=== PATIENT | female | born 1940 | race Caucasian/White ===

== ENCOUNTER → 2016-12-13 | Outpatient (CLI) | payer MEDICARE ==
[~2016-12-13] MED LIST: AC325T PO; ALB0.5V IH; ALEN70TA47 PO; ALN10T PO; ASPI-983 PO; ATEN25TA PO; BETA1TAB15 PO; CALC-694 PO; CALC1TAB38 PO; CALCIUM; CATHETER FLUSH 10 ML SYR IV PRN; CEFP500T4 PO; CHOL10003 PO; CLIN-62 PO; CPR500T PO; CYAN250010 PO; EZET1TAB21; FEXO180T PO; FISH1CAP15 PO; GLPZ10TCR; GLYB5TAB3 PO; HYDR-3456 PO; HYDR-3812 PO; HYDR1TAB PO; IOHEXOL 350 MG/ML 100 ML (OMNIPAQUE 350) VIAL IV ONE; IPRA3AMP INH; IRON150C3 PO; LINA5TAB PO; LOSA50TA36 PO; LOVA20TA2 PO; MAGN400T39 PO; METF-380 PO; MTF500T; MTF500T PO; MULT-608 PO; NS 100 ML (IVPB) BAG IV ONE; OMEG-9 PO; OXYC-272 PO; PANT40TA PO; PGLT30T; POLY17PO23 PO; ROSU10TA12 PO; SAXA2.5T PO; SNN187T PO; SUCR1TAB PO; TRAM50TA2 PO; TRIA16.5 NS; TRM50T PO; ULTRAM; WARF1TAB PO
--- OUTSIDE RECORDS SUMMARY | 2016-12-13 10:44 | XMS REPORT | Continuity of Care Document ---
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 [employer] CONSENSUS CONFERENCE ON [...] collected/obtained? YSpecimen Description CLEAN CATCH Urine Specific [place] April 07, 2014 9:24pm 1.020 - Has [...] Pathology Consult Specimen April 24, 2010 1:10pm [id number] - Glucometer January 18, 2012 11:21am 111 MG/DL H 70-110 Lab Scanned Report March 22, 2010 2:14pm Transfusion Reaction Form [id number] - Estimat Glomerular Filtration Rate January 25, [...] SEEN ON SCAN. CBC ALSO PERFORMED AT [facility]. THE PATHOLOGY REPORT INCLUDES THE CBC RESULT FROM [facility]. - Urine RBC (Auto) April [...] Encounters Encounter Location Date/Time Registered Clinic Via [facility] 06/09/14 7:34am Discharged Recurring Via [facility] 05/26/14 9:49am
--- NOTE | 2016-12-13 12:30 | Diagnostic Imaging Report ---
PROCEDURE: CT chest, abdomen, and pelvis with contrast. TECHNIQUE: Multiple contiguous axial images were obtained through the chest, abdomen, and pelvis after the administration of intravenous contrast. INDICATION: Colon cancer. TECHNIQUE: 15 ml of Omnipaque 350 is administered intravenously. Dose of contrast is reduced due to renal dysfunction. COMPARISON: 05/27/2016 exam is reviewed. FINDINGS: CT chest: There is prominent interstitial scarring seen in the lungs with no significant consolidation or mass. Calcified granuloma in the right lung base is seen. 1 cm lymph node in the aortopulmonary window is again seen minimally more prominent compared to the prior exam. No significant change. There is no significant lymphadenopathy in the mediastinum, mariah or axilla other than old calcified granulomas most prominent in the right hilum and infracarinal region. Heart size is at the upper limits of normal. There is no pericardial or pleural effusion. The osseous structures appear grossly unremarkable. CT abdomen and pelvis: There are scattered calcified granulomas in the liver and numerous calcified granulomas in the spleen. Nonspecific foci of hypervascularity in the liver near the gallbladder bed and right hepatic lobe are noted probably perfusional variation with no definite mass. Cholecystectomy clips are seen. Multiple cystic lesions in the pancreas are again noted up to 1.1 cm in size without significant change. The adrenal glands appear unremarkable. The kidneys have symmetric enhancement and contrast excretion. There is no hydronephrosis. Portions of the lower aspect of the pelvis are obscured by beam hardening artifacts from prosthesis of left hip replacement. The abdominal aorta is normal in caliber. No para-aortic significantly enlarged lymph nodes are seen. No pelvic lymphadenopathy is noted. There is no bowel obstruction. Surgical sutures are noted at the base of the cecum. Moderate amount of fecal material is seen in the colon and rectum. The osseous structures demonstrate degenerative changes of the lower lumbar spine. IMPRESSION: CT chest: Prominent interstitial scarring in the lungs. Borderline stable mediastinal lymph nodes are seen. No adverse development. CT abdomen and pelvis: Stable cystic lesions in the pancreas could relate to a pseudocyst or low-grade cystic neoplasm. No evidence of tumor recurrence or metastasis. Dictated by: Dictated on workstation # [id number]
== END ==
LOC: RAD 10:40
PROVIDERS: ATTEND Internal Medicine Hematology & Oncology
DX: C18.2 Malignant neoplasm of ascending colon (principal)
CPT/HCPCS: 71260; 74177

== ENCOUNTER → 2017-01-07 | Outpatient (CLI) | payer MEDICARE ==
[~2017-01-07] MED LIST changes: -CATHETER FLUSH 10 ML SYR IV PRN; -IOHEXOL 350 MG/ML 100 ML (OMNIPAQUE 350) VIAL IV ONE; -NS 100 ML (IVPB) BAG IV ONE
--- OUTSIDE RECORDS SUMMARY | 2017-01-07 09:57 | XMS REPORT | Continuity of Care Document ---
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 [employer] CONSENSUS CONFERENCE ON [...] collected/obtained? YSpecimen Description CLEAN CATCH Urine Specific [place] April 07, 2014 9:24pm 1.020 - Has [...] Pathology Consult Specimen April 24, 2010 1:10pm [id number] - Glucometer January 18, 2012 11:21am 111 MG/DL H 70-110 Lab Scanned Report March 22, 2010 2:14pm Transfusion Reaction Form [id number] - Estimat Glomerular Filtration Rate January 25, [...] SEEN ON SCAN. CBC ALSO PERFORMED AT [facility]. THE PATHOLOGY REPORT INCLUDES THE CBC RESULT FROM [facility]. - Urine RBC (Auto) April [...] Encounters Encounter Location Date/Time Registered Clinic Via [facility] 06/09/14 7:34am Discharged Recurring Via [facility] 05/26/14 9:49am
--- NOTE | 2017-01-08 15:31 | Diagnostic Imaging Report ---
INDICATION: Colon carcinoma. EXAMINATION: PET/CT colorectal subsequent. TECHNIQUE: PET/CT imaging was obtained from the base of the skull through the pelvis after the administration of 16.1 mCi of F-[address] imaging was utilized for localization and attenuation correction purposes. The low energy CT utilized for attenuation correction is not considered to be of high enough spatial resolution to allow in and of itself a separate anatomical analysis. FINDINGS: The previous PET/CT exam performed on 07/04/15 noted hypermetabolic activity within the colon. This was felt to be physiologic in nature. On this exam, there is still some hypermetabolic activity in both the large and small bowel. However, this hypermetabolic activity is less pronounced than noted on the prior study. Also, as noted on the prior exam, there is metabolic activity in the kidneys and bladder. This is felt to be physiologic in nature. There is still no hypermetabolic focus identified to suggest malignancy. The CT images through the thorax do show that there are are diffuse alveolar/interstitial, infiltrates, bilaterally, particularly on the right. These findings do seem somewhat more pronounced than on the prior exam. There could be an element of acute pneumonia/pulmonary edema present. Clinical followup is recommended. IMPRESSION: 1. When compared to the previous PET/CT exam, there has been no adverse change. There is no hypermetabolic activity to suggest the presence of malignancy. 2. The alveolar/interstitial infiltrates involving the lungs may well be chronic in nature. Even so, there could be an element of acute pneumonia/pulmonary edema present. Clinical followup is recommended. Dictated by: Dictated on workstation # [id number]
== END ==
LOC: RAD 09:53
PROVIDERS: ATTEND Internal Medicine Hematology & Oncology
DX: C18.2 Malignant neoplasm of ascending colon (principal)

== ENCOUNTER 2017-01-08 05:53 | Outpatient (CLI) | payer MEDICARE ==
[~2017-01-08] VITALS: Ht 167.6 cm; Wt 61.7 kg
[~2017-01-08 05:53] MED LIST changes: -BETA1TAB15 PO
--- OUTSIDE RECORDS SUMMARY | 2017-01-08 05:58 | XMS REPORT | Continuity of Care Document ---
Author Author [facility] Organization [facility] Address Unknown Phone Unavailable Care Team Providers Care Accounting/Finance Tutor Name Role Phone PAULO CARDOZA MD PCP Insurance Providers Payer Name Policy Number Subscriber Name Relationship Wps Medicare [id number] Bee Guevara I 18 Self / Same As Patient Blue Cross [facility] Supp [id number] Bee Guevara I 18 Self / Same As Patient Advance Directives Directive Response Recorded Date/Time Advance Directives Yes 04/07/14 8:56pm Health Care Power of Stem Frazer No 04/07/14 8:56pm Organ Donor Y ON [employer] LICENSE 04/07/14 8:56pm Problems No known problems [...] Type Severity Reaction Status Last Updated Penicillins ([id number]) Allergy N/V, RASH Active 10/25/11 Codeine Allergy [...] SELECTED GROUPS OF HIGH RISK PATIENTS. [employer] [place] CONSENSUS CONFERENCE ON [...] collected/obtained? YSpecimen Description CLEAN CATCH Urine Specific [place] April 07, 2014 9:24pm 1.020 - Has [...] Pathology Consult Specimen April 24, 2010 1:10pm [id number] - Glucometer January 18, 2012 11:21am 111 MG/DL H 70-110 Lab Scanned Report March 22, 2010 2:14pm Transfusion Reaction Form [id number] - Estimat Glomerular Filtration Rate January 25, [...] SEEN ON SCAN. CBC ALSO PERFORMED AT [facility]. THE PATHOLOGY REPORT INCLUDES THE CBC RESULT FROM [facility]. - Urine RBC (Auto) April 07, 2014 [...] Encounters Encounter Location Date/Time Registered Clinic Via [facility] 06/09/14 7:34am Discharged Recurring Via [facility] 05/26/14 9:49am
--- NOTE | 2017-01-08 09:07 | Conscious Sedation/ASA ---
Conscious Sedation Pre-Proced Time Reviewed: 09:00 ASA Class: 2 Airway Mallampati Classification: (holy cross appropriate class) I. II. III, IV Lungs Heart ASA score ASA 1: a normal healthy patient ASA 2: a patient with a mild systemic disease (mid diabetes, controlled hypertension, obesity ASA 3: a patient with a severe systemic disease that limits activity (angina , COPD, prior Myocardial infarction) ASA 4: a patient with an incapacitating disease that is a constant threat to life (CHF, renal failure) ASA 5: a moribund patient not expected to survive 24 hrs. (ruptured aneurysm) ASA 6: a declared brain patient whose organs are being harvested. For emergent operations, add the letter E after the classification Grade 2 Sedation Plan: Analgesia, Amnesia, Plan communicated to team members, Discussed options with patient/fam, Discussed risks with patient/fam Note The patient is an appropriate candidate to undergo the planned procedure, sedation, and anesthesia. The patient immediately re-assessed prior to indication. ANGE NUÑEZ MD Jan 08, 2017 9:07 am
--- NOTE | 2017-01-08 09:09 | Progress Note-Pre Operative ---
Pre-Operative Progress Note H&P Reviewed The H&P was reviewed, patient examined and no changes noted. Date H&P Reviewed: Jan 08, 2017 Time H&P Reviewed: 09:00 Pre-Operative Diagnosis: GERD, hx polyp ANGE NUÑEZ MD Jan 08, 2017 9:09 am
[2017-01-08] MEDS ORDERED: ONDANSETRON 4 MG/2 ML (SDV) Z0FRAN IV PRN (09:15)
[2017-01-08] MEDS ORDERED: ACETAMINOPHEN 325 MG TABLET/CAPLET (TYLENOL) PO PRN (09:15)
[2017-01-08] MEDS ORDERED: morphine INJ 10 MG/ML 1ML (SYR OR VIAL) IV PRN (09:15)
[2017-01-08] MEDS ORDERED: HYDROcodone/APAP 5 MG/325 MG (LORTAB) TAB PO PRN (09:15)
[2017-01-08] MEDS ORDERED: CHOL10003 PO (10:29)
[2017-01-08] MEDS ORDERED: BETA1TAB15 PO (10:29)
== END 2017-01-08 10:28 ==
LOC: PREOP 05:53
PROVIDERS: ATTEND Surgery Pediatric Surgery
DX: Z01.818 Encounter for other preprocedural examination (principal); Z12.11 Encounter for screening for malignant neoplasm of colon; Z85.038 Personal history of other malignant neoplasm of large intestine

== ENCOUNTER 2017-01-10 09:36 | Day surgery (SDC) | payer MEDICARE ==
[~2017-01-10] VITALS: Ht 167.6 cm; Wt 61.7 kg
[~2017-01-10 09:36] MED LIST changes: +BETA1TAB15 PO
--- OUTSIDE RECORDS SUMMARY | 2017-01-10 09:39 | XMS REPORT | Continuity of Care Document ---
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 [employer] CONSENSUS CONFERENCE ON [...] collected/obtained? YSpecimen Description CLEAN CATCH Urine Specific [place] April 07, 2014 9:24pm 1.020 - Has [...] Pathology Consult Specimen April 24, 2010 1:10pm [id number] - Glucometer January 18, 2012 11:21am 111 MG/DL H 70-110 Lab Scanned Report March 22, 2010 2:14pm Transfusion Reaction Form [id number] - Estimat Glomerular Filtration Rate January 25, [...] SEEN ON SCAN. CBC ALSO PERFORMED AT [facility]. THE PATHOLOGY REPORT INCLUDES THE CBC RESULT FROM [facility]. - Urine RBC (Auto) April 07, 2014 [...] Encounters Encounter Location Date/Time Registered Clinic Via [facility] 06/09/14 7:34am Discharged Recurring Via [facility] 05/26/14 9:49am
--- OUTSIDE RECORDS SUMMARY | 2017-01-10 09:41 | XMS REPORT | Continuity of Care Document ---
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 [employer] CONSENSUS CONFERENCE ON [...] collected/obtained? YSpecimen Description CLEAN CATCH Urine Specific [place] April 07, 2014 9:24pm 1.020 - Has [...] Pathology Consult Specimen April 24, 2010 1:10pm [id number] - Glucometer January 18, 2012 11:21am 111 MG/DL H 70-110 Lab Scanned Report March 22, 2010 2:14pm Transfusion Reaction Form [id number] - Estimat Glomerular Filtration Rate January 25, [...] SEEN ON SCAN. CBC ALSO PERFORMED AT [facility]. THE PATHOLOGY REPORT INCLUDES THE CBC RESULT FROM [facility]. - Urine RBC (Auto) April [...] Encounters Encounter Location Date/Time Registered Clinic [facility] 06/09/14 7:34am Discharged Recurring [facility] 05/26/14 9:49am
[2017-01-10 10:00] VITALS: BP 135/77
[2017-01-10] MEDS ORDERED: 1/2 NS IV SOLUTION 1,000 ML IV PRN (10:00)
[2017-01-10] MEDS ORDERED: LIDOCAINE JELLY 2% (XYLOCAINE) 5 ML TUBE MM PRN (10:00)
[2017-01-10] MEDS ORDERED: FLUMAZENIL (ROMAZICON) 0.1 MG/ML 5 ML VIAL INJ PRN (10:00)
[2017-01-10] MEDS ORDERED: NALOXONE 0.4 MG/ML 1 ML (NARCAN) VIAL IVP PRN (10:00)
[2017-01-10] MEDS ORDERED: NS IV 500 ML 500 ML ONE (10:08)
[2017-01-10] MEDS ORDERED: fentaNYL INJECTION 100 MCG/2 ML AMP ONE (10:29)
[2017-01-10] MEDS ORDERED: LIDOCAINE JELLY 2% (XYLOCAINE) 5 ML TUBE ONE (10:29)
[2017-01-10] MEDS ORDERED: NS IV 500 ML 500 ML IV PRN (10:30)
[2017-01-10] MEDS: fentaNYL INJECTION 100 MCG/2 ML AMP IVP PRN ×4 (10:57→11:25)
[2017-01-10] MEDS: MIDAZOLAM 2 MG/2 ML (VERSED) VIAL IVP PRN ×3 (11:00→11:20)
--- NOTE | 2017-01-10 11:01 | Progress Note-Pre Operative ---
Pre-Operative Progress Note H&P Reviewed The H&P was reviewed, patient examined and no changes noted. Date H&P Reviewed: Jan 10, 2017 Time H&P Reviewed: 10:30 Pre-Operative Diagnosis: hx colon cancer ANGE NUÑEZ MD Jan 10, 2017 11:01 am
--- NOTE | 2017-01-10 11:01 | Conscious Sedation/ASA ---
Conscious Sedation Pre-Proced Time Reviewed: 10:30 ASA Class: 2 Airway Mallampati Classification: ([place] appropriate class) I. II. III, IV Lungs Heart ASA score ASA 1: a normal healthy patient ASA 2: a patient with a mild systemic disease (mid diabetes, controlled hypertension, obesity ASA 3: a patient with a severe systemic disease that limits activity (angina , COPD, prior Myocardial infarction) ASA 4: a patient with an incapacitating disease that is a constant threat to life (CHF, renal failure) ASA 5: a moribund patient not expected to survive 24 hrs. (ruptured aneurysm) ASA 6: a declared brain patient whose organs are being harvested. For emergent operations, add the letter E after the classification Grade 2 Sedation Plan: Analgesia, Amnesia, Plan communicated to team members, Discussed options with patient/fam, Discussed risks with patient/fam Note The patient is an appropriate candidate to undergo the planned procedure, sedation, and anesthesia. The patient immediately re-assessed prior to indication. ANGE NUÑEZ MD Jan 10, 2017 11:01 am
[2017-01-10] MEDS ORDERED: ACETAMINOPHEN 325 MG TABLET/CAPLET (TYLENOL) PO PRN (11:15)
[2017-01-10] MEDS ORDERED: morphine INJ 10 MG/ML 1ML (SYR OR VIAL) IV PRN (11:15)
[2017-01-10] MEDS ORDERED: HYDROcodone/APAP 5 MG/325 MG (LORTAB) TAB PO PRN (11:15)
[2017-01-10] MEDS ORDERED: ONDANSETRON 4 MG/2 ML (SDV) Z0FRAN IV PRN (11:15)
--- NOTE | 2017-01-10 11:37 | Progress Note-Post Operative ---
Post-Operative Progess Note Pre-Operative Diagnosis hx colon cancer Post-Operative Diagnosis chronic stage 2 ext and int hemorrhoid, mild sigmoid diverticulosis. Post-Op Procedure Note Date of Procedure: Jan 10, 2017 Name of Procedure: Colonoscopy Anesthesia Type CS Estimated blood loss (mL): ANGE Marlow MD Jan 10, 2017 11:37 am
--- NOTE | 2017-01-10 11:38 | Discharge Inst-Surgical ---
D/C Lap Instructions-JOAQUIN Follow Up 5 years Activity as tolerated High Fiber Diet 25g or more per day Avoid Alcohol, Caffeine, Spicy [place] and Acid foods. Drink 64 fluid oz or more of fluids per day. Symptoms to Report: Fever over 101 degree F, Nausea/Vomiting If any problems/questions: Contact your physician or go to Emergency Room ANGE NUÑEZ MD Jan 10, 2017 11:38 am
[2017-01-10 11:45] VITALS: BP 103/55
[2017-01-10 12:15] VITALS: BP 133/79
[2017-01-10 12:25] VITALS: BP 133/79
[2017-01-10 13:00] VITALS: BP 112/58
--- NOTE | 2017-01-10 19:41 | PROCEDURE REPORT ---
PROCEDURE PHYSICIAN: ANGE HARTMANN DATE OF PROCEDURE: 01/10/2017 ATTENDING PRIMARY CARE PHYSICIAN: Dr. Cruz PREOPERATIVE DIAGNOSIS: History of colon cancer. POSTOPERATIVE DIAGNOSES: 1. Chronic, stage II external and internal hemorrhoids. 2. Mild sigmoid diverticulosis. PROCEDURE: Colonoscopy. SURGEON: Dr. Hartmann. ANESTHESIA: Conscious sedation. ESTIMATED BLOOD LOSS: Minimal. FINDINGS: Chronic, stage II external and internal hemorrhoids, not actively edematous nor inflamed and no bleeding. There was a very mild sigmoid diverticulosis. The colorectal anastomosis was normal with no recurrent tumors. DISPOSITION: The patient tolerated procedure well. Ms. Bee Barrios is a 76-year-old female in need of a follow-up colonoscopy. She has a history of colon cancer and underwent a right hemicolectomy in 2009. At this time, she reports that for the most part, she is doing well. She did report iron deficiency anemia and has been treated for that. She does not report any red blood per rectum nor any dark tarry stools. She does have family history of cancers including sisters with breast as well as colon cancer. PROCEDURE: The patient was brought to the endoscopy suite, laid in the left lateral decubitus position. After adequate IV pain and sedative medications and conscious sedation anesthesia, a digital rectal examination was performed. Mild chronic, stage II external and internal hemorrhoids were identified which were not actively edematous nor inflamed and no bleeding. Normal sphincter tone was felt and there were no palpable masses. The endoscope was then intubated into the anus and the rectum gently insufflated. The endoscope was then advanced through the valves of Reyes the rectum with no polyps or any neoplasms identified. Through the sigmoid colon, a mild sigmoid diverticulosis was identified. The endoscope was then advanced through the remainder of the descending and transverse colon to the ileocolonic anastomosis which appeared normal. There were no recurrent tumors. The endoscope was intubated into the small bowel, which appeared normal as well. The endoscope was then slowly withdrawn while taking a second look and suctioning of residual air with no additional findings. The patient tolerated the procedure well. We will recommend continued medical management with high fiber diet with at least 25 to 30 grams of fiber per day, as well as at least 64 fluid ounces of water daily to promote soft stools on a daily basis. We will recommend follow-up colonoscopy in 5 years. Job ID: [id number] Dictated Date: 01/10/2017 11:42:49 [employer] R12 Developer Date: 01/10/2017 19:35:40 / frandy
== END 2017-01-10 12:30 | disposition home or self-care (01) ==
LOC: ENDO 09:36
PROVIDERS: ATTEND Surgery Pediatric Surgery
DX: Z12.11 Encounter for screening for malignant neoplasm of colon (principal); Z85.038 Personal history of other malignant neoplasm of large intestine; K57.30 Diverticulosis of large intestine without perforation or abscess without bleeding; K64.1 Second degree hemorrhoids
CPT/HCPCS: 82962

== ENCOUNTER 2017-03-04 08:23 | Outpatient (RCR) | payer MEDICARE ==
--- OUTSIDE RECORDS SUMMARY | 2016-12-10 09:46 | XMS REPORT | Continuity of Care Document ---
Author Author [facility] Organization [facility] Address Unknown Phone Unavailable Care Team Providers Care Second Language Tutor Name Role Phone PAULO CARDOZA MD PCP Insurance Providers Payer Name Policy Number Subscriber Name Relationship Wps Medicare [id number] Bee Guevara I 18 Self / Same As Patient Blue Cross [facility] Supp [id number] Bee Guevara I 18 Self / Same As Patient Advance Directives Directive Response Recorded Date/Time Advance Directives Yes 04/07/14 8:56pm Health Care Power of Retail Team Leader No 04/07/14 8:56pm Organ Donor Y ON [employer]'S LICENSE 04/07/14 8:56pm Problems No known problems or medical conditions. Medications Medication Dose Route Sig Days/Qty Instructions Order Date Discontinued Date Status Metformin HCl 2 Tab PO TWICE A DAY 08/21/08 01/17/12 Discontinued Pioglitazone HCl 08/21/08 06/05/10 Discontinued [Ultram] 08/21/08 01/08/11 Discontinued [Calcium] DAILY 08/21/08 10/25/11 Discontinued Glyburide 10 Mg PO TWICE A DAY 05/07/09 Active Alendronate Sodium 1 PO ONCE WEEKLY ON Friday05/07/09 10/25/11 Discontinued Multivitamins 1 PO DAILY 05/07/09 Active Fexofenadine HCl 1 Tab PO DAILY 06/05/10 10/25/11 Discontinued Rosuvastatin Calcium 1 Each PO BEDTIME 06/05/10 10/25/11 Discontinued Fish Oil/Dha/Epa 2 Each PO TWICE A DAY 10/25/11 Active Calcium Citrate/Vitamin D3 1 Each PO DAILY 10/25/11 01/17/12 Discontinued Lovastatin (Mevacor) 1 Each PO DAILY 10/25/11 Active Alendronate Sodium 70 Mg PO WEEKLY 10/25/11 12/12/11 Discontinued Tramadol HCl 50 - 100 Mg PO EVERY 6 HOURS PRN 11/01/11 01/17/12 Discontinued Cefprozil 1 Each PO TWICE A DAY 20 Qty FOR INFECTION 12/12/11 01/18/12 Discontinued Triamcinolone Acetonide 16.5 Gm NS TWICE A DAY 1 Qty 12/12/11 Discontinued Ciprofloxacin 1 Tab PO TWICE A DAY 14 Qty 12/16/11 01/18/12 Discontinued Metformin HCl (Glucophage) 1 Each PO TWICE A DAY WITH MEALS 01/17/12 Active Calcium Carbonate/Vitamin D3 1 Each PO TWICE A DAY 01/17/12 Active Alendronate Sodium 70 Mg PO WEEKLY 01/17/12 04/07/14 Discontinued Acetaminophen 650 Mg PO EVERY 6 HOURS PRN for pain or fever 01/18/12 04/07/14 Discontinued Polyethylene Glycol 17 Gm PO THREE TIMES A DAY PRN water or juice 19/1004/07/14 Discontinued Senna 8.6 Mg PO DAILY 01/18/12 04/07/14 Discontinued Sucralfate 1 G PO BEFORE MEALS at bedtime 01/18/12 04/07/14 Discontinued Pantoprazole Sodium 40 Mg PO DAILY 01/18/12 Active Saxagliptin Hydrochloride 2.5 Mg PO DAILY 04/07/14 Active Hydrocodone Bit/Acetaminophen 1 Tab PO Q4-6HR PRN PAIN 14 Qty FOR PAIN Active Social History Social History Problem Response Recorded Date/Time Alcohol Use Denies Use 04/07/2014 8:56pm Recreational Drug Use No 04/07/2014 8:56pm Sexually Transmitted Disease No 04/07/2014 8:56pm Hospital Discharge Instructions No hospital discharge instructions. Plan of Care No plan of care. Functional Status No functional status results. Allergies, Adverse Reactions, Alerts Allergen Type Severity Reaction Status Last Updated Penicillins ([id number]) Allergy N/V, RASH Active 10/25/11 Codeine Allergy Unknown Active 08/22/08 Aspirin Allergy N/V Active 10/25/11 SILK TAPE Allergy Mild Active 05/07/09 Immunizations Name Given Type Date of Influenza Vaccine 07/17/11 Historical Vital Signs No known vital signs results. Results Test Source Date Result Interp. Ref. Range Comments Absolute Reticulocyte Count April 24, 2010 1:10pm 39 10^3/uL N 22-82 Activated Partial Thromboplast Time August 22, 2008 5:20am 27 SEC N 24- 35 Alanine Aminotransferase (ALT/SGPT) January 25, 2014 10:05am 35 U/L N 30- 65 Albumin January 25, 2014 10:05am 3.9 G/DL N 3.4-5.0 Alkaline Phosphatase January 25, 2014 10:05am 90 U/L N 50-136 Amylase Level January 15, 2012 8:00pm 23 U/L L 25-115 Anisocytosis May 15, 2010 7:55am SLIGHT - Aspartate Amino Transf (AST/SGOT) January 25, 2014 10:05am 15 U/L N 15-37 BUN/Creatinine Ratio January 25, 2014 10:05am 13 - Band Neutrophils May 15, 2010 7:55am 0 % - Basophils # (Auto) January 25, 2014 10:05am 0.1 10^3/uL N 0.0-0.1 Basophils % (Manual) May 15, 2010 7:55am 0 % - Basophils (%) (Auto) January 25, 2014 10:05am 1 % N 0-10 Blood Urea Nitrogen January 25, 2014 10:05am 16 MG/DL N 7-18 Calcium Level January 25, 2014 10:05am 9.7 MG/DL N 8.5-10.1 Carbon Dioxide Level January 25, 2014 10:05am 30 MMOL/L N 21-32 Carcinoembryonic Antigen January 25, 2014 10:05am 4.1 NG/ML - INTERPRETIVE DATACEA IS A USEFUL TUMOR MARKER IN THE MONITORING AND STAGING OF PATIENTS WITH KNOWN CARCINOMA OF THE GASTROINTESTINAL TRACT. BREAST, PANCREAS AND LUNG. ELEVATIONS ALSO OCCUR IN SMOKERS AND BENIGN INFLAMMATORY CONDITIONS OF THE G.I. TRACT, LIVER, LUNG AND KIDNEY. CEA SHOULD,THEREFORE, NOT BE USED A SCREEN FOR MALIGNANT DISEASE. NON-SMOKERS <2.5 SMOKERS <5.0 PATIENTS WHO HAVE RECEIVED ONCOSCINT CR/OV TRACER MAY DEVELOP HUMAN ANTI MOUSE ANTIBODIES THAT CAUSE INTERFERENCE IN THIS TEST AND CAUSE FALSELY ELEVATED RESULTS. PLEASE ADVISE THE LABORATORY IF THIS IS A POSSIBILITY SO THAT ALTERNATE TESTING PROCEDURES MAY BE USED. Chloride Level January 25, 2014 10:05am 100 MMOL/L L 101-110 Cholesterol Level July 27, 2013 9:40am 155 MG/DL N -200 Creatinine January 25, 2014 10:05am 1.2 MG/DL N 0.6-1.3 Direct Bilirubin July 27, 2013 9:40am 0.2 MG/DL N 0.0-0.30 Eosinophils # (Auto) January 25, 2014 10:05am 0.2 10^3/uL N 0.0-0.3 Eosinophils % (Manual) May 15, 2010 7:55am 3 % - Eosinophils (%) (Auto) January 25, 2014 10:05am 4 % N 0-10 Ferritin May 31, 2010 11:23am 201 H NG/ML - Glucose Level January 25, 2014 10:05am 236 MG/DL H 74-106 Group A Streptococcus Screen December 12, 2011 12:28pm NEGATIVE - HDL Cholesterol July 27, 2013 9:40am 53 MG/DL N 35-60 Hematocrit January 25, 2014 10:05am 38 % N 35-52 Hemoglobin January 25, 2014 10:05am 12.7 G/DL N 11.5-16.0 Hemoglobin A1c July 27, 2013 9:40am 7.4 % H 4.5-6.2 Iron Level April 24, 2010 1:10pm 17 L UG/DL - LDL Cholesterol July 27, 2013 9:40am 74 MG/DL N 0-129 Lactate Dehydrogenase January 16, 2012 5:30am 122 U/L N 115-218 Lactic Acid Level May 09, 2010 5:34am 1.6 MMOL/L N 0.4-2.0 Lipase January 15, 2012 8:00pm 73 U/L N 73-393 Lymphocytes # (Auto) January 25, 2014 10:05am 2.1 X 10^3 N 1.0-4.0 Lymphocytes % (Manual) May 15, 2010 7:55am 13 % - Lymphocytes (%) (Auto) January 25, 2014 10:05am 32 % N 12-44 Magnesium Level January 18, 2012 6:55am 1.8 MG/DL N 1.8-2.4 Mean Corpuscular Hemoglobin January 25, 2014 10:05am 31 PG N 25-34 Mean Corpuscular Hemoglobin Concent January 25, 2014 10:05am 33 G/DL N 32- 36 Mean Corpuscular Volume January 25, 2014 10:05am 94 FL N 80-99 Mean Platelet Volume January 25, 2014 10:05am 9.6 FL N 7.4-10.4 Microcytosis May 08, 2010 9:15pm SLIGHT - Monocytes # (Auto) January 25, 2014 10:05am 0.6 X 10^3 N 0.0-1.0 Monocytes % (Manual) May 15, 2010 7:55am 13 % - Monocytes (%) (Auto) January 25, 2014 10:05am 8 % N 0-12 Neutrophils # (Auto) January 25, 2014 10:05am 3.7 X 10^3 N 1.8-7.8 Neutrophils % (Manual) May 15, 2010 7:55am 71 % - Neutrophils (%) (Auto) January 25, 2014 10:05am 55 % N 42-75 Percent Reticulocyte Count April 24, 2010 1:10pm 0.93 % N 0.50-2.40 Platelet Count January 25, 2014 10:05am 327 10^3/uL N 130-400 Potassium Level January 25, 2014 10:05am 4.6 MMOL/L N 3.6-5.0 Prothromb Time International Ratio August 22, 2008 5:20am 1.0 N 0.8- 1.4 INTERPRETIVE DATASUGGESTED THERAPEUTIC RANGE FOR INR'S : VENOUS THROMBOSIS, PULMONARY EMBOLISM, OR PREVENTION OF SYSTEMIC EMBOLISM (EG. IN ATRIAL FIBRILLATION): 2.0 - 3.0 MECHANICAL PROSTHETIC HEART VALVES: 2.5 - 3.5* *NOTE: INR'S UP TO 4.5 MAY BE NECESSARY IN SELECTED GROUPS OF HIGH RISK PATIENTS. [employer] [place] [employer] CONSENSUS CONFERENCE ON ANTITHROMBOTIC THERAPY (2000). Prothrombin Time August 22, 2008 5:20am 13.8 SEC N 12.2-14.7 Red Blood Count January 25, 2014 10:05am 4.07 10^6/uL L 4.35-5.85 Red Cell Distribution Width January 25, 2014 10:05am 12.3 % N 10.0-14.5 Sodium Level January 25, 2014 10:05am 135 MMOL/L N 135-145 Thyroid Stimulating Hormone (TSH) August 10, 2012 8:20am 1.17 UIU/ML N 0.34-5.60 Total Bilirubin January 25, 2014 10:05am 0.4 MG/DL N 0.0-1.0 Total Iron Binding Capacity April 24, 2010 1:10pm 299 UG/DL - Total Protein January 25, 2014 10:05am 7.8 G/DL N 6.4-8.2 Transferrin % Saturation April 24, 2010 1:10pm 6 L % - Triglycerides Level July 27, 2013 9:40am 141 MG/DL N 30.0-150.0 Urine Amorphous Sediment May 08, 2010 11:59pm FEW ARELI PHOSPHATE H - Has specimen been collected/obtained? YSpecimen Description CLEAN CATCH Urine Bacteria April 07, 2014 9:24pm TRACE /HPF - Has specimen been collected/obtained? YSpecimen Description CLEAN CATCH Urine Bilirubin April 07, 2014 9:24pm NEGATIVE - Has specimen been collected/obtained? YSpecimen Description CLEAN CATCH Urine Calcium Oxalate Crystals April 07, 2014 9:24pm FEW /LPF H - Has specimen been collected/obtained? YSpecimen Description CLEAN CATCH Urine Casts April 07, 2014 9:24pm NONE /LPF - Has specimen been collected/obtained? YSpecimen Description CLEAN CATCH Urine Clarity April 07, 2014 9:24pm CLEAR - Has specimen been collected/obtained? YSpecimen Description CLEAN CATCH Urine Color April 07, 2014 9:24pm YELLOW - Has specimen been collected /obtained? YSpecimen Description CLEAN CATCH Urine Crystals April 07, 2014 9:24pm PRESENT /LPF H - Has specimen been collected/obtained? YSpecimen Description CLEAN CATCH Urine Culture Indicated April 07, 2014 9:24pm NO - Has specimen been collected/obtained? YSpecimen Description CLEAN CATCH Urine Glucose (UA) April 07, 2014 9:24pm NEGATIVE - Has specimen been collected/obtained? YSpecimen Description CLEAN CATCH Urine Hyaline Casts December 16, 2011 7:52pm 10-25 H - Has specimen been collected/obtained? YSpecimen Description CLEAN CATCH Urine Ketones April 07, 2014 9:24pm NEGATIVE - Has specimen been collected/obtained? YSpecimen Description CLEAN CATCH Urine Leukocyte Esterase April 07, 2014 9:24pm 2+ H - Has specimen been collected/obtained? YSpecimen Description CLEAN CATCH Urine Mucus April 07, 2014 9:24pm SMALL /LPF H - Has specimen been collected/obtained? YSpecimen Description CLEAN CATCH Urine Nitrite April 07, 2014 9:24pm NEGATIVE - Has specimen been collected/obtained? YSpecimen Description CLEAN CATCH Urine Protein April 07, 2014 9:24pm 1+ H - Has specimen been collected/ obtained? YSpecimen Description CLEAN CATCH Urine RBC April 07, 2014 9:24pm NONE /HPF - Has specimen been collected/obtained? YSpecimen Description CLEAN CATCH Urine Specific [place] April 07, 2014 9:24pm 1.020 - Has specimen been collected/obtained? YSpecimen Description CLEAN CATCH Urine Squamous Epithelial Cells April 07, 2014 9:24pm 0-2 /HPF - Has specimen been collected/obtained? YSpecimen Description CLEAN CATCH Urine Urobilinogen April 07, 2014 9:24pm NORMAL MG/DL - Has specimen been collected/obtained? YSpecimen Description CLEAN CATCH Urine WBC April 07, 2014 9:24pm 0-2 /HPF - Has specimen been collected /obtained? YSpecimen Description CLEAN CATCH Urine pH April 07, 2014 9:24pm 6.5 - Has specimen been collected/ obtained? YSpecimen Description CLEAN CATCH VLDL Cholesterol July 27, 2013 9:40am 28 MG/DL N 5-40 White Blood Count January 25, 2014 10:05am 6.7 10^3/uL N 4.3-11.0 Pathology Consult Specimen April 24, 2010 1:10pm [id number] - Glucometer January 18, 2012 11:21am 111 MG/DL H 70-110 Lab Scanned Report March 22, 2010 2:14pm Transfusion Reaction Form [id number] - Estimat Glomerular Filtration Rate January 25, 2014 10:05am 44 - GFR INTERPRETIVE DATA UNITS FOR ESTIMATED GFR (eGFR): mL/min/1.73 M2 REFERENCE RANGE FOR ESTIMATED GFR (eGFR) eGFR NORMAL eGFR >60 MODERATELY DECREASED eGFR 30-59 SEVERLY DECREASED eGFR 15-29 KIDNEY FAILURE <15 (OR DIALYSIS) Immature Platelet Fraction April 24, 2010 1:10pm Test not performedPLATELET MICROCLUMPS PRESENT ON SMEAR REVIEW. IPF VALUE MAY NOT BE ACCURATE. SLIDE SCANNED FOR ANEMIA. LARGE PLATELETS SEEN ON SCAN. CBC ALSO PERFORMED AT [facility]. THE PATHOLOGY REPORT INCLUDES THE CBC RESULT FROM [facility]. - Urine RBC (Auto) April 07, 2014 9:24pm NEGATIVE - Has specimen been collected/obtained? YSpecimen Description CLEAN CATCH Blood Culture Peripheral-Lt Ac December 15, 2008 6:22pm No growth Throat Culture Throat December 12, 2011 12:28pm Strep, Beta Hemolytic Group C Urine Culture Urine-Clean Catch December 16, 2011 7:52pm Pseudomonas Aeruginosa Gram Stain Abscess-Abdomen May 09, 2010 2:40pm Procedures No known history of procedures. Encounters Encounter Location Date/Time Registered Clinic Via [facility] 06/09/14 7:34am Discharged Recurring Via [facility] 05/26/14 9:49am
[2016-12-10 09:52] LABS: BASOPHILS # (AUTO) 0.1 10^3/uL (0.0-0.1); BASOPHILS % (AUTO) 1 % (0-10); EOSINOPHILS # (AUTO) 0.4 10^3/uL (0.0-0.3); EOSINOPHILS % (AUTO) 6 % (0-10); LYMPHOCYTES # (AUTO) 1.5 X 10^3 (1.0-4.0); LYMPHOCYTES % (AUTO) 22 % (12-44); MEAN CORPUSCULAR HEMOGLOBIN 29 PG (25-34); MEAN CORPUSCULAR HGB CONC 32 G/DL (32-36); MEAN CORPUSCULAR VOLUME 91 FL (80-99); MEAN PLATELET VOLUME 9.7 FL (7.4-10.4); MONOCYTES # (AUTO) 0.7 X 10^3 (0.0-1.0); MONOCYTES % (AUTO) 10 % (0-12); NEUTROPHILS # (AUTO) 4.2 X 10^3 (1.8-7.8); NEUTROPHILS % (AUTO) 61 % (42-75); PLATELET COUNT 279 10^3/uL (130-400); RED BLOOD COUNT 3.92 10^6/uL (4.35-5.85); RED CELL DISTRIBUTION WIDTH 14.9 % (10.0-14.5); WHITE BLOOD COUNT 6.9 10^3/uL (4.3-11.0)
[2016-12-10 10:29] LABS: ALBUMIN 4.2 G/DL (3.2-4.5); BILIRUBIN,TOTAL 0.4 MG/DL (0.1-1.0); CALCIUM 9.7 MG/DL (8.5-10.1); CREATININE SERUM 1.23 MG/DL (0.60-1.30); TOTAL PROTEIN 6.9 G/DL (6.4-8.2)
[2017-03-04 08:55] LABS: BASOPHILS # (AUTO) 0.1 10^3/uL (0.0-0.1); BASOPHILS % (AUTO) 2 % (0-10); EOSINOPHILS # (AUTO) 0.3 10^3/uL (0.0-0.3); EOSINOPHILS % (AUTO) 4 % (0-10); LYMPHOCYTES # (AUTO) 2.1 X 10^3 (1.0-4.0); LYMPHOCYTES % (AUTO) 34 % (12-44); MEAN CORPUSCULAR HEMOGLOBIN 30 PG (25-34); MEAN CORPUSCULAR HGB CONC 33 G/DL (32-36); MEAN CORPUSCULAR VOLUME 91 FL (80-99); MEAN PLATELET VOLUME 9.5 FL (7.4-10.4); MONOCYTES # (AUTO) 0.6 X 10^3 (0.0-1.0); MONOCYTES % (AUTO) 9 % (0-12); NEUTROPHILS # (AUTO) 3.2 X 10^3 (1.8-7.8); NEUTROPHILS % (AUTO) 51 % (42-75); PLATELET COUNT 292 10^3/uL (130-400); RED BLOOD COUNT 4.09 10^6/uL (4.35-5.85); WHITE BLOOD COUNT 6.3 10^3/uL (4.3-11.0)
[2017-03-04 09:28] LABS: ALBUMIN 4.2 G/DL (3.2-4.5); BILIRUBIN,TOTAL 0.4 MG/DL (0.1-1.0); CALCIUM 10.3 MG/DL (8.5-10.1); CREATININE SERUM 1.14 MG/DL (0.60-1.30); POTASSIUM 4.5 MMOL/L (3.6-5.0); TOTAL PROTEIN 7.2 G/DL (6.4-8.2)
== END 2017-03-10 | disposition home or self-care (01) ==
LOC: ONC 08:23
PROVIDERS: ATTEND Internal Medicine Hematology & Oncology
DX: Z08 Encounter for follow-up examination after completed treatment for malignant neoplasm (principal); Z85.038 Personal history of other malignant neoplasm of large intestine; D50.9 Iron deficiency anemia, unspecified; E11.9 Type 2 diabetes mellitus without complications; I10 Essential (primary) hypertension; E78.5 Hyperlipidemia, unspecified; Z79.899 Other long term (current) drug therapy; Z92.21 Personal history of antineoplastic chemotherapy
CPT/HCPCS: 36415; 80053; 82378; 82728; 83540; 85025; 99213

== ENCOUNTER → 2017-03-04 | Outpatient (CLI) | payer MEDICARE ==
[2017-03-04 09:49] LABS: THYROID STIMULATING HORMONE 1.2 UIU/ML (0.35-4.94)
== END ==
LOC: LAB 08:27
PROVIDERS: ATTEND Internal Medicine
DX: I10 Essential (primary) hypertension (principal); E11.9 Type 2 diabetes mellitus without complications; E78.5 Hyperlipidemia, unspecified; Z79.899 Other long term (current) drug therapy
CPT/HCPCS: 36415; 80061; 83036; 84443

== ENCOUNTER 2017-11-19 12:25 | Outpatient (RCR) | payer MEDICARE ==
[~2017-11-19 12:25] MED LIST changes: +ACHD5005 PO; -HYDR-3812 PO; -IPRA3AMP INH; +IPRA3AMP31 INH
[2017-11-19 13:25] LABS: BASOPHILS # (AUTO) 0.1 10^3/uL (0.0-0.1); BASOPHILS % (AUTO) 1 % (0-10); EOSINOPHILS # (AUTO) 0.5 10^3/uL (0.0-0.3); EOSINOPHILS % (AUTO) 5 % (0-10); HEMATOCRIT 34 % (35-52); HEMOGLOBIN 11.5 G/DL (11.5-16.0); LYMPHOCYTES # (AUTO) 2.6 X 10^3 (1.0-4.0); LYMPHOCYTES % (AUTO) 27 % (12-44); MEAN CORPUSCULAR HEMOGLOBIN 31 PG (25-34); MEAN CORPUSCULAR HGB CONC 34 G/DL (32-36); MEAN CORPUSCULAR VOLUME 91 FL (80-99); MEAN PLATELET VOLUME 9.8 FL (7.4-10.4); MONOCYTES # (AUTO) 1.1 X 10^3 (0.0-1.0); MONOCYTES % (AUTO) 11 % (0-12); NEUTROPHILS # (AUTO) 5.7 X 10^3 (1.8-7.8); NEUTROPHILS % (AUTO) 57 % (42-75); PLATELET COUNT 294 10^3/uL (130-400); RED BLOOD COUNT 3.73 10^6/uL (4.35-5.85); RED CELL DISTRIBUTION WIDTH 12.6 % (10.0-14.5); WHITE BLOOD COUNT 9.9 10^3/uL (4.3-11.0)
[2017-11-19 13:45] LABS: ALBUMIN 4.1 GM/DL (3.2-4.5); BILIRUBIN,TOTAL 0.2 MG/DL (0.1-1.0); CALCIUM 9.6 MG/DL (8.5-10.1); CREATININE SERUM 1.16 MG/DL (0.60-1.30); POTASSIUM 4.6 MMOL/L (3.6-5.0); TOTAL PROTEIN 7.1 GM/DL (6.4-8.2)
== END 2018-02-17 | disposition home or self-care (01) ==
LOC: ONC 12:25
PROVIDERS: ATTEND Internal Medicine Hematology & Oncology
DX: C18.2 Malignant neoplasm of ascending colon (principal); D50.9 Iron deficiency anemia, unspecified; E11.9 Type 2 diabetes mellitus without complications; K26.9 Duodenal ulcer, unspecified as acute or chronic, without hemorrhage or perforation; I47.1 Supraventricular tachycardia; M15.8 Other polyosteoarthritis; E78.5 Hyperlipidemia, unspecified; I10 Essential (primary) hypertension
CPT/HCPCS: 36415; 80053; 82378; 85025; 99213

== ENCOUNTER 2018-07-23 12:45 | Outpatient (RCR) | payer MEDICARE ==
[~2018-07-23 12:45] MED LIST changes: -LOSA50TA36 PO; +LOSA50TA7 PO
[2018-07-23 13:26] LABS: BASOPHILS # (AUTO) 0.1 10^3/uL (0.0-0.1); BASOPHILS % (AUTO) 1 % (0-10); EOSINOPHILS # (AUTO) 0.3 10^3/uL (0.0-0.3); EOSINOPHILS % (AUTO) 4 % (0-10); HEMATOCRIT 31 % (35-52); HEMOGLOBIN 10.9 G/DL (11.5-16.0); LYMPHOCYTES # (AUTO) 2.5 X 10^3 (1.0-4.0); LYMPHOCYTES % (AUTO) 31 % (12-44); MEAN CORPUSCULAR HEMOGLOBIN 31 PG (25-34); MEAN CORPUSCULAR HGB CONC 35 G/DL (32-36); MEAN CORPUSCULAR VOLUME 89 FL (80-99); MEAN PLATELET VOLUME 9.4 FL (7.4-10.4); MONOCYTES # (AUTO) 0.8 X 10^3 (0.0-1.0); MONOCYTES % (AUTO) 10 % (0-12); NEUTROPHILS # (AUTO) 4.4 X 10^3 (1.8-7.8); NEUTROPHILS % (AUTO) 54 % (42-75); PLATELET COUNT 299 10^3/uL (130-400); RED BLOOD COUNT 3.52 10^6/uL (4.35-5.85); RED CELL DISTRIBUTION WIDTH 12.6 % (10.0-14.5)
[2018-07-23 14:21] LABS: ALANINE AMINOTRANSFERASE 17 U/L (0-55); ALKALINE PHOSPHATASE 103 U/L (40-136); BILIRUBIN,TOTAL 0.3 MG/DL (0.1-1.0); BUN/CREATININE RATIO 29; CALCIUM 8.8 MG/DL (8.5-10.1); CARBON DIOXIDE 22 MMOL/L (21-32); CHLORIDE 111 MMOL/L (98-107); CREATININE SERUM 0.65 MG/DL (0.60-1.30); GFR ESTIMATED > 60; GLUCOSE 84 MG/DL (70-105); POTASSIUM 4.6 MMOL/L (3.6-5.0); SODIUM 141 MMOL/L (135-145); TOTAL PROTEIN 6.7 GM/DL (6.4-8.2)
== END 2018-08-02 | disposition home or self-care (01) ==
LOC: ONC 12:45
PROVIDERS: ATTEND Internal Medicine Hematology & Oncology
DX: C18.2 Malignant neoplasm of ascending colon (principal); D50.9 Iron deficiency anemia, unspecified; E11.9 Type 2 diabetes mellitus without complications; K26.9 Duodenal ulcer, unspecified as acute or chronic, without hemorrhage or perforation; I47.1 Supraventricular tachycardia; M15.8 Other polyosteoarthritis; E78.5 Hyperlipidemia, unspecified; I10 Essential (primary) hypertension
CPT/HCPCS: 36415; 80053; 82378; 82728; 85025; 99213

== ENCOUNTER 2018-08-18 19:49 | Inpatient (IN) | payer MEDICARE ==
[~2018-08-18] VITALS: Ht 167.6 cm; Wt 65.7 kg
--- OUTSIDE RECORDS SUMMARY | 2018-08-18 20:00 | XMS REPORT | Continuity of Care Document ---
Author Author [facility] Organization [facility] Address Unknown Phone Unavailable Allergies Active Description Code Type Severity Reaction Onset Reported/Identified Relationship to Patient Clinical Status Yes codeine [id number] Drug Allergy Unknown N/A 08/22/2008 Yes SILK TAPE SILK TAPE Mild N/A 05/07/2009 Yes aspirin [id number] Drug Allergy Unknown N/V 06/17/2014 Yes Penicillins [id number] Drug Allergy Unknown N/V, RASH 06/17/2014 Medications There is no data. Problems Date Dx Coded Attending Type Code Diagnosis Diagnosed By 03/20/2010 Ot 285.9 05/17/2010 Ot 041.4 05/17/2010 Ot 153.4 05/17/2010 Ot 244.9 05/17/2010 Ot 250.00 05/17/2010 Ot 272.4 05/17/2010 Ot 280.9 05/17/2010 Ot 458.9 05/17/2010 Ot 560.1 05/17/2010 Ot 574.00 05/17/2010 Ot 577.2 05/17/2010 Ot 599.0 06/05/2010 Ot 153.4 06/05/2010 Ot 250.00 06/05/2010 Ot V58.69 09/10/2010 Ot 153.9 09/10/2010 Ot 250.00 09/10/2010 Ot 272.4 09/10/2010 Ot 280.9 09/10/2010 Ot V58.11 09/10/2010 Ot V58.69 01/08/2011 Ot 813.44 01/08/2011 Ot 922.1 01/08/2011 Ot 959.3 01/08/2011 Ot E000.8 01/08/2011 Ot E849.0 01/08/2011 Ot E885.9 01/15/2011 Ot 153.9 01/15/2011 Ot 250.00 01/15/2011 Ot 272.4 01/15/2011 Ot 280.9 01/15/2011 Ot V58.69 01/15/2011 Ot V58.81 04/19/2011 Ot 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 04/19/2011 Ot 250.00 DIAB ANTHONY WO COMPL, TYPE II OR UNSPEC TY 04/19/2011 Ot 272.4 HYPERLIPIDEMIA NEC/NOS 04/19/2011 Ot 280.9 IRON DEFIC ANEMIA NOS 04/19/2011 Ot 401.9 HYPERTENSION NOS 04/19/2011 Ot V45.72 ACQRD ABSENCE INTESTINE - LARGE/SMALL 04/19/2011 Ot V58.69 OTH MED,LT, CURRENT USE 04/19/2011 Ot V87.41 PERSONAL HISTORY OF ANTINEOPLASTIC CHEMO 05/27/2011 Ot 250.00 DIAB ANTHONY WO COMPL, TYPE II OR UNSPEC TY 05/27/2011 Ot 272.0 PURE HYPERCHOLESTEROLEM 05/27/2011 Ot V10.05 HX OF COLONIC MALIGNANCY 05/27/2011 Ot V58.69 OTH MED,LT, CURRENT USE 07/23/2011 Ot 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 07/23/2011 Ot 250.00 DIAB ANTHONY WO COMPL, TYPE II OR UNSPEC TY 07/23/2011 Ot 280.9 IRON DEFIC ANEMIA NOS 07/23/2011 Ot 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,NEC 07/23/2011 Ot V58.69 OTH MED,LT, CURRENT USE 10/22/2011 Ot 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 10/22/2011 Ot 285.9 ANEMIA NOS 11/02/2011 Ot 715.97 OSTEOARTHROS NOS-ANKLE 11/02/2011 Ot 733.99 BONE CARTILAGE DIS NEC 11/02/2011 Ot 735.0 HALLUX VALGUS 11/02/2011 Ot 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 11/02/2011 Ot V58.69 OTH MED,LT, CURRENT USE 12/12/2011 Ot 461.9 ACUTE SINUSITIS NOS 12/12/2011 Ot 780.60 FEVER, UNSPECIFIED 12/16/2011 Ot 276.51 DEHYDRATION 12/16/2011 Ot 599.0 URIN TRACT INFECTION NOS 12/16/2011 Ot 780.60 FEVER, UNSPECIFIED 12/16/2011 Ot 787.03 VOMITING ALONE 12/16/2011 Ot 787.91 DIARRHEA 01/18/2012 Ot 250.00 DIAB ANTHONY WO COMPL, TYPE II OR UNSPEC TY 01/18/2012 Ot 272.4 HYPERLIPIDEMIA NEC/NOS 01/18/2012 Ot 276.51 DEHYDRATION 01/18/2012 Ot 285.9 ANEMIA NOS 01/18/2012 Ot 532.30 ACUTE DUODENAL ULCER NOS 01/18/2012 Ot 535.60 DUODENITIS, WITHOUT MENTION OF HEMORRHAG 01/18/2012 Ot V10.05 HX OF COLONIC MALIGNANCY 04/14/2012 Ot 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 04/14/2012 Ot 285.9 ANEMIA NOS 08/31/2012 Ot 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 08/31/2012 Ot 285.9 ANEMIA NOS 08/31/2012 Ot V58.81 FIT/ADJ VASCULAR CATHETER 01/07/2013 Ot 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 01/07/2013 Ot V58.81 FIT/ADJ VASCULAR CATHETER 04/12/2013 GUANAKITO CALDERA, MONALISA Mati Ot 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 04/12/2013 GUANAKITO CALDERA, MONALISA Mati Ot 285.9 ANEMIA NOS 04/12/2013 GUANAKITO CALDERA, MONALISA Mati Ot V58.81 FIT/ADJ VASCULAR CATHETER 08/15/2013 GUANAKITO CALDERA, MONALISA Mati Ot 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 08/15/2013 GUANAKITO CALDERA, MONALISA Mati Ot 285.9 ANEMIA NOS 08/15/2013 GUANAKITO CALDERA, MONALISA Mati Ot V58.81 FIT/ADJ VASCULAR CATHETER 04/07/2014 ROSANA CARDOZA MD Ot 847.1 SPRAIN THORACIC REGION 04/07/2014 ROSANA CARDOZA MD Ot 959.19 OTH INJURY OF OTHER SITES OF TRUNK 04/07/2014 ROSANA CARDOZA MD Ot E000.8 OTHER EXTERNAL CAUSE STATUS 04/07/2014 ROSANA CARDOZA MD Ot E013.4 ACTIVITIES INVOLVING FLOOR MOPPING AND C 04/07/2014 ROSANA CARDOZA MD Ot E849.0 ACCIDENT IN HOME 04/07/2014 ROSANA CARDOZA MD Ot E928.9 ACCIDENT NOS 06/06/2014 DELFINA ZAMARRIPA APRN Ot 724.2 LUMBAGO 06/06/2014 DELFINA ZAMARRIPA APRN Ot V57.1 PHYSICAL THERAPY NEC 06/17/2014 ANGE NUÑEZ MD Ot 455.0 INT HEMORRHOID W/O COMPL 06/17/2014 ANGE NUÑEZ MD Ot 455.3 EXT HEMORRHOID W/O COMPL 06/17/2014 ANGE NUÑEZ MD Ot 562.10 DIVERTICULOSIS COLON (W/O MENT OF HEMORR 06/17/2014 ANGE NUÑEZ MD Ot 569.0 ANAL RECTAL POLYP 06/17/2014 ANGE NUÑEZ MD Ot V10.05 HX OF COLONIC MALIGNANCY 06/17/2014 ANGE NUÑEZ MD, Ot V45.3 INTESTINAL BYPASS STATUS 06/17/2014 ANGE NUÑEZ MD, Ot V76.51 SCREEN MAL NEOP-COLON 09/15/2014 MONALISA CALABRESE MD, Ot V76.12 10/24/2014 GUANAKITO CALDERA, MONALISA Thorne Ot 250.00 DIAB ANTHNOY WO COMPL, TYPE II OR UNSPEC TY 10/24/2014 MONALISA CALABRESE MD Ot 272.4 HYPERLIPIDEMIA NEC/NOS 10/24/2014 MONALISA CALABRESE MD Ot 275.42 HYPERCALCEMIA 10/24/2014 MONALISA CALABRESE MD Ot 280.9 IRON DEFIC ANEMIA NOS 10/24/2014 MONALISA CALABRESE MD Ot 401.9 HYPERTENSION NOS 10/24/2014 MONALISA CALABRESE MD Ot 716.90 ARTHROPATHY NOS-UNSPEC 10/24/2014 MONALISA CALABRESE MD Ot V10.05 HX OF COLONIC MALIGNANCY 10/24/2014 MONALISA CALABRESE MD Ot V12.71 PERSONAL HISTORY OF PEPTIC ULCER DISEASE 10/24/2014 MONALISA CALABRESE MD Ot V12.72 PERSONAL HISTORY OF COLONIC POLYPS 10/24/2014 GUANAKITO CALDERA, MONALISA Thorne Ot V58.69 OTH MED,LT,CURRENT USE 10/24/2014 GUANAKITO CALDERA, MONALISA Thorne Ot V67.2 CHEMOTHERAPY FOLLOW-UP 01/24/2015 GUANAKITO CALDERA, MONALISA Thorne Ot 250.00 01/24/2015 MONALISA CALABRESE MD Ot 272.4 01/24/2015 MONALISA CALABRESE MD Ot 275.42 01/24/2015 MONALISA CALABRESE MD Ot 280.9 01/24/2015 MONALISA CALABRESE MD Ot 401.9 01/24/2015 MONALISA CALABRESE MD Ot 716.90 01/24/2015 MONALISA CALABRESE MD Ot V10.05 01/24/2015 MONALISA CALABRESE MD Ot V12.71 01/24/2015 GUANAKITO CALDERA, MONALISA Thorne Ot V12.72 01/24/2015 MONALISA CALABRESE MD Ot V58.69 01/24/2015 MONALISA CALABRESE MD Ot V67.2 01/26/2015 GUANAKITO CALDERA, MONALISA Thorne Ot 250.00 01/26/2015 MONALISA CALABRESE MD Ot 272.4 01/26/2015 GUANAKITO CALDERA, MONALISA Mati Ot 275.42 01/26/2015 GUANAKITO CALDERA, MONALISA K Ot 280.9 01/26/2015 GUANAKITO CALDERA, MONALISA Mati Ot 401.9 01/26/2015 GUANAKITO CALDERA, MONALISA Mati Ot 716.90 01/26/2015 GUANAKITO CALDERA, MONALISA Thorne Ot V10.05 01/26/2015 GUANAKITO CALDERA, MONALISA Mati Ot V12.71 01/26/2015 GUANAKITO CALDERA, MONALISA Mati Ot V12.72 01/26/2015 GUANAKITO CALDERA, MONALISA Mati Ot V58.69 01/26/2015 GUANAKITO CALDERA, MONALISA Mati Ot V67.2 02/02/2015 Ot 272.4 02/02/2015 Ot 401.9 02/02/2015 Ot 416.8 02/02/2015 Ot 427.0 02/10/2015 Ot 272.4 02/10/2015 Ot 401.9 02/10/2015 Ot 416.8 02/10/2015 Ot 427.0 03/01/2015 GUANAKITO CALDERA, MONALISA Thorne Ot 250.00 03/01/2015 GUANAKITO CALDERA, MONALISA Mati Ot 272.4 03/01/2015 GUANAKITO CALDERA, MONALISA Mati Ot 275.42 03/01/2015 GUANAKITO CALDERA, MONALISA Mati Ot 280.9 03/01/2015 GUANAKITO CALDERA, MONALISA Mati Ot 401.9 03/01/2015 GUANAKITO CALDERA, MONALISA Mati Ot 716.90 03/01/2015 GUANAKITO CALDERA, MONALISA Mati Ot V10.05 03/01/2015 GUANAKITO CALDERA, MONALISA Mati Ot V12.71 03/01/2015 GUANAKITO CALDERA, MONALISA Mati Ot V12.72 03/01/2015 GUANAKITO CALDERA, MONALISA Mati Ot V58.69 03/01/2015 GUANAKITO CALDERA, MONALISA Mati Ot V67.2 03/24/2015 GUANAKITO CALDERA, MONALISA Mati Ot 250.00 03/24/2015 GUANAKITO CALDERA, MONALISA Mati Ot 272.4 03/24/2015 GUANAKITO CALDERA, MONALISA Mati Ot 275.42 03/24/2015 GUANAKITO CALDERA, MONALISA Thorne Ot 280.9 03/24/2015 GUANAKITO CALDERA, MONALISA Thorne Ot 401.9 03/24/2015 GUANAKITO CALDERA, MONALISA Thorne Ot 716.90 03/24/2015 GUANAKITO CALDERA, MONALISA Thorne Ot V10.05 03/24/2015 GUANAKITO CALDERA, MONALISA Thorne Ot V12.71 03/24/2015 GUANAKITO CALDERA, MONALISA Thorne Ot V12.72 03/24/2015 MONALISA CALABRESE MD Ot V58.69 03/24/2015 MONALISA CALABRESE MD Ot V67.2 03/24/2015 NANI CALDERA, PAULO Gomez Ot 250.00 03/24/2015 NANI CALDERA, PAULO Gomez Ot 401.9 04/24/2015 GUANAKITO CALDERA, MONALISA Thorne Ot 250.00 DIAB ANTHONY WO COMPL, TYPE II OR UNSPEC TY 04/24/2015 MONALISA CALABRESE MD Ot 272.4 HYPERLIPIDEMIA NEC/NOS 04/24/2015 MONALISA CALABRESE MD Ot 275.42 HYPERCALCEMIA 04/24/2015 MONALISA CALABRESE MD Ot 280.9 IRON DEFIC ANEMIA NOS 04/24/2015 MONALISA CALABRESE MD Ot 401.9 HYPERTENSION NOS 04/24/2015 MONALISA CALABRESE MD Ot 716.90 ARTHROPATHY NOS-UNSPEC 04/24/2015 MONALISA CALABRESE MD Ot V10.05 HX OF COLONIC MALIGNANCY 04/24/2015 MONALISA CALABRESE MD Ot V12.71 PERSONAL HISTORY OF PEPTIC ULCER DISEASE 04/24/2015 MONALISA CALABRESE MD Ot V12.72 PERSONAL HISTORY OF COLONIC POLYPS 04/24/2015 MONALISA CALABRESE MD, Ot V58.69 OTH MED,LT,CURRENT USE 04/24/2015 MONALISA CALABRESE MD Ot V67.2 CHEMOTHERAPY FOLLOW-UP 05/31/2015 GUANAKITO CALDERA, MONALISA Thorne Ot 153.9 05/31/2015 DELFINA ZAMARRIPA MARKETING TRAINEE Ot 786.05 05/31/2015 DELFINA ZAMARRIPA MARKETING TRAINEE Ot 786.2 06/07/2015 GUANAKITO CALDERA, MONALISA Thorne Ot 153.9 06/07/2015 DELFINA ZAMARRIPA MARKETING TRAINEE Ot 786.05 06/07/2015 DELFINA ZAMARRIPA MARKETING TRAINEE Ot 786.2 07/03/2015 GUANAKITO CALDERA, MONALISA Thorne Ot 250.00 07/03/2015 MONALISA CALABRESE MD Ot 272.4 07/03/2015 GUANAKITO CALDERA, MONALISA Thorne Ot 275.42 07/03/2015 MONALISA CALABRESE MD Ot 280.9 07/03/2015 GUANAKITO CALDERA, MONALISA Thorne Ot 401.9 07/03/2015 GUANAKITO CALDERA, MONALISA Thorne Ot 716.90 07/03/2015 MONALISA CALABRESE MD Ot V10.05 07/03/2015 MONALISA CALABRESE MD Ot V12.71 07/03/2015 MONALISA CALABRESE MD Ot V12.72 07/03/2015 MONALISA CALABRESE MD Ot V58.69 07/03/2015 GUANAKITO CALDERA, MONALISA Thorne Ot V67.2 07/12/2015 GUANAKITO CALDERA, MONALISA Thorne Ot 250.00 07/12/2015 GUANAKITO CALDERA, MONALISA Thorne Ot 272.4 07/12/2015 GUANAKITO CALDERA, MONALISA Thorne Ot 275.42 07/12/2015 GUANAKITO CALDERA, MONALISA Thorne Ot 280.9 07/12/2015 GUANAKITO CALDERA, MONALISA Thorne Ot 401.9 07/12/2015 GUANAKITO CALDERA, MONALISA Thorne Ot 716.90 07/12/2015 MONALISA CALABRESE MD Ot V10.05 07/12/2015 MONALISA CALABRESE MD Ot V12.71 07/12/2015 GUANAKITO CALDERA, MONALISA Thorne Ot V12.72 07/12/2015 GUANAKITO CALDERA, MONALISA Thorne Ot V58.69 07/12/2015 MONALISA CALABRESE MD Ot V67.2 07/25/2015 GUANAKITO CALDERA, MONALISA Thorne Ot 153.9 08/02/2015 GUANAKITO CALDERA, MONALISA Thorne Ot 250.00 DIAB ANTHONY WO COMPL, TYPE II OR UNSPEC TY 08/02/2015 MONALISA CALABRESE MD Ot 272.4 HYPERLIPIDEMIA NEC/NOS 08/02/2015 GUANAKITO CALDERA, MONALISA Thorne Ot 275.42 HYPERCALCEMIA 08/02/2015 GUANAKITO CALDERA, MONALISA Thorne Ot 280.9 IRON DEFIC ANEMIA NOS 08/02/2015 MONALISA CALABRESE MD Ot 401.9 HYPERTENSION NOS 08/02/2015 MONALISA CALABRESE MD Ot 716.90 ARTHROPATHY NOS-UNSPEC 08/02/2015 MONALISA CALABRESE MD Ot V10.05 HX OF COLONIC MALIGNANCY 08/02/2015 MONALISA CALABRESE MD Ot V12.71 PERSONAL HISTORY OF PEPTIC ULCER DISEASE 08/02/2015 MONALISA CALABRESE MD Ot V12.72 PERSONAL HISTORY OF COLONIC POLYPS 08/02/2015 MONALISA CALABRESE MD Ot V58.69 OTH MED,LT,CURRENT USE 08/02/2015 MONALISA CALABRESE MD Ot V67.2 CHEMOTHERAPY FOLLOW-UP 08/02/2015 MONALISA CALABRESE MD Ot 153.9 08/23/2015 Ot 285.9 08/23/2015 Ot 153.2 08/23/2015 Ot 250.00 08/23/2015 Ot 280.9 08/23/2015 Ot V58.69 08/23/2015 Ot 285.9 08/23/2015 Ot 786.7 08/23/2015 Ot 793.1 08/23/2015 Ot 153.9 08/23/2015 Ot 153.9 08/23/2015 Ot V72.83 08/23/2015 Ot V74.8 08/23/2015 Ot 368.8 08/23/2015 Ot V76.12 08/23/2015 Ot 473.9 08/23/2015 Ot 780.4 08/23/2015 Ot V81.5 08/23/2015 Ot 789.01 08/23/2015 Ot V81.5 08/23/2015 Ot 153.9 08/23/2015 Ot 250.00 08/23/2015 Ot 813.42 08/23/2015 Ot E000.8 08/23/2015 Ot E849.0 08/23/2015 Ot E885.9 08/23/2015 Ot V58.69 08/23/2015 Ot 250.00 08/23/2015 Ot 272.4 08/23/2015 Ot 280.9 08/23/2015 Ot 401.9 08/23/2015 Ot V58.69 08/23/2015 Ot 250.00 08/23/2015 Ot V58.69 08/23/2015 Ot V16.3 08/23/2015 Ot V76.11 08/23/2015 Ot 727.1 08/23/2015 Ot 735.1 08/23/2015 Ot V72.83 08/23/2015 Ot V74.8 08/23/2015 Ot 272.4 08/23/2015 Ot 153.9 08/23/2015 Ot 787.01 08/23/2015 Ot 789.00 08/23/2015 Ot 416.9 08/23/2015 Ot 250.00 08/23/2015 Ot 272.4 08/23/2015 Ot 401.9 08/23/2015 Ot V58.69 08/23/2015 Ot 272.4 08/23/2015 Ot 401.9 08/23/2015 Ot V76.12 08/23/2015 NANI CALDERA, PAULO Gomez Ot 250.00 08/23/2015 KOTA CALDERA, NEY Gomez Ot 272.4 08/23/2015 NEY ESCUDERO MD Ot 401.9 08/23/2015 KOTA CALDERA, NEY Gomez Ot 433.10 08/23/2015 PAULO CARDOZA MD Ot V76.12 08/23/2015 MONALISA CALABRESE MD Ot 153.9 08/23/2015 MONALISA CALABRESE MD Ot 285.9 08/23/2015 GUANAKITO CALDERA, MONALISA Mati Ot V58.81 08/23/2015 JOAQUIN CALDERA, ANGE Ot V72.84 08/23/2015 NANI CALDERA, PAULO Gomez Ot 250.00 08/23/2015 NANI CALDERA, PAULO Gomez Ot 272.4 08/23/2015 NANI CALDERA, PAULO Gomez Ot 285.9 08/23/2015 NANI CALDERA, PAULO Gomez Ot 401.9 08/23/2015 NANI CALDERA, PAULO Gomez Ot V58.69 08/23/2015 GUANAKITO CALDERA, MONALISA Mait Ot V76.12 08/23/2015 Ot 272.4 08/23/2015 Ot 401.9 08/23/2015 Ot 416.8 08/23/2015 Ot 427.0 08/23/2015 NANI CALDERA, PAULO Gomez Ot 250.00 08/23/2015 NANI CALDERA, PAULO Gomez Ot 401.9 08/23/2015 GUANAKITO CALDERA, MONALISA Thorne Ot 153.9 08/23/2015 GUANAKITO CALDERA, MONALISA Thorne Ot 153.9 08/23/2015 DELFINA ZAMARRIPA MARKETING TRAINEE Ot 786.05 08/23/2015 DELFINA ZAMARRIPA MARKETING TRAINEE Ot 786.2 08/23/2015 GUANAKITO CALDERA, MONALISA Thorne Ot 250.00 08/23/2015 GUANAKITO CALDERA, MONALISA Thorne Ot 272.4 08/23/2015 GUANAKITO CALDERA, MONALISA Thorne Ot 275.42 08/23/2015 GUANAKITO CALDERA, MONALISA Thorne Ot 280.9 08/23/2015 GUANAKITO CALDERA, MONALISA Thorne Ot 401.9 08/23/2015 GUANAKITO CALDERA, MONALISA Thorne Ot 716.90 08/23/2015 GUANAKITO CALDERA, MONALISA Thorne Ot V10.05 08/23/2015 GUANAKITO CALDERA, MONALISA Thorne Ot V12.71 08/23/2015 GUANAKITO CALDERA, MONALISA Thorne Ot V12.72 08/23/2015 GUANAKITO CALDERA, MONALISA Thorne Ot V58.69 08/23/2015 GUANAKITO CALDERA, MONALISA Thorne Ot V67.2 08/25/2015 GUANAKITO CALDERA, MONALISA Thorne Ot C18.9 08/25/2015 GUANAKITO CALDERA, MONALISA Thorne Ot Z12.31 09/15/2015 GUANAKITO CALDERA, MONALISA Thorne Ot C18.9 09/15/2015 GUANAKITO CALDERA, MONALISA Thorne Ot Z12.31 12/05/2015 GUANAKITO CALDERA, MONALISA Thorne Ot 250.00 12/05/2015 GUANAKITO CALDERA, MONALISA Thorne Ot 272.4 12/05/2015 GUANAKITO CALDERA, MONALISA K Ot 275.42 12/05/2015 GUANAKITO CALDERA, MONALISA K Ot 280.9 12/05/2015 GUANAKITO CALDERA, MONALISA K Ot 401.9 12/05/2015 GUANAKITO CALDERA, MONALISA K Ot 716.90 12/05/2015 GUANAKITO CALDERA, MONALISA K Ot V10.05 12/05/2015 GUANAKITO CALDERA, MONALISA K Ot V12.71 12/05/2015 GUANAKITO CALDERA, MONALISA K Ot V12.72 12/05/2015 GUANAKITO CALDERA, MONALISA K Ot V58.69 12/05/2015 GUANAKITO CALDERA, MONALISA K Ot V67.2 12/13/2015 GUANAKITO CALDERA, MONALISA K Ot 250.00 12/13/2015 GUANAKITO CALDERA, MONALISA K Ot 272.4 12/13/2015 GUANAKITO CALDERA, MONALISA K Ot 275.42 12/13/2015 GUANAKITO CALDERA, MONALISA K Ot 280.9 12/13/2015 GUANAKITO CALDERA, MONALISA K Ot 401.9 12/13/2015 GUANAKITO CALDERA, MONALISA K Ot 716.90 12/13/2015 GUANAKITO CALDERA, MONALISA K Ot V10.05 12/13/2015 GUANAKITO CALDERA, MONALISA K Ot V12.71 12/13/2015 GUANAKITO CALDERA, MONALISA K Ot V12.72 12/13/2015 GUANAKITO CALDERA, MONALISA K Ot V58.69 12/13/2015 GUANAKITO CALDERA, MONALISA K Ot V67.2 01/23/2016 GUANAKITO CALDERA, MONALISA K Ot D50.9 01/23/2016 GUANAKITO CALDERA, MONALISA K Ot E11.9 01/23/2016 GUANAKITO CALDERA, MONALISA K Ot E78.5 01/23/2016 GUANAKITO CALDERA, MONALISA K Ot I10 01/23/2016 GUANAKITO CALDERA, MONALISA K Ot Z08 01/23/2016 GUANAKITO CALDERA, MONALISA K Ot Z79.899 01/23/2016 GUANAKITO CALDERA, MONALISA K Ot Z85.038 01/23/2016 GUANAKITO CALDERA, MONALISA K Ot Z92.21 01/31/2016 GUANAKITO CALDERA, MONALISA K Ot D50.9 01/31/2016 GUANAKITO CALDERA, MONALISA K Ot E11.9 01/31/2016 GUANAKITO CALDERA, MONALISA K Ot E78.5 01/31/2016 GUANAKITO CALDERA, MONALISA K Ot I10 01/31/2016 GUANAKITO CALDERA, MONALISA K Ot Z08 01/31/2016 GUANAKITO CALDERA, MONALISA K Ot Z79.899 01/31/2016 MONALISA CALABRESE MD Ot Z85.038 01/31/2016 MONALISA CALABRESE MD Ot Z92.21 03/11/2016 MONALISA CALABRESE MD, Ot D50.9 IRON DEFICIENCY ANEMIA, UNSPECIFIED 03/11/2016 MONALISA CALABRESE MD Ot E11.9 TYPE 2 DIABETES MELLITUS WITHOUT COMPLIC 03/11/2016 MONALISA CALABRESE MD Ot E78.5 HYPERLIPIDEMIA, UNSPECIFIED 03/11/2016 MONALISA CALABRESE MD Ot I10 ESSENTIAL (PRIMARY) HYPERTENSION 03/11/2016 MONALISA CALABRESE MD Ot Z08 ENCNTR FOR FOLLOW-UP EXAM AFTER TRTMT FO 03/11/2016 MONALISA CALABRESE MD Ot Z79.899 OTHER ORGAN INSTALLER (CURRENT) DRUG THERAPY 03/11/2016 MONALISA CALABRESE MD Ot Z85.038 PERSONAL HISTORY OF MALIGNANT NEOPLASM O 03/11/2016 MONALISA CALABRESE MD Ot Z92.21 PERSONAL HISTORY OF ANTINEOPLASTIC CHEMO 03/12/2016 MONALISA CALABRESE MD, Ot D50.9 IRON DEFICIENCY ANEMIA, UNSPECIFIED 03/12/2016 MONALISA CALABRESE MD Ot E11.9 TYPE 2 DIABETES MELLITUS WITHOUT COMPLIC 03/12/2016 MONALISA CALABRESE MD Ot E78.5 HYPERLIPIDEMIA, UNSPECIFIED 03/12/2016 MONALISA CALABRESE MD Ot I10 ESSENTIAL (PRIMARY) HYPERTENSION 03/12/2016 MONALISA CALABRESE MD Ot Z08 ENCNTR FOR FOLLOW-UP EXAM AFTER TRTMT FO 03/12/2016 MONALISA CALABRESE MD Ot Z79.899 OTHER ORGAN INSTALLER (CURRENT) DRUG THERAPY 03/12/2016 MONALISA CALABRESE MD Ot Z85.038 PERSONAL HISTORY OF MALIGNANT NEOPLASM O 03/12/2016 MONALISA CALABRESE MD Ot Z92.21 PERSONAL HISTORY OF ANTINEOPLASTIC CHEMO 05/28/2016 MONALISA CALABRESE MD Ot C18.9 MALIGNANT NEOPLASM OF COLON, UNSPECIFIED 05/28/2016 MONALISA CALABRESE MD Ot J84.9 INTERSTITIAL PULMONARY DISEASE, UNSPECIF 06/14/2016 MONALISA CALABRESE MD, Ot D50.9 IRON DEFICIENCY ANEMIA, UNSPECIFIED 06/14/2016 MONALISA CALABRESE MD Ot E11.9 TYPE 2 DIABETES MELLITUS WITHOUT COMPLIC 06/14/2016 MONALISA CALABRESE MD Ot E78.5 HYPERLIPIDEMIA, UNSPECIFIED 06/14/2016 MONALISA CALABRESE MD Ot I10 ESSENTIAL (PRIMARY) HYPERTENSION 06/14/2016 MONALISA CALABRESE MD Ot Z08 ENCNTR FOR FOLLOW-UP EXAM AFTER TRTMT FO 06/14/2016 MONALISA CALABRESE MD Ot Z79.899 OTHER ORGAN INSTALLER (CURRENT) DRUG THERAPY 06/14/2016 MONALISA CALABRESE MD Ot Z85.038 PERSONAL HISTORY OF MALIGNANT NEOPLASM O 06/14/2016 MONALISA CALABRESE MD Ot Z92.21 PERSONAL HISTORY OF ANTINEOPLASTIC CHEMO 06/18/2016 MONALISA CALABRESE MD Ot C18.9 MALIGNANT NEOPLASM OF COLON, UNSPECIFIED 06/18/2016 MONALISA CALABRESE MD Ot J84.9 INTERSTITIAL PULMONARY DISEASE, UNSPECIF 06/27/2016 MONALISA CALABRESE MD Ot C18.9 MALIGNANT NEOPLASM OF COLON, UNSPECIFIED 06/27/2016 MONALISA CALABRESE MD Ot J84.9 INTERSTITIAL PULMONARY DISEASE, UNSPECIF 07/04/2016 MONALISA CALABRESE MD Ot D50.9 IRON DEFICIENCY ANEMIA, UNSPECIFIED 07/04/2016 MONALISA CALABRESE MD Ot E11.9 TYPE 2 DIABETES MELLITUS WITHOUT COMPLIC 07/04/2016 MONALISA CALABRESE MD Ot E78.5 HYPERLIPIDEMIA, UNSPECIFIED 07/04/2016 MONALISA CALABRESE MD Ot I10 ESSENTIAL (PRIMARY) HYPERTENSION 07/04/2016 MONALISA CALABRESE MD Ot Z08 ENCNTR FOR FOLLOW-UP EXAM AFTER TRTMT FO 07/04/2016 MONALISA CALABRESE MD Ot Z79.899 OTHER PENITENTIARY (CURRENT) DRUG THERAPY 07/04/2016 MONALISA CALABRESE MD Ot Z85.038 PERSONAL HISTORY OF MALIGNANT NEOPLASM O 07/04/2016 MONALISA CALABRESE MD Ot Z92.21 PERSONAL HISTORY OF ANTINEOPLASTIC CHEMO 07/15/2016 ANGE NUÑEZ MD Ot D64.9 ANEMIA, UNSPECIFIED 07/15/2016 ANGE NUÑEZ MD Ot Z01.818 ENCOUNTER FOR OTHER PREPROCEDURAL EXAMIN 07/15/2016 ANGE NUÑEZ MD, Ot Z87.11 PERSONAL HISTORY OF PEPTIC ULCER DISEASE 07/16/2016 ANGE NUÑEZ MD, Ot D64.9 ANEMIA, UNSPECIFIED 07/16/2016 ANGE NUÑEZ MD, Ot Z01.818 ENCOUNTER FOR OTHER PREPROCEDURAL EXAMIN 07/16/2016 ANGE NUÑEZ MD, Ot Z87.11 PERSONAL HISTORY OF PEPTIC ULCER DISEASE 07/17/2016 Ot 250.00 DIAB ANTHONY WO COMPL, TYPE II OR UNSPEC TY 07/17/2016 Ot V58.69 OTH MED,LT, CURRENT USE 07/17/2016 Ot V16.3 FAMILY HX- BREAST MALIG 07/17/2016 Ot V76.11 SCRN MAMMO- HIGH RISK PT, MALIGNANT NEOPL 07/17/2016 Ot 727.1 BUNION 07/17/2016 Ot 735.1 HALLUX VARUS 07/17/2016 Ot V72.83 EXAM PRE- OPERATIVE NEC 07/17/2016 Ot V74.8 SCREEN- BACTERIAL DIS NEC 07/17/2016 Ot 272.4 HYPERLIPIDEMIA NEC/NOS 07/17/2016 Ot 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 07/17/2016 Ot 787.01 NAUSEA WITH VOMITING 07/17/2016 Ot 789.00 ABDOMINAL PAIN, UNSPECIFIED SITE 07/17/2016 Ot 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 07/17/2016 Ot 250.00 DIAB ANTHONY WO COMPL, TYPE II OR UNSPEC TY 07/17/2016 Ot 272.4 HYPERLIPIDEMIA NEC/NOS 07/17/2016 Ot 401.9 HYPERTENSION NOS 07/17/2016 Ot V58.69 OTH MED,LT, CURRENT USE 07/17/2016 Ot 272.4 HYPERLIPIDEMIA NEC/NOS 07/17/2016 Ot 401.9 HYPERTENSION NOS 07/17/2016 Ot V76.12 OTH SCREEN MAMMO-MALIGN NEOPLASM OF MILES 07/17/2016 NANI CALDERA, PAULO Gomez Ot 250.00 DIAB ANTHONY WO COMPL, TYPE II OR UNSPEC TY 07/17/2016 KOTA CALDERA, NEY Gomez Ot 272.4 HYPERLIPIDEMIA NEC/NOS 07/17/2016 KOTA CALDERA, NEY Gomez Ot 401.9 HYPERTENSION NOS 07/17/2016 KOTA CALDERA, NEY Gomez Ot 433.10 CAROTID ARTERY OCCLUSION W O CEREBRAL IN 07/17/2016 NANI CALDERA, PAULO Gomez Ot V76.12 OTH SCREEN MAMMO-MALIGN NEOPLASM OF MILES 07/17/2016 GUANAKITO CALDERA, MONALISA Thorne Ot 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 07/17/2016 MONALISA CALABRESE MD Ot 285.9 ANEMIA NOS 07/17/2016 GUANAKITO CALDERA, MONALISA Thorne Ot V58.81 FIT/ADJ VASCULAR CATHETER 07/17/2016 JOAQUIN CALDERA, ANGE Ot V72.84 EXAM PRE-OPERATIVE NOS 07/17/2016 PAULO CARDOZA MD Ot 250.00 DIAB ANTHONY WO COMPL, TYPE II OR UNSPEC TY 07/17/2016 PAULO CARDOZA MD Ot 272.4 HYPERLIPIDEMIA NEC/NOS 07/17/2016 PAULO CARDOZA MD Ot 285.9 ANEMIA NOS 07/17/2016 PAULO CARDOZA MD Ot 401.9 HYPERTENSION NOS 07/17/2016 PAULO CARDOZA MD Ot V58.69 OTH MED,LT,CURRENT USE 07/17/2016 MONALISA CALABRESE MD, Ot V76.12 OTH SCREEN MAMMO-MALIGN NEOPLASM OF MILES 07/17/2016 Ot 272.4 HYPERLIPIDEMIA NEC/NOS 07/17/2016 Ot 401.9 HYPERTENSION NOS 07/17/2016 Ot 416.8 CHR PULMON HEART DIS NEC 07/17/2016 Ot 427.0 PAROX ATRIAL TACHYCARDIA 07/17/2016 PAULO CARDOZA MD Ot 250.00 DIAB ANTHONY WO COMPL, TYPE II OR UNSPEC TY 07/17/2016 PAULO CARDOZA MD Ot 401.9 HYPERTENSION NOS 07/17/2016 MONALISA CALABRESE MD Ot 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 07/17/2016 MONALISA CALABRESE MD Ot 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 07/17/2016 DELFINA ZAMARRIPA MARKETING TRAINEE Ot 786.05 SHORTNESS OF BREATH 07/17/2016 DELFINA ZAMARRIPA MARKETING TRAINEE Ot 786.2 COUGH 07/17/2016 MONALISA CALABRESE MD Ot C18.9 MALIGNANT NEOPLASM OF COLON, UNSPECIFIED 07/17/2016 MONALISA CALABRESE MD Ot Z12.31 ENCNTR SCREEN MAMMOGRAM FOR MALIGNANT NE 07/17/2016 MONALISA CALABRESE MD Ot C18.9 MALIGNANT NEOPLASM OF COLON, UNSPECIFIED 07/17/2016 MONALISA CALABRESE MD Ot J84.9 INTERSTITIAL PULMONARY DISEASE, UNSPECIF 07/17/2016 MONALISA CALABRESE MD Ot D50.9 IRON DEFICIENCY ANEMIA, UNSPECIFIED 07/17/2016 MONALISA CALABRESE MD Ot E11.9 TYPE 2 DIABETES MELLITUS WITHOUT COMPLIC 07/17/2016 MONALISA CALABRESE MD Ot E78.5 HYPERLIPIDEMIA, UNSPECIFIED 07/17/2016 MONALISA CALABRESE MD Ot I10 ESSENTIAL (PRIMARY) HYPERTENSION 07/17/2016 MONALISA CALABRESE MD Ot Z08 ENCNTR FOR FOLLOW-UP EXAM AFTER TRTMT FO 07/17/2016 MONALISA CALABRESE MD Ot Z79.899 OTHER PENITENTIARY (CURRENT) DRUG THERAPY 07/17/2016 MONALISA CALABRESE MD Ot Z85.038 PERSONAL HISTORY OF MALIGNANT NEOPLASM O 07/17/2016 MONALISA CALABRESE MD, Ot Z92.21 PERSONAL HISTORY OF ANTINEOPLASTIC CHEMO 07/17/2016 ANGE NUÑEZ MD Ot D64.9 ANEMIA, UNSPECIFIED 07/17/2016 ANGE NUÑEZ MD Ot K21.0 GASTRO-ESOPHAGEAL REFLUX DISEASE WITH ES 07/17/2016 ANGE NUÑEZ MD Ot K29.70 GASTRITIS, UNSPECIFIED, WITHOUT BLEEDING 07/17/2016 ANGE NUÑEZ MD, Ot K44.9 DIAPHRAGMATIC HERNIA WITHOUT OBSTRUCTION 07/17/2016 ANGE NUÑEZ MD, Ot Z85.038 PERSONAL HISTORY OF MALIGNANT NEOPLASM O 07/18/2016 ANGE NUÑEZ MD, Ot D64.9 ANEMIA, UNSPECIFIED 07/18/2016 ANGE NUÑEZ MD Ot K21.0 GASTRO-ESOPHAGEAL REFLUX DISEASE WITH ES 07/18/2016 ANGE NUÑEZ MD, Ot K29.70 GASTRITIS, UNSPECIFIED, WITHOUT BLEEDING 07/18/2016 ANGE NUÑEZ MD, Ot K44.9 DIAPHRAGMATIC HERNIA WITHOUT OBSTRUCTION 07/18/2016 ANGE NUÑEZ MD, Ot Z85.038 PERSONAL HISTORY OF MALIGNANT NEOPLASM O 07/24/2016 ANGE NUÑEZ MD, Ot D64.9 ANEMIA, UNSPECIFIED 07/24/2016 ANGE NUÑEZ MD Ot K21.0 GASTRO-ESOPHAGEAL REFLUX DISEASE WITH ES 07/24/2016 ANGE NUÑEZ MD, Ot K29.70 GASTRITIS, UNSPECIFIED, WITHOUT BLEEDING 07/24/2016 ANGE NUÑEZ MD, Ot K44.9 DIAPHRAGMATIC HERNIA WITHOUT OBSTRUCTION 07/24/2016 ANGE NUÑEZ MD, Ot Z85.038 PERSONAL HISTORY OF MALIGNANT NEOPLASM O 07/31/2016 MONALISA CALABRESE MD Ot D50.9 IRON DEFICIENCY ANEMIA, UNSPECIFIED 07/31/2016 MONALISA CALABRESE MD Ot E11.9 TYPE 2 DIABETES MELLITUS WITHOUT COMPLIC 07/31/2016 MONALISA CALABRESE MD, Ot E78.5 HYPERLIPIDEMIA, UNSPECIFIED 07/31/2016 MONALISA CALABRESE MD Ot I10 ESSENTIAL (PRIMARY) HYPERTENSION 07/31/2016 MONALISA CALABRESE MD Ot Z08 ENCNTR FOR FOLLOW-UP EXAM AFTER TRTMT FO 07/31/2016 MONALISA CALABRESE MD, Ot Z79.899 OTHER PENITENTIARY (CURRENT) DRUG THERAPY 07/31/2016 MONALISA CALABRESE MD, Ot Z85.038 PERSONAL HISTORY OF MALIGNANT NEOPLASM O 07/31/2016 GUANAKITO CALDERA, MONALISA Thorne Ot Z92.21 PERSONAL HISTORY OF ANTINEOPLASTIC CHEMO 08/21/2016 Ot 250.00 DIAB ANTHONY WO COMPL, TYPE II OR UNSPEC TY 08/21/2016 Ot V58.69 OTH MED,LT, CURRENT USE 08/21/2016 Ot V16.3 FAMILY HX- BREAST MALIG 08/21/2016 Ot V76.11 SCRN MAMMO- HIGH RISK PT, MALIGNANT NEOPL 08/21/2016 Ot 727.1 BUNION 08/21/2016 Ot 735.1 HALLUX VARUS 08/21/2016 Ot V72.83 EXAM PRE- OPERATIVE NEC 08/21/2016 Ot V74.8 SCREEN- BACTERIAL DIS NEC 08/21/2016 Ot 272.4 HYPERLIPIDEMIA NEC/NOS 08/21/2016 Ot 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4 HYPERLIPIDEMIA NEC/NOS 08/21/2016 NEY ESCUDERO MD Ot 401.9 HYPERTENSION NOS 08/21/2016 NEY ESCUDERO MD Ot 433.10 CAROTID ARTERY OCCLUSION W O CEREBRAL IN 08/21/2016 PAULO CARDOZA MD Ot V76.12 OTH SCREEN MAMMO-MALIGN NEOPLASM OF MILES 08/21/2016 MONALISA CALABRESE MD Ot 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 08/21/2016 MONALISA CALABRESE MD Ot 285.9 ANEMIA NOS 08/21/2016 GUANAKITO CALDERA, MONALISA Thorne Ot V58.81 FIT/ADJ VASCULAR CATHETER 08/21/2016 ANGE NUÑEZ MD Ot V72.84 EXAM PRE-OPERATIVE NOS 08/21/2016 PAULO CARDOZA MD Ot 250.00 DIAB ANTHONY WO COMPL, TYPE II OR UNSPEC TY 08/21/2016 PAULO CARDOZA MD Ot 272.4 HYPERLIPIDEMIA NEC/NOS 08/21/2016 PAULO CARDOZA MD Ot 285.9 ANEMIA NOS 08/21/2016 PAULO CARDOZA MD Ot 401.9 HYPERTENSION NOS 08/21/2016 PAULO CARDOZA MD Ot V58.69 OTH MED,LT,CURRENT USE 08/21/2016 MONALISA CALABRESE MD Ot V76.12 OTH SCREEN MAMMO-MALIGN NEOPLASM OF MILES 08/21/2016 Ot 272.4 HYPERLIPIDEMIA NEC/NOS 08/21/2016 Ot 401.9 HYPERTENSION NOS 08/21/2016 Ot 416.8 CHR PULMON HEART DIS NEC 08/21/2016 Ot 427.0 PAROX ATRIAL TACHYCARDIA 08/21/2016 PAULO CARDOZA MD Ot 250.00 DIAB ANTHONY WO COMPL, TYPE II OR UNSPEC TY 08/21/2016 PAULO CARDOZA MD Ot 401.9 HYPERTENSION NOS 08/21/2016 MONALISA CALABRESE MD Ot 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 08/21/2016 MONALISA CALABRESE MD Ot 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 08/21/2016 DELFINA ZAMARRIPA MARKETING TRAINEE Ot 786.05 SHORTNESS OF BREATH 08/21/2016 DELFINA ZAMARRIPA MARKETING TRAINEE Ot 786.2 COUGH 08/21/2016 MONALISA CALABRESE MD Ot C18.9 MALIGNANT NEOPLASM OF COLON, UNSPECIFIED 08/21/2016 MONALISA CALABRESE MD Ot Z12.31 ENCNTR SCREEN MAMMOGRAM FOR MALIGNANT NE 08/21/2016 MONALISA CALABRESE MD Ot C18.9 MALIGNANT NEOPLASM OF COLON, UNSPECIFIED 08/21/2016 MONALISA CALABRESE MD Ot J84.9 INTERSTITIAL PULMONARY DISEASE, UNSPECIF 08/21/2016 MONALISA CALABRESE MD Ot D50.9 IRON DEFICIENCY ANEMIA, UNSPECIFIED 08/21/2016 MONALISA CALABRESE MD Ot E11.9 TYPE 2 DIABETES MELLITUS WITHOUT COMPLIC 08/21/2016 MONALISA CALABRESE MD Ot E78.5 HYPERLIPIDEMIA, UNSPECIFIED 08/21/2016 MONALISA CALABRESE MD Ot I10 ESSENTIAL (PRIMARY) HYPERTENSION 08/21/2016 MONALISA CALABRESE MD Ot Z08 ENCNTR FOR FOLLOW-UP EXAM AFTER TRTMT FO 08/21/2016 MONALISA CALABRESE MD Ot Z79.899 OTHER PENITENTIARY (CURRENT) DRUG THERAPY 08/21/2016 MONALISA CALABRESE MD Ot Z85.038 PERSONAL HISTORY OF MALIGNANT NEOPLASM O 08/21/2016 MONALISA CALABRESE MD Ot Z92.21 PERSONAL HISTORY OF ANTINEOPLASTIC CHEMO 08/21/2016 MONALISA CALABRESE MD, Ot Z12.31 ENCNTR SCREEN MAMMOGRAM FOR MALIGNANT NE 08/21/2016 MONALISA CALABRESE MD, Ot Z12.31 ENCNTR SCREEN MAMMOGRAM FOR MALIGNANT NE 08/22/2016 MONALISA CALABRESE MD Ot D50.9 IRON DEFICIENCY ANEMIA, UNSPECIFIED 08/22/2016 MONALISA CALABRESE MD Ot E11.9 TYPE 2 DIABETES MELLITUS WITHOUT COMPLIC 08/22/2016 MONALISA CALABRESE MD, Ot E78.5 HYPERLIPIDEMIA, UNSPECIFIED 08/22/2016 MONALISA CALABRESE MD Ot I10 ESSENTIAL (PRIMARY) HYPERTENSION 08/22/2016 MONALISA CALABRESE MD Ot Z08 ENCNTR FOR FOLLOW-UP EXAM AFTER TRTMT FO 08/22/2016 MONALISA CALABRESE MD Ot Z79.899 OTHER PENITENTIARY (CURRENT) DRUG THERAPY 08/22/2016 MONALISA CALABRESE MD Ot Z85.038 PERSONAL HISTORY OF MALIGNANT NEOPLASM O 08/22/2016 MONALISA CALABRESE MD Ot Z92.21 PERSONAL HISTORY OF ANTINEOPLASTIC CHEMO 08/22/2016 MONALISA CALABRESE MD Ot Z12.31 ENCNTR SCREEN MAMMOGRAM FOR MALIGNANT NE 08/22/2016 MONALISA CALABRESE MD, Ot Z12.31 ENCNTR SCREEN MAMMOGRAM FOR MALIGNANT NE 08/27/2016 MONALISA CALABRESE MD Ot Z12.31 ENCNTR SCREEN MAMMOGRAM FOR MALIGNANT NE 08/30/2016 MONALISA CALABRESE MD Ot Z12.31 ENCNTR SCREEN MAMMOGRAM FOR MALIGNANT NE 10/06/2016 ARELY LOOMIS MD Ot E11.9 TYPE 2 DIABETES MELLITUS WITHOUT COMPLIC 10/06/2016 ARELY LOOMIS MD Ot I10 ESSENTIAL (PRIMARY) HYPERTENSION 10/06/2016 AERLY LOOMIS MD Ot S09.90XA UNSPECIFIED INJURY OF HEAD, INITIAL ENCO 10/06/2016 ARELY LOOMIS MD Ot S72.012A UNSP INTRACAPSULAR FRACTURE OF LEFT FEMU 10/06/2016 ARELY LOOMIS MD Ot S79.912A UNSPECIFIED INJURY OF LEFT HIP, INITIAL 10/06/2016 ARELY LOOMIS MD Ot W06.XXXA FALL FROM BED, INITIAL ENCOUNTER 10/06/2016 ARELY LOOMIS MD Ot Y92.013 BEDROOM OF SINGLE-FAMILY (PRIVATE) HOUSE 10/06/2016 ARELY LOOMIS MD Ot Y93.9 ACTIVITY, UNSPECIFIED 10/06/2016 ARELY LOOMIS MD Ot Y99.8 OTHER EXTERNAL CAUSE STATUS 10/06/2016 ARELY LOOMIS MD Ot Z79.84 PENITENTIARY (CURRENT) USE OF ORAL HYPOGLYC 10/06/2016 ARELY LOOMIS MD Ot Z79.899 OTHER ORGAN INSTALLER (CURRENT) DRUG THERAPY 10/08/2016 ARELY LOOMIS MD Ot E11.9 TYPE 2 DIABETES MELLITUS WITHOUT COMPLIC 10/08/2016 ARELY LOOMIS MD Ot I10 ESSENTIAL (PRIMARY) HYPERTENSION 10/08/2016 ARELY LOOMIS MD Ot S09.90XA UNSPECIFIED INJURY OF HEAD, INITIAL ENCO 10/08/2016 ARELY LOOMIS MD Ot S72.012A UNSP INTRACAPSULAR FRACTURE OF LEFT FEMU 10/08/2016 ARELY LOOMIS MD Ot S79.912A UNSPECIFIED INJURY OF LEFT HIP, INITIAL 10/08/2016 ARELY LOOMIS MD Ot W06.XXXA FALL FROM BED, INITIAL ENCOUNTER 10/08/2016 ARELY LOOMIS MD Ot Y92.013 BEDROOM OF SINGLE-FAMILY (PRIVATE) HOUSE 10/08/2016 ARELY LOOMIS MD Ot Y93.9 ACTIVITY, UNSPECIFIED 10/08/2016 ARELY LOOMIS MD Ot Y99.8 OTHER EXTERNAL CAUSE STATUS 10/08/2016 ARELY LOOMIS MD Ot Z79.84 ORGAN INSTALLER (CURRENT) USE OF ORAL HYPOGLYC 10/08/2016 ARELY LOOMIS MD Ot Z79.899 OTHER PENITENTIARY (CURRENT) DRUG THERAPY 10/10/2016 ARELY LOOMIS MD Ot E11.9 TYPE 2 DIABETES MELLITUS WITHOUT COMPLIC 10/10/2016 ARELY LOOMIS MD Ot I10 ESSENTIAL (PRIMARY) HYPERTENSION 10/10/2016 ARELY LOOMIS MD Ot S09.90XA UNSPECIFIED INJURY OF HEAD, INITIAL ENCO 10/10/2016 ARELY LOOMIS MD Ot S72.012A UNSP INTRACAPSULAR FRACTURE OF LEFT FEMU 10/10/2016 EBONIE CALDERA, ARELY Cunningham Ot S79.912A UNSPECIFIED INJURY OF LEFT HIP, INITIAL 10/10/2016 EBONIE CALDERA, ARELY Cunningham Ot W06.XXXA FALL FROM BED, INITIAL ENCOUNTER 10/10/2016 EBONIE CALDERA, ARELY Cunningham Ot Y92.013 BEDROOM OF SINGLE-FAMILY (PRIVATE) HOUSE 10/10/2016 ARELY LOOMIS MD Ot Y93.9 ACTIVITY, UNSPECIFIED 10/10/2016 ARELY LOOMIS MD Ot Y99.8 OTHER EXTERNAL CAUSE STATUS 10/10/2016 ARELY LOOMIS MD Ot Z79.84 PENITENTIARY (CURRENT) USE OF ORAL HYPOGLYC 10/10/2016 ARELY LOOMIS MD Ot Z79.899 OTHER ORGAN INSTALLER (CURRENT) DRUG THERAPY 10/11/2016 GUANAKITO CALDERA, MONALISA Thorne Ot D50.9 IRON DEFICIENCY ANEMIA, UNSPECIFIED 10/11/2016 MONALISA CALABRESE MD Ot E11.9 TYPE 2 DIABETES MELLITUS WITHOUT COMPLIC 10/11/2016 MONALISA CALABRESE MD Ot E78.5 HYPERLIPIDEMIA, UNSPECIFIED 10/11/2016 MONALISA CALABRESE MD Ot I10 ESSENTIAL (PRIMARY) HYPERTENSION 10/11/2016 GUANAKITO CALDERA, MONALISA Thorne Ot Z08 ENCNTR FOR FOLLOW-UP EXAM AFTER TRTMT FO 10/11/2016 MONALISA CALABRESE MD Ot Z79.899 OTHER ORGAN INSTALLER (CURRENT) DRUG THERAPY 10/11/2016 MONALISA CALABRESE MD Ot Z85.038 PERSONAL HISTORY OF MALIGNANT NEOPLASM O 10/11/2016 MONALISA CALABRESE MD Ot Z92.21 PERSONAL HISTORY OF ANTINEOPLASTIC CHEMO 10/22/2016 PHANI KING MD Ot D62 ACUTE POSTHEMORRHAGIC ANEMIA 10/22/2016 PHANI KING MD, Ot E11.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 2 DIABETES MELLITUS WITH DIABETIC N 10/22/2016 PHANI KING MD Ot 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/ 10/22/2016 PHANI KING MD, Ot E78.5 HYPERLIPIDEMIA, UNSPECIFIED 10/22/2016 PHANI KING MD Ot E83.42 HYPOMAGNESEMIA 10/22/2016 PHANI KING MD Ot I10 ESSENTIAL (PRIMARY) HYPERTENSION 10/22/2016 PHANI KING MD Ot I27.2 OTHER SECONDARY PULMONARY HYPERTENSION 10/22/2016 PHANI KING MD Ot I47.2 VENTRICULAR TACHYCARDIA 10/22/2016 PHANI KING MD, Ot 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 10/22/2016 PHANI KING MD, Ot J44.9 CHRONIC OBSTRUCTIVE PULMONARY DISEASE, U 10/22/2016 PHANI KING MD, Ot J84.10 PULMONARY FIBROSIS, UNSPECIFIED 10/22/2016 PHANI KING MD, Ot S72.002D FX UNSP PART OF NK OF L FEMR, SUBS FOR C 10/22/2016 PHANI KING MD, Ot S72.012D UNSP INTRACAP FX LEFT FEMUR, SUBS FOR CL 10/22/2016 PHANI KING MD, Ot W19.XXXD UNSPECIFIED FALL, SUBSEQUENT ENCOUNTER 10/22/2016 PHANI KING MD, Ot Y92.[address] IN UNSP NON-INSTITUT (PRIVATE 10/22/2016 PHANI KING MD, Ot Z79.01 PENITENTIARY (CURRENT) USE OF ANTICOAGULANT 10/22/2016 PHANI KING MD, Ot Z79.84 ORGAN INSTALLER (CURRENT) USE OF ORAL HYPOGLYC 10/22/2016 PHANI KING MD, Ot Z85.038 PERSONAL HISTORY OF MALIGNANT NEOPLASM O 10/22/2016 PHANI KING MD, Ot Z87.891 PERSONAL HISTORY OF NICOTINE DEPENDENCE 12/04/2016 MONALISA CALABRESE MD Ot D50.9 IRON DEFICIENCY ANEMIA, UNSPECIFIED 12/04/2016 MONALISA CALABRESE MD Ot E11.9 TYPE 2 DIABETES MELLITUS WITHOUT COMPLIC 12/04/2016 MONALISA CALABRESE MD Ot E78.5 HYPERLIPIDEMIA, UNSPECIFIED 12/04/2016 MONALISA CALABRESE MD Ot I10 ESSENTIAL (PRIMARY) HYPERTENSION 12/04/2016 MONALISA CALABRESE MD Ot Z08 ENCNTR FOR FOLLOW-UP EXAM AFTER TRTMT FO 12/04/2016 MONALISA CALABRESE MD, Ot Z79.899 OTHER PENITENTIARY (CURRENT) DRUG THERAPY 12/04/2016 MONALISA CALABRESE MD Ot Z85.038 PERSONAL HISTORY OF MALIGNANT NEOPLASM O 12/04/2016 MONALISA CALABRESE MD Ot Z92.21 PERSONAL HISTORY OF ANTINEOPLASTIC CHEMO 12/13/2016 Ot V16.3 FAMILY HX- BREAST MALIG 12/13/2016 Ot V76.11 SCRN MAMMO- HIGH RISK PT, MALIGNANT NEOPL 12/13/2016 Ot 727.1 BUNION 12/13/2016 Ot 735.1 HALLUX VARUS 12/13/2016 Ot V72.83 EXAM PRE- OPERATIVE NEC 12/13/2016 Ot V74.8 SCREEN- BACTERIAL DIS NEC 12/13/2016 Ot 272.4 HYPERLIPIDEMIA NEC/NOS 12/13/2016 Ot 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 12/13/2016 Ot 787.01 NAUSEA WITH VOMITING 12/13/2016 Ot 789.00 ABDOMINAL PAIN, UNSPECIFIED SITE 12/13/2016 Ot 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 12/13/2016 Ot 250.00 DIAB ANTHONY WO COMPL, TYPE II OR UNSPEC TY 12/13/2016 Ot 272.4 HYPERLIPIDEMIA NEC/NOS 12/13/2016 Ot 401.9 HYPERTENSION NOS 12/13/2016 Ot V58.69 OTH MED,LT, CURRENT USE 12/13/2016 Ot 272.4 HYPERLIPIDEMIA NEC/NOS 12/13/2016 Ot 401.9 HYPERTENSION NOS 12/13/2016 Ot V76.12 OTH SCREEN MAMMO-MALIGN NEOPLASM OF MILES 12/13/2016 NANI CALDERA, PAULO Gomez Ot 250.00 DIAB ANTHONY WO COMPL, TYPE II OR UNSPEC TY 12/13/2016 KOTA CALDERA, NEY Gomez Ot 272.4 HYPERLIPIDEMIA NEC/NOS 12/13/2016 NEY ESCUDERO MD Ot 401.9 HYPERTENSION NOS 12/13/2016 NEY ESCUDERO MD Ot 433.10 CAROTID ARTERY OCCLUSION W O CEREBRAL IN 12/13/2016 NANI CALDERA, PAULO Gomez Ot V76.12 OTH SCREEN MAMMO-MALIGN NEOPLASM OF MILES 12/13/2016 GUANAKITO CALDERA, MONALISA Thorne Ot 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 12/13/2016 MONALISA CALABRESE MD Ot 285.9 ANEMIA NOS 12/13/2016 GUANAKITO CALDERA, MONALISA Thorne Ot V58.81 FIT/ADJ VASCULAR CATHETER 12/13/2016 JOAQUIN CALDERA, ANGE Ot V72.84 EXAM PRE-OPERATIVE NOS 12/13/2016 PAULO CARDOZA MD Ot 250.00 DIAB ANTHONY WO COMPL, TYPE II OR UNSPEC TY 12/13/2016 PAULO CARDOZA MD Ot 272.4 HYPERLIPIDEMIA NEC/NOS 12/13/2016 PAULO CARDOZA MD Ot 285.9 ANEMIA NOS 12/13/2016 PAULO CARDOZA MD Ot 401.9 HYPERTENSION NOS 12/13/2016 PAULO CARDOZA MD Ot V58.69 OTH MED,LT,CURRENT USE 12/13/2016 MONALISA CALABRESE MD, Ot V76.12 OTH SCREEN MAMMO-MALIGN NEOPLASM OF MILES 12/13/2016 Ot 272.4 HYPERLIPIDEMIA NEC/NOS 12/13/2016 Ot 401.9 HYPERTENSION NOS 12/13/2016 Ot 416.8 CHR PULMON HEART DIS NEC 12/13/2016 Ot 427.0 PAROX ATRIAL TACHYCARDIA 12/13/2016 PAULO CARDOZA MD Ot 250.00 DIAB ANTHONY WO COMPL, TYPE II OR UNSPEC TY 12/13/2016 PAULO CARDOZA MD Ot 401.9 HYPERTENSION NOS 12/13/2016 MONALISA CALABRESE MD Ot 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 12/13/2016 MONALISA CALABRESE MD, Ot 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 12/13/2016 DELFINA ZAMARRIPA MARKETING TRAINEE Ot 786.05 SHORTNESS OF BREATH 12/13/2016 DELFINA ZAMARRIPA MARKETING TRAINEE Ot 786.2 COUGH 12/13/2016 MONALISA CALABRESE MD Ot C18.9 MALIGNANT NEOPLASM OF COLON, UNSPECIFIED 12/13/2016 MONALISA CALABRESE MD, Ot Z12.31 ENCNTR SCREEN MAMMOGRAM FOR MALIGNANT NE 12/13/2016 MONALISA CALABRESE MD, Ot C18.9 MALIGNANT NEOPLASM OF COLON, UNSPECIFIED 12/13/2016 MONALISA CALABRESE MD, Ot J84.9 INTERSTITIAL PULMONARY DISEASE, UNSPECIF 12/13/2016 MONALISA CALABRESE MD, Ot Z12.31 ENCNTR SCREEN MAMMOGRAM FOR MALIGNANT NE 12/13/2016 MONALISA CALABRESE MD Ot D50.9 IRON DEFICIENCY ANEMIA, UNSPECIFIED 12/13/2016 MONALISA CALABRESE MD Ot E11.9 TYPE 2 DIABETES MELLITUS WITHOUT COMPLIC 12/13/2016 MONALISA CALABRESE MD Ot E78.5 HYPERLIPIDEMIA, UNSPECIFIED 12/13/2016 MONALISA CALABRESE MD Ot I10 ESSENTIAL (PRIMARY) HYPERTENSION 12/13/2016 MONALISA CALABRESE MD, Ot Z08 ENCNTR FOR FOLLOW-UP EXAM AFTER TRTMT FO 12/13/2016 MONALISA CALABRESE MD, Ot Z79.899 OTHER PENITENTIARY (CURRENT) DRUG THERAPY 12/13/2016 MONALISA CALABRESE MD Ot Z85.038 PERSONAL HISTORY OF MALIGNANT NEOPLASM O 12/13/2016 MONALISA CALABRESE MD Ot Z92.21 PERSONAL HISTORY OF ANTINEOPLASTIC CHEMO 12/16/2016 MONALISA CALABRESE MD Ot C18.2 MALIGNANT NEOPLASM OF ASCENDING COLON 12/16/2016 MONALISA CALABRESE MD, Ot C18.2 MALIGNANT NEOPLASM OF ASCENDING COLON 01/06/2017 MONALISA CALABRESE MD, Ot C18.2 MALIGNANT NEOPLASM OF ASCENDING COLON 01/06/2017 MONALISA CALABRESE MD, Ot D50.9 IRON DEFICIENCY ANEMIA, UNSPECIFIED 01/06/2017 MONALISA CALABRESE MD Ot E11.9 TYPE 2 DIABETES MELLITUS WITHOUT COMPLIC 01/06/2017 MONALISA CALABRESE MD, Ot E78.5 HYPERLIPIDEMIA, UNSPECIFIED 01/06/2017 MONALISA CALABRESE MD, Ot I10 ESSENTIAL (PRIMARY) HYPERTENSION 01/06/2017 MONALISA CALABRESE MD, Ot Z08 ENCNTR FOR FOLLOW-UP EXAM AFTER TRTMT FO 01/06/2017 MONALISA CALABRESE MD, Ot Z79.899 OTHER ORGAN INSTALLER (CURRENT) DRUG THERAPY 01/06/2017 MONALISA CALABRESE MD, Ot Z85.038 PERSONAL HISTORY OF MALIGNANT NEOPLASM O 01/06/2017 MONALISA CALABRESE MD, Ot Z92.21 PERSONAL HISTORY OF ANTINEOPLASTIC CHEMO 01/07/2017 MONALISA CALABRESE MD, Ot C18.2 MALIGNANT NEOPLASM OF ASCENDING COLON 01/08/2017 ANGE NUÑEZ MD, Ot Z01.818 ENCOUNTER FOR OTHER PREPROCEDURAL EXAMIN 01/08/2017 ANGE NUÑEZ MD, Ot Z12.11 ENCOUNTER FOR SCREENING FOR MALIGNANT NE 01/08/2017 ANGE NUÑEZ MD, Ot Z85.038 PERSONAL HISTORY OF MALIGNANT NEOPLASM O 01/08/2017 MONALISA CALABRESE MD, Ot C18.2 MALIGNANT NEOPLASM OF ASCENDING COLON 01/08/2017 MONALISA CALABRESE MD, Ot C18.2 MALIGNANT NEOPLASM OF ASCENDING COLON 01/10/2017 ANGE NUÑEZ MD, Ot K57.30 DVRTCLOS OF LG INT W/O PERFORATION OR AB 01/10/2017 ANGE NUÑEZ MD, Ot K64.1 SECOND DEGREE HEMORRHOIDS 01/10/2017 ANGE NUÑEZ MD, Ot Z12.11 ENCOUNTER FOR SCREENING FOR MALIGNANT NE 01/10/2017 ANGE NUÑEZ MD, Ot Z85.038 PERSONAL HISTORY OF MALIGNANT NEOPLASM O 01/13/2017 MONALISA CALABRESE MD, Ot C18.2 MALIGNANT NEOPLASM OF ASCENDING COLON 01/30/2017 MONALISA CALABRESE MD, Ot D50.9 IRON DEFICIENCY ANEMIA, UNSPECIFIED 01/30/2017 MONALISA CALABRESE MD, Ot E11.9 TYPE 2 DIABETES MELLITUS WITHOUT COMPLIC 01/30/2017 MONALISA CALABRESE MD Ot E78.5 HYPERLIPIDEMIA, UNSPECIFIED 01/30/2017 MONALISA CALABRESE MD Ot I10 ESSENTIAL (PRIMARY) HYPERTENSION 01/30/2017 MONALISA CALABRESE MD Ot Z08 ENCNTR FOR FOLLOW-UP EXAM AFTER TRTMT FO 01/30/2017 MONALISA CALABRESE MD Ot Z79.899 OTHER ORGAN INSTALLER (CURRENT) DRUG THERAPY 01/30/2017 MONALISA CALABRESE MD Ot Z85.038 PERSONAL HISTORY OF MALIGNANT NEOPLASM O 01/30/2017 MONALISA CALABRESE MD Ot Z92.21 PERSONAL HISTORY OF ANTINEOPLASTIC CHEMO 02/04/2017 MONALISA CALABRESE MD Ot D50.9 IRON DEFICIENCY ANEMIA, UNSPECIFIED 02/04/2017 MONALISA CALABRESE MD Ot E11.9 TYPE 2 DIABETES MELLITUS WITHOUT COMPLIC 02/04/2017 MONALISA CALABRESE MD Ot E78.5 HYPERLIPIDEMIA, UNSPECIFIED 02/04/2017 MONALISA CALABRESE MD Ot I10 ESSENTIAL (PRIMARY) HYPERTENSION 02/04/2017 MONALISA CALABRESE MD Ot Z08 ENCNTR FOR FOLLOW-UP EXAM AFTER TRTMT FO 02/04/2017 MONALISA CALABRESE MD Ot Z79.899 OTHER ORGAN INSTALLER (CURRENT) DRUG THERAPY 02/04/2017 MONALISA CALABRESE MD Ot Z85.038 PERSONAL HISTORY OF MALIGNANT NEOPLASM O 02/04/2017 MONALISA CALABRESE MD Ot Z92.21 PERSONAL HISTORY OF ANTINEOPLASTIC CHEMO 02/18/2017 MONALISA CALABRESE MD Ot C18.2 MALIGNANT NEOPLASM OF ASCENDING COLON 02/21/2017 MONALISA CALABRESE MD Ot C18.2 MALIGNANT NEOPLASM OF ASCENDING COLON 03/04/2017 PAULO CARDOZA MD Ot E11.9 TYPE 2 DIABETES MELLITUS WITHOUT COMPLIC 03/04/2017 PAULO CARDOZA MD Ot I10 ESSENTIAL (PRIMARY) HYPERTENSION 03/04/2017 PAULO CARDOZA MD Ot E11.9 TYPE 2 DIABETES MELLITUS WITHOUT COMPLIC 03/04/2017 PAULO CARDOZA MD, Ot I10 ESSENTIAL (PRIMARY) HYPERTENSION 03/04/2017 PAULO CARDOZA MD, Ot E11.9 TYPE 2 DIABETES MELLITUS WITHOUT COMPLIC 03/04/2017 PAULO CARDOZA MD Ot I10 ESSENTIAL (PRIMARY) HYPERTENSION 03/10/2017 MONALISA CALABRESE MD Ot D50.9 IRON DEFICIENCY ANEMIA, UNSPECIFIED 03/10/2017 MONALISA CALABRESE MD Ot E11.9 TYPE 2 DIABETES MELLITUS WITHOUT COMPLIC 03/10/2017 MONALISA CALABRESE MD Ot E78.5 HYPERLIPIDEMIA, UNSPECIFIED 03/10/2017 MONALISA CALABRESE MD Ot I10 ESSENTIAL (PRIMARY) HYPERTENSION 03/10/2017 MONALISA CALABRESE MD Ot Z08 ENCNTR FOR FOLLOW-UP EXAM AFTER TRTMT FO 03/10/2017 MONALISA CALABRESE MD Ot Z79.899 OTHER PENITENTIARY (CURRENT) DRUG THERAPY 03/10/2017 MONALISA CALABRESE MD Ot Z85.038 PERSONAL HISTORY OF MALIGNANT NEOPLASM O 03/10/2017 MONALISA CALABRESE MD Ot Z92.21 PERSONAL HISTORY OF ANTINEOPLASTIC CHEMO 03/11/2017 MONALISA CALABRESE MD Ot D50.9 IRON DEFICIENCY ANEMIA, UNSPECIFIED 03/11/2017 MONALISA CALABRESE MD Ot E11.9 TYPE 2 DIABETES MELLITUS WITHOUT COMPLIC 03/11/2017 MONALISA CALABRESE MD Ot E78.5 HYPERLIPIDEMIA, UNSPECIFIED 03/11/2017 MONALISA CALABRESE MD Ot I10 ESSENTIAL (PRIMARY) HYPERTENSION 03/11/2017 MONALISA CALABRESE MD Ot Z08 ENCNTR FOR FOLLOW-UP EXAM AFTER TRTMT FO 03/11/2017 MONALISA CALABRESE MD Ot Z79.899 OTHER ORGAN INSTALLER (CURRENT) DRUG THERAPY 03/11/2017 MONALISA CALABRESE MD Ot Z85.038 PERSONAL HISTORY OF MALIGNANT NEOPLASM O 03/11/2017 MONALISA CALABRESE MD Ot Z92.21 PERSONAL HISTORY OF ANTINEOPLASTIC CHEMO 03/26/2017 PAULO CARDOZA MD Ot E11.9 TYPE 2 DIABETES MELLITUS WITHOUT COMPLIC 03/26/2017 PAULO CARDOZA MD Ot E78.5 HYPERLIPIDEMIA, UNSPECIFIED 03/26/2017 PAULO CARDOZA MD Ot I10 ESSENTIAL (PRIMARY) HYPERTENSION 03/26/2017 PAULO CARDOZA MD Ot Z79.899 OTHER PENITENTIARY (CURRENT) DRUG THERAPY 09/03/2017 DELFINA ZAMARRIPA MARKETING TRAINEE Ot Z12.31 ENCNTR SCREEN MAMMOGRAM FOR MALIGNANT NE 09/26/2017 DELFINA ZAMARRIPA APRN Ot Z12.31 ENCNTR SCREEN MAMMOGRAM FOR MALIGNANT NE 11/18/2017 POLA GREEN MD Ot Z92.21 PERSONAL HISTORY OF ANTINEOPLASTIC CHEMO 12/09/2017 POLA GREEN MD Ot C18.2 MALIGNANT NEOPLASM OF ASCENDING COLON 12/09/2017 POLA GREEN MD Ot D50.9 IRON DEFICIENCY ANEMIA, UNSPECIFIED 12/09/2017 NORMA CALDERA, POLA Ot E11.9 TYPE 2 DIABETES MELLITUS WITHOUT COMPLIC 12/09/2017 POLA GREEN MD Ot E78.5 HYPERLIPIDEMIA, UNSPECIFIED 12/09/2017 POLA GREEN MD Ot I10 ESSENTIAL (PRIMARY) HYPERTENSION 12/09/2017 POLA GREEN MD Ot I47.1 SUPRAVENTRICULAR TACHYCARDIA 12/09/2017 POLA GREEN MD Ot K26.9 DUODENAL ULCER, UNSP ACUTE OR CHRONIC 12/09/2017 POLA GREEN MD Ot M15.8 OTHER POLYOSTEOARTHRITIS 12/25/2017 POLA GREEN MD Ot C18.2 MALIGNANT NEOPLASM OF ASCENDING COLON 12/25/2017 POLA GREEN MD Ot D50.9 IRON DEFICIENCY ANEMIA, UNSPECIFIED 12/25/2017 POLA GREEN MD Ot E11.9 TYPE 2 DIABETES MELLITUS WITHOUT COMPLIC 12/25/2017 POLA GREEN MD Ot E78.5 HYPERLIPIDEMIA, UNSPECIFIED 12/25/2017 POLA GREEN MD Ot I10 ESSENTIAL (PRIMARY) HYPERTENSION 12/25/2017 POLA GREEN MD Ot I47.1 SUPRAVENTRICULAR TACHYCARDIA 12/25/2017 POLA GREEN MD Ot K26.9 DUODENAL ULCER, UNSP ACUTE OR CHRONIC 12/25/2017 POLA GREEN MD Ot M15.8 OTHER POLYOSTEOARTHRITIS 02/17/2018 POLA GREEN MD Ot C18.2 MALIGNANT NEOPLASM OF ASCENDING COLON 02/17/2018 POLA GREEN MD Ot D50.9 IRON DEFICIENCY ANEMIA, UNSPECIFIED 02/17/2018 POLA GREEN MD Ot E11.9 TYPE 2 DIABETES MELLITUS WITHOUT COMPLIC 02/17/2018 POLA GREEN MD Ot E78.5 HYPERLIPIDEMIA, UNSPECIFIED 02/17/2018 POLA GREEN MD Ot I10 ESSENTIAL (PRIMARY) HYPERTENSION 02/17/2018 POLA GREEN MD Ot I47.1 SUPRAVENTRICULAR TACHYCARDIA 02/17/2018 POLA GREEN MD Ot K26.9 DUODENAL ULCER, UNSP ACUTE OR CHRONIC 02/17/2018 POLA GREEN MD Ot M15.8 OTHER POLYOSTEOARTHRITIS 02/23/2018 POLA GREEN MD Ot C18.2 MALIGNANT NEOPLASM OF ASCENDING COLON 02/23/2018 NORMA CALDERA, POLA Ot D50.9 IRON DEFICIENCY ANEMIA, UNSPECIFIED 02/23/2018 POLA GREEN MD Ot E11.9 TYPE 2 DIABETES MELLITUS WITHOUT COMPLIC 02/23/2018 POLA GREEN MD Ot E78.5 HYPERLIPIDEMIA, UNSPECIFIED 02/23/2018 POLA GREEN MD Ot I10 ESSENTIAL (PRIMARY) HYPERTENSION 02/23/2018 NORMA CALDERA, POLA Ot I47.1 SUPRAVENTRICULAR TACHYCARDIA 02/23/2018 NORMA CALDERA, POLA Ot K26.9 DUODENAL ULCER, UNSP ACUTE OR CHRONIC 02/23/2018 POLA GREEN MD Ot M15.8 OTHER POLYOSTEOARTHRITIS 07/23/2018 NANI CALDERA, PAULO Gomez Ot 250.00 DIAB ANTHONY WO COMPL, TYPE II OR UNSPEC TY 07/23/2018 KOTA CALDERA, NEY Gomez Ot 272.4 HYPERLIPIDEMIA NEC/NOS 07/23/2018 KOTA CALDERA, NEY Gomez Ot 401.9 HYPERTENSION NOS 07/23/2018 KOTA CALDERA, NEY Gomez Ot 433.10 CAROTID ARTERY OCCLUSION W O CEREBRAL IN 07/23/2018 NANI CALDERA, PAULO Gomez Ot V76.12 OTH SCREEN MAMMO-MALIGN NEOPLASM OF MILES 07/23/2018 GUANAKITO CALDERA, MONALISA Thorne Ot 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 07/23/2018 GUANAKITO CALDERA, MONALISA Thorne Ot 285.9 ANEMIA NOS 07/23/2018 GUANAKITO CALDERA, MONALISA Thorne Ot V58.81 FIT/ADJ VASCULAR CATHETER 07/23/2018 JOAQUIN CALDERA, ANGE Ot V72.84 EXAM PRE-OPERATIVE NOS 07/23/2018 NANI CALDERA, PAULO Gomez Ot 250.00 DIAB ANTHONY WO COMPL, TYPE II OR UNSPEC TY 07/23/2018 PAULO CARDOZA MD Ot 272.4 HYPERLIPIDEMIA NEC/NOS 07/23/2018 PAULO CARDOZA MD Ot 285.9 ANEMIA NOS 07/23/2018 PAULO CARDOZA MD Ot 401.9 HYPERTENSION NOS 07/23/2018 PAULO CARDOZA MD Ot V58.69 OTH MED,LT,CURRENT USE 07/23/2018 GUANAKITO CALDERA, MONALISA Thorne Ot V76.12 OTH SCREEN MAMMO-MALIGN NEOPLASM OF MILES 07/23/2018 Ot 272.4 HYPERLIPIDEMIA NEC/NOS 07/23/2018 Ot 401.9 HYPERTENSION NOS 07/23/2018 Ot 416.8 CHR PULMON HEART DIS NEC 07/23/2018 Ot 427.0 PAROX ATRIAL TACHYCARDIA 07/23/2018 PAULO CARDOZA MD Ot 250.00 DIAB ANTHONY WO COMPL, TYPE II OR UNSPEC TY 07/23/2018 PAULO CARDOZA MD Ot 401.9 HYPERTENSION NOS 07/23/2018 MONALISA CALABRESE MD Ot 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 07/23/2018 MONALISA CALABRESE MD Ot 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 07/23/2018 DELFINA ZAMARRIPA MARKETING TRAINEE Ot 786.05 SHORTNESS OF BREATH 07/23/2018 DELFINA ZAMARRIPA MARKETING TRAINEE Ot 786.2 COUGH 07/23/2018 MONALISA CALABRESE MD Ot C18.9 MALIGNANT NEOPLASM OF COLON, UNSPECIFIED 07/23/2018 MONALISA CALABRESE MD Ot Z12.31 ENCNTR SCREEN MAMMOGRAM FOR MALIGNANT NE 07/23/2018 MONALISA CALABRESE MD Ot C18.9 MALIGNANT NEOPLASM OF COLON, UNSPECIFIED 07/23/2018 MONALISA CALABRESE MD Ot J84.9 INTERSTITIAL PULMONARY DISEASE, UNSPECIF 07/23/2018 MONALISA CALABRESE MD Ot Z12.31 ENCNTR SCREEN MAMMOGRAM FOR MALIGNANT NE 07/23/2018 MONALISA CALABRESE MD Ot C18.2 MALIGNANT NEOPLASM OF ASCENDING COLON 07/23/2018 MONALISA CALABRESE MD Ot C18.2 MALIGNANT NEOPLASM OF ASCENDING COLON 07/23/2018 PAULO CARDOZA MD Ot E11.9 TYPE 2 DIABETES MELLITUS WITHOUT COMPLIC 07/23/2018 PAULO CARDOZA MD Ot E78.5 HYPERLIPIDEMIA, UNSPECIFIED 07/23/2018 PAULO CARDOZA MD Ot I10 ESSENTIAL (PRIMARY) HYPERTENSION 07/23/2018 PAULO CARDOZA MD Ot Z79.899 OTHER PENITENTIARY (CURRENT) DRUG THERAPY 07/23/2018 DELFINA ZAMARRIPA MARKETING TRAINEE Ot Z12.31 ENCNTR SCREEN MAMMOGRAM FOR MALIGNANT NE 07/23/2018 POLA GREEN MD Ot C18.2 MALIGNANT NEOPLASM OF ASCENDING COLON 07/23/2018 POLA GREEN MD Ot D50.9 IRON DEFICIENCY ANEMIA, UNSPECIFIED 07/23/2018 POLA GREEN MD Ot E11.9 TYPE 2 DIABETES MELLITUS WITHOUT COMPLIC 07/23/2018 POLA GREEN MD Ot E78.5 HYPERLIPIDEMIA, UNSPECIFIED 07/23/2018 POLA GREEN MD Ot I10 ESSENTIAL (PRIMARY) HYPERTENSION 07/23/2018 POLA GREEN MD Ot I47.1 SUPRAVENTRICULAR TACHYCARDIA 07/23/2018 POLA GREEN MD Ot K26.9 DUODENAL ULCER, UNSP ACUTE OR CHRONIC 07/23/2018 POLA GREEN MD Ot M15.8 OTHER POLYOSTEOARTHRITIS 08/02/2018 POLA GREEN MD Ot C18.2 MALIGNANT NEOPLASM OF ASCENDING COLON 08/02/2018 POLA GREEN MD Ot D50.9 IRON DEFICIENCY ANEMIA, UNSPECIFIED 08/02/2018 NORMA CALDERA, POLA Ot E11.9 TYPE 2 DIABETES MELLITUS WITHOUT COMPLIC 08/02/2018 POLA GREEN MD Ot E78.5 HYPERLIPIDEMIA, UNSPECIFIED 08/02/2018 POLA GREEN MD Ot I10 ESSENTIAL (PRIMARY) HYPERTENSION 08/02/2018 POLA GREEN MD Ot I47.1 SUPRAVENTRICULAR TACHYCARDIA 08/02/2018 POLA GREEN MD Ot K26.9 DUODENAL ULCER, UNSP ACUTE OR CHRONIC 08/02/2018 POLA GREEN MD, Ot M15.8 OTHER POLYOSTEOARTHRITIS 08/04/2018 POLA GREEN MD Ot C18.2 MALIGNANT NEOPLASM OF ASCENDING COLON 08/04/2018 POLA GREEN MD Ot D50.9 IRON DEFICIENCY ANEMIA, UNSPECIFIED 08/04/2018 POLA GREEN MD Ot E11.9 TYPE 2 DIABETES MELLITUS WITHOUT COMPLIC 08/04/2018 POLA GREEN MD Ot E78.5 HYPERLIPIDEMIA, UNSPECIFIED 08/04/2018 POLA GREEN MD Ot I10 ESSENTIAL (PRIMARY) HYPERTENSION 08/04/2018 POLA GREEN MD Ot I47.1 SUPRAVENTRICULAR TACHYCARDIA 08/04/2018 POLA GREEN MD Ot K26.9 DUODENAL ULCER, UNSP ACUTE OR CHRONIC 08/04/2018 POLA GREEN MD Ot M15.8 OTHER POLYOSTEOARTHRITIS Procedures Code Description Performed By Performed On 45.16 ESOPHAGOGASTRODUODENOSCOPY [ EGD] W/CLOSE 01/15/2012 Results Test Result Range Complete blood count (CBC) with automated white blood cell (WBC) differential - 10/06/16 14:46 Blood leukocytes automated count (number/volume) 13.2 10*3/uL 4.3-11.0 Blood erythrocytes automated count (number/volume) 3.58 10*6/uL 4.35-5.85 Venous blood hemoglobin measurement (mass/volume) 11.1 g/dL 11.5-16.0 Blood hematocrit (volume fraction) 32 % 35-52 Automated erythrocyte mean corpuscular volume 91 [foz_us] 80-99 Automated erythrocyte mean corpuscular hemoglobin (mass per erythrocyte) 31 pg 25-34 Automated erythrocyte mean corpuscular hemoglobin concentration measurement ( mass/volume) 34 g/dL 32-36 Automated erythrocyte distribution width ratio 12.7 % 10.0-14.5 Automated blood platelet count (count/volume) 291 10*3/uL 130-400 Automated blood platelet mean volume measurement 10.5 [foz_us] 7.4-10.4 Automated blood neutrophils/100 leukocytes 69 % 42-75 Automated blood lymphocytes/100 leukocytes 20 % 12-44 Blood monocytes/100 leukocytes 8 % 0-12 Automated blood eosinophils/100 leukocytes 2 % 0-10 Automated blood basophils/100 leukocytes 0 % 0-10 Blood neutrophils automated count (number/volume) 9.1 10*3 1.8-7.8 Blood lymphocytes automated count (number/volume) 2.7 10*3 1.0-4.0 Blood monocytes automated count (number/volume) 1.1 10*3 0.0-1.0 Automated eosinophil count 0.3 10*3/uL 0.0-0.3 Automated blood basophil count (count/volume) 0.1 10*3/uL 0.0-0.1 PT panel in platelet poor plasma by coagulation assay - 10/06/16 14:46 Prothrombin time (PT) in platelet poor plasma by coagulation assay 12.1 s 12.2-14.7 INR in platelet poor plasma or blood by coagulation assay 0.9 0.8-1.4 Comprehensive metabolic panel - 10/06/16 14:46 Serum or plasma sodium measurement (moles/volume) 136 mmol/L 135-145 Serum or plasma potassium measurement (moles/volume) 4.4 mmol/L 3.6-5.0 Serum or plasma chloride measurement (moles/volume) 103 mmol/L 98-107 Carbon dioxide 22 mmol/L 21-32 Serum or plasma anion gap determination (moles/volume) 11 mmol/L 5-14 Serum or plasma urea nitrogen measurement (mass/volume) 12 mg/dL 7-18 Serum or plasma creatinine measurement (mass/volume) 1.22 mg/dL 0.60-1.30 Serum or plasma urea nitrogen/creatinine mass ratio 10 NRG Serum or plasma creatinine measurement with calculation of estimated glomerular filtration rate 43 NRG Serum or plasma glucose measurement (mass/volume) 262 mg/dL 70-105 Serum or plasma calcium measurement (mass/volume) 9.5 mg/dL 8.5-10.1 Serum or plasma total bilirubin measurement (mass/volume) 0.3 mg/dL 0.1-1.0 Serum or plasma alkaline phosphatase measurement (enzymatic activity/volume) 49 U/L 40-136 Serum or plasma aspartate aminotransferase measurement (enzymatic activity/ volume) 22 U/L 5-34 Serum or plasma alanine aminotransferase measurement (enzymatic activity/volume ) 26 U/L 0-55 Serum or plasma protein measurement (mass/volume) 6.6 g/dL 6.4-8.2 Serum or plasma albumin measurement (mass/volume) 4.2 g/dL 3.2-4.5 Complete urinalysis with reflex to culture - 10/06/16 16:14 Urine color determination YELLOW NRG Urine clarity determination SLIGHTLY CLOUDY NRG Urine pH measurement by test strip 8 5-9 Specific gravity of urine by test strip 1.020 1.016- 1.022 Urine protein assay by test strip, semi-quantitative 1+ NEGATIVE Urine glucose detection by automated test strip 1+ NEGATIVE Erythrocytes detection in urine sediment by light microscopy NEGATIVE NEGATIVE Urine ketones detection by automated test strip NEGATIVE NEGATIVE Urine nitrite detection by test strip NEGATIVE NEGATIVE Urine total bilirubin detection by test strip NEGATIVE NEGATIVE Urine urobilinogen measurement by automated test strip (mass/volume) NORMAL NORMAL Urine leukocyte esterase detection by dipstick NEGATIVE NEGATIVE Automated urine sediment erythrocyte count by microscopy (number/high power field) NONE NRG Automated urine sediment leukocyte count by microscopy (number/high power field ) NONE NRG Bacteria detection in urine sediment by light microscopy NONE NRG Crystals detection in urine sediment by light microscopy PRESENT NRG Casts detection in urine sediment by light microscopy NONE NRG Mucus detection in urine sediment by light microscopy NEGATIVE NRG Complete urinalysis with reflex to culture NO NRG Amorphous sediment detection in urine sediment by light microscopy MOD ARELI PHOSPHATE NRG Capillary blood glucose measurement by glucometer (mass/volume) - 10/11/16 21: 36 Capillary blood glucose measurement by glucometer (mass/volume) 215 mg/dL 70-110 Capillary blood glucose measurement by glucometer (mass/volume) - 10/12/16 02: 03 Capillary blood glucose measurement by glucometer (mass/volume) 136 mg/dL 70-110 PT panel in platelet poor plasma by coagulation assay - 10/12/16 05:10 Prothrombin time (PT) in platelet poor plasma by coagulation assay 17.5 s 12.2-14.7 INR in platelet poor plasma or blood by coagulation assay 1.5 0.8-1.4 Complete blood count (CBC) with automated white blood cell (WBC) differential - 10/12/16 05:35 Blood leukocytes automated count (number/volume) 9.0 10*3/uL 4.3-11.0 Blood erythrocytes automated count (number/volume) 3.69 10*6/uL 4.35-5.85 Venous blood hemoglobin measurement (mass/volume) 10.8 g/dL 11.5-16.0 Blood hematocrit (volume fraction) 32 % 35-52 Automated erythrocyte mean corpuscular volume 86 [foz_us] 80-99 Automated erythrocyte mean corpuscular hemoglobin (mass per erythrocyte) 29 pg 25-34 Automated erythrocyte mean corpuscular hemoglobin concentration measurement ( mass/volume) 34 g/dL 32-36 Automated erythrocyte distribution width ratio 14.8 % 10.0-14.5 Automated blood platelet count (count/volume) 207 10*3/uL 130-400 Automated blood platelet mean volume measurement 10.3 [foz_us] 7.4-10.4 Automated blood neutrophils/100 leukocytes 68 % 42-75 Automated blood lymphocytes/100 leukocytes 15 % 12-44 Blood monocytes/100 leukocytes 15 % 0-12 Automated blood eosinophils/100 leukocytes 2 % 0-10 Automated blood basophils/100 leukocytes 0 % 0-10 Blood neutrophils automated count (number/volume) 6.1 10*3 1.8-7.8 Blood lymphocytes automated count (number/volume) 1.4 10*3 1.0-4.0 Blood monocytes automated count (number/volume) 1.3 10*3 0.0-1.0 Automated eosinophil count 0.2 10*3/uL 0.0-0.3 Automated blood basophil count (count/volume) 0.0 10*3/uL 0.0-0.1 Comprehensive metabolic panel - 10/12/16 05:35 Serum or plasma sodium measurement (moles/volume) 136 mmol/L 135-145 Serum or plasma potassium measurement (moles/volume) 4.0 mmol/L 3.6-5.0 Serum or plasma chloride measurement (moles/volume) 102 mmol/L 98-107 Carbon dioxide 23 mmol/L 21-32 Serum or plasma anion gap determination (moles/volume) 11 mmol/L 5-14 Serum or plasma urea nitrogen measurement (mass/volume) 15 mg/dL 7-18 Serum or plasma creatinine measurement (mass/volume) 0.80 mg/dL 0.60-1.30 Serum or plasma urea nitrogen/creatinine mass ratio 19 NRG Serum or plasma creatinine measurement with calculation of estimated glomerular filtration rate > NRG Serum or plasma glucose measurement (mass/volume) 158 mg/dL 70-105 Serum or plasma calcium measurement (mass/volume) 9.1 mg/dL 8.5-10.1 Serum or plasma total bilirubin measurement (mass/volume) 0.7 mg/dL 0.1-1.0 Serum or plasma alkaline phosphatase measurement (enzymatic activity/volume) 85 U/L 40-136 Serum or plasma aspartate aminotransferase measurement (enzymatic activity/ volume) 19 U/L 5-34 Serum or plasma alanine aminotransferase measurement (enzymatic activity/volume ) 12 U/L 0-55 Serum or plasma protein measurement (mass/volume) 5.9 g/dL 6.4-8.2 Serum or plasma albumin measurement (mass/volume) 3.0 g/dL 3.2-4.5 Capillary blood glucose measurement by glucometer (mass/volume) - 10/12/16 10: 01 Capillary blood glucose measurement by glucometer (mass/volume) 156 mg/dL 70-110 Capillary blood glucose measurement by glucometer (mass/volume) - 10/12/16 15: 11 Capillary blood glucose measurement by glucometer (mass/volume) 128 mg/dL 70-110 Capillary blood glucose measurement by glucometer (mass/volume) - 10/12/16 21: 24 Capillary blood glucose measurement by glucometer (mass/volume) 157 mg/dL 70-110 Capillary blood glucose measurement by glucometer (mass/volume) - 10/13/16 06: 17 Capillary blood glucose measurement by glucometer (mass/volume) 111 mg/dL 70-110 Capillary blood glucose measurement by glucometer (mass/volume) - 10/13/16 09: 18 Capillary blood glucose measurement by glucometer (mass/volume) 213 mg/dL 70-110 Capillary blood glucose measurement by glucometer (mass/volume) - 10/13/16 15: 53 Capillary blood glucose measurement by glucometer (mass/volume) 124 mg/dL 70-110 Capillary blood glucose measurement by glucometer (mass/volume) - 10/13/16 20: 28 Capillary blood glucose measurement by glucometer (mass/volume) 206 mg/dL 70-110 Capillary blood glucose measurement by glucometer (mass/volume) - 10/14/16 05: 19 Capillary blood glucose measurement by glucometer (mass/volume) 107 mg/dL 70-110 Capillary blood glucose measurement by glucometer (mass/volume) - 10/14/16 11: 07 Capillary blood glucose measurement by glucometer (mass/volume) 143 mg/dL 70-110 Capillary blood glucose measurement by glucometer (mass/volume) - 10/14/16 16: 04 Capillary blood glucose measurement by glucometer (mass/volume) 148 mg/dL 70-110 PT panel in platelet poor plasma by coagulation assay - 10/14/16 18:51 Prothrombin time (PT) in platelet poor plasma by coagulation assay 16.6 s 12.2-14.7 INR in platelet poor plasma or blood by coagulation assay 1.4 0.8-1.4 Capillary blood glucose measurement by glucometer (mass/volume) - 10/14/16 20: 11 Capillary blood glucose measurement by glucometer (mass/volume) 219 mg/dL 70-110 Capillary blood glucose measurement by glucometer (mass/volume) - 10/15/16 03: 39 Capillary blood glucose measurement by glucometer (mass/volume) 83 mg/dL 70-110 PT panel in platelet poor plasma by coagulation assay - 10/15/16 05:30 Prothrombin time (PT) in platelet poor plasma by coagulation assay 18.4 s 12.2-14.7 INR in platelet poor plasma or blood by coagulation assay 1.6 0.8-1.4 Capillary blood glucose measurement by glucometer (mass/volume) - 10/15/16 06: 31 Capillary blood glucose measurement by glucometer (mass/volume) 149 mg/dL 70-110 Capillary blood glucose measurement by glucometer (mass/volume) - 10/15/16 09: 34 Capillary blood glucose measurement by glucometer (mass/volume) 218 mg/dL 70-110 Capillary blood glucose measurement by glucometer (mass/volume) - 10/15/16 13: 08 Capillary blood glucose measurement by glucometer (mass/volume) 55 mg/dL 70-110 Capillary blood glucose measurement by glucometer (mass/volume) - 10/15/16 13: 28 Capillary blood glucose measurement by glucometer (mass/volume) 97 mg/dL 70-110 Capillary blood glucose measurement by glucometer (mass/volume) - 10/15/16 16: 13 Capillary blood glucose measurement by glucometer (mass/volume) 250 mg/dL 70-110 Capillary blood glucose measurement by glucometer (mass/volume) - 10/15/16 19: 40 Capillary blood glucose measurement by glucometer (mass/volume) 101 mg/dL 70-110 Capillary blood glucose measurement by glucometer (mass/volume) - 10/16/16 05: 33 Capillary blood glucose measurement by glucometer (mass/volume) 136 mg/dL 70-110 Capillary blood glucose measurement by glucometer (mass/volume) - 10/16/16 09: 25 Capillary blood glucose measurement by glucometer (mass/volume) 170 mg/dL 70-110 Capillary blood glucose measurement by glucometer (mass/volume) - 10/16/16 15: 20 Capillary blood glucose measurement by glucometer (mass/volume) 195 mg/dL 70-110 Capillary blood glucose measurement by glucometer (mass/volume) - 10/16/16 20: 54 Capillary blood glucose measurement by glucometer (mass/volume) 172 mg/dL 70-110 Capillary blood glucose measurement by glucometer (mass/volume) - 10/17/16 04: 59 Capillary blood glucose measurement by glucometer (mass/volume) 152 mg/dL 70-110 PT panel in platelet poor plasma by coagulation assay - 10/17/16 05:00 Prothrombin time (PT) in platelet poor plasma by coagulation assay 19.4 s 12.2-14.7 INR in platelet poor plasma or blood by coagulation assay 1.7 0.8-1.4 Lipid 1996 panel - 10/17/16 05:06 Serum or plasma triglyceride measurement (mass/volume) 115 mg/dL <150 Serum or plasma cholesterol measurement (mass/volume) 93 mg/dL < 200 Serum or plasma cholesterol in HDL measurement (mass/volume) 28 mg/ dL 40-60 Cholesterol in LDL [mass/volume] in serum or plasma by direct assay 45 mg/dL 1-129 Serum or plasma cholesterol in VLDL measurement (mass/volume) 23 mg/ dL 5-40 Capillary blood glucose measurement by glucometer (mass/volume) - 10/17/16 10: 33 Capillary blood glucose measurement by glucometer (mass/volume) 181 mg/dL 70-110 Capillary blood glucose measurement by glucometer (mass/volume) - 10/17/16 14: 28 Capillary blood glucose measurement by glucometer (mass/volume) 215 mg/dL 70-110 Capillary blood glucose measurement by glucometer (mass/volume) - 10/17/16 21: 20 Capillary blood glucose measurement by glucometer (mass/volume) 182 mg/dL 70-110 Complete blood count (CBC) with automated white blood cell (WBC) differential - 10/18/16 05:14 Blood leukocytes automated count (number/volume) 9.0 10*3/uL 4.3-11.0 Blood erythrocytes automated count (number/volume) 3.73 10*6/uL 4.35-5.85 Venous blood hemoglobin measurement (mass/volume) 10.8 g/dL 11.5-16.0 Blood hematocrit (volume fraction) 34 % 35-52 Automated erythrocyte mean corpuscular volume 91 [foz_us] 80-99 Automated erythrocyte mean corpuscular hemoglobin (mass per erythrocyte) 29 pg 25-34 Automated erythrocyte mean corpuscular hemoglobin concentration measurement ( mass/volume) 32 g/dL 32-36 Automated erythrocyte distribution width ratio 14.8 % 10.0-14.5 Automated blood platelet count (count/volume) 463 10*3/uL 130-400 Automated blood platelet mean volume measurement 10.0 [foz_us] 7.4-10.4 Automated blood neutrophils/100 leukocytes 65 % 42-75 Automated blood lymphocytes/100 leukocytes 19 % 12-44 Blood monocytes/100 leukocytes 10 % 0-12 Automated blood eosinophils/100 leukocytes 5 % 0-10 Automated blood basophils/100 leukocytes 1 % 0-10 Blood neutrophils automated count (number/volume) 5.9 10*3 1.8-7.8 Blood lymphocytes automated count (number/volume) 1.7 10*3 1.0-4.0 Blood monocytes automated count (number/volume) 0.9 10*3 0.0-1.0 Automated eosinophil count 0.5 10*3/uL 0.0-0.3 Automated blood basophil count (count/volume) 0.1 10*3/uL 0.0-0.1 PT panel in platelet poor plasma by coagulation assay - 10/18/16 05:14 Prothrombin time (PT) in platelet poor plasma by coagulation assay 20.0 s 12.2-14.7 INR in platelet poor plasma or blood by coagulation assay 1.7 0.8-1.4 Comprehensive metabolic panel - 10/18/16 05:14 Serum or plasma sodium measurement (moles/volume) 138 mmol/L 135-145 Serum or plasma potassium measurement (moles/volume) 4.7 mmol/L 3.6-5.0 Serum or plasma chloride measurement (moles/volume) 103 mmol/L 98-107 Carbon dioxide 28 mmol/L 21-32 Serum or plasma anion gap determination (moles/volume) 7 mmol/L 5-14 Serum or plasma urea nitrogen measurement (mass/volume) 10 mg/dL 7-18 Serum or plasma creatinine measurement (mass/volume) 0.83 mg/dL 0.60-1.30 Serum or plasma urea nitrogen/creatinine mass ratio 12 NRG Serum or plasma creatinine measurement with calculation of estimated glomerular filtration rate > NRG Serum or plasma glucose measurement (mass/volume) 139 mg/dL 70-105 Serum or plasma calcium measurement (mass/volume) 9.5 mg/dL 8.5-10.1 Serum or plasma total bilirubin measurement (mass/volume) 0.4 mg/dL 0.1-1.0 Serum or plasma alkaline phosphatase measurement (enzymatic activity/volume) 67 U/L 40-136 Serum or plasma aspartate aminotransferase measurement (enzymatic activity/ volume) 17 U/L 5-34 Serum or plasma alanine aminotransferase measurement (enzymatic activity/volume ) 12 U/L 0-55 Serum or plasma protein measurement (mass/volume) 6.3 g/dL 6.4-8.2 Serum or plasma albumin measurement (mass/volume) 3.4 g/dL 3.2-4.5 Capillary blood glucose measurement by glucometer (mass/volume) - 10/18/16 09: 59 Capillary blood glucose measurement by glucometer (mass/volume) 165 mg/dL 70-110 Capillary blood glucose measurement by glucometer (mass/volume) - 10/18/16 14: 37 Capillary blood glucose measurement by glucometer (mass/volume) 175 mg/dL 70-110 Capillary blood glucose measurement by glucometer (mass/volume) - 10/18/16 20: 31 Capillary blood glucose measurement by glucometer (mass/volume) 183 mg/dL 70-110 Capillary blood glucose measurement by glucometer (mass/volume) - 10/19/16 05: 59 Capillary blood glucose measurement by glucometer (mass/volume) 159 mg/dL 70-110 PT panel in platelet poor plasma by coagulation assay - 10/19/16 05:59 Prothrombin time (PT) in platelet poor plasma by coagulation assay 20.7 s 12.2-14.7 INR in platelet poor plasma or blood by coagulation assay 1.8 0.8-1.4 Capillary blood glucose measurement by glucometer (mass/volume) - 10/19/16 09: 50 Capillary blood glucose measurement by glucometer (mass/volume) 216 mg/dL 70-110 Capillary blood glucose measurement by glucometer (mass/volume) - 10/19/16 12: 51 Capillary blood glucose measurement by glucometer (mass/volume) 47 mg/dL 70-110 Capillary blood glucose measurement by glucometer (mass/volume) - 10/19/16 15: 14 Capillary blood glucose measurement by glucometer (mass/volume) 138 mg/dL 70-110 Capillary blood glucose measurement by glucometer (mass/volume) - 10/19/16 21: 33 Capillary blood glucose measurement by glucometer (mass/volume) 126 mg/dL 70-110 PT panel in platelet poor plasma by coagulation assay - 10/20/16 05:36 Prothrombin time (PT) in platelet poor plasma by coagulation assay 19.0 s 12.2-14.7 INR in platelet poor plasma or blood by coagulation assay 1.6 0.8-1.4 Capillary blood glucose measurement by glucometer (mass/volume) - 10/20/16 06: 16 Capillary blood glucose measurement by glucometer (mass/volume) 142 mg/dL 70-110 Capillary blood glucose measurement by glucometer (mass/volume) - 10/20/16 09: 55 Capillary blood glucose measurement by glucometer (mass/volume) 216 mg/dL 70-110 Capillary blood glucose measurement by glucometer (mass/volume) - 10/20/16 15: 02 Capillary blood glucose measurement by glucometer (mass/volume) 121 mg/dL 70-110 Capillary blood glucose measurement by glucometer (mass/volume) - 10/20/16 21: 32 Capillary blood glucose measurement by glucometer (mass/volume) 166 mg/dL 70-110 Capillary blood glucose measurement by glucometer (mass/volume) - 10/21/16 05: 23 Capillary blood glucose measurement by glucometer (mass/volume) 151 mg/dL 70-110 PT panel in platelet poor plasma by coagulation assay - 10/21/16 05:50 Prothrombin time (PT) in platelet poor plasma by coagulation assay 22.5 s 12.2-14.7 INR in platelet poor plasma or blood by coagulation assay 2.0 0.8-1.4 Capillary blood glucose measurement by glucometer (mass/volume) - 10/21/16 09: 30 Capillary blood glucose measurement by glucometer (mass/volume) 194 mg/dL 70-110 Capillary blood glucose measurement by glucometer (mass/volume) - 10/21/16 14: 35 Capillary blood glucose measurement by glucometer (mass/volume) 185 mg/dL 70-110 Capillary blood glucose measurement by glucometer (mass/volume) - 10/21/16 20: 35 Capillary blood glucose measurement by glucometer (mass/volume) 176 mg/dL 70-110 Capillary blood glucose measurement by glucometer (mass/volume) - 10/22/16 04: 43 Capillary blood glucose measurement by glucometer (mass/volume) 129 mg/dL 70-110 PT panel in platelet poor plasma by coagulation assay - 10/22/16 06:11 Prothrombin time (PT) in platelet poor plasma by coagulation assay 23.3 s 12.2-14.7 INR in platelet poor plasma or blood by coagulation assay 2.1 0.8-1.4 Capillary blood glucose measurement by glucometer (mass/volume) - 10/22/16 09: 35 Capillary blood glucose measurement by glucometer (mass/volume) 215 mg/dL 70-110 Capillary blood glucose measurement by glucometer (mass/volume) - 01/10/17 10: 17 Capillary blood glucose measurement by glucometer (mass/volume) 178 mg/dL 70-110 Lipid 1996 panel - 03/04/17 08:51 Serum or plasma triglyceride measurement (mass/volume) 131 mg/dL <150 Serum or plasma cholesterol measurement (mass/volume) 169 mg/dL < 200 Serum or plasma cholesterol in HDL measurement (mass/volume) 61 mg/ dL 40-60 Cholesterol in LDL [mass/volume] in serum or plasma by direct assay 72 mg/dL 1-129 Serum or plasma cholesterol in VLDL measurement (mass/volume) 26 mg/ dL 5-40 Hemoglobin A1c - 03/04/17 08:51 Hemoglobin A1c 6.9 % 4.5-6.2 THYROID STIMULATING HORMONE - 03/04/17 08:51 THYROID STIMULATING HORMONE 1.20 u[iU]/mL 0.35-4.94 Encounters ACCT No. Visit Date/Time Discharge Status Pt. Type Provider Facility Loc./Unit Complaint [id number] 08/03/2018 01:36:00 08/03/2018 23:59:59 CLS Preadmit POLA GREEN MD [facility] ONC [id number] 07/23/2018 12:45:00 08/02/2018 00:01:00 DIS Outpatient POLA GREEN MD [facility] ONC [id number] 11/19/2017 12:25:00 02/17/2018 00:01:00 DIS Outpatient POLA GREEN MD [facility] ONC [id number] 09/03/2017 10:13:00 09/03/2017 23:59:59 CLS Outpatient DELFINA ZAMARRIPA APRN [facility] RAD SCREENING Z12.31 [id number] 03/04/2017 08:23:00 03/10/2017 00:01:00 DIS Outpatient MONALISA CALABRESE MD [facility] ONC [id number] 03/04/2017 08:27:00 03/04/2017 23:59:59 CLS Outpatient PAULO CARDOZA MD [facility] LAB [id number] 01/10/2017 09:36:00 01/10/2017 12:30:00 DIS Outpatient ANGE NUÑEZ MD [facility] ENDO HISTORY COLON CANCER [id number] 01/08/2017 05:53:00 01/08/2017 10:28:00 DIS Outpatient ANGE NUÑEZ MD [facility] PREOP HISTORY COLON CANCER [id number] 01/07/2017 09:53:00 01/07/2017 23:59:59 CLS Outpatient MONALISA CALABRESE MD [facility] RAD COLON CANCER [id number] 12/13/2016 10:40:00 12/13/2016 23:59:59 CLS Outpatient MONAL[facility]E [facility] [facility] COLON CANCER [id number] 10/11/2016 17:35:00 10/22/2016 14:15:00 DIS Inpatient FRENANDO CALDERA, PHANI Vasquez [facility] IRF HIP FRACTURE [id number] 10/06/2016 14:40:00 10/06/2016 17:18:00 DIS Emergency EBONIE CALDERA, ARELY S [facility] ER FALL [id number] 06/11/2016 08:47:00 08/22/2016 00:01:00 DIS Outpatient MONALISA CALABRESE MD [facility] ONC [id number] 08/21/2016 10:26:00 08/21/2016 23:59:59 CLS Outpatient MONALISA CALABRESE MD [facility] RAD SCREENING [id number] 07/17/2016 08:25:00 07/17/2016 11:25:00 DIS Outpatient ANGE NUÑEZ MD [facility] SDC ANEMIA; HISTORY OF ULCERS [id number] 07/15/2016 05:55:00 07/15/2016 11:57:00 DIS Outpatient ANGE NUÑEZ MD [facility] PREOP ANEMIA; HISTORY ULCERS [id number] 05/27/2016 08:57:00 05/27/2016 23:59:59 CLS Outpatient MONALISA CALABRESE MD [facility] RAD INTERSTITAL LUNG DISEASE , COLON CANCER [id number] 12/12/2015 08:57:00 03/11/2016 00:01:00 DIS Outpatient MONALISA CALABRESE MD [facility] ONC [id number] 08/23/2015 08:57:00 08/23/2015 23:59:59 CLS Outpatient MONALISA CALABRESE MD [facility] RAD SCREENING [id number] 07/11/2015 09:46:00 08/02/2015 00:01:00 DIS Outpatient MONALISA CALABRESE MD [facility] ONC [id number] 07/04/2015 09:25:00 07/04/2015 23:59:59 CLS Outpatient MONALISA CALABRESE MD [facility] RAD COLON CA [id number] 05/08/2015 13:32:00 05/08/2015 23:59:59 CLS Outpatient DELFINA ZAMARRIPA APRN [facility] RAD COUGH, SOB [id number] 04/24/2015 10:32:00 04/24/2015 23:59:59 CLS Outpatient MONALISA CALABRESE MD [facility] RAD COLON CA [id number] 04/18/2015 12:37:00 04/24/2015 00:01:00 DIS Outpatient MONALISA CALABRESE MD [facility] ONC [id number] 01/24/2015 08:53:00 01/24/2015 23:59:59 CLS Outpatient PAULO CARDOZA MD [facility] LAB [id number] 07/26/2014 09:30:00 10/24/2014 00:01:00 DIS Outpatient MONALISA CALABRESE MD [facility] ONC [id number] 08/22/2014 09:33:00 08/22/2014 23:59:59 CLS Outpatient MONALISA CALABRESE MD [facility] RAD ROUTINE [id number] 07/26/2014 09:33:00 07/26/2014 23:59:59 CLS Outpatient PAULO CARDOZA MD [facility] LAB [id number] 06/17/2014 09:47:00 06/17/2014 14:05:00 DIS Outpatient ANGE NUÑEZ MD [facility] SDC HISTORY COLON CANCER [id number] 06/09/2014 07:34:00 06/09/2014 23:59:59 CLS Outpatient ANGE NUÑEZ MD [facility] PREOP HISTORY OF COLON CANCER [id number] 05/26/2014 09:49:00 06/06/2014 17:00:00 DIS Outpatient DELFINA ZAMARRIPA APRN [facility] REHAB LOW BACK PAIN [id number] 04/07/2014 20:50:00 04/07/2014 22:59:00 DIS Emergency ROSANA CARDOZA MD [facility] ER BACK PAIN [id number] 01/25/2014 09:55:00 01/25/2014 23:59:59 CLS Outpatient MONALISA CALABRESE MD [facility] ONC OV [id number] 08/20/2013 09:30:00 08/20/2013 23:59:59 CLS Outpatient PAULO CARDOZA MD [facility] RAD SCREENING [id number] 07/27/2013 09:30:00 08/15/2013 00:01:00 DIS Outpatient MONALISA CALABRESE MD [facility] ONC OV [id number] 07/27/2013 10:19:00 07/27/2013 23:59:59 CLS Outpatient NEY ESCUDERO MD [facility] LAB [id number] 07/27/2013 09:39:00 07/27/2013 23:59:59 CLS Outpatient PAULO CARDOZA MD [facility] LAB [id number] 04/05/2013 12:48:00 04/12/2013 00:01:00 DIS Outpatient MONALISA CALABRESE MD [facility] ONC OV [id number] 01/09/2015 07:36:00 Document Registration [id number] 11/30/2012 12:27:00 Document Registration [id number] 08/19/2012 09:57:00 Document Registration [id number] 08/10/2012 08:28:00 Document Registration [id number] 08/10/2012 08:23:00 Document Registration [id number] 08/10/2012 08:19:00 Document Registration [id number] 06/23/2012 12:23:00 Document Registration [id number] 04/13/2012 12:01:00 Document Registration [id number] 01/16/2012 18:30:00 Document Registration [id number] 01/15/2012 11:23:00 Document Registration [id number] 01/15/2012 10:22:00 Document Registration [id number] 12/16/2011 18:05:00 Document Registration [id number] 12/12/2011 11:51:00 Document Registration [id number] 11/01/2011 05:42:00 Document Registration [id number] 10/25/2011 13:58:00 Document Registration [id number] 10/16/2011 08:52:00 Document Registration [id number] 08/23/2011 12:53:00 Document Registration [id number] 05/27/2011 06:17:00 Document Registration [id number] 04/24/2011 08:57:00 Document Registration [id number] 04/24/2011 08:54:00 Document Registration [id number] 03/06/2011 09:56:00 Document Registration [id number] 01/23/2011 14:09:00 Document Registration [id number] 01/16/2011 05:50:00 Document Registration [id number] 01/08/2011 10:25:00 Document Registration [id number] 11/28/2010 10:14:00 Document Registration [id number] 10/25/2010 08:16:00 Document Registration [id number] 09/20/2010 07:42:00 Document Registration [id number] 09/07/2010 08:41:00 Document Registration [id number] 07/24/2010 12:49:00 Document Registration [id number] 07/05/2010 09:37:00 Document Registration [id number] 06/20/2010 08:42:00 Document Registration [id number] 06/07/2010 08:40:00 Document Registration [id number] 06/05/2010 06:02:00 Document Registration [id number] 06/04/2010 09:09:00 Document Registration [id number] 05/31/2010 09:14:00 Document Registration [id number] 05/23/2010 10:07:00 Document Registration [id number] 05/08/2010 23:40:00 Document Registration [id number] 04/24/2010 13:05:00 Document Registration [id number] 03/19/2010 14:17:00 Document Registration [id number] 07/11/2015 09:46:50 ACT Document Registration
[2018-08-18] MEDS ORDERED: NS IV 1000 ML 1,000 ML IV ONE ×2 (20:20→21:11)
[2018-08-18 20:30] LABS: BASOPHILS # (AUTO) 0.1 10^3/uL (0.0-0.1); BASOPHILS % (AUTO) 1 % (0-10); EOSINOPHILS # (AUTO) 0.4 10^3/uL (0.0-0.3); EOSINOPHILS % (AUTO) 5 % (0-10); HEMATOCRIT 32 % (35-52); HEMOGLOBIN 10.8 G/DL (11.5-16.0); LYMPHOCYTES # (AUTO) 2.4 X 10^3 (1.0-4.0); LYMPHOCYTES % (AUTO) 29 % (12-44); MEAN CORPUSCULAR HEMOGLOBIN 30 PG (25-34); MEAN CORPUSCULAR HGB CONC 34 G/DL (32-36); MEAN CORPUSCULAR VOLUME 90 FL (80-99); MEAN PLATELET VOLUME 9.6 FL (7.4-10.4); MONOCYTES % (AUTO) 13 % (0-12); NEUTROPHILS # (AUTO) 4.2 X 10^3 (1.8-7.8); NEUTROPHILS % (AUTO) 52 % (42-75); PLATELET COUNT 340 10^3/uL (130-400); RED BLOOD COUNT 3.56 10^6/uL (4.35-5.85)
[2018-08-18 20:33] LABS: BILIRUBIN,URINE NEGATIVE (NEGATIVE); CLARITY,URINE CLEAR; COLOR,URINE YELLOW; GLUCOSE, URINE (UA) 4+ (NEGATIVE); KETONES,URINE NEGATIVE (NEGATIVE); LEUKOCYTE ESTERASE ,URINE 2+ (NEGATIVE); NITRITE,URINE NEGATIVE (NEGATIVE); PH,URINE 7 (5-9); PROTEIN,URINE 1+ (NEGATIVE); UROBILINOGEN,URINE NORMAL (NORMAL)
--- NOTE | 2018-08-18 20:34 | ED General ---
General Chief Complaint: Cardiac/General Problems Stated Complaint: SHAKY, HEART RACING Source of Information: Patient Exam Limitations: No Limitations History of Present Illness Date Seen by Provider: Aug 18, 2018 Time Seen by Provider: 20:03 Initial Comments Here with report of feeling shaky and actually shaking as well as feeling her heart racing. Has had some recent cough but denies other recent illness. Denies nausea, vomiting or diarrhea. Timing/Duration: 12 Hours, Getting Worse Severity: Moderate Associated Systoms: Cough; No Headaches; Malaise; No Nausea/Vomiting, No Shortness of Air; Weakness Allergies and Home Medications Allergies Coded Allergies: Penicillins (Unverified Allergy, Unknown, N/V, RASH, 06/17/14) codeine (Verified Allergy, Unknown, 08/22/08) Uncoded Allergies: SILK TAPE (Allergy, Mild, 05/07/09) Home Medications Aspirin 81 Mg Tablet.dr, 81 MG PO DAILY Prescribed by: CAROLIN GÓMEZ on 10/21/16 0848 Glyburide 5 Mg Tablet, 10 MG PO BID, (Reported) TAKES 2 (5MG) TABLETS TWICE DAILY Iron Polysaccharide Complex 150 Mg Capsule, 150 MG PO BID WITH MEALS Prescribed by: CAROLIN GÓMEZ on 10/21/16 0848 Linagliptin 5 Mg Tablet, 5 MG PO DAILY, (Reported) Losartan Potassium 50 Mg Tablet, 50 MG PO DAILY, (Reported) Lovastatin 20 Mg Tablet, 20 MG PO HS, (Reported) Metformin Hcl 500 Mg Tablet, 500 MG PO BID, (Reported) Pantoprazole Sodium 40 Mg Tablet.dr, 40 MG PO BID, (Reported) Patient Home Medication List Home Medication List Reviewed: Yes Review of Systems Review of Systems Constitutional: see HPI, chills; No fever; weakness EENTM: no symptoms reported Respiratory: cough, short of breath; No wheezing Cardiovascular: No chest pain; palpitations Gastrointestinal: No abdominal pain, No nausea, No vomiting Genitourinary: no symptoms reported Musculoskeletal: No muscle pain; muscle weakness Skin: no symptoms reported Psychiatric/Neurological: See HPI All Other Systems Reviewed Negative Unless Noted: Yes Past Krcxspb-Foizsi-Hlekgr Hx Past Med/Social Hx: Reviewed Nursing Past Med/Soc Hx Patient Social History Alcohol Use: Denies Use Recreational Drug Use: No Smoking Status: Never a Smoker Former Smoker, Quit: Aug 12, 1986 Recent Foreign Travel: No Contact w/Someone Who Travel: No Recent Hopitalizations: No Immunizations Up To Date Date of Pneumonia Vaccine: Jun 17, 2012 Date of Influenza Vaccine: Aug 22, 2016 Seasonal Allergies Seasonal Allergies: Yes Past Medical History Surgeries: Yes Orthopedic Respiratory: No Cardiac: Yes Atrial Fibrillation, Hypertension Neurological: No Reproductive Disorders: No Sexually Transmitted Disease: No Gastrointestinal: No Musculoskeletal: Yes Arthritis, Chronic Back Pain, Fractures Diabetes, Non-Insulin dep HEENT: Yes Cataract Cancer: Yes Colon Psychosocial: No Family Medical History Reviewed Nursing Family Hx No Pertinent Family Hx Physical Exam Vital Signs Vital Signs - First Documented 08/18/18 20:00 Temp 97.5 Pulse 115 Resp 24 B/P (MAP) 175/89 (117) Pulse Ox 99 O2 Delivery Room Air Capillary Refill : Height, Weight, BMI Height: 5'6.00" Weight: 136lbs. 0.0oz. 61.088593fu; 22.0 BMI Method:Stated General Appearance: WD/WN, Mild Distress, Other (ill appearing) HEENT: PERRL/EOMI, Pharynx Normal Neck: Non Tender, Supple Respiratory: No Respiratory Distress, Crackles (right base), Expiration, Inspiration; No Wheezing Cardiovascular: No Murmur, Tachycardia Gastrointestinal: Non Tender, Soft Back: Normal Inspection, No CVA Tenderness, No Vertebral Tenderness Extremity: Normal Range of Motion, Non Tender Neurologic/Psychiatric: Alert, Oriented x3 Skin: Normal Color, Warm/Dry Focused Exam Lactate Level 08/18/18 20:20: Lactic Acid Level 3.46*H Lactic Acid Level Laboratory Tests Test 08/18/18 20:20 Lactic Acid Level 3.46 MMOL/L (0.50-2.00) *H Progress/Results/Core Measures Suspected Sepsis SIRS Temperature: Pulse: Respiratory Rate: Laboratory Tests 08/18/18 20:20: White Blood Count 8.0 Blood Pressure / Mean: 08/18/18 20:20: Lactic Acid Level 3.46*H Laboratory Tests 08/18/18 20:20: Creatinine 1.31H, INR Comment 0.9, Platelet Count 340, Total Bilirubin 0.2 Results/Orders Lab Results Laboratory Tests Test 08/18/18 20:06 08/18/18 20:20 08/18/18 20:25 Range/Units Glucometer 296 H 70-110 MG/DL White Blood Count 8.0 4.3-11.0 10^3/uL Red Blood Count 3.56 L 4.35-5.85 10^6/uL Hemoglobin 10.8 L 11.5-16.0 G/DL Hematocrit 32 L 35-52 % Mean Corpuscular Volume 90 80-99 FL Mean Corpuscular Hemoglobin 30 25-34 PG Mean Corpuscular Hemoglobin Concent 34 32-36 G/DL Red Cell Distribution Width 13.0 10.0-14.5 % Platelet Count 340 130-400 10^3/uL Mean Platelet Volume 9.6 7.4-10.4 FL Neutrophils (%) (Auto) 52 42-75 % Lymphocytes (%) (Auto) 29 12-44 % Monocytes (%) (Auto) 13 H 0-12 % Eosinophils (%) (Auto) 5 0-10 % Basophils (%) (Auto) 1 0-10 % Neutrophils # (Auto) 4.2 1.8-7.8 X 10^3 Lymphocytes # (Auto) 2.4 1.0-4.0 X 10^3 Monocytes # (Auto) 1.0 0.0-1.0 X 10^3 Eosinophils # (Auto) 0.4 H 0.0-0.3 10^3/uL Basophils # (Auto) 0.1 0.0-0.1 10^3/uL Prothrombin Time 12.4 12.2-14.7 SEC INR Comment 0.9 0.8-1.4 Activated Partial Thromboplast Time 30 24-35 SEC Sodium Level 134 L 135-145 MMOL/L Potassium Level 3.9 3.6-5.0 MMOL/L Chloride Level 97 L 98-107 MMOL/L Carbon Dioxide Level 21 21-32 MMOL/L Anion Gap 16 H 5-14 MMOL/L Blood Urea Nitrogen 11 7-18 MG/DL Creatinine 1.31 H 0.60-1.30 MG/DL Estimat Glomerular Filtration Rate 39 BUN/Creatinine Ratio 8 Glucose Level 290 H 70-105 MG/DL Lactic Acid Level 3.46 *H 0.50-2.00 MMOL/L Calcium Level 10.1 8.5-10.1 MG/DL Corrected Calcium 9.9 8.5-10.1 MG/DL Total Bilirubin 0.2 0.1-1.0 MG/DL Aspartate Amino Transf (AST/SGOT) 19 5-34 U/L Alanine Aminotransferase (ALT/SGPT) 33 0-55 U/L Alkaline Phosphatase 45 40-136 U/L Total Protein 7.2 6.4-8.2 GM/DL Albumin 4.3 3.2-4.5 GM/DL Thyroid Stimulating Hormone (TSH) 2.37 0.35-4.94 UIU/ML Urine Color YELLOW Urine Clarity CLEAR Urine pH 7 5-9 Urine Specific [place] 1.020 1.016-1.022 Urine Protein 1+ H NEGATIVE Urine Glucose (UA) 4+ H NEGATIVE Urine Ketones NEGATIVE NEGATIVE Urine Nitrite NEGATIVE NEGATIVE Urine Bilirubin NEGATIVE NEGATIVE Urine Urobilinogen NORMAL NORMAL MG/DL Urine Leukocyte Esterase 2+ H NEGATIVE Urine RBC (Auto) 1+ H NEGATIVE Urine RBC 0-2 /HPF Urine WBC 5-10 H /HPF Urine Squamous Epithelial Cells 2-5 /HPF Urine Crystals PRESENT H /LPF Urine Amorphous Sediment FEW ARELI URATES H /LPF Urine Bacteria TRACE /HPF Urine Casts NONE /LPF Urine Mucus NEGATIVE /LPF Urine Culture Indicated NO My Orders Orders - MARTY SHEA MD Cbc With Automated Diff (08/18/18 20:18) Comprehensive Metabolic Panel (08/18/18 20:18) Blood Culture (08/18/18 20:18) Sputum Culture (08/18/18 20:18) Urinalysis (08/18/18 20:18) Urine Culture (08/18/18 20:18) Protime With Inr (08/18/18 20:18) Partial Thromboplastin Time (08/18/18 20:18) Chest 1 View, Ap/Pa Only (08/18/18 20:18) Saline Lock/Iv-Start (08/18/18 20:18) Ekg Tracing (08/18/18 20:18) Vital Signs Adult Sepsis Patie Q15M (08/18/18 20:18) O2 (08/18/18 20:18) Remove Rings In Anticipation O (08/18/18 20:18) Lactic Acid Analyzer (08/18/18 20:18) Thyroid Stimulating Hormone (08/18/18 20:18) Influenza A And B Antigens (08/18/18 20:18) Ns Iv 1000 Ml (Sodium Chloride 0.9%) (08/18/18 20:20) Ceftriaxone For Iv Use (Rocephin For I (08/18/18 21:15) Ns Iv 1000 Ml (Sodium Chloride 0.9%) (08/18/18 21:11) Medications Given in ED Current Medications Medications Dose Ordered Sig/Chante Route Start Time Stop Time Status Last Admin Dose Admin Sodium Chloride 1,000 ml @ 0 mls/hr Q0M ONCE IV 08/18/18 20:20 08/18/18 20:22 DC 08/18/18 20:41 0 MLS/HR Vital Signs/I&O 08/18/18 20:00 Temp 97.5 Pulse 115 Resp 24 B/P (MAP) 175/89 (117) Pulse Ox 99 O2 Delivery Room Air Capillary Refill : Progress Note : Progress Note Seen and evaluated. Due to rigorous shaking/chills and right basilar findings on evaluation, concerns for pneumonia. Sepsis workup initiated. Labs, EKG, chest x-ray, UA, normal saline 1 L bolus ordered. Monitor patient. 2114: Chest x-ray indicates pneumonia in the left perihilar region. I'm also concerned about right basilar pneumonia given physical exam findings and the shotty appearance of the right hemidiaphragm. Patient's lactic acid is elevated at greater than 3. Patient does not require high-volume fluid resuscitation but we will go ahead and give a second liter of normal saline at this time as I do believe there is a component of dehydration and her blood glucose levels are not well controlled currently. This will help both. I did discuss the findings with Dr. GLOVER and he accepts patient for admission, inpatient status. Rocephin 1 g IV ordered. We will continue community- acquired pneumonia protocol. Findings concerns discussed with the patient and family who agree with admission. ECG Initial ECG Impression Date: Aug 18, 2018 Initial ECG Impression Time: 20:06 Initial ECG Rate: 115 Initial ECG Rhythm: S.Tach Comment Sinus tachycardia with normal axis. No evidence of ST elevation KS. Similar to 09 May 2010. There is artifact on this EKG making it difficult to discern subtle changes. Interpreted by me. Diagnostic Imaging Diagonstic Imaging: Xray Plain Films/CT/US/NM/MRI: chest Comments VIA [facility]. [place], [place] NAME: ISMAELCODYNICOLLE Fuentes MED REC#: [id number] PT STATUS: REG ER : 1940 PHYSICIAN: MARTY SHEA MD ADMIT DATE: 08/18/18/ER Draft Date of Exam:08/18/18 CHEST 1 VIEW, AP/PA ONLY INDICATION: Difficulty breathing, cough Upright chest shows the heart size and vascularity to be upper normal. There is left perihilar peribronchial infiltrate. No peripheral mass or infiltrate is seen. There is no effusion or pneumothorax. IMPRESSION: Left perihilar infiltrate. Besides the infiltrate, there is no change from a prior study from 05/08/2015. Dictated on workstation # [id number] Dict: 08/18/182035 Trans: 08/18/182037 [facility] [id number] Interpreted by: ISMAEL SABA MD Electronically signed by: Departure Communication (Admissions) Time/Spoke to Admitting Phy: 21:10 Impression Primary Impression: Pneumonia involving left lung Qualified Codes: J18.9 - Pneumonia, unspecified organism Additional Impression: Uncontrolled diabetes mellitus Qualified Codes: E11.65 - Type 2 diabetes mellitus with hyperglycemia Disposition: ADMITTED INPATIENT Condition: Stable Admissions Decision to Admit Reason: Admit from ER (General) Decision to Admit/Date: Aug 18, 2018 Time/Decision to Admit Time: 21:10 Departure-Patient Inst. Referrals: PAULO CARDOZA MD (PCP/Family) Primary Care Physician MARTY SHEA MD Aug 18, 2018 20:34
--- NOTE | 2018-08-18 20:39 | Diagnostic Imaging Report ---
INDICATION: Difficulty breathing, cough Upright chest shows the heart size and vascularity to be upper normal. There is left perihilar peribronchial infiltrate. No peripheral mass or infiltrate is seen. There is no effusion or pneumothorax. IMPRESSION: Left perihilar infiltrate. Besides the infiltrate, there is no change from a prior study from 05/08/2015. Dictated by: Dictated on workstation # [id number]
[2018-08-18 20:44] LABS: INR 0.9 (0.8-1.4); PROTHROMBIN TIME PATIENT 12.4 SEC (12.2-14.7)
[2018-08-18 20:45] LABS: AMORPHOUS SEDIMENT,UR FEW AMOR URATES /LPF; BACTERIA,URINE TRACE /HPF; RBC,URINE 0-2 /HPF
[2018-08-18 20:52] LABS: ALBUMIN 4.3 GM/DL (3.2-4.5); BILIRUBIN,TOTAL 0.2 MG/DL (0.1-1.0); CALCIUM 10.1 MG/DL (8.5-10.1); CREATININE SERUM 1.31 MG/DL (0.60-1.30); POTASSIUM 3.9 MMOL/L (3.6-5.0); TOTAL PROTEIN 7.2 GM/DL (6.4-8.2)
[2018-08-18] MEDS ORDERED: cefTRIAXone FOR IV USE 1,000 MG in NS (IVPB) 50 ML IV ONE (21:15)
[2018-08-18 22:26] VITALS: BP 140/67
[2018-08-18] MEDS ORDERED: ACETAMINOPHEN 325 MG TABLET PO PRN (22:30)
[2018-08-18] MEDS ORDERED: CATHETER FLUSH 10 ML SYR IV PRN (22:30)
[2018-08-18] MEDS ORDERED: ONDANSETRON 4 MG/2 ML (SDV) Z0FRAN IV PRN (22:30)
[2018-08-18] MEDS ORDERED: AZITHROMYCIN 500 MG/NS 250 ML IVPB IV ONE ×2 (22:30)
[2018-08-18 22:59] VITALS: BP 140/67
[2018-08-18] MEDS: NS IV 1000 ML 1,000 ML IV SCH (23:04)
[2018-08-18] MEDS: CATHETER FLUSH 10 ML SYR IV SCH (23:24)
[2018-08-19] VITALS: BP 140/69
[2018-08-19] MEDS: RT-ALBUTEROL SULF 2.5 MG/3 ML PRE-MIX VIAL INH SCH ×4 (03:29→19:29)
[2018-08-19 04:00] VITALS: BP 134/63
[2018-08-19] MEDS: inSUlin ASPART (NovoLOG) 1 UNIT/0.01 ML (CHARGE PER UNIT) SC SCH ×4 (05:46→20:56)
[2018-08-19 06:09] LABS: BASOPHILS # (AUTO) 0.1 10^3/uL (0.0-0.1); BASOPHILS % (AUTO) 1 % (0-10); EOSINOPHILS # (AUTO) 0.1 10^3/uL (0.0-0.3); EOSINOPHILS % (AUTO) 2 % (0-10); HEMATOCRIT 29 % (35-52); HEMOGLOBIN 10.1 G/DL (11.5-16.0); LYMPHOCYTES # (AUTO) 1.9 X 10^3 (1.0-4.0); LYMPHOCYTES % (AUTO) 26 % (12-44); MEAN CORPUSCULAR HEMOGLOBIN 31 PG (25-34); MEAN CORPUSCULAR HGB CONC 35 G/DL (32-36); MEAN CORPUSCULAR VOLUME 88 FL (80-99); MEAN PLATELET VOLUME 10.1 FL (7.4-10.4); MONOCYTES # (AUTO) 0.8 X 10^3 (0.0-1.0); MONOCYTES % (AUTO) 12 % (0-12); NEUTROPHILS # (AUTO) 4.3 X 10^3 (1.8-7.8); NEUTROPHILS % (AUTO) 59 % (42-75); PLATELET COUNT 304 10^3/uL (130-400); RED BLOOD COUNT 3.29 10^6/uL (4.35-5.85); WHITE BLOOD COUNT 7.2 10^3/uL (4.3-11.0)
[2018-08-19 06:27] LABS: ALBUMIN 3.9 GM/DL (3.2-4.5); BILIRUBIN,TOTAL 0.3 MG/DL (0.1-1.0); CALCIUM 9.2 MG/DL (8.5-10.1); CREATININE SERUM 1.03 MG/DL (0.60-1.30); POTASSIUM 3.9 MMOL/L (3.6-5.0); TOTAL PROTEIN 6.3 GM/DL (6.4-8.2)
[2018-08-19] MEDS: AZITHROMYCIN 250 MG TAB (ZITHROMAX) PO SCH (08:45)
[2018-08-19 09:00] VITALS: BP 156/74
[2018-08-19] MEDS ORDERED: METF-397 PO (09:47)
[2018-08-19] MEDS ORDERED: PANT40TA3 PO (09:47)
[2018-08-19] MEDS ORDERED: ASPI-983 PO (09:47)
[2018-08-19] MEDS ORDERED: FERR325T18 PO (09:47)
[2018-08-19] MEDS ORDERED: GLYB5TAB6 PO (09:47)
[2018-08-19] MEDS ORDERED: LOVA20TA2 PO (09:55)
[2018-08-19] MEDS ORDERED: OMEG-9 PO (09:55)
[2018-08-19] MEDS ORDERED: CALC-6 PO (09:56)
[2018-08-19] MEDS ORDERED: MULT-633 PO (09:56)
[2018-08-19] MEDS ORDERED: BILB30CA2 PO (09:57)
[2018-08-19] MEDS ORDERED: ANTI1CAP5 PO (09:57)
--- NOTE | 2018-08-19 11:21 | History & Physical-Hospitalist ---
History of Present Illness HPI/Chief Complaint CC: Pneumonia with sepsis and elevated lactic acid HPI: This is a 77-year-old white female known to me from prior admission for hip fracture October 2017 who presented to the ER with severe Rosa M's and chills and fever and overall feeling badly. She was found to have a left lower lobe pneumonia with elevated lactic acid requiring IV antibiotics IV fluids and definitive treatment. Currently she is feeling much better and tolerating the antibiotics and IV fluid and nebulizer treatments and is ready to get up and walk around. She returned home after the hip fracture had no other medical issues until this admission and is overall has been doing well. Source: patient, RN/MD Exam Limitations: no limitations Date Seen 08/19/18 Time Seen by a Provider: 09:30 Attending Physician Jose M Sanchez MD PCP Afshin Cruz MD Referring Physician Date of Admission Aug 18, 2018 at 21:32 Home Medications & Allergies Home Medications Reviewed patient Home Medication Reconciliation performed by pharmacy medication reconciliations monitor technician and/or nursing. Patients Allergies have been reviewed. Allergies Allergies Coded Allergies Penicillins (Unverified Allergy, Unknown, N/V, RASH, 06/17/14) codeine (Verified Allergy, Unknown, 08/22/08) Uncoded Allergies SILK TAPE ( Allergy, Mild, 05/07/09) Past Izxbljk-Kjkngd-Jyktfj Hx Past Med/Social Hx: Reviewed Nursing Past Med/Soc Hx, Reviewed and Corrections made Patient Social History Marrital Status: single Employed/Student: retired Alcohol Use: Denies Use Recreational Drug Use: No Smoking Status: Never a Smoker Former Smoker, Quit: Aug 12, 1986 2nd Hand Smoke Exposure: No Physical Abuse Screen: No Sexual Abuse: No Recent Foreign Travel: No Contact w/other who traveled: No Recent Hopitalizations: No Recent Infectious Disease Expo: No Immunizations Up To Date Tetanus Booster (TDap): Unknown Date of Pneumonia Vaccine: March 18, 2017 Date of Influenza Vaccine: Jul 28, 2018 Seasonal Allergies Seasonal Allergies: No Past Medical History Surgeries: Orthopedic Respiratory: Pulmonary Fibrosis Cardiac: Atrial Fibrillation, High Cholesterol, Hypertension Reproductive: No Sexually Transmitted Disease: No Female Reproductive Disorders: Denies Gastrointestinal: Gastroesophageal Reflux Musculoskeletal: Arthritis, Chronic Back Pain, Fractures Endocrine: Diabetes, Non-Insulin dep Are Your Blood Sugars Over 250: No HEENT: Cataract Loss of Vision: Bilateral Hearing Impairment: Hard of Hearing Cancer: Colon Did You Recieve Any Treatments: No Cancer: pt states that she's allergic to the ingredients in chemo and never recieved any treatment for her colon cancer but continues to get it checked out routinely with her physician. Last checkup was last year. History of Blood Disorders: Yes (anemia) Adverse Reaction to Blood Posada: No Family History Reviewed Nursing Family Hx Colon cancer G8 SISTER FH: breast cancer G8 SISTER G8 SISTER Myocardial infarction 19 FATHER (father had x3 KS's and from the final one) No Pertinent Family Hx Review of Systems Constitutional: see HPI, chills, dizziness, fever, malaise, weakness EENTM: no symptoms reported Respiratory: cough Cardiovascular: no symptoms reported Gastrointestinal: no symptoms reported Genitourinary: no symptoms reported Musculoskeletal: no symptoms reported Skin: no symptoms reported Psychiatric/Neurological: No Symptoms Reported All Other Systems Reviewed Negative Unless Noted: Yes Physical Exam Physical Exam Vital Signs Vital Signs - First Documented 08/18/18 08/18/18 20:00 22:59 Temp 97.5 Pulse 115 Resp 24 B/P (MAP) 175/89 (117) Pulse Ox 99 O2 Delivery Room Air FiO2 21 Capillary Refill : Less Than 3 Seconds Height, Weight, BMI Height: 5'6.00" Weight: 143lbs. 11.0oz. 65.896244rs; 25.4 BMI Method:Stated General Appearance: No Apparent Distress, WD/WN, Chronically ill Eyes: Bilateral Eye Normal Inspection, Bilateral Eye PERRL HEENT: PERRL/EOMI, TMs Normal, Normal ENT Inspection, Pharynx Normal Neck: Full Range of Motion, Normal Inspection, Non Tender, Supple, Carotid Bruit Respiratory: Chest Non Tender, No Accessory Muscle Use, No Respiratory Distress , Crackles, Wheezing Cardiovascular: Regular Rate, Rhythm, No Edema, No Gallop, No JVD, No Murmur, Normal Peripheral Pulses Gastrointestinal: Normal Bowel Sounds, No Organomegaly, No Pulsatile Mass, Non Tender, Soft Back: Normal Inspection, No CVA Tenderness, No Vertebral Tenderness Extremity: Normal Capillary Refill, Normal Inspection, Normal Range of Motion, Non Tender, No Calf Tenderness, No Pedal Edema Neurologic/Psychiatric: Alert, Oriented x3, No Motor/Sensory Deficits, Normal Mood/Affect Skin: Normal Color, Warm/Dry Lymphatic: No Adenopathy Results Results/Procedures Labs Laboratory Tests 08/18/18 20:20 08/19/18 05:46 Patient resulted labs reviewed. Assessment/Plan Admission Diagnosis Assessment: Sepsis Left lower lobe pneumonia Elevated lactic acid History of colon cancer Hip fracture October 2017 Debility Plan: IV antibiotics Neb treatments Check labs in a.m. Home meds Admission Status: Inpatient Order (span 2 midnights) Reason for Inpatient Admission: IV abx are required along with IVF due to severely elevated lactic acid requiring 3 days of inpt Diagnosis/Problems Diagnosis/Problems (1) Sepsis Status: Resolved Qualifiers: Sepsis type: sepsis due to unspecified organism Qualified Codes: A41.9 - Sepsis, unspecified organism (2) Pneumonia involving left lung Status: Acute Qualifiers: Pneumonia type: due to unspecified organism Lung location: unspecified part of lung Qualified Codes: J18.9 - Pneumonia, unspecified organism (3) Elevated lactic acid level Status: Acute (4) History of colon cancer Status: Chronic (5) Falls Status: Chronic Qualifiers: Encounter type: sequela Qualified Codes: W19.XXXS - Unspecified fall, sequela Clinical Quality Measures DVT/VTE Risk/Contraindication: Risk Factor Score Per Nursin RFS Level Per Nursing on Admit: 2=Moderate CAROLIN GÓMEZ DO Aug 19, 2018 11:21
[2018-08-19 12:00] VITALS: BP 140/62
[2018-08-19] MEDS: CATHETER FLUSH 10 ML SYR IV SCH ×2 (15:25→21:00)
[2018-08-19 16:25] VITALS: BP 157/70
[2018-08-19] MEDS ORDERED: FERROUS SULF 325 MG (IRON) TAB PO SCH (17:00)
[2018-08-19] MEDS: NS IV 1000 ML 1,000 ML IV SCH (17:11)
[2018-08-19] MEDS: metFORMIN 500 MG (GLUCOPHAGE) TAB PO SCH (17:11)
[2018-08-19] MEDS: glyBURIDE 5 MG (MICRONASE) TAB PO SCH (17:11)
[2018-08-19 20:20] VITALS: BP 138/64
[2018-08-19] MEDS: PANTOPRAZOLE 40 MG (PROTONIX) TAB PO SCH (20:56)
[2018-08-19] MEDS ORDERED: NON-FORMULARY MEDICATION 1 EA EA (Metformin HCl 500 MG) PO SCH (21:00)
[2018-08-19] MEDS ORDERED: cefTRIAXone 1 GM/NS 50 ML IVPB IV SCH ×2 (21:00)
[2018-08-19] MEDS ORDERED: NON-FORMULARY MEDICATION 1 EA EA (Losartan Potassium 50 MG) PO SCH (21:00)
[2018-08-19] MEDS ORDERED: LOSARTAN 50 MG (COZAAR) TAB PO SCH (21:00)
[2018-08-19] MEDS ORDERED: SIMvastatin 10 MG (ZOCOR) TAB PO SCH (21:00)
[2018-08-19] MEDS ORDERED: NON-FORMULARY MEDICATION 1 EA EA (Lovastatin 20 MG) PO SCH (21:00)
[2018-08-20 00:19] VITALS: BP 127/62
[2018-08-20] MEDS: RT-ALBUTEROL SULF 2.5 MG/3 ML PRE-MIX VIAL INH SCH ×2 (02:11→10:05)
[2018-08-20 04:22] VITALS: BP 131/64
[2018-08-20] MEDS: CATHETER FLUSH 10 ML SYR IV SCH (05:48)
[2018-08-20] MEDS: inSUlin ASPART (NovoLOG) 1 UNIT/0.01 ML (CHARGE PER UNIT) SC SCH ×2 (05:48→11:30)
[2018-08-20 06:17] LABS: BASOPHILS # (AUTO) 0.1 10^3/uL (0.0-0.1); BASOPHILS % (AUTO) 1 % (0-10); EOSINOPHILS # (AUTO) 0.5 10^3/uL (0.0-0.3); EOSINOPHILS % (AUTO) 7 % (0-10); HEMATOCRIT 30 % (35-52); HEMOGLOBIN 9.8 G/DL (11.5-16.0); LYMPHOCYTES # (AUTO) 2.4 X 10^3 (1.0-4.0); LYMPHOCYTES % (AUTO) 34 % (12-44); MEAN CORPUSCULAR HEMOGLOBIN 30 PG (25-34); MEAN CORPUSCULAR HGB CONC 33 G/DL (32-36); MEAN CORPUSCULAR VOLUME 90 FL (80-99); MEAN PLATELET VOLUME 9.8 FL (7.4-10.4); MONOCYTES # (AUTO) 0.7 X 10^3 (0.0-1.0); MONOCYTES % (AUTO) 11 % (0-12); NEUTROPHILS # (AUTO) 3.3 X 10^3 (1.8-7.8); NEUTROPHILS % (AUTO) 47 % (42-75); PLATELET COUNT 314 10^3/uL (130-400); RED BLOOD COUNT 3.27 10^6/uL (4.35-5.85); RED CELL DISTRIBUTION WIDTH 13.6 % (10.0-14.5)
[2018-08-20] MEDS: metFORMIN 500 MG (GLUCOPHAGE) TAB PO SCH (06:35)
[2018-08-20] MEDS: glyBURIDE 5 MG (MICRONASE) TAB PO SCH (06:35)
[2018-08-20] MEDS: PANTOPRAZOLE 40 MG (PROTONIX) TAB PO SCH (06:44)
[2018-08-20 06:55] LABS: ALBUMIN 3.8 GM/DL (3.2-4.5); BILIRUBIN,TOTAL 0.3 MG/DL (0.1-1.0); CALCIUM 9.2 MG/DL (8.5-10.1); POTASSIUM 4.2 MMOL/L (3.6-5.0); TOTAL PROTEIN 6.2 GM/DL (6.4-8.2)
[2018-08-20 08:00] VITALS: BP 159/76
[2018-08-20] MEDS: AZITHROMYCIN 250 MG TAB (ZITHROMAX) PO SCH (08:38)
[2018-08-20] MEDS ORDERED: ASPIRIN E.C. 81 MG (ECOTRIN) TAB PO SCH (09:00)
[2018-08-20] MEDS ORDERED: LINAGLIPTIN (TRADJENTA) 5 MG TABLET PO SCH (09:00)
[2018-08-20] MEDS ORDERED: CEFD300C3 PO (11:03)
[2018-08-20 11:45] VITALS: BP 142/65
[2018-08-20 13:03] VITALS: BP 142/65
--- NOTE | 2018-08-27 08:47 | Physician Query-Final Dx ---
BESSIE MOSER 08/27/18 0847: Final Diagnosis Give Final Diagnosis Please give Final Diagnosis CAROLIN GÓMEZ DO 08/27/18 1120: Final Diagnosis Give Final Diagnosis Pneumonia with sepsis BESSIE MOSER Aug 27, 2018 08:47 CAROLIN GÓMEZ DO Aug 27, 2018 11:20
== END 2018-08-20 14:30 | disposition home or self-care (01) | DRG 871 ==
LOC: EDUNIT# 19:49 → ER 19:50 → 4TH 21:32
PROVIDERS: ADMIT Internal Medicine; ATTEND Internal Medicine
DX: A41.9 Sepsis, unspecified organism (principal); J18.1 Lobar pneumonia, unspecified organism; E87.2 Acidosis; J84.10 Pulmonary fibrosis, unspecified; I10 Essential (primary) hypertension; I48.91 Unspecified atrial fibrillation; E78.00 Pure hypercholesterolemia, unspecified; K21.9 Gastro-esophageal reflux disease without esophagitis; E11.65 Type 2 diabetes mellitus with hyperglycemia; M54.9 Dorsalgia, unspecified; M19.91 Primary osteoarthritis, unspecified site; R53.81 Other malaise; Z85.038 Personal history of other malignant neoplasm of large intestine; Z79.84 Long term (current) use of oral hypoglycemic drugs; Z91.81 History of falling
CPT/HCPCS: 36415; 71045; 80053; 81000; 82962; 83605; 84443; 85025; 85610; 85730; 87040; 87088; 87804; 93005; 94640; 94760; 96374

== ENCOUNTER 2018-08-27 10:12 | Outpatient (RCR) | payer MEDICARE ==
[~2018-08-27 10:12] MED LIST changes: +ANTI1CAP5 PO; +BILB30CA2 PO; +CALC-6 PO; +CEFD300C3 PO; +FERR325T18 PO; +GLYB5TAB6 PO; +LOSA50TA63 PO; -LOSA50TA7 PO; +METF-397 PO; +MULT-633 PO; +PANT40TA3 PO
[2018-08-27 10:46] LABS: BASOPHILS # (AUTO) 0.1 10^3/uL (0.0-0.1); BASOPHILS % (AUTO) 1 % (0-10); EOSINOPHILS # (AUTO) 0.4 10^3/uL (0.0-0.3); EOSINOPHILS % (AUTO) 6 % (0-10); HEMATOCRIT 34 % (35-52); HEMOGLOBIN 11.3 G/DL (11.5-16.0); LYMPHOCYTES # (AUTO) 1.9 X 10^3 (1.0-4.0); LYMPHOCYTES % (AUTO) 30 % (12-44); MEAN CORPUSCULAR HEMOGLOBIN 30 PG (25-34); MEAN CORPUSCULAR HGB CONC 33 G/DL (32-36); MEAN CORPUSCULAR VOLUME 91 FL (80-99); MEAN PLATELET VOLUME 9.8 FL (7.4-10.4); MONOCYTES # (AUTO) 0.8 X 10^3 (0.0-1.0); MONOCYTES % (AUTO) 12 % (0-12); NEUTROPHILS # (AUTO) 3.2 X 10^3 (1.8-7.8); NEUTROPHILS % (AUTO) 50 % (42-75); PLATELET COUNT 317 10^3/uL (130-400); RED BLOOD COUNT 3.75 10^6/uL (4.35-5.85); RED CELL DISTRIBUTION WIDTH 13.5 % (10.0-14.5); WHITE BLOOD COUNT 6.4 10^3/uL (4.3-11.0)
== END 2018-11-25 | disposition home or self-care (01) ==
LOC: ONC 10:12
PROVIDERS: ATTEND Internal Medicine Hematology & Oncology
DX: C18.2 Malignant neoplasm of ascending colon (principal); D50.9 Iron deficiency anemia, unspecified; E11.9 Type 2 diabetes mellitus without complications; K26.9 Duodenal ulcer, unspecified as acute or chronic, without hemorrhage or perforation; I47.1 Supraventricular tachycardia; M15.8 Other polyosteoarthritis; E78.5 Hyperlipidemia, unspecified; I10 Essential (primary) hypertension
CPT/HCPCS: 36415; 85025

== ENCOUNTER → 2018-09-07 | Outpatient (CLI) | payer MEDICARE ==
[~2018-09-07] MED LIST changes: -LOSA50TA63 PO; +LOSA50TA7 PO
--- NOTE | 2018-09-07 16:02 | Diagnostic Imaging Report ---
INDICATION: Routine screening. COMPARISON: Comparison is made with prior mammograms from 09/03/2017 and 08/21/2016. TECHNIQUE: 2D and 3D bilateral screening mammography was performed with computer-aided detection (CAD) system. FINDINGS: Both breasts are heterogeneously dense, limiting the sensitivity of mammography. The parenchymal pattern appears stable. No dominant mass or malignant appearing microcalcifications are seen. Slightly nodular density in the outer left breast anterior depth appears stable. Axillae are unremarkable. IMPRESSION: No mammographic features suspicious for malignancy are identified. ACR BI-RADS Category 2: Benign findings. Result letter will be mailed to the patient. Note: At least 10% of breast cancer is not imaged by mammography. Dictated by: Dictated on workstation # [id number]
== END ==
LOC: RAD 10:25
PROVIDERS: ATTEND Internal Medicine
DX: Z12.31 Encounter for screening mammogram for malignant neoplasm of breast (principal)
CPT/HCPCS: 77067

== ENCOUNTER → 2019-01-05 | Outpatient (CLI) | payer MEDICARE ==
[~2019-01-05] MED LIST changes: +LOSA50TA63 PO; -LOSA50TA7 PO
--- NOTE | 2019-01-05 12:25 | Diagnostic Imaging Report ---
INDICATION: Postmenopausal female. COMPARISON: 06/11/2001. FINDINGS: AP Spine L1-L4: [BMD (g/cm2): 0.898] [T-Score: -2.5] [Z-Score: -0.6] [BMD Previous: 0.826] [BMD % Change: 8.7] LT Hip Neck: Left hip replacement. [BMD (g/cm2): N/A] [T-Score: N/A] [Z-Score: N/A] LT Hip Total: [BMD (g/cm2):N/A] [T-Score:N/A] [Z-Score: N/A] [BMD Previous: N/A] [BMD % Change: N/A] RT Hip Neck: [BMD (g/cm2):0.647] [T-Score:-2.8] [Z-Score:-0.6] RT Hip Total: [BMD (g/cm2):0.667] [T-score:-2.7] [Z-Score:-0.7] [BMD Previous:0.749] [BMD % Change:-10.9] *Indicates significant change from prior examination based on 95% confidence level. World Health Organization criteria for BMD interpretation classify patients as Normal (T-score at or above -1.0), Osteopenic (T-score between -1.0 and -2.5) or Osteoporotic (T-score at or below -2.5). LIMITATIONS AND MODIFICATION: Degenerative changes in the upper lumbar spine likely falsely elevate bone density. FRACTURE RISK (FRAX SCORE): Osteoporosis. IMPRESSION: 1. Osteoporosis. 2. Bone Mineral density has decreased by a statistically significant amount, as detailed above. 3. See below National Osteoporosis Foundation guidelines on when to potentially initiate pharmacologic therapy. Based on the National Osteoporosis Foundation Guidelines, pharmacologic treatment should be initiated in any of the following, unless clinical conditions suggest otherwise: * Any patient with prior fragility fracture of the hip or vertebrae. A spine fracture indicates 5X risk for subsequent spine fracture and 2X risk for subsequent hip fracture. * Osteoporosis (T-score <-2.5). * Postmenopausal women and men age 50 and older with low bone mass/osteopenia (T-score between -1.0 and -2.5) by DXA and 10-year major osteoporotic fracture greater than 20% or a 10-year probability of hip fracture greater than 3%. These fracture risks are supplied above in the FRAX score, if applicable. * Clinician judgment and/or patient preferences may indicate treatment for people with 10-year fracture probabilities above or below these levels. Dictated by: Dictated on workstation # [id number]
== END ==
LOC: RAD 09:45
PROVIDERS: ATTEND Internal Medicine Endocrinology, Diabetes & Metabolism
DX: M81.0 Age-related osteoporosis without current pathological fracture (principal); Z78.0 Asymptomatic menopausal state
CPT/HCPCS: 77080

== ENCOUNTER 2019-02-11 10:42 | Outpatient (RCR) | payer MEDICARE ==
[2019-02-11 11:22] LABS: BASOPHILS # (AUTO) 0.1 10^3/uL (0.0-0.1); BASOPHILS % (AUTO) 1 % (0-10); EOSINOPHILS # (AUTO) 0.4 10^3/uL (0.0-0.3); EOSINOPHILS % (AUTO) 6 % (0-10); HEMATOCRIT 34 % (35-52); HEMOGLOBIN 11.5 G/DL (11.5-16.0); LYMPHOCYTES # (AUTO) 2.4 X 10^3 (1.0-4.0); LYMPHOCYTES % (AUTO) 33 % (12-44); MEAN CORPUSCULAR HEMOGLOBIN 31 PG (25-34); MEAN CORPUSCULAR HGB CONC 34 G/DL (32-36); MEAN CORPUSCULAR VOLUME 90 FL (80-99); MEAN PLATELET VOLUME 9.5 FL (7.4-10.4); MONOCYTES % (AUTO) 13 % (0-12); NEUTROPHILS # (AUTO) 3.3 X 10^3 (1.8-7.8); NEUTROPHILS % (AUTO) 47 % (42-75); PLATELET COUNT 322 10^3/uL (130-400); RED CELL DISTRIBUTION WIDTH 12.8 % (10.0-14.5); WHITE BLOOD COUNT 7.2 10^3/uL (4.3-11.0)
[2019-02-11 11:44] LABS: ALBUMIN 4.4 GM/DL (3.2-4.5); BILIRUBIN,TOTAL 0.4 MG/DL (0.1-1.0); CALCIUM 10.3 MG/DL (8.5-10.1); CREATININE SERUM 1.36 MG/DL (0.60-1.30); POTASSIUM 4.6 MMOL/L (3.6-5.0); TOTAL PROTEIN 7.4 GM/DL (6.4-8.2)
== END 2019-05-12 | disposition home or self-care (01) ==
LOC: ONC 10:42
PROVIDERS: ATTEND Internal Medicine Hematology & Oncology
DX: C18.2 Malignant neoplasm of ascending colon (principal); D50.9 Iron deficiency anemia, unspecified; E11.9 Type 2 diabetes mellitus without complications; K26.9 Duodenal ulcer, unspecified as acute or chronic, without hemorrhage or perforation; I47.1 Supraventricular tachycardia; M15.8 Other polyosteoarthritis; E78.5 Hyperlipidemia, unspecified; I10 Essential (primary) hypertension; Z79.899 Other long term (current) drug therapy
CPT/HCPCS: 36415; 80053; 82378; 82728; 85025; 99213

== ENCOUNTER 2019-09-04 23:45 | Emergency (ER) | payer MEDICARE ==
[~2019-09-04] VITALS: Ht 165.1 cm; Wt 58.6 kg
[2019-09-04] MEDS ORDERED: fentaNYL INJECTION 100 MCG/2 ML AMP IVP STA (23:54)
[2019-09-05 00:01] LABS: BASOPHILS # (AUTO) 0.1 10^3/uL (0.0-0.1); BASOPHILS % (AUTO) 1 % (0-10); EOSINOPHILS # (AUTO) 0.5 10^3/uL (0.0-0.3); EOSINOPHILS % (AUTO) 4 % (0-10); HEMATOCRIT 31 % (35-52); HEMOGLOBIN 10.6 G/DL (11.5-16.0); LYMPHOCYTES # (AUTO) 4.4 X 10^3 (1.0-4.0); LYMPHOCYTES % (AUTO) 33 % (12-44); MEAN CORPUSCULAR HEMOGLOBIN 32 PG (25-34); MEAN CORPUSCULAR HGB CONC 34 G/DL (32-36); MEAN CORPUSCULAR VOLUME 92 FL (80-99); MEAN PLATELET VOLUME 9.8 FL (7.4-10.4); MONOCYTES # (AUTO) 1.3 X 10^3 (0.0-1.0); MONOCYTES % (AUTO) 10 % (0-12); NEUTROPHILS # (AUTO) 7.1 X 10^3 (1.8-7.8); NEUTROPHILS % (AUTO) 53 % (42-75); PLATELET COUNT 337 10^3/uL (130-400); RED CELL DISTRIBUTION WIDTH 13.7 % (10.0-14.5); WHITE BLOOD COUNT 13.5 10^3/uL (4.3-11.0)
--- NOTE | 2019-09-05 00:02 | ED Hip Pain/Injury ---
General Stated Complaint: FALL / LT LEG PAIN Source: patient, EMS History of Present Illness Date Seen by Provider: Sep 04, 2019 Time Seen by Provider: 23:45 Initial Comments PT ARRIVES VIA EMS FROM HOME PT WAS GOING TO THE BATHROOM AND FELL, LANDING ON LEFT HIP AND WAS UNABLE TO GET UP OR BEAR WEIGHT ON LEFT LEG OCCURRED AT 2300 TONIGHT PT HAS HAD LEFT HIP FRACTURE AND REPLACEMENT [address] COLE IN [place] NO PARESTHESIAS OR MOTOR DEFICITS NO OTHER INJURIES FROM THE INCIDENT PT HAS BEEN SHOPPING THE ENTIRE DAY IN [place] TODAY, AND HAD JUST GOTTEN HOME PT IS DIABETIC, TOOK AM MEDICATIONS, BUT NOT PM MEDICATIONS PT HAS NOT EATEN SINCE 1400 TODAY BLOOD GLUCOSE THIS AM WAS 139 BLOOD GLUCOSE FOR EMS WAS IN 180'S Other PCP: DR. CARDOZA Allergies and Home Medications Allergies Coded Allergies: codeine (Verified Allergy, Severe, Pt has received Lortab in the past, 09/15/19) PATIENT STATES THAT THE DENTIST GAVE HER CODEINE IN THE PAST AND SHE WAS UNRESPONSIVE FOR THREE DAYS AND "NEARLY ". Penicillins (Unverified Allergy, Unknown, N/V, RASH, 06/17/14) Uncoded Allergies: SILK TAPE (Allergy, Mild, 05/07/09) Home Medications Alendronate Sodium 70 Mg Tablet, 70 MG PO We, (Reported) Antiox #11/Om3/Dha/Epa/Lut/Julianna 1 Each Capsule, 1 CAP PO DAILY, (Reported) Aspirin 81 Mg Tab.chew, 81 MG PO DAILY, (Reported) Bilberry Fruit Extract 30 Mg Capsule, 30 MG PO BID, (Reported) Calcium Carbonate 1,177 Mg Tab.chew, 1 TAB.CHEW PO Q4H PRN for INDIGESTION, (Reported) Calcium Carbonate/Vitamin D3 1 Each Tablet, 1 TAB PO Q48H, (Reported) Cyanocobalamin (Vitamin B-12) 2,500 Mcg Tab.subl, 2,500 MCG SL HS, (Reported) Glipizide 5 Mg Tablet, 5 MG PO BID, (Reported) Ipratropium/Albuterol Sulfate 3 Ml Ampul.neb, 3 ML INH RTBID Prescribed by: CAROLIN GÓMEZ on 09/22/19 0839 Levocetirizine Dihydrochloride 5 Mg Tablet, 5 MG PO DAILY, (Reported) Losartan Potassium 50 Mg Tablet, 50 MG PO HS, (Reported) Lovastatin 20 Mg Tablet, 20 MG PO HS, (Reported) Magnesium Oxide 400 Mg Tablet, 400 MG PO BID, (Reported) Metformin HCl 500 Mg Tablet, 500 MG PO BID, (Reported) Multivitamin 1 Each Tablet, 1 TAB PO DAILY, (Reported) [place] 3 Polyunsat Fatty Acids 1,000 Mg Cap, 1,000 MG PO BID, (Reported) Pantoprazole Sodium 40 Mg Tablet.dr, 40 MG PO 0600,1800, (Reported) Tramadol HCl 50 Mg Tablet, 50 MG PO TID PRN for PAIN-MODERATE (5-7) Prescribed by: CAROLIN GÓMEZ on 09/22/19 0887 Patient Home Medication List Home Medication List Reviewed: Yes Review of Systems Constitutional: no symptoms reported EENTM: no symptoms reported Respiratory: no symptoms reported Cardiovascular: no symptoms reported Gastrointestinal: no symptoms reported Genitourinary: no symptoms reported Musculoskeletal: see HPI; No back pain; joint pain; No neck pain Skin: no symptoms reported Psychiatric/Neurological: No Symptoms Reported; Denies Headache, Denies Numbness, Denies Paresthesia, Denies Seizure, Denies Tingling, Denies Weakness Past Cwzhcup-Gddwff-Yqdsfk Hx Past Med/Social Hx: Reviewed and Corrections made Patient Social History Alcohol Use: Denies Use Recreational Drug Use: No Smoking Status: Never a Smoker Former Smoker, Quit: Aug 12, 1986 2nd Hand Smoke Exposure: No Recent Hopitalizations: No Immunizations Up To Date Tetanus Booster (TDap): Unknown Date of Pneumonia Vaccine: March 18, 2017 Date of Influenza Vaccine: Jul 28, 2018 Seasonal Allergies Seasonal Allergies: No Past Medical History Surgeries: Yes (RIGHT KNEE SURGERY; LEFT HIP FX/REPLACEMENT; COLON RESECTION FOR CANCER 2009; COLONOSCOPIES EVERY 3 YEARS, NEXT ONE DUE IN 2019. ) Abdominal, Bowel Surgery, Gallbladder, Orthopedic Respiratory: Yes (PULMONARY FIBROSIS AND COPD NOTED ON CT SCAN OF CHEST. 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; MILD CAROTID STENOSIS; ) High Cholesterol, Hypertension, Irregular Heartbeat Neurological: Yes Neuropathy Reproductive Disorders: No Female Reproductive Disorders: Denies LICENSED STAFF MFT History: Menopausal Sexually Transmitted Disease: No Genitourinary: No Gastrointestinal: Yes (COLON CANCER 2009--S/P RESECTION) Gastroesophageal Reflux Musculoskeletal: Yes (RIGHT KNEE SURGERY; LEFT HIP FX/ REPLACEMENT) Arthritis, Chronic Back Pain, Fractures Endocrine: Yes Diabetes, Non-Insulin dep HEENT: Yes (DIABETIC RETINOPATHY; LOSS OF HEARING LEFT EAR) Cataract Loss of Vision: Bilateral Hearing Impairment: Hard of Hearing Cancer: Yes (COLON CANCER 2009--S/P SURGERY, NO CHEMO OR RADIATION) Colon Did You Recieve Any Treatments: Yes What Type of Treatment Did You: Surgical Intervention Psychosocial: No Integumentary: No Blood Disorders: Yes (ANEMIA) Adverse Reaction/Blood Tranf: No Family Medical History Colon cancer G8 SISTER FH: breast cancer G8 SISTER G8 SISTER Myocardial infarction 19 FATHER (father had x3 PR's and from the final one) Physical Exam Vital Signs Capillary Refill : Height, Weight, BMI Height: 5'6.00" Weight: 144lbs. 14.4oz. [id number]; 25.4 BMI Method:Stated General Appearance: No Apparent Distress, WD/WN, Other (SITING UP ON EMS CART, DOES NOT APPEAR TO BE IN ANY DISCOMFORT OR DISTRESS. ONLY C/O PAIN WITH MOVEMENT OF LEFT HIP) Neck: Full Range of Motion, Normal Inspection, Non Tender, Supple Cardiovascular: Regular Rate, Rhythm, No Edema, No JVD, No Murmur, Normal Peripheral Pulses Respiratory: Chest Non Tender, Normal Breath Sounds, No Accessory Muscle Use, No Respiratory Distress Peripheral Pulses: 3+ Dorsalis Pedis (R), 3+ Left Dors-Pedis (L), 3+ Radial Pulses (R), 3+ Radial Pulses (L) Gastrointestinal: Soft Back: Normal Inspection, No CVA Tenderness, No Vertebral Tenderness Extremity: Normal Capillary Refill, No Calf Tenderness, No Pedal Edema, Other (LEFT HIP TENDERNESS AND LIMITED ROM. DISTAL MOTOR/SENSORY/VASCULAR INTACT. 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 II-XII Norm as Tested Skin: Normal Color, Warm/Dry, Other (NO EXTERNAL EVIDENCE OF TRAUMA) Progress/Results/Core Measures Results/Orders Lab Results Laboratory Tests Test 09/04/19 23:45 09/04/19 23:47 09/05/19 00:04 Range/Units White Blood Count 13.5 H 4.3-11.0 10^3/uL Red Blood Count 3.36 L 4.35-5.85 10^6/uL Hemoglobin 10.6 L 11.5-16.0 G/DL Hematocrit 31 L 35-52 % Mean Corpuscular Volume 92 80-99 FL Mean Corpuscular Hemoglobin 32 25-34 PG Mean Corpuscular Hemoglobin Concent 34 32-36 G/DL Red Cell Distribution Width 13.7 10.0-14.5 % Platelet Count 337 130-400 10^3/uL Mean Platelet Volume 9.8 7.4-10.4 FL Neutrophils (%) (Auto) 53 42-75 % Lymphocytes (%) (Auto) 33 12-44 % Monocytes (%) (Auto) 10 0-12 % Eosinophils (%) (Auto) 4 0-10 % Basophils (%) (Auto) 1 0-10 % Neutrophils # (Auto) 7.1 1.8-7.8 X 10^3 Lymphocytes # (Auto) 4.4 H 1.0-4.0 X 10^3 Monocytes # (Auto) 1.3 H 0.0-1.0 X 10^3 Eosinophils # (Auto) 0.5 H 0.0-0.3 10^3/uL Basophils # (Auto) 0.1 0.0-0.1 10^3/uL Prothrombin Time 13.9 12.2-14.7 SEC INR Comment 1.0 0.8-1.4 Activated Partial Thromboplast Time 32 24-35 SEC Sodium Level 136 135-145 MMOL/L Potassium Level 4.7 3.6-5.0 MMOL/L Chloride Level 100 98-107 MMOL/L Carbon Dioxide Level 22 21-32 MMOL/L Anion Gap 14 5-14 MMOL/L Blood Urea Nitrogen 46 H 7-18 MG/DL Creatinine 1.88 H 0.60-1.30 MG/DL Estimat Glomerular Filtration Rate 26 BUN/Creatinine Ratio 24 Glucose Level 180 H 70-105 MG/DL Calcium Level 10.3 H 8.5-10.1 MG/DL Corrected Calcium 9.9 8.5-10.1 MG/DL Magnesium Level 2.5 H 1.6-2.4 MG/DL Total Bilirubin 0.4 0.1-1.0 MG/DL Aspartate Amino Transf (AST/SGOT) 23 5-34 U/L Alanine Aminotransferase (ALT/SGPT) 20 0-55 U/L Alkaline Phosphatase 45 40-136 U/L Total Protein 7.6 6.4-8.2 GM/DL Albumin 4.5 3.2-4.5 GM/DL Lab Scanned Report Referred Lab Report [id number] Urine Color YELLOW Urine Clarity CLEAR Urine pH 6 5-9 Urine Specific [place] 1.020 1.016-1.022 Urine Protein 2+ H NEGATIVE Urine Glucose (UA) NEGATIVE NEGATIVE Urine Ketones 1+ H NEGATIVE Urine Nitrite NEGATIVE NEGATIVE Urine Bilirubin NEGATIVE NEGATIVE Urine Urobilinogen 1 NORMAL MG/DL Urine Leukocyte Esterase 3+ H NEGATIVE Urine RBC (Auto) 1+ H NEGATIVE Urine RBC 5-10 H /HPF Urine WBC 2-5 /HPF Urine Crystals NONE /LPF Urine Bacteria TRACE /HPF Urine Casts PRESENT /LPF Urine Hyaline Casts 5-10 H /LPF Urine Mucus NEGATIVE /LPF Urine Culture Indicated NO Micro Results Microbiology 09/05/19 Urine Culture - Final, Complete Pseudomonas aeruginosa My Orders Orders - TONY COLLADO DO Ed Iv/Invasive Line Start (09/04/19 23:54) Catheter(Urinary) Insert & Ass 03,15 (09/04/19 23:54) Monitor-Rhythm Ecg Trace Only (09/04/19 23:54) Cbc With Automated Diff (09/04/19 23:54) Comprehensive Metabolic Panel (09/04/19 23:54) Magnesium (09/04/19 23:54) Protime With Inr (09/04/19 23:54) Partial Thromboplastin Time (09/04/19 23:54) Ua Culture If Indicated (09/04/19 23:54) Fentanyl Injection (Sublimaze Injection (09/04/19 23:54) Chest 1 View, Ap/Pa Only (09/05/19 00:30) Femur, Left, 2 Views (09/05/19 00:30) Pelvis With Left Hip 2-3 Views (09/05/19 00:30) Urine Culture (09/05/19 00:38) Iv Push Project Manager Interior Design Ed (09/04/19 ) Diagnostic Imaging Comments CXR--NO ACUTE PROCESS XRAYS PELVIS AND LEFT HIP--PERIPROSTHETIC FRACTURE LEFT FEMUR XRAYS--PERIPROSTHETIC FRACTURE PENDING RADIOLOGIST REVIEW Reviewed: Reviewed by Pa Departure Communication (Admissions) [phone]--CALLED [facility] 013--SPOKE WITH DR. HILLMAN, ER PHYSICIAN, ACCEPTS PT FOR TRANSFER Impression Primary Impression: Periprosthetic fracture around internal prosthetic left hip joint, initial encounter Disposition: 02 XFER SHT-TRM HOSP Condition: Stable Transfer Transfer Reason: Patient preference (PT'S ORTHOPEDIC SURGEON) Transfer Facility: [facility] Method of Transfer: EMS Departure-Patient Inst. Referrals: PAULO CARDOZA MD (PCP/Family) Primary Care Physician TONY COLLADO DO Sep 05, 2019 00:02 POS
[2019-09-05 00:14] LABS: PROTHROMBIN TIME PATIENT 13.9 SEC (12.2-14.7)
[2019-09-05 00:23] LABS: ALBUMIN 4.5 GM/DL (3.2-4.5); BILIRUBIN,TOTAL 0.4 MG/DL (0.1-1.0); CALCIUM 10.3 MG/DL (8.5-10.1); CREATININE SERUM 1.88 MG/DL (0.60-1.30); MAGNESIUM 2.5 MG/DL (1.6-2.4); POTASSIUM 4.7 MMOL/L (3.6-5.0); TOTAL PROTEIN 7.6 GM/DL (6.4-8.2)
[2019-09-05 00:26] LABS: BILIRUBIN,URINE NEGATIVE (NEGATIVE); CLARITY,URINE CLEAR; COLOR,URINE YELLOW; GLUCOSE, URINE (UA) NEGATIVE (NEGATIVE); KETONES,URINE 1+ (NEGATIVE); LEUKOCYTE ESTERASE ,URINE 3+ (NEGATIVE); NITRITE,URINE NEGATIVE (NEGATIVE); PH,URINE 6 (5-9); PROTEIN,URINE 2+ (NEGATIVE)
[2019-09-05 00:36] LABS: BACTERIA,URINE TRACE /HPF
[2019-09-05 01:34] VITALS: BP 146/73
--- NOTE | 2019-09-05 06:18 | Diagnostic Imaging Report ---
INDICATION: Left hip arthroplasty, hip pain, fall. COMPARISON: None. FINDINGS: Single view of the pelvis and 2 views of the left hip demonstrate cortical defects involving the proximal femur seen best on the lateral view. This may represent a periprosthetic fracture. Acetabulum is intact. The remainder of the visualized bony pelvis and right hip are normal. IMPRESSION: Nondisplaced periprosthetic left hip fracture. Dictated by: Dictated on workstation # [id number]
--- NOTE | 2019-09-05 06:23 | Diagnostic Imaging Report ---
INDICATION: Fall, hip injury COMPARISON: 08/18/2018 FINDINGS: Single view of the chest demonstrates increasing interstitial infiltrates primarily in the right hemithorax. The heart is prominent. There is no pneumothorax or effusion. Osseous structures are normal. IMPRESSION: 1. Increasing interstitial infiltrates. This could represent an acute on chronic process. 2. No pneumothorax identified. Dictated by: Dictated on workstation # [id number]
--- NOTE | 2019-09-05 06:44 | Diagnostic Imaging Report ---
INDICATION: Left hip injury. COMPARISON: None. FINDINGS: Multiple views of left femur demonstrate suspected periprosthetic hip fracture in the mid femoral stem region. Tip of the prosthesis is intact. The remainder of the femur and visualized knee is unremarkable. IMPRESSION: Suspect nondisplaced periprosthetic left hip fracture. Dictated by: Dictated on workstation # [id number]
== END 2019-09-05 01:34 | disposition short-term general hospital (02) ==
LOC: EDUNIT# 23:45 → ER 23:47
DX: M97.02XA Periprosthetic fracture around internal prosthetic left hip joint, initial encounter (principal); E11.40 Type 2 diabetes mellitus with diabetic neuropathy, unspecified; I10 Essential (primary) hypertension; E78.00 Pure hypercholesterolemia, unspecified; J44.9 Chronic obstructive pulmonary disease, unspecified; K21.9 Gastro-esophageal reflux disease without esophagitis; D64.9 Anemia, unspecified; Z88.5 Allergy status to narcotic agent; Z85.038 Personal history of other malignant neoplasm of large intestine; Z87.81 Personal history of (healed) traumatic fracture; Z88.0 Allergy status to penicillin; Z96.642 Presence of left artificial hip joint; Z79.82 Long term (current) use of aspirin; Z79.84 Long term (current) use of oral hypoglycemic drugs; Z80.3 Family history of malignant neoplasm of breast; Z82.49 Family history of ischemic heart disease and other diseases of the circulatory system; W18.39XA Other fall on same level, initial encounter
CPT/HCPCS: 36415; 71045; 73552; 80053; 81000; 83735; 85025; 85610; 85730; 87077; 87088; 87184; 93041; 96374

== ENCOUNTER 2019-09-14 13:45 | Inpatient (IN) | payer MEDICARE ==
[~2019-09-14] VITALS: Ht 167.7 cm; Wt 55.3 kg
[~2019-09-14 13:45] MED LIST changes: +ACETAMINOPHEN 500 MG TAB (TYLENOL) PO PRN; +ALPRAZolam 0.25 MG (XANAX) TAB PO PRN; +BISACODYL 10 MG SUPP (DULCOLAX) PR PRN; +CALCIUM CARBONATE 500 MG (TUMS) TAB.CHEW PO PRN; +DOCUSATE SODIUM 100 MG (COLACE) CAP PO PRN; +FLEET ENEMA ADULT 1 EA BTL PR PRN; +HYDROcodone/APAP 5 MG/325 MG (LORTAB) TAB PO PRN; +LACTULOSE SYRUP 10GM/15ML (ENULOSE) 30ML UDC PO PRN; +LOPERAMIDE 2 MG (IMODIUM) TABLET PO PRN; +MELATONIN 3 MG TABLET PO PRN; +ONDANSETRON 4 MG (ZOFRAN) ORAL DISSOLVE TAB PO PRN; +diphenhydrAMINE 25 MG TAB (BENADRYL) PO PRN; +guaiFENesin/CODEINE (ROBITUSSIN AC) 10ML UDC PO PRN
[2019-09-14] MEDS ORDERED: CALC1TAB94 PO (14:19)
[2019-09-14] MEDS ORDERED: METF-397 PO (14:19)
[2019-09-14] MEDS ORDERED: CALC117719 PO (14:19)
[2019-09-14] MEDS ORDERED: ACET-2267 PO (14:19)
[2019-09-14] MEDS ORDERED: LEVO5TAB28 PO (14:19)
[2019-09-14] MEDS ORDERED: OMG1KC PO (14:19)
[2019-09-14] MEDS ORDERED: CYAN25003 SL (14:19)
[2019-09-14] MEDS ORDERED: GLIP5TAB13 PO (14:19)
[2019-09-14] MEDS ORDERED: ASPI-999 PO (14:19)
[2019-09-14] MEDS ORDERED: ALEN70TA5 PO (14:19)
[2019-09-14] MEDS ORDERED: MAGN400T39 PO (14:19)
--- NOTE | 2019-09-14 14:22 | NUR ---
UPDATED MED REC WITH DISCHARGE SUMMARY FROM [facility]. NOTE TYLENOL 1000MG TID PRN WAS ORDERED A NEW MEDICATION AT THIS DISCHARGE. I WILL REMOVE IT AT A LATER DATE FOR PROPER DISCHARGE TO HOME ORDERS. I COMPARED THE PRESCRIPTION MEDICATION REPORTED FROM [facility] WITH THE EXT MED HX AND FOUND NO DISCREPANCIES. I UPDATED THE MED REC WITH THE THE OTC MEDS ON THE DISCHARGE SUMMARY REPORTED BY [facility]. Addendum: 09/15/19 at 0810 by CHERYL GEORGE long goods drier REMOVED THE NEW ORDER FOR TYLENOL AT THIS TIME.
--- NOTE | 2019-09-14 15:45 | NUR ---
SIN GUEVARA I admitted to room 225-1, with an admitting diagnosis of left femur fracture, on 09/14/19 from [facility] via private car, accompanied by nephew.SIN GUEVARA I introduced to surroundings, call light, bed controls, phone, TV, temperature control, lights, meal times, smoking policy, visitor policy, side rail policy, bathrooms and showers. Patient Rights given to patient in the handbook. SIN GUEVARA I verbalizes understanding that [facility] is not responsible for the loss or damage to any personal effects or valuables that are kept in the patients posession during their hospitalization. The Patient's Care Plans were discussed with the patient as well as Discharge Planning. See nursing care plans in chart for more details. SIN GUEVARA I verbalizes understanding of Interdisciplinary Patient Education. Patient and/or family were informed about the Rapid Response Team and its purpose.
[2019-09-14 16:09] VITALS: BP 137/79
[2019-09-14 16:19] VITALS: BP 137/79
[2019-09-14 18:40] VITALS: BP 137/79
[2019-09-14] MEDS ORDERED: ACETAMINOPHEN 500 MG TAB (TYLENOL) PO PRN (18:45)
[2019-09-14] MEDS: OMEGA 3 (FISH OIL) 1000 MG CAP PO SCH (18:56)
[2019-09-14] MEDS: glipiZIDE 5 MG (GLUCOTROL) TAB PO SCH (18:56)
[2019-09-14] MEDS: MAGNESIUM OXIDE (MAG-OX)400 MG TAB PO SCH (18:56)
[2019-09-14] MEDS: PANTOPRAZOLE 40 MG (PROTONIX) TAB PO SCH (18:57)
[2019-09-14] MEDS: metFORMIN 500 MG (GLUCOPHAGE) TAB PO SCH (18:57)
[2019-09-14] MEDS: SENNA W/DOCUSATE (SENOKOT S) TABLET PO SCH (20:01)
[2019-09-14] MEDS: LOSARTAN 50 MG (COZAAR) TAB PO SCH (20:01)
[2019-09-14] MEDS: SIMvastatin 10 MG (ZOCOR) TAB PO SCH (20:01)
[2019-09-14] MEDS: POLYETHYLENE GLYCOL 17 GM (MIRALAX) PACK PO SCH (20:01)
[2019-09-14] MEDS: ENOXAPARIN 30 MG/0.3 ML (LOVENOX) SYR SC SCH (20:01)
[2019-09-14] MEDS: CALCIUM CARBONATE 500 MG (TUMS) TAB.CHEW PO PRN (20:06)
[2019-09-15 05:24] LABS: BASOPHILS # (AUTO) 0.1 10^3/uL (0.0-0.1); BASOPHILS % (AUTO) 1 % (0-10); EOSINOPHILS # (AUTO) 0.8 10^3/uL (0.0-0.3); EOSINOPHILS % (AUTO) 9 % (0-10); HEMATOCRIT 27 % (35-52); LYMPHOCYTES % (AUTO) 22 % (12-44); MEAN CORPUSCULAR HEMOGLOBIN 30 PG (25-34); MEAN CORPUSCULAR HGB CONC 33 G/DL (32-36); MEAN CORPUSCULAR VOLUME 91 FL (80-99); MEAN PLATELET VOLUME 9.4 FL (7.4-10.4); MONOCYTES # (AUTO) 0.9 X 10^3 (0.0-1.0); MONOCYTES % (AUTO) 10 % (0-12); NEUTROPHILS # (AUTO) 5.2 X 10^3 (1.8-7.8); NEUTROPHILS % (AUTO) 58 % (42-75); PLATELET COUNT 531 10^3/uL (130-400); RED CELL DISTRIBUTION WIDTH 13.8 % (10.0-14.5); WHITE BLOOD COUNT 8.9 10^3/uL (4.3-11.0)
[2019-09-15 05:43] VITALS: BP 161/74
[2019-09-15 05:53] LABS: ALANINE AMINOTRANSFERASE < 6 U/L (0-55); ALBUMIN 3.2 GM/DL (3.2-4.5); ALKALINE PHOSPHATASE 94 U/L (40-136); BILIRUBIN,TOTAL 0.4 MG/DL (0.1-1.0); BUN/CREATININE RATIO 18; CALCIUM 9.3 MG/DL (8.5-10.1); CARBON DIOXIDE 25 MMOL/L (21-32); CHLORIDE 102 MMOL/L (98-107); CREATININE SERUM 0.85 MG/DL (0.60-1.30); GFR ESTIMATED > 60; GLUCOSE 125 MG/DL (70-105); POTASSIUM 4.5 MMOL/L (3.6-5.0); SODIUM 137 MMOL/L (135-145); TOTAL PROTEIN 6.1 GM/DL (6.4-8.2)
[2019-09-15] MEDS: MULTIVIT W/MINERALS TAB (THERAGRAN M) PO SCH (06:16)
[2019-09-15] MEDS: glipiZIDE 5 MG (GLUCOTROL) TAB PO SCH ×2 (06:16→17:49)
[2019-09-15] MEDS: CALCIUM CARBONATE 500 MG (TUMS) TAB.CHEW PO PRN (06:16)
[2019-09-15] MEDS: metFORMIN 500 MG (GLUCOPHAGE) TAB PO SCH ×2 (06:16→17:49)
[2019-09-15] MEDS: PANTOPRAZOLE 40 MG (PROTONIX) TAB PO SCH ×2 (06:16→17:49)
[2019-09-15] MEDS: MAGNESIUM OXIDE (MAG-OX)400 MG TAB PO SCH ×2 (06:16→17:49)
[2019-09-15] MEDS: OMEGA 3 (FISH OIL) 1000 MG CAP PO SCH ×2 (06:16→17:49)
--- NOTE | 2019-09-15 07:04 | NUR ---
DR. VIVAR NOTIFIED OF CONSULT.
--- NOTE | 2019-09-15 08:57 | Physical Therapy Evaluation ---
PT Evaluation-General Medical Diagnosis Admission Date Sep 14, 2019 at 15:45 Medical Diagnosis: S/P L femur fx Onset Date: Sep 10, 2019 Therapy Diagnosis Therapy Diagnosis: abn gait, decreased strength, decreased activity freddy Height/Weight Height (Feet): 5 Height (Inches): 6.00 Weight (Pounds): 144 Weight (Ounces): 14.4 Precautions Precautions/Isolations: Fall Prevention, Standard Precautions Weight Bear Status Right Lower Extremity: Right Full Weight Bearing Left Lower Extremity: Left Weight Bearing/Tolerated Referral Physician: Carolyn Reason for Referral: Evaluation/Treatment Medical History Pertinent Medical History: DM, HTN Additional Medical History Past Medical History Surgeries: Abdominal, Bowel Surgery, Gallbladder, Orthopedic Respiratory: Pulmonary Fibrosis Cardiac: High Cholesterol, Hypertension, Irregular Heartbeat Neurological: Neuropathy Reproductive: No Sexually Transmitted Disease: No Female Reproductive Disorders: Denies Menopausal Gastrointestinal: Gastroesophageal Reflux Musculoskeletal: Arthritis, Chronic Back Pain, Fractures Endocrine: Diabetes, Non-Insulin dep Are Your Blood Sugars Over 250: Yes (not often) HEENT: Cataract Loss of Vision: Bilateral Hearing Impairment: Hard of Hearing Cancer: Colon Reviewed History: Yes Social History Home: Single Level Current Living Status: Alone Entry Into Home: Level Entry Pt reports her son brings his small dog to her house every morning and picks it up every evening so she sees her son twice daily. Prior Prior Level of Function SCALE: Activities may be completed with or without assistive devices. 1-Geqpnmivmd-obvkwec completes the activity by him/herself with no assistance f rom a helper. 5-Set-up or Clean-up Assistance-helper sets up or cleans up; patient completes activity. [place] assists only prior to or following the activity. 4-Supervision or Touching Assistance-helper provides verbal cues and/or touching/steadying and/or contact guard assistance as patient completes activity. Assistance may be provided throughout the activity or intermittently. 3-Partial/Moderate Assistance-helper does LESS THAN HALF the effort. [place] lifts, holds or supports trunk or limbs, but provides less than half the effort. 2-Substantial/Maximal Assistance-helper does MORE THAN HALF the effort. [place] lifts or holds trunk or limbs and provides more than half the effort. 7-Ntjnxdcgr-qvvyyn does ALL the effort. Patient does none of the effort to complete the activity. Or, the assistance of 2 or more helpers is required for the patient to complete the activity. If activity was not attempted, code reason: 7-Patient Refused. 9-Not Applicable-not attempted and the patient did not perform the activity before the current illness, exacerbation or injury. 10-Not Attempted due to Environmental Limitations-(lack of equipment, weather restraints, etc.). 88-Not Attempted due to Medical Conditions or Safety Concerns. Bed Mobility: 6 Transfers (B,C,W/C): 6 Gait: 6 Stairs: 6 Indoor Mobility (Ambulation): Independent Stairs: Independent PT Evaluation-Current Subjective pt in bed pre-tx agrees to PT. Pt reports no pain at this time while she is just laying. pt in recliner post-tx with feet elevated. Pt with call light, room phone, tray table in reach with Dr in the room at this time. Pt/Family Goals pt's goal is to get back home indep. Objective Patient Orientation: Person, Place, Time, Situation Problem Solving: Good Attachments: Vazquez Catheter ROM/Strength Strength Lower Extremities L hip flexion not tested secondary to pain L knee flexion/extension 4/5 R LE globally 4+/5 Integumentary/Posture Integumentary see nursing notes Bowel Incontinence: No Bladder Incontinence: Vazquez Cath Sensory Vision: impaired Hearing: Impaired Sensation Right Lower Extremit: Intact Sensation Left Lower Extremity: Intact Transfers Roll Left to Right (QC): 6 (pt can't roll to left secondary to vestibular dizziness) Sit to Lying (QC): 4 (SBA) Lying to Sitting/Side of Bed(Q: 5 Sit to Stand (QC): 4 (CGA) Chair/Rkp-gf-Mrqsb Xfer(QC): 4 (CGA) Car Transfer (QC): 3 (Monique) Gait Does the Patient Walk?: Yes Mode of Locomotion: Walk Anticipated Mode of Locomotion: Walk Distance: 8=223-80 ft Walk 10 feet (QC): 4 (CGA) Walk 50 ft with 2 Turns(QC): 4 (CGA) Walk 150 ft (QC): 88 Walking 10ft/uneven surface-QC: 4 (CGA) Distance: 100',120' Gait Assistive Device: FWW Comments/Gait Description pt ambulates with very slow step to gait pattern using increased UE on FWW. Pt limited in distance for first bout by UE fatigue. Wheelchair Training Does the Pt Use a Wheelchair?: Yes Distance: 50' Wheel 50 ft with 2 turns (QC): 6 Wheel 150 ft (QC): 88 Type of Wheelchair: Manual pt uses mixture of UE and LE propulsion slowly Stairs #of Steps: 4 1 Step (curb) (QC): 3 (Monique) 4 Steps (QC): 3 (Monique) 12 Steps (QC): 88 Balance Sitting Static: Normal Sitting Dynamic: Normal Standing Static: Good Standing Dynamic: Good Picking up an Object (QC): 4 (CGA) Treatment pt performed balance training, skilled ambulation training, transfer training, mobility training, and education this date pt performed functional LE strengthening 15reps 2 sets (supine AP's, QS's GS's, SAQ's, SLR) Assessment/Needs Pt ambulates slowly but is able to move safely for transfers and ambulation. Pt UE fatigue is the limiting factor for ambulation distance at this time. Pt got SOB during stairs this session that took about 2 minutes to recover. Rehab Potential: Good PT Short Term Goals Short Term Goals Time Frame: Sep 22, 2019 Gait Distance Comment: 200' Gait Assistive Device: FWW (SBA) PT Mcfp Goals Mcfp Goals PT Loss Prevention Analyst Goals Time Frame: Oct 06, 2019 Sit to Lying (QC): 6 Lying-Sitting on Side/Bed(QC): 6 Sit to Stand (QC): 6 Roll Left to Right (QC): 6 Chair/Cvn-ow-Ipuyp Xfer(QC): 6 Car Transfer (QC): 4 (SBA) Does the Patient Walk: Yes Distance: 400' Walk 10 feet (QC): 6 Walk 10ft-Uneven Surface(QC): 6 Walk 50ft with 2 Turns (QC): 6 Walk 150 ft (QC): 6 Gait Assistive Device: FWW Does the Pt use WC or Scooter?: No # of Steps: 4 1 Step (curb) (QC): 6 4 Steps (QC): 4 (SBA) PT Plan Problem List Problem List: Activity Tolerance, Functional Strength, Safety, Balance, Gait, Transfer, Bed Mobility, ROM Treatment/Plan Treatment Plan: Continue Plan of Care Treatment Plan: Bed Mobility, Education, Functional Activity Lux, Functional Strength, Group Therapy, Gait, Safety, Therapeutic Exercise, Transfers Treatment Duration: Oct 06, 2019 Frequency: At least 5 of 7 days/Wk (IRF) Estimated Hrs Per Day: 1.5 hours per day Patient and/or Family Agrees t: Yes Safety Risks/Education Patient Education: Gait Training, Transfer Techniques, Steps, Correct Positioning, Safety Issues Teaching Recipient: Patient Teaching Methods: Demonstration, Discussion Response to Teaching: Return Demonstration, Reinforcement Needed Discharge Recommendations Plan pt will perform functional LE strengthening, balance training, transfer training, skilled ambulation training, bed mobility training, step training, and education. Time/GCodes Time In: 800 Time Out: 900 Total Billed Treatment Time: 60 Total Billed Treatment 1 visit EVM 20' FA 40' FRANCK PASTRANA PT Sep 15, 2019 08:57 POS
[2019-09-15] MEDS ORDERED: [UNRECOGNIZED DRUG - OTHER] PO SCH (09:00)
[2019-09-15] MEDS: ASPIRIN 81 MG CHEW (CHILDREN'S ASA) PO SCH (09:38)
[2019-09-15] MEDS: LORATADINE (CLARITIN) 10 MG TAB PO SCH (09:38)
[2019-09-15] MEDS: SENNA W/DOCUSATE (SENOKOT S) TABLET PO SCH ×2 (09:39→21:13)
[2019-09-15] MEDS: POLYETHYLENE GLYCOL 17 GM (MIRALAX) PACK PO SCH ×2 (09:39→21:12)
--- NOTE | 2019-09-15 10:05 | Diagnostic Imaging Report ---
INDICATION: Worsening lung sounds. TIME OF EXAM: 9:30 a.m. COMPARISON: Correlation is made with prior chest from 09/05/2019. FINDINGS: The heart size is stable. Bilateral pulmonary infiltrates persist, slightly greater on the right. Overall appearance is very similar to prior exam. No effusion is seen. There is no pneumothorax. IMPRESSION: Stable bilateral pulmonary infiltrates when compared with the examination 10 days earlier. Dictated by: Dictated on workstation # [id number]
--- NOTE | 2019-09-15 10:29 | Progress Note ---
OSCAR BERRYMED STUDENT 09/15/19 1029: Progress Note CC: S/P L Periprosthetic hip fracture repair PO day 5 Barriers: Pt lives alone but is visited by her son and daughter in law daily was previously able to ambulate, get oob, perform ADLs without trouble Hopeful she can return to previous activity level after leaving IRF Would like to continue independent living Pt has no stairs at her home Has all medical equipment she needs from her previous fracture repair including wheelchair, walkers Limited by her diabetic retinopathy, no longer able to do her previous hobbies such as reading, but assists in taking care of her sons dog during the day MICHELLE LEON DO 09/15/19 2003: Supervisory-Addendum Brief Verification & Attestation Participated in pt care: history, MDM, physical Personally performed: exam, history, MDM, supervision of care Care discussed with: Medical Student Procedures: n/a Results interpretation: Verified all documentation Verification and Attestation of Medical Student E/M Service A medical student performed and documented this service in my presence. I reviewed and verified all information documented by the medical student and made modifications to such information, when appropriate. I personally performed the physical exam and medical decision making. Michelle Leon, Sep 15, 2019,20:03 OSCAR BERRY,MICHAEL STUDENT Sep 15, 2019 10:29 MICHELLE OSWALD DO Sep 15, 2019 20:03 POS
--- NOTE | 2019-09-15 10:36 | PM&R Post Admission Assessment ---
PM&R HP Date of Visit: Sep 15, 2019 Time of Visit: 08:00 History of Present Illness Chief complaint: Left femur fracture repair with debility History of present illness: This is an 78-year-old white female clinic patient of Dr. Cruz who also sees Dr. Higgins endocrinology, Dr. Medrano for toenail care, and Dr. Green for ophthalmology in [place] who presents to the inpatient rehabilitation unit room 225 following an extended hospital course [facility] when she sustained a fall suffering a left femur fracture in the same leg that she suffered a fracture after a fall and had it repaired by Dr. Avina at [facility]. It was attempted at nonsurgical management but the pain was so severe she required repair by Dr. Avina. She was originally admitted on 08/04/19 and she had no catastrophic events during her hospital stay. At this current time she last had a bowel movement 2 days ago and I did no crackles on the right lower lobe although she's been using incentive spirometer chest x-ray was obtained showing stable infiltrates found on exam 10 days ago which is conc erning since she has no white count no fever no hypoxia no cough and she does have a remote history of colon cancer. I will consult Dr. Christian. Patient requiring Vazquez catheter due to urinary retention so urology will be consulted. Hemoglobin remains low at 9.0 so will initiate iron infusions empirically check iron level prior to the infusion and will work on managing pain and increased ambulation. She does live at home alone but she does have people that can help her. Past Jxfpgai-Dvmifh-Pdhgcs Hx Past Med/Social Hx: Reviewed Nursing Past Med/Soc Hx, Reviewed and Corrections made Patient Social History Marrital Status: single Employed/Student: retired Alcohol Use: Denies Use Recreational Drug Use: No Smoking Status: Former Smoker Former Smoker, Quit: Aug 12, 1986 2nd Hand Smoke Exposure: No Physical Abuse Screen: No Sexual Abuse: No Recent Foreign Travel: No Contact w/other who traveled: No Recent Hopitalizations: No Recent Infectious Disease Expo: No Immunizations Up To Date Tetanus Booster (TDap): Unknown Date of Pneumonia Vaccine: March 18, 2017 Date of Influenza Vaccine: Aug 30, 2019 Seasonal Allergies Seasonal Allergies: No Past Medical History Surgeries: Abdominal, Bowel Surgery, Gallbladder, Orthopedic Respiratory: Pulmonary Fibrosis Cardiac: High Cholesterol, Hypertension, Irregular Heartbeat Neurological: Neuropathy Reproductive: No Sexually Transmitted Disease: No Female Reproductive Disorders: Denies Menopausal Gastrointestinal: Gastroesophageal Reflux Musculoskeletal: Arthritis, Chronic Back Pain, Fractures Endocrine: Diabetes, Non-Insulin dep Are Your Blood Sugars Over 250: Yes (not often) HEENT: Cataract Loss of Vision: Bilateral Hearing Impairment: Hard of Hearing Cancer: Colon Did You Recieve Any Treatments: Yes What Type of Treatment Did You: Surgical Intervention History of Blood Disorders: Yes (ANEMIA) Adverse Reaction to Blood Posada: No Family History Colon cancer G8 SISTER FH: breast cancer G8 SISTER G8 SISTER Myocardial infarction 19 FATHER (father had x3 VT's and from the final one) Prior Level of Function Bed Mobility: 6 Transfers: 6 Gait: 6 Stairs: 6 Indoor Mobility (Ambulation): Independent Stairs: Independent Current Level of Fuctioning Roll Left to Right: 6 (pt can't roll to left secondary to vestibular dizziness) Sit to Lyin (SBA) Lying to Sitting/Side of Bed: 5 Sit to Stand: 4 (CGA) Chair/Npa-ea-Ngzwo Xfer: 4 (CGA) Car Transfer: 3 (Monique) Does the Patient Walk: Yes Mode of Locomotion: Walk Anticipated Mode of Locomotion: Walk Distance: 9=332-61 ft Walk 10 feet: 4 (CGA) Walk 50 ft with 2 Turns: 4 (CGA) Walk 150 ft: 88 Walking 10ft on uneven surface: 4 (CGA) Gait Assistive Device: FWW Does the Pt Use a Wheelchair: Yes Wheelchair Distance: 50' Wheel 50 ft with 2 turns: 6 Wheel 150 ft: 88 Type of Wheelchair: Manual #of Steps: 4 1 Step (curb): 3 (Monique) 4 Steps: 3 (Monique) 12 Steps: 88 Picking up an Object: 4 (CGA) PM&R Allergy/Meds/Data Review Allergies Coded Allergies: codeine (Verified Allergy, Severe, Pt has received Lortab in the past, 09/15/19) PATIENT STATES THAT THE DENTIST GAVE HER CODEINE IN THE PAST AND SHE WAS UNRESPONSIVE FOR THREE DAYS AND "NEARLY ". Penicillins (Unverified Allergy, Unknown, N/V, RASH, 06/17/14) Uncoded Allergies: SILK TAPE (Allergy, Mild, 05/07/09) Home Medications Scheduled Alendronate Sodium (Alendronate Sodium), 70 MG PO We, (Reported) Antiox #11/Om3/Dha/Epa/Lut/Julianna (Eye Health Adult 50+ Softgel), 1 CAP PO DAILY, (Reported) Aspirin (Aspirin), 81 MG PO DAILY, (Reported) Bilberry Fruit Extract (Bilberry Extract), 30 MG PO BID, (Reported) Calcium Carbonate/Vitamin D3 (Calcium 600 + Vit D 400 Tablet), 1 TAB PO Q48H, (Reported) Cyanocobalamin (Vitamin B-12) (Vitamin B-12), 2,500 MCG SL HS, (Reported) Glipizide (Glipizide), 5 MG PO BID, (Reported) Levocetirizine Dihydrochloride (Xyzal), 5 MG PO DAILY, (Reported) Losartan Potassium (Losartan Potassium), 50 MG PO HS, (Reported) Lovastatin (Lovastatin), 20 MG PO HS, (Reported) Magnesium Oxide (Magnesium), 400 MG PO BID, (Reported) Metformin HCl (Metformin HCl), 500 MG PO BID, (Reported) Multivitamin (Daily Value), 1 TAB PO DAILY, (Reported) Fallon 3 Polyunsat Fatty Acids (Fish Oil 1,000 mg Capsule), 1,000 MG PO BID, (Reported) Pantoprazole Sodium (Pantoprazole Sodium), 40 MG PO 0600,1800, (Reported) Scheduled PRN Calcium Carbonate (Tums Ultra Strength), 1 TAB.CHEW PO Q4H PRN for INDIGESTION, (Reported) Discontinued Medications Cefdinir (Cefdinir), 300 MG PO BID Discontinued Reason: No Longer Taking Glyburide (Glyburide), 10 MG PO BID, (Reported) Discontinued Reason: No Longer Taking Fallon-3/Dha/Epa/Fish Oil (Fish Oil 1,400 mg Softgel), 1,400 MG PO BID, (Reported) Discontinued Reason: Prescription changed Current Medications Current Medications Reviewed Laboratory Data Laboratory Tests 09/14/19 16:08: Glucometer 123H 09/14/19 20:12: Glucometer 147H 09/15/19 04:25: White Blood Count 8.9, Red Blood Count 3.01L, Hemoglobin 9.0L, Hematocrit 27L, Mean Corpuscular Volume 91, Mean Corpuscular Hemoglobin 30, Mean Corpuscular Hemoglobin Concent 33, Red Cell Distribution Width 13.8, Platelet Count 531H, Mean Platelet Volume 9.4, Neutrophils (%) (Auto) 58, Lymphocytes (%) (Auto) 22, Monocytes (%) (Auto) 10, Eosinophils (%) (Auto) 9, Basophils (%) (Auto) 1, Neutrophils # (Auto) 5.2, Lymphocytes # (Auto) 2.0, Monocytes # (Auto) 0.9, Eosinophils # (Auto) 0.8H, Basophils # (Auto) 0.1, Sodium Level 137, Potassium Level 4.5, Chloride Level 102, Carbon Dioxide Level 25, Anion Gap 10, Blood Urea Nitrogen 15, Creatinine 0.85, Estimat Glomerular Filtration Rate > 60, BUN/Creatinine Ratio 18, Glucose Level 125H, Calcium Level 9.3, Corrected Calcium 9.9, Total Bilirubin 0.4, Aspartate Amino Transf (AST/SGOT) 16, Alanine Aminotransferase (ALT/SGPT) < 6, Alkaline Phosphatase 94, Total Protein 6.1L, Albumin 3.2 09/15/19 05:37: Glucometer 148H Review of Systems Constitutional: see HPI, malaise, weakness EENTM: no symptoms reported Respiratory: no symptoms reported Cardiovascular: no symptoms reported Gastrointestinal: constipation Genitourinary: no symptoms reported Musculoskeletal: joint pain (left leg) Skin: no symptoms reported Psychiatric/Neurological: No Symptoms Reported All Other Systems Reviewed Negative Unless Noted: Yes Physical Exam Physical Exam Vital Signs Vital Signs - First Documented 09/14/19 16:09 Temp 36.4 Pulse 78 Resp 16 B/P (MAP) 137/79 Pulse Ox 97 O2 Delivery Room Air Capillary Refill : Height, Weight, BMI Height: 5'6.00" Weight: 144lbs. 14.4oz. [id number]; 20.83 BMI Method:Stated General Appearance: No Apparent Distress, WD/WN, Chronically ill Eyes: Bilateral Eye Normal Inspection, Bilateral Eye PERRL HEENT: PERRL/EOMI, Normal ENT Inspection, Pharynx Normal, Other (OUZINKIE) Neck: Full Range of Motion, Normal Inspection, Non Tender, Supple, Carotid Bruit Respiratory: Chest Non Tender, No Accessory Muscle Use, No Respiratory Distress, Crackles (right lower lobe), Decreased Breath Sounds Cardiovascular: Regular Rate, Rhythm, No Edema, No Gallop, No JVD, No Murmur, Normal Peripheral Pulses Gastrointestinal: Normal Bowel Sounds, No Organomegaly, No Pulsatile Mass, Non Tender, Soft Back: Normal Inspection, No CVA Tenderness, No Vertebral Tenderness Extremity: Normal Capillary Refill, Normal Inspection, Normal Range of Motion (except left leg due to pain from femur fracture repair), Non Tender, No Calf Tenderness, No Pedal Edema Neurologic/Psychiatric: Alert, Oriented x3, No Motor/Sensory Deficits, Normal Mood/Affect, Disoriented (subtle finding) Skin: Normal Color, Warm/Dry Lymphatic: No Adenopathy PM&R Medical Assessment & Plan REHAB/MEDICAL ASSESSMENT AND PLAN: REHAB IMPAIRMENT GROUP: Left femur fracture ETIOLOGIC DIAGNOSIS: Left femur fracture The comorbidities that impact the patients function and/or functional outcome by: HTN, DM, Colon cancer hx, crackles on exam and abnormal chest x-ray, urinary retention requiring urology consultation REHAB PLAN: The patient is being admitted to our comprehensive inpatient rehabilitation facility and can tolerate the intensity of service consisting of at least: 180 minutes of therapy a day, 5 out of 7 days a week Rehab treatment will consist of: PT will assist in ambulation with walker, OT will focus on regaining independent ADL's The patient/family has a good understanding of our discharge process and will benefit from an interdisciplinary inpatient rehabilitation program. The patient has potential to make improvement and is in need of at least two of the following multidisciplinary therapies including but not limited to physical, occupational, speech, and prosthetics and orthotics. Additionally the patient will need services from respiratory, nutritional services, wound care, psychology, etc. (Customize this to each patient). Given the patients complex condition and risk of further medical complications, rehabilitation services cannot be safely or effectively provided at a lower level of care such as a chcf facility. BARRIERS TO DISCHARGE: Lives at home alone will require improved ambulation and regaining independent ADLs ESTIMATED LOS: 14 days DISPOSITION: Home with home health RELEVANT CHANGES SINCE PREADMISSION SCREENING: I have compared the patients medical and functional status at the time of the preadmission screening and there are: no changes PROGNOSIS: Good REHABILITATION GOALS: 1. Regain ability to ambulate with walker and be safe to go home 2. regain independent ADLs in order to take care of herself at home since she lives alone All the above goals were reviewed with the patient and he/she is in agreement. By signing this document, I acknowledge that I have personally performed a full physical examination on this patient within 24 hours of admission to this inpatient rehabilitation facility and have determined the patient to be able to tolerate the above course of treatment at an intensive level for a reasonable period of time. I will be completing a detailed individualized Plan of Care for this patient by day #4 of the patients stay based upon the Preadmission Screen, the Post-Admission Evaluation, and the therapy evaluations. Admission Dx/Comorbidities: (1) Hip fracture, left Status: Acute Qualifiers: Qualified Codes: S72.002D - Fracture of unspecified part of neck of left femur, subsequent encounter for closed fracture with routine healing ICD Codes: S72.002A - FRACTURE OF UNSP PART OF NECK OF LEFT FEMUR, INIT (2) Rales Status: Acute Assessment & Plan: Review chest x-ray and consulting Dr. Christian ICD Codes: R09.89 - Other specified symptoms and signs involving the circulatory and respiratory systems (3) Constipation Status: Acute Assessment & Plan: Initiate bowel regimen ICD Codes: K59.00 - Constipation, unspecified (4) Anemia Status: Acute Assessment & Plan: Initiate iron infusions check level of iron Qualifiers: Qualified Codes: D50.9 - Iron deficiency anemia, unspecified ICD Codes: D64.9 - Anemia, unspecified (5) Iron deficiency ICD Codes: E61.1 - Iron deficiency (6) GERD without esophagitis ICD Codes: K21.9 - Gastro-esophageal reflux disease without esophagitis (7) Hypertension ICD Codes: I10 - Essential (primary) hypertension (8) Hyperlipidemia ICD Codes: E78.5 - Hyperlipidemia, unspecified (9) DVT prophylaxis ICD Codes: Z29.9 - Encounter for prophylactic measures, unspecified (10) History of colon cancer Status: Chronic ICD Codes: Z85.038 - Personal history of other malignant neoplasm of large intestine (11) Falls Status: Chronic ICD Codes: W19.XXXA - Unspecified fall, initial encounter (12) Uncontrolled diabetes mellitus Status: Acute ICD Codes: E11.65 - Type 2 diabetes mellitus with hyperglycemia CAROLIN GÓMEZ DO Sep 15, 2019 10:35 POS
--- NOTE | 2019-09-15 11:17 | ST Cognitive Linguistic Eval ---
Speech Evaluation-General Medical Diagnosis S/P L femur fx Onset Date: Sep 10, 2019 Therapy Diagnosis Therapy Diagnosis: Cognitive-communication Referral Referring Physician: Dr. Leon Reason for Referral: Evaluation/Treatment Medical History Pertinent Medical History: DM, HTN Reviewed History: Yes Social History Current Living Status: Alone Speech PLF-Current Status Prior Level of Function Patient lived at home alone where she is independent with her daily needs. Subjective Patient was pleasant and cooperative with the cognitive assessment. Language Eval: Auditory Comprehends Simple Yes/No Ques: Functional Indent/Objects Multiple Javier: Functional Ident/Pics in Multiple Javeir: Functional Follows 1-Step Commands: Functional Follows Complex Directions: Functional Follows General Conversations: Functional Language Eval: Verbal Language Completes Spontaneous Greeting: Functional Produces Auto, Serial Info: Functional Imitates Simple Words/Phrases: Functional Word Finding: Functional Requests Basic Needs: Functional States Basic Personal Info: Functional Expresses Complex Ideas: Functional Objective Cognitive Domain Memory: Mild Problem Solving: Functional Executive Functions: WNL Visuospatial Skills: WNL Composite Severity Rating: WNL Clock Drawing Severity Rating: WNL Objective Formal/Standardized Tests [facility] Mental Status ([facility]) Results , within normal range of function Oral Motor/Speech Production Within Normal Limits Impression The patient is a pleasant 78 year old woman who was admitted to the ARU s/p leg fracture. The patient was given the SLUMS at bedside with results obtained of . Patient does not require further ST services at this time. Speech Patient Assess Expression of Ideas/Wants: Expression (4) Understanding Verbal Content: Understands (4) Brief Interview-Mental Status: Yes Repetition of Three Words: Three (3) Temporal Orientation: Year: Correct (3) Temporal Orientation: Month: Accurate within 5 days(2) Temporal Orientation: Day: Correct (1) Recall : Wear to say "Sock": Yes, no cue required (2) Recall : Color: Yes, no cue required (2) Recall : Bed: Yes, no cue required (2) Memory/Recall Ability: Current season, Location of own room, That he or she is in a hsp/hsp unit Speech-Plan Patient/Family Goals Patient/Family Goals: The patient plans on returning home post rehab. She has a supportive family who is available to help with her needs. Treatment Plan Speech Therapy Treatment Plan: Discontinue ST Patient does not require skilled cognitive therapy. Treatment Duration: Sep 15, 2019 Frequency: 1 time per week Estimated Hrs Per Day: .25 hour per day Rehab Potential: Good Barriers to Learning: None identified Pt/Family Agrees to Plan: Yes Safety Risks/Education Teaching Recipient: Patient Teaching Methods: Discussion Response to Teaching: Verbalize Understanding Education Topics Provided: Safety within her room and communication of wants/needs Time Speech Therapy Time In: 11:00 Speech Therapy Time Out: 11:15 Total Billed Time: 15 Billed Treatment Time 1, EUGENE Rangel Sep 15, 2019 11:17 POS
[2019-09-15 11:20] VITALS: BP 161/74
--- NOTE | 2019-09-15 11:38 | Occupational Therapy Eval ---
OT Evaluation-General/PLF Medical Diagnosis Admission Date Sep 14, 2019 at 15:45 Medical Diagnosis: S/P L femur fx Onset Date: Sep 10, 2019 Therapy Diagnosis Therapy Diagnosis: decreased self care skills Height/Weight Height (Feet): 5 Height (Inches): 6.00 Weight (Pounds): 144 Weight (Ounces): 14.4 Precautions Precautions/Isolations: Fall Prevention, Standard Precautions Safety Interventions: None Referral Physician: Carolyn Medical History Pertinent Medical History: DM, HTN, OA Additional Medical History HLD, colon cancer, left EVERT Reviewed History: Yes Social History Home: Apartment Current Living Status: Alone Entry Into Home: Level Entry ADL-Prior Level of Function SCALE: Activities may be completed with or without assistive devices. 1-Hemnlancfr-utwsntd completes the activity by him/herself with no assistance from a helper. 5-Set-up or Clean-up Assistance-helper sets up or cleans up; patient completes activity. [place] assists only prior to or following the activity. 4-Supervision or Touching Assistance-helper provides verbal cues and/or touching/steadying and/or contact guard assistance as patient completes activity. Assistance may be provided throughout the activity or intermittently. 3-Partial/Moderate Assistance-helper does LESS THAN HALF the effort. [place] lifts, holds or supports trunk or limbs, but provides less than half the effort. 2-Substantial/Maximal Assistance-helper does MORE THAN HALF the effort. [place] lifts or holds trunk or limbs and provides more than half the effort. 2-Ubvogtpkd-bypbjz does ALL the effort. Patient does none of the effort to complete the activity. Or, the assistance of 2 or more helpers is required for the patient to complete the activity. If activity was not attempted, code reason: 7-Patient Refused. 9-Not Applicable-not attempted and the patient did not perform the activity before the current illness, exacerbation or injury. 10-Not Attempted due to Environmental Limitations-(lack of equipment, weather restraints, etc.). 88-Not Attempted due to Medical Conditions or Safety Concerns. ADL PLOF Comments Pt reports being independent with self care and mobility prior to admission. 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 Self Care: Independent Functional Cognition: Independent DME/Equipment: Grab Bars, Tub/Shower Drive Self: No OT Current Status Subjective Pt sitting in w/c, agrees to treatment. Pt reports 3/10 pain in left LE Mental Status/Objective Patient Orientation: Person, Place, Situation Current Glasses/Contacts: No Hearing Aids: No Dentures/Partials: No Hand Dominance: Right Upper Extremity ROM Grossly WFL Upper Extremity Coordination Intact Upper Extremity Sensation Intact per pt report Upper Extremity Strength grossly 4/5 ADL-Treatment ADL-Current Pt requests to use restroom. Sit to stand with supervision. Gait to restroom with FWW. Transfer to [facility] over toilet with CGA. Pt able to complete toileting hygiene, CGA for balance during clothing management. Pt declined shower, but would like to complete sponge bath. Bathing tasks completed seated at sink. Pt doffed shirt without assist. Upper body bathing completed with set up. Pt doffed lower body clothing with CGA. Pt able to wash bilateral upper legs, roselyn area, buttocks, and right lower leg. Assist to wash left lower leg/foot. Don pullover shirt with set up. Pt able to thread bilateral LE into pants. Stood with CGA for balance during pant hike. Pt able to don slip on shoes with set up. Grooming t asks completed seated at sink. Pt completed oral care and combed hair with set up. Occasional rest breaks taken during ADL tasks. Eating (QC): 6 (per pt report) Oral Hygiene (QC): 5 Shower/Bathe Self (QC): 3 Upper Body Dressing (QC): 5 Lower Body Dressing (QC): 4 (CGA) On/Off Footwear (QC): 4 Toileting Hygiene (QC): 4 (CGA) Toilet Transfer (QC): 4 (CGA) Other Treatments Pt declined to ambulate to therapy gym secondary to fatigue. Performed w/c mobility to therapy gym without assist. Arm bike x8 minutes to increase overall strength and activity tolerance needed for functional task completion. Pt performed activity with minimal resistance and slow pace. One rest break taken. Pt performed w/c mobility back to room, transferred to bed with CGA with FWW. Sit to supine with SBA. Pt resting in bed with needs met after session. Education OT Patient Education: Rehab process Teaching Recipient: Patient Teaching Methods: Discussion Response to Teaching: Verbalize Understanding OT Short Term Goals Short Term Goals 1=Demonstrate adherence to instructed precautions during ADL tasks. 2=Patient will verbalize/demonstrate understanding of assistive devices/modifications for ADL. 3=Patient will improve strength/tolerance for activity to enable patient to perform ADL's. OT Mcc Goals Vending Machine Assembler Goals Time Frame: Sep 29, 2019 Eating (QC): 6 Oral Hygiene (QC): 6 Shower/Bathe Self (QC): 6 Upper Body Dressing (QC): 6 Lower Body Dressing (QC): 6 On/Off Footwear (QC): 6 Toileting Hygiene (QC): 6 Toilet/Commode Transfer (QC): 6 Additional Goals: 1-Demonstrate ADL Tasks, 2-Verbalize Understanding, 3- ImproveStrength/Lux 1=Demonstrate adherence to instructed precautions during ADL tasks. 2=Patient will verbalize/demonstrate understanding of assistive devices/modifications for ADL. 3=Patient will improve strength/tolerance for activity to enable patient to perform ADL's. OT Education/Plan Problem List/Assessment Assessment: Decreased Activ Tolerance, Decreased UE Strength, Dependent Transfers, Impaired Self-Care Skills Pt to benefit from skilled OT intervention for ADL training, transfers, strengthening, and home safety education to increase level of independence and allow safe return home. Discharge Recommendations Plan/Recommendations: Continue POC Treatment Plan/Plan of Care Treatment,Training & Education: Yes Patient would benefit from OT for education, treatment and training to promote independence in ADL's, mobility, safety and/or upper extremity function for ADL's. Plan of Care: ADL Retraining, Functional Mobility, Group Exercise/Act as Ind, UE Funct Exercise/Act Treatment Duration: Sep 29, 2019 Frequency: At least 5 of 7 days/Wk (IRF) Estimated Hrs Per Day: 1.5 hours per day Rehab Potential: Good Time/GCodes Start Time: 09:30 Stop Time: 11:00 Total Time Billed (hr/min): 90 Billed Treatment Time 1 visit, EVM(20minutes), ADLx4(60minutes), EX(10minutes) SANDOR RUFFIN OT Sep 15, 2019 11:38 POS
--- NOTE | 2019-09-15 11:47 | Physical Therapy Daily Note ---
PT Daily Note-Current Subjective pt in bed pre-tx agrees to PT. pt reports 6/10 pain right now in her L hip. Appearance pt in bed post-tx with call light, room phone, tray table in reach with all needs met at this time. Mental Status Patient Orientation: Person, Place, Time, Situation Transfers SCALE: Activities may be completed with or without assistive devices. 3-Brhweipkox-cbfbkek completes the activity by him/herself with no assistance from a helper. 5-Set-up or Clean-up Assistance-helper sets up or cleans up; patient completes activity. [place] assists only prior to or following the activity. 4-Supervision or Touching Assistance-helper provides verbal cues and/or touching/steadying and/or contact guard assistance as patient completes activity. Assistance may be provided throughout the activity or intermittently. 3-Partial/Moderate Assistance-helper does LESS THAN HALF the effort. [place] lifts, holds or supports trunk or limbs, but provides less than half the effort. 2-Substantial/Maximal Assistance-helper does MORE THAN HALF the effort. [place] lifts or holds trunk or limbs and provides more than half the effort. 4-Waoxhdxtt-vvvuzi does ALL the effort. Patient does none of the effort to complete the activity. Or, the assistance of 2 or more helpers is required for the patient to complete the activity. If activity was not attempted, code reason: 7-Patient Refused. 9-Not Applicable-not attempted and the patient did not perform the activity before the current illness, exacerbation or injury. 10-Not Attempted due to Environmental Limitations-(lack of equipment, weather restraints, etc.). 88-Not Attempted due to Medical Conditions or Safety Concerns. Sit to Lying (QC): 3 (Monique ) Sit to Stand (QC): 4 (SBA) Chair/Tlb-ky-Hbces Xfer(QC): 4 (SBA) Weight Bearing Right Lower Extremity: Right Full Weight Bearing Left Lower Extremity: Left Weight Bearing/Tolerated Gait Training Does the Patient Walk?: Yes Distance: 30' Walk 10 feet (QC): 4 (SBA) Gait Assistive Device: FWW Pt with generalized fatigue and increased hip pain this session. Exercises Seated Therapy Exercises: Long arc quads Seated Reps: 10 Standing: Hip Abduction, Heel/toe raises Standing Reps: 10 NuStep Minutes: 8 NuStep Workload: 1 Treatments pt performed skilled ambulation training, transfer training, bed mobility training, functional LE strengthening/endurance training. Assessment Current Status: Good Progress pt if very fatigued and has increased pain following structured therapy this session. Pt is SBA for all transfers and mobility today. PT Short Term Goals Short Term Goals Time Frame: Sep 22, 2019 Gait Distance Comment: 200' Gait Assistive Device: FWW (SBA) Wheelchair Distance: 50' PT Tassel Making Machine Operator Goals Tassel Making Machine Operator Goals PT Tassel Making Machine Operator Goals Time Frame: Oct 06, 2019 Sit to Lying (QC): 6 Lying-Sitting on Side/Bed(QC): 6 Sit to Stand (QC): 6 Roll Left to Right (QC): 6 Chair/Phw-hk-Pddrh Xfer(QC): 6 Car Transfer (QC): 4 (SBA) Does the Patient Walk: Yes Distance: 400' Walk 10 feet (QC): 6 Walk 10ft-Uneven Surface(QC): 6 Walk 50ft with 2 Turns (QC): 6 Walk 150 ft (QC): 6 Gait Assistive Device: FWW Does the Pt use WC or Scooter?: No # of Steps: 4 1 Step (curb) (QC): 6 4 Steps (QC): 4 (SBA) PT Plan Problem List Problem List: Activity Tolerance, Functional Strength, Safety, Balance, Gait, Transfer, Bed Mobility, ROM Treatment/Plan Treatment Plan: Continue Plan of Care Treatment Plan: Bed Mobility, Education, Functional Activity Lux, Functional Strength, Group Therapy, Gait, Safety, Therapeutic Exercise, Transfers Treatment Duration: Oct 06, 2019 Frequency: At least 5 of 7 days/Wk (IRF) Estimated Hrs Per Day: 1.5 hours per day Patient and/or Family Agrees t: Yes Safety Risks/Education Patient Education: Gait Training, Transfer Techniques, Correct Positioning, Safety Issues Teaching Recipient: Patient Teaching Methods: Demonstration, Discussion Response to Teaching: Return Demonstration, Reinforcement Needed Time/GCodes Time In: 1115 Time Out: 1145 Total Billed Treatment Time: 30 Total Billed Treatment 1 visit FA 30' FRANCK PASTRANA PT Sep 15, 2019 11:47 POS
[2019-09-15] MEDS ORDERED: RT-ALBUTEROL SULF 2.5 MG/3 ML PRE-MIX VIAL INH PRN (12:00)
--- NOTE | 2019-09-15 12:00 | CONSULTATION REPORT ---
DATE OF SERVICE: 09/15/2019 ATTENDING PHYSICIAN: Dr. Leon. SUMMARY: This is an 78-year-old white lady that sustained a fall and fractured her hip, had an open reduction and internal fixation at [facility] early this month. She had a catheter after surgery. Apparently, it was difficult to put in because of the cystocele then the urologist came in and put it in. The patient denies any previous voiding symptoms at home except incontinence, probably due to the prolapse. When I saw her today, she was sitting with the physical therapist talking about her rehabilitation plans. IMPRESSION: Vaginal prolapse and urinary incontinence. No history of urinary retention. PLAN: We will take out that Avzquez catheter since she has been ambulating well. I explained to the nurse how to put a catheter back in if she has to or to call me later on when she will need workup and exam for that problem and consider either repair or a pessary for her. We will see first how she does voiding. Job ID: [id number] DocumentID: [id number] Dictated Date: 09/15/2019 10:50:11 Wedding Day Coordinator Date: 09/15/2019 11:59:50 Dictated By: GABRIELA VIVAR MD
--- NOTE | 2019-09-15 12:29 | NUR ---
RD ASSESSMENT PMHx: unknown PMH PT INTERACTION: Pt was awake and pleasant during nutrition assessment. Pt states current appetite is pretty good and has been for some time. Note pt PO intake of 75% x1meal, per chart review. Pt states following a "diabetic diet" which she was given a clinic. Pt states having difficulty chewing food as she has no teeth. Pt states no recent issues with n/v/c/d at this time. Pt states last BM was 09/15. Note pt currently on bowel regimen of miralax BID, senna BID, colace PRN, bisacodyl PRN, per chart review. Pt states no recent wt changes. Note unable to determine recent wt hx, per chart review. ABNORMAL NUTRITION-RELATED LAB VALUES: glu 126 (H); Pro 6.1 (L) Est. kcal needs: 8085-9281 kcal (25-30 kcal/kg) Est. Pro needs: 58-70 g Pro (1.0-1.2 g Pro/kg) PES STATEMENT: Given pt's PO intake of 75%, no nutritional diagnosis at this time (NO-1.1) INTERVENTION: Continue with current diet order of Regular diet. MONITOR/EVALUATE: PO Intake; Plan of Care; Hydration Status; Weight Status; Lab Values Fantasma Barrios, MS, RD, LD
--- NOTE | 2019-09-15 13:10 | Pulmonary Consultation ---
History of Present Illness History of Present Illness Date of Consultation 09/15/19 13:05 Time Seen by Provider: 13:05 Date of Admission History of Present Illness 78yo with hx of pulmonary fibrosis was recently admitted at [facility] and sustained a fall causing a left femur fracture. pt has no leukocytosis and is not currently requiring oxygen. Allergies and Home Medications Allergies Coded Allergies: codeine (Verified Allergy, Severe, Pt has received Lortab in the past, 09/15/19) PATIENT STATES THAT THE DENTIST GAVE HER CODEINE IN THE PAST AND SHE WAS UNRESPONSIVE FOR THREE DAYS AND "NEARLY ". Penicillins (Unverified Allergy, Unknown, N/V, RASH, 06/17/14) Uncoded Allergies: SILK TAPE (Allergy, Mild, 05/07/09) Home Medications Alendronate Sodium 70 Mg Tablet, 70 MG PO We, (Reported) Antiox #11/Om3/Dha/Epa/Lut/Julianna 1 Each Capsule, 1 CAP PO DAILY, (Reported) Aspirin 81 Mg Tab.chew, 81 MG PO DAILY, (Reported) Bilberry Fruit Extract 30 Mg Capsule, 30 MG PO BID, (Reported) Calcium Carbonate 1,177 Mg Tab.chew, 1 TAB.CHEW PO Q4H PRN for INDIGESTION, (Reported) Calcium Carbonate/Vitamin D3 1 Each Tablet, 1 TAB PO Q48H, (Reported) Cyanocobalamin (Vitamin B-12) 2,500 Mcg Tab.subl, 2,500 MCG SL HS, (Reported) Glipizide 5 Mg Tablet, 5 MG PO BID, (Reported) Levocetirizine Dihydrochloride 5 Mg Tablet, 5 MG PO DAILY, (Reported) Losartan Potassium 50 Mg Tablet, 50 MG PO HS, (Reported) Lovastatin 20 Mg Tablet, 20 MG PO HS, (Reported) Magnesium Oxide 400 Mg Tablet, 400 MG PO BID, (Reported) Metformin HCl 500 Mg Tablet, 500 MG PO BID, (Reported) Multivitamin 1 Each Tablet, 1 TAB PO DAILY, (Reported) Reeves 3 Polyunsat Fatty Acids 1,000 Mg Cap, 1,000 MG PO BID, (Reported) Pantoprazole Sodium 40 Mg Tablet.dr, 40 MG PO 0600,1800, (Reported) Past Hgbznwo-Weakux-Suppad Hx Past Med/Social Hx: Reviewed Nursing Past Med/Soc Hx, Reviewed and Corrections made Patient Social History Alcohol Use: Denies Use Recreational Drug Use: No Smoking Status: Former Smoker Former Smoker, Quit: Aug 12, 1986 2nd Hand Smoke Exposure: No Recent Foreign Travel: No Contact w/Someone Who Travel: No Recent Infectious Disease Expo: No Recent Hopitalizations: No Immunizations Up To Date Tetanus Booster (TDap): Unknown Date of Pneumonia Vaccine: March 18, 2017 Date of Influenza Vaccine: Aug 30, 2019 Seasonal Allergies Seasonal Allergies: No Past Medical History Surgeries: Yes Abdominal, Bowel Surgery, Gallbladder, Orthopedic Respiratory: Yes (PULMONARY FIBROSIS AND COPD NOTED ON CT SCAN OF CHEST. 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 Sexually Transmitted Disease: No Genitourinary: Yes (recent retension issues post op ) Gastrointestinal: Yes (COLON CANCER 2009--S/P RESECTION) Gastroesophageal Reflux Musculoskeletal: Yes (RIGHT KNEE SURGERY; LEFT HIP FX/ REPLACEMENT) Arthritis, Chronic Back Pain, Fractures Endocrine: Yes Diabetes, Non-Insulin dep Are Your Blood Sugars Over 250: Yes (not often) HEENT: Yes (DIABETIC RETINOPATHY; LOSS OF HEARING LEFT EAR) Cataract Loss of Vision: Bilateral Hearing Impairment: Hard of Hearing Cancer: Yes (COLON CANCER 2009--S/P SURGERY, NO CHEMO OR RADIATION) Colon Did You Recieve Any Treatments: Yes What Type of Treatment Did You: Surgical Intervention Psychosocial: No Integumentary: No Blood Disorders: Yes (ANEMIA) Adverse Reaction/Blood Tranf: No Family Medical History Colon cancer G8 SISTER FH: breast cancer G8 SISTER G8 SISTER Myocardial infarction 19 FATHER (father had x3 UT's and from the final one) Sepsis Event Evaluation Height, Weight, BMI Height: 5'6.00" Weight: 144lbs. 14.4oz. 65.103556nb; 20.83 BMI Method:Stated Exam Exam Vital Signs Date Time Temp Pulse Resp B/P (MAP) Pulse Ox O2 Delivery O2 Flow Rate FiO2 09/15/19 11:20 36.1 110 94 21 09/15/19 11:20 94 Room Air 09/15/19 08:00 Room Air 09/15/19 05:43 36.1 83 20 161/74 (103) 95 Room Air 09/14/19 21:00 Room Air 09/14/19 19:43 Room Air 09/14/19 18:40 36.4 78 16 137/79 (98) 97 Room Air 09/14/19 16:19 36.4 78 16 137/79 (98) 97 Room Air 09/14/19 16:09 36.4 78 16 137/79 97 Room Air I & O 09/15/19 07:00 Intake Total 440 ml Output Total 1150 ml Balance -710 ml Height & Weight Height: 5'6.00" Weight: 144lbs. 14.4oz. 65.529539at; 20.83 BMI Method:Stated General Appearance: No Apparent Distress, WD/WN, Chronically ill HEENT: PERRL/EOMI, Normal ENT Inspection, Pharynx Normal, Other (ZUNI) Neck: Full Range of Motion, Normal Inspection, Non Tender, Supple, Carotid Bruit Respiratory: Chest Non Tender, No Accessory Muscle Use, No Respiratory Distress, Crackles (right lower lobe), Decreased Breath Sounds Cardiovascular: Regular Rate, Rhythm, No Edema, No Gallop, No JVD, No Murmur, Normal Peripheral Pulses Extremity: Normal Capillary Refill, Normal Inspection, Normal Range of Motion (except left leg due to pain from femur fracture repair), Non Tender, No Calf Tenderness, No Pedal Edema Neurologic/Psychiatric: Alert, Oriented x3, No Motor/Sensory Deficits, Normal Mood/Affect, Disoriented (subtle finding) Skin: Normal Color, Warm/Dry Lymphatic: No Adenopathy Results Lab Laboratory Tests 09/15/19 04:25 Assessment/Plan Assessment/Plan S/p Left hip fracture with debility -PT/OT -Rehab therapy Chronic pulmonary fibrosis -CXR shows extensive bilateral infiltrates however stable comparing with previous imaging. -No current leukocytosis -Monitor close for decompensation -Will start IS and SVNS Constipation with abdominal distention Hx of colon cancer Anemia -Monitor Atelectasis -IS -Activity SOTERO RIGGS DO Sep 15, 2019 13:10 POS
[2019-09-15] MEDS: IRON SUCROSE 200 MG/10 ML (VENOFER) VIAL IV SCH (13:48)
[2019-09-15] MEDS ORDERED: RT-ALBUTEROL SULF 2.5 MG/3 ML PRE-MIX VIAL INH SCH (14:00)
[2019-09-15] MEDS: RT-ALBUTEROL/IPRATROPIUM 3 ML (DUONEB) VIAL INH SCH ×2 (14:48→19:06)
--- NOTE | 2019-09-15 15:30 | NUR ---
Initial assessment completed with patient along with her son/DPOA Denzel Barrios and his Pauline. Patient was admitted to ARU for left femur fracture, post surgical repair. She has history of left knee replacement and left hip fracture with replacement prior to new injury. Patient resides home alone and was IADL, she does not drive due to eyesight impairment. Her family members provide all needed support, including shopping, errands, appointments. DME: Has two FWW, wheelchair, crutches, cane. Will need tub shower chair, style to be explored during therapy for best match/fit to needs. HHC: Anticipated for home therapy, to be determined by progress. Primary contact is son Denzel: [phone] Denzel's spouse, Pauline Barrios: [phone] Granddaughter, Kendra Justin: [phone] Patient is insured, Medicare and [employer]. Goal is home when able with resume of family supports as before. Educated patient/family about Weekly Team Conference and all indicated understanding.
[2019-09-15] MEDS ORDERED: NON-FORMULARY MEDICATION 1 EA EA (Alendronate Sodium 70 MG) PO SCH (17:30)
[2019-09-15 17:35] VITALS: BP 134/76
[2019-09-15] MEDS: ENOXAPARIN 30 MG/0.3 ML (LOVENOX) SYR SC SCH (19:53)
[2019-09-15] MEDS: LOSARTAN 50 MG (COZAAR) TAB PO SCH (20:04)
[2019-09-15] MEDS: SIMvastatin 10 MG (ZOCOR) TAB PO SCH (20:04)
--- NOTE | 2019-09-15 20:05 | Individualized Plan of Care ---
Individualized Plan of Care Rehab Nursing IPOC Order Admission Date Sep 14, 2019 at 15:45 Current Orders Orders Admission Order(Inpt,Obs,Sdc) (09/14/19:22) Vital Signs: Per Unit Policy ( 08,16,00 (09/14/19 09:22) Bhavesh Davison , (09/14/19:22) Sequential Compression Device Q4H (09/14/19:22) Systems Program Manager-Inpt Rehab Con (09/14/19:) Rehab Nursing Orders-Ipoc (09/14/19:22) Physical Therapy Rehab Orders (09/14/19:22) Occupational Therapy Rehab Ord (09/14/19:) Speech Therapy Rehab Orders (09/14/19) Cbc With Automated Diff (09/15/19 06:00) Comprehensive Metabolic Panel (09/15/19 06:00) General/Regular (09/14/19 Lunch) Intake & Output (09/14/19:22) Precautions (Aru) (09/14/19:22) Rehab-Intensity Of Therapy (09/14/19:) Initiate Admission Nursing Pro .admission (09/14/19:) Acetaminophen Tablet (Tylenol Tablet) (09/14/19 09:30) Alprazolam Tablet (Xanax Tablet) (09/14/19 09:30) Calcium Carbonate Chew Tablet (Antacid C (09/14/19 09:30) Diphenhydramine Tablet (Benadryl Tablet) (09/14/19 09:30) Docusate Sodium Capsule (Colace Capsule) (09/14/19 09:30) Bisacodyl Suppository (Dulcolax Supposit (09/14/19 09:30) Lactulose Oral Solution (Enulose Oral So (09/14/19:30) Na Phos/Na Biphos Enema (Fleet Enema Enrico (09/14/19 09:30) Guaifenesin/Codeine Syrup (Robitussin Ac (09/14/19 09:30) Hydrocodone/Apap 5/325 Tablet (Lortab 5 (09/14/19 09:30) Loperamide Tablet (Imodium Tablet) (09/14/19 09:30) Melatonin Tablet (Melatonin Tablet) (09/14/19 09:30) Polyethylene Glycol Powder Pkt (Miralax (09/14/19 21:00) Ondansetron Oral Dissolve Tab (Zofran (09/14/19 09:30) Senna S Tablet (Senokot S Tablet) (09/14/19 21:00) Tramadol Tablet (Ultram Tablet) (09/14/19 09:30) Transfer - Bed/Room/Location (09/14/19 15:40) Ambulate 08,12,20 (09/14/19 16:12) Sequential Compression Device Q4H (09/14/19 16:12) Dvt/Vte Risk - Notifiy Physici Q4H (09/14/19 16:12) Aspirin Chewable Tablet (Baby Aspirin Ch (09/15/19 09:00) Glipizide Tablet (Glucotrol Tablet) (09/14/19 18:11) Leander 3 Capsule (Fish Oil Capsule) (09/14/19 18:13) Pantoprazole Tablet (Protonix Tablet) (09/14/19 18:00) Acetaminophen Tablet (Tylenol Tablet) (09/14/19 18:45) (Nf) Alendronate Sodium (09/15/19 17:30) (Nf) Antiox #11/Om3/Dha/Epa/Lut/Julianna (Eye (09/15/19 09:00) (Nf) Bilberry Fruit Extract (Bilberry Ex (09/14/19 21:00) Calcium Carbonate Chew Tablet (Antacid C (09/14/19 18:30) (Nf) Cyanocobalamin (Vitamin B-12) (Rose (09/14/19 21:00) Losartan Tablet (Cozaar Tablet) (09/14/19 21:00) Simvastatin Tablet (Zocor Tablet) (09/14/19 21:00) Magnesium Oxide Tablet (Mag Ox Tablet) (09/14/19 18:23) Metformin Tablet (Glucophage Tablet) (09/14/19 18:23) Therapeutic Multivitamin Tab (Vitamins, (09/15/19 07:00) Loratadine Tablet (Claritin Tablet) (09/15/19 09:00) Calcium Carbonate W/Vitamin D3 (Calcarb (09/16/19 07:00) Enoxaparin Injection (Lovenox Injection) (09/14/19 19:00) Consult Urology (09/14/19 19:51) Chest Pa/Lat (2 View) (09/15/19 07:58) Patient Visit (09/15/19 ) Pt Eval Moderate Complexity (09/15/19 ) Functional Activities, Ea 15 (09/15/19 ) Patient Visit (09/15/19 ) Speech Sound Lang Comp (09/15/19 ) Iron Test (Fe) (09/15/19 11:45) Iron Sucrose Injection (Venofer Injectio (09/15/19 11:45) Consult Pulmonology (09/15/19 11:45) Patient Visit (09/15/19 ) Functional Activities, Ea 15 (09/15/19 ) Albuterol Pre-Mix Nebs (Rt) (Proventil (09/15/19 12:00) Albuterol Pre-Mix Nebs (Rt) (Proventil (09/15/19 14:00) Albuterol/Ipra Inhalation Soln (Duoneb I (09/15/19 15:00) Svn Small Volume Nebulizer (09/15/19 13:16) Incentive Spirometry (Nursing) Q2H (09/15/19 13:16) Tramadol Tablet (Ultram Tablet) (09/15/19 20:00) Rehab Nursing Orders: Ongoing Assess. of Cognitive Status, Ongoing Assess. of Function Status, Bladder Management, Bladder Scan, Bladder Training, Bowel Management, Bowel Training, Disease Management & Educaiton, DVT Prophylaxis, Fall Prevention, Fluid/Electrolyte/Nutrition Mgmt, Infection Prevention, Medication Management & Education, Management of Risks & Complications, Nutrition Management, Pain Management, Patient/Family Support, Safety Management, Swallow Precautions, Weight Bearing Precaution Intensity of Therapy to be met Patient to be seen: Min.3h per day/5 of 7d PT IPOC Problem List: Activity Tolerance, Functional Strength, Safety, Balance, Gait, Transfer, Bed Mobility, ROM Treatment Plan: Continue Plan of Care Bed Mobility, Education, Functional Activity Lux, Functional Strength, Group Therapy, Gait, Safety, Therapeutic Exercise, Transfers Treatment Duration: Oct 06, 2019 Frequency: At least 5 of 7 days/Wk (IRF) Estimated Hrs Per Day: 1.5 hours per day OT IPOC Problems: Decreased Activ Tolerance, Decreased UE Strength, Dependent Transfers, Impaired Self-Care Skills OT Treatment, Training and Edu: Yes OT Problems Pt to benefit from skilled OT intervention for ADL training, transfers, strengthening, and home safety education to increase level of independence and allow safe return home. Plan of Care: ADL Retraining, Functional Mobility, Group Exercise/Act as Ind, U E Funct Exercise/Act Treatment Duration: Sep 29, 2019 Frequency: At least 5 of 7 days/Wk (IRF) Estimated Hrs Per Day: 1.[address] IPOC Speech Therapy Treatment Plan: Discontinue ST Treatment Duration: Sep 15, 2019 Frequency: 1 time per week Estimated Hrs Per Day: .25 hour per day Systems Program Manager/Case Mgmt Systems Program Manager/Case Managemen: Discharge Planning Dietitian/Sap Bw Architect Dietitian/Sap Bw Architect to monitor nutritional status and make changes and/or recommendations as needed and work with speech pathology on dietary upgrades as the occur. Physician IPOC Medical Issues being managed closely and that require the 24 hour availability of a physician: 24hr physician supervision required due to B/L infiltrates on chest x ray and requiring Dr. Christian consultation in addition to urinary retention consultation with Dr. Lovelace Medical Issues: Bowel/Bladder Function, DVT Prophylaxis, Falls Precautions, Fluid/Electrolyte/Nutrition Balance, Pain Management Brief Synthesis of Preadmission Screen, Post-Admission Evaluation, and Therapy Evaluations: Pt will focus on regaining ambulatory skills in order to return home OT will focus on regaining independent ADLs in order to return home and live alone Medical Prognosis: Good Anticipated Length of Stay: 7 days CAROLIN GÓMEZ DO Sep 15, 2019 20:05 POS
[2019-09-15] MEDS ORDERED: HYDROcodone/APAP 5 MG/325 MG (LORTAB) TAB PO PRN (21:30)
[2019-09-16 05:01] VITALS: BP 139/74
[2019-09-16] MEDS: CALCIUM CARB + VIT D 600 MG (CALCARB + D) TAB PO SCH (06:10)
[2019-09-16] MEDS: metFORMIN 500 MG (GLUCOPHAGE) TAB PO SCH ×2 (06:10→17:39)
[2019-09-16] MEDS: MAGNESIUM OXIDE (MAG-OX)400 MG TAB PO SCH ×2 (06:10→17:39)
[2019-09-16] MEDS: PANTOPRAZOLE 40 MG (PROTONIX) TAB PO SCH ×2 (06:10→17:41)
[2019-09-16] MEDS: OMEGA 3 (FISH OIL) 1000 MG CAP PO SCH ×2 (06:10→17:39)
[2019-09-16] MEDS: glipiZIDE 5 MG (GLUCOTROL) TAB PO SCH ×2 (06:10→17:39)
[2019-09-16] MEDS: MULTIVIT W/MINERALS TAB (THERAGRAN M) PO SCH (06:10)
--- NOTE | 2019-09-16 08:20 | NUR ---
Initial visit with the pt and her children. 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 The pt is Rastaf[place].
--- NOTE | 2019-09-16 08:47 | Occupational Ther Daily Note ---
OT Current Status-Daily Note Subjective Pt alert, lying in bed. Pt agrees to therapy. Pt c/o pain, nrsg administered pain meds. Mental Status/Objective Patient Orientation: Person, Place, Time, Situation ADL-Treatment Pt agrees to shower. Pt ambulated using FWW with SBA to bathroom, transferred to toilet with supervision using FWW, grabbars and BSC. SBA for clothing manipulation and hygiene. CGA to transfer into shower using FWW, shower bench and grabbars. Pt completed shower with SBA using grabbars, hand held shower, shower bench and long handle sponge. After set up, pt able to completed upper body by self then SBA to hike pants over hips and threaded feet/LE's into pant legs. Pt sat at sink to complete oral care and grooming. Therapy Code Descriptions/Definitions Functional [place] Measure: 0=Not Assessed/NA 4=Minimal Assistance 1=Total Assistance 5=Supervision or Setup 2=Maximal Assistance 6=Modified [place] 3=Moderate Assistance 7=Complete IndependenceSCALE: Activities may be completed with or without assistive devices. 9-Sseznslkuj-bumrwry completes the activity by him/herself with no assistance from a helper. 5-Set-up or Clean-up Assistance-helper sets up or cleans up; patient completes activity. [place] assists only prior to or following the activity. 4-Supervision or Touching Assistance-helper provides verbal cues and/or touching/steadying and/or contact guard assistance as patient completes activity. Assistance may be provided throughout the activity or intermittently. 3-Partial/Moderate Assistance-helper does LESS THAN HALF the effort. [place] lifts, holds or supports trunk or limbs, but provides less than half the effort. 2-Substantial/Maximal Assistance-helper does MORE THAN HALF the effort. [place] lifts or holds trunk or limbs and provides more than half the effort. 1-Adfcsmenw-bgaump does ALL the effort. Patient does none of the effort to complete the activity. Or, the assistance of 2 or more helpers is required for the patient to complete the activity. If activity was not attempted, code reason: 7-Patient Refused. 9-Not Applicable-not attempted and the patient did not perform the activity before the current illness, exacerbation or injury. 10-Not Attempted due to Environmental Limitations-(lack of equipment, weather restraints, etc.). 88-Not Attempted due to Medical Conditions or Safety Concerns. Oral Hygiene (QC): 6 Bathing Location: L Arm Shower/Bathe Self (QC): 4 Upper Body Dressing (QC): 5 Lower Body Dressing (QC): 4 (Footwear (QC) 6) Toileting Hygiene (QC): 4 Toilet Transfer (QC): 4 Other Treatment Pt ambulated to therapy gym using FWW. Completed arm bike 15 min with minimal resistance to increase strength and activity tolerance for daily functional tasks. Pt then was able to ambulate 1/2 way back to room then was transported via w/c back to room. SBA for pt to transfer from w/c to bed. After therapy, pt lying in bed with call light/phone in reach. All needs met in room. OT Short Term Goals Short Term Goals 1=Demonstrate adherence to instructed precautions during ADL tasks. 2=Patient will verbalize/demonstrate understanding of assistive devices/modifications for ADL. 3=Patient will improve strength/tolerance for activity to enable patient to perform ADL's. OT Intelligence Specialist Goals Intelligence Specialist Goals Time Frame: Sep 29, 2019 Eating (QC): 6 Oral Hygiene (QC): 6 Shower/Bathe Self (QC): 6 Upper Body Dressing (QC): 6 Lower Body Dressing (QC): 6 On/Off Footwear (QC): 6 Toileting Hygiene (QC): 6 Toilet/Commode Transfer (QC): 6 Additional Goals: 1-Demonstrate ADL Tasks, 2-Verbalize Understanding, 3- ImproveStrength/Lux 1=Demonstrate adherence to instructed precautions during ADL tasks. 2=Patient will verbalize/demonstrate understanding of assistive devices/modifications for ADL. 3=Patient will improve strength/tolerance for activity to enable patient to perform ADL's. OT Education/Plan Problem List/Assessment Assessment: Decreased Activ Tolerance, Decreased UE Strength, Impaired Self- Care Skills Pt to benefit from skilled OT intervention for ADL training, transfers, strengthening, and home safety education to increase level of independence and allow safe return home. Discharge Recommendations Plan/Recommendations: Continue POC Treatment Plan/Plan of Care Patient would benefit from OT for education, treatment and training to promote independence in ADL's, mobility, safety and/or upper extremity function for ADL's. Plan of Care: ADL Retraining, Functional Mobility, Group Exercise/Act as Ind, UE Funct Exercise/Act Treatment Duration: Sep 29, 2019 Frequency: At least 5 of 7 days/Wk (IRF) Estimated Hrs Per Day: 1.5 hours per day Rehab Potential: Good Time/GCodes Start Time: 07:00 Stop Time: 08:30 Total Time Billed (hr/min): 90 Billed Treatment Time 1 visit-ADL 5 (75 min) EX 1 (15 min) BRI KAPOOR Sep 16, 2019 08:47 POS
--- NOTE | 2019-09-16 08:54 | PM&R Progress Note ---
Subjective HPI/CC On Admission Date Seen by Provider: Sep 16, 2019 Time Seen by Provider: 08:00 Subjective/Events-last exam She walked all the way to the gym from her room. UltraWooMe is working pretty well. Voiding okay after catheter was discontinued. No urinary retention, but will touch base with Dr. Lovelace to see if we need to do any bladder scanning. Pulmonary fibrosis documented by Dr. Christian so will follow that closely. She talked about Fosamax, we will restart that tomorrow on an empty stomach with a full glass of water, remaining upright for 30 minutes, she usually takes in on Friday so will then restart it back on Friday. Checked meds and labs Conferred with RN Reviewed therapy notes Review of Systems Musculoskeletal: leg pain Objective Exam Vital Signs Vital Signs Date Time Temp Pulse Resp B/P (MAP) Pulse Ox O2 Delivery O2 Flow Rate FiO2 09/16/19 17:38 36.4 93 18 129/74 (92) 97 Room Air 09/15/19 11:20 21 Capillary Refill : General Appearance: No Apparent Distress, WD/WN, Chronically ill HEENT: PERRL/EOMI, Normal ENT Inspection, Pharynx Normal, Other ([place]) Neck: Full Range of Motion, Normal Inspection, Non Tender, Supple, Carotid Bruit Respiratory: Chest Non Tender, No Accessory Muscle Use, No Respiratory Distress, Crackles (right lower lobe), Decreased Breath Sounds Cardiovascular: Regular Rate, Rhythm, No Edema, No Gallop, No JVD, No Murmur, Normal Peripheral Pulses Gastrointestinal: Normal Bowel Sounds, No Organomegaly, No Pulsatile Mass, Non Tender, Soft Back: Normal Inspection, No CVA Tenderness, No Vertebral Tenderness Extremity: Normal Capillary Refill, Normal Inspection, Normal Range of Motion (except left leg due to pain from femur fracture repair), Non Tender, No Calf Tenderness, No Pedal Edema Neurologic/Psychiatric: Alert, Oriented x3, No Motor/Sensory Deficits, Normal Mood/Affect, Disoriented (subtle finding) Skin: Normal Color, Warm/Dry Lymphatic: No Adenopathy Results/Procedures Lab Patient resulted labs reviewed. FIM Transfers Therapy Code Descriptions/Definitions Functional [place] Measure: 0=Not Assessed/NA 4=Minimal Assistance 1=Total Assistance 5=Supervision or Setup 2=Maximal Assistance 6=Modified [place] 3=Moderate Assistance 7=Complete IndependenceSCALE: Activities may be completed with or without assistive devices. 9-Xhcbsnfssu-cdceodb completes the activity by him/herself with no assistance from a helper. 5-Set-up or Clean-up Assistance-helper sets up or cleans up; patient completes activity. [place] assists only prior to or following the activity. 4-Supervision or Touching Assistance-helper provides verbal cues and/or touching/steadying and/or contact guard assistance as patient completes activity. Assistance may be provided throughout the activity or intermittently. 3-Partial/Moderate Assistance-helper does LESS THAN HALF the effort. [place] lift s, holds or supports trunk or limbs, but provides less than half the effort. 2-Substantial/Maximal Assistance-helper does MORE THAN HALF the effort. [place] lifts or holds trunk or limbs and provides more than half the effort. 1-Kifmysjld-cybxli does ALL the effort. Patient does none of the effort to complete the activity. Or, the assistance of 2 or more helpers is required for the patient to complete the activity. If activity was not attempted, code reason: 7-Patient Refused. 9-Not Applicable-not attempted and the patient did not perform the activity before the current illness, exacerbation or injury. 10-Not Attempted due to Environmental Limitations-(lack of equipment, weather restraints, etc.). 88-Not Attempted due to Medical Conditions or Safety Concerns. Roll Left to Right (QC): 6 (pt can't roll to left secondary to vestibular dizziness) Sit to Lying (QC): 3 (Monique ) Sit to Stand (QC): 4 (SBA) Chair/Qxu-qj-Cvhew Xfer(QC): 4 (SBA) Car Transfer (QC): 3 (Monique) Gait Training Does the Patient Walk?: Yes Distance (FIM): 6=812-36 ft Distance: 30' Walk 10 feet (QC): 4 (SBA) Walk 50 ft with 2 Turns(QC): 4 (CGA) Walk 150 ft (QC): 88 Walking 10ft/uneven surface-QC: 4 (CGA) Gait Assistive Device: FWW Wheelchair Training Does the Pt Use a Wheelchair?: Yes Distance: 50' Wheel 50 ft with 2 turns (QC): 6 Wheel 150 ft (QC): 88 Type of Wheelchair: Manual Stair Training #of Steps: 4 1 Step (curb) (QC): 3 (Monique) 4 Steps (QC): 3 (Monique) 12 Steps (QC): 88 Balance Picking up an Object (QC): 4 (CGA) ADL-Treatment Eating (QC): 6 (per pt report) Oral Hygiene (QC): 5 Shower/Bathe Self (QC): 3 Upper Body Dressing (QC): 5 Lower Body Dressing (QC): 4 (CGA) On/Off Footwear (QC): 4 Toileting Hygiene (QC): 4 (CGA) Toilet Transfer (QC): 4 (CGA) Assessment/Plan Assessment and Plan Assess & Plan/Chief Complaint Assessment: Left hip fracture Falls HTN Pulmonary fibrosis OP on Fosamax Plan: Pain control BM regimen Pulmonary fibrosis management IRF (1) Hip fracture, left Status: Acute Qualifiers: Encounter type: subsequent encounter Fracture type: closed Fracture healing: with routine healing Qualified Codes: S72.002D - Fracture of unspeci fied part of neck of left femur, subsequent encounter for closed fracture with routine healing (2) Rales Status: Acute Assessment & Plan: Review chest x-ray and consulting Dr. Christian (3) Constipation Status: Acute Assessment & Plan: Initiate bowel regimen (4) Anemia Status: Acute Assessment & Plan: Initiate iron infusions check level of iron Qualifiers: Anemia type: iron deficiency Iron deficiency anemia type: unspecified iron deficiency Qualified Codes: D50.9 - Iron deficiency anemia, unspecified (5) Iron deficiency (6) GERD without esophagitis (7) Hypertension (8) Hyperlipidemia (9) DVT prophylaxis (10) History of colon cancer Status: Chronic (11) Falls Status: Chronic (12) Uncontrolled diabetes mellitus Status: Acute (13) Pulmonary fibrosis CAROLIN GÓMEZ DO Sep 16, 2019 08:54 POS
[2019-09-16] MEDS: LORATADINE (CLARITIN) 10 MG TAB PO SCH (09:04)
[2019-09-16] MEDS: ASPIRIN 81 MG CHEW (CHILDREN'S ASA) PO SCH (09:05)
[2019-09-16] MEDS: SENNA W/DOCUSATE (SENOKOT S) TABLET PO SCH ×2 (09:05→21:03)
[2019-09-16] MEDS: POLYETHYLENE GLYCOL 17 GM (MIRALAX) PACK PO SCH ×2 (09:06→19:38)
[2019-09-16] MEDS ORDERED: PATIENT MAY USE OWN MEDS, ALL PO SCH (09:30)
[2019-09-16] MEDS: RT-ALBUTEROL/IPRATROPIUM 3 ML (DUONEB) VIAL INH SCH ×4 (09:56→20:24)
--- NOTE | 2019-09-16 10:03 | NUR ---
Reviewed weekly rehab team conference summary with patient this a.m. Patient was admitted 09/14/19, she understands the interdisciplinary team plans to re-evaluate her progress and discharge plan next Friday and is in agreement. She reports a good start to her day, she has already showered and completed a session of therapy. Continue intermittent review/visits.
--- NOTE | 2019-09-16 10:42 | Progress Note - Urology ---
Progress Note-Urology Progress Notes/Assess & Plan Progress/Assessment & Plan VOIDING WELL POST DC [place]. WE WILL CHECK PVR Final Diagnosis URINE RETENTION AND INCONTINENCE GABRIELA VIVAR MD Sep 16, 2019 10:42 POS
--- NOTE | 2019-09-16 10:53 | Physical Therapy Daily Note ---
PT Daily Note-Current Subjective pt in bed pre-tx agrees to PT reports pain 3/10 in the L proximal thigh. Appearance pt in recliner with feet elevated with room phone, tray table, call light all in reach with all needs met at this time. Mental Status Patient Orientation: Person, Place, Time, Situation Attachments: SCD's Transfers SCALE: Activities may be completed with or without assistive devices. 5-Rzwhmssule-jixhspm completes the activity by him/herself with no assistance from a helper. 5-Set-up or Clean-up Assistance-helper sets up or cleans up; patient completes activity. [place] assists only prior to or following the activity. 4-Supervision or Touching Assistance-helper provides verbal cues and/or touching/steadying and/or contact guard assistance as patient completes activity. Assistance may be provided throughout the activity or intermittently. 3-Partial/Moderate Assistance-helper does LESS THAN HALF the effort. [place] lifts, holds or supports trunk or limbs, but provides less than half the effort. 2-Substantial/Maximal Assistance-helper does MORE THAN HALF the effort. [place] lifts or holds trunk or limbs and provides more than half the effort. 4-Mmfxyylvy-wmubyd does ALL the effort. Patient does none of the effort to compl ete the activity. Or, the assistance of 2 or more helpers is required for the patient to complete the activity. If activity was not attempted, code reason: 7-Patient Refused. 9-Not Applicable-not attempted and the patient did not perform the activity before the current illness, exacerbation or injury. 10-Not Attempted due to Environmental Limitations-(lack of equipment, weather restraints, etc.). 88-Not Attempted due to Medical Conditions or Safety Concerns. Sit to Stand (QC): 4 (SBA) Chair/Iku-sc-Swydo Xfer(QC): 4 (SBA) Weight Bearing Right Lower Extremity: Right Full Weight Bearing Left Lower Extremity: Left Weight Bearing/Tolerated Gait Training Distance: 130' Walk 10 feet (QC): 4 (SBA) Walk 50 ft with 2 Turns(QC): 4 (SBA) Gait Assistive Device: FWW pt continues to use a slow step through gait pattern. pt is accepting increased weight on the LLE at this time. Wheelchair Training Does the Pt Use a Wheelchair?: Yes Wheelchair Distance: 9=542-95 ft Distance: 130' Wheel 50 ft with 2 turns (QC): 6 Type of Wheelchair: Manual pt self propels with B/L LE pulling with the feet Exercises Seated Therapy Exercises: Ankle pumps, Long arc quads, Hip flexion, Hip abd/ add, Glut set Seated Reps: 45 (3 sets 15reps) Treatments pt performed bed mobility training, transfer training, skilled ambulation training, functional LE strengthening, and education. Assessment Current Status: Fair Progress pt limited in standing activities this session secondary to nausea. Pt was able to belch and relieve mod amount of gas but remained nauseas. PT Short Term Goals Short Term Goals Time Frame: Sep 22, 2019 Gait Distance Comment: 200' Gait Assistive Device: FWW (SBA) Wheelchair Distance: 50' PT Communications Professor Goals Communications Professor Goals PT Communications Professor Goals Time Frame: Oct 06, 2019 Sit to Lying (QC): 6 Lying-Sitting on Side/Bed(QC): 6 Sit to Stand (QC): 6 Roll Left to Right (QC): 6 Chair/Hfa-dr-Gehzo Xfer(QC): 6 Car Transfer (QC): 4 (SBA) Does the Patient Walk: Yes Distance: 400' Walk 10 feet (QC): 6 Walk 10ft-Uneven Surface(QC): 6 Walk 50ft with 2 Turns (QC): 6 Walk 150 ft (QC): 6 Gait Assistive Device: FWW Does the Pt use WC or Scooter?: No # of Steps: 4 1 Step (curb) (QC): 6 4 Steps (QC): 4 (SBA) PT Plan Problem List Problem List: Activity Tolerance, Functional Strength, Safety, Balance, Gait, Transfer, Bed Mobility, ROM Treatment/Plan Treatment Plan: Continue Plan of Care Treatment Plan: Bed Mobility, Education, Functional Activity Lux, Functional Strength, Group Therapy, Gait, Safety, Therapeutic Exercise, Transfers Treatment Duration: Oct 06, 2019 Frequency: At least 5 of 7 days/Wk (IRF) Estimated Hrs Per Day: 1.5 hours per day Patient and/or Family Agrees t: Yes Safety Risks/Education Patient Education: Gait Training, Transfer Techniques, Correct Positioning, W/C Management, Safety Issues Teaching Recipient: Patient Teaching Methods: Demonstration, Discussion Response to Teaching: Return Demonstration, Reinforcement Needed Time/GCodes Time In: 1000 Time Out: 1100 Total Billed Treatment Time: 60 Total Billed Treatment 1 visit GT 15' [facility] 15' EX 30' FRANCK PASTRANA PT Sep 16, 2019 10:53 POS
[2019-09-16] MEDS: [UNRECOGNIZED DRUG - OTHER] PO SCH (12:12)
[2019-09-16] MEDS: BILBERRY FRUIT EXTRACT PO SCH ×3 (12:13→21:03)
--- NOTE | 2019-09-16 13:20 | Physical Therapy Daily Note ---
PT Daily Note-Current Subjective pt in recliner pre-tx agrees to therapy but reports she continues to have nausea at this time. Pt states she wants to work but would like to take it easy this afternoon. pt denies any pain at this time. Appearance pt on toilet post-tx. RN notified, pt wants to sit for a few minutes. Pt has call string in hand and all needs met at this time. Mental Status Patient Orientation: Person, Place, Time, Situation Transfers SCALE: Activities may be completed with or without assistive devices. 8-Egvkesojrb-yxspzvo completes the activity by him/herself with no assistance from a helper. 5-Set-up or Clean-up Assistance-helper sets up or cleans up; patient completes activity. [place] assists only prior to or following the activity. 4-Supervision or Touching Assistance-helper provides verbal cues and/or touching/steadying and/or contact guard assistance as patient completes activity. Assistance may be provided throughout the activity or intermittently. 3-Partial/Moderate Assistance-helper does LESS THAN HALF the effort. [place] lifts, holds or supports trunk or limbs, but provides less than half the effort. 2-Substantial/Maximal Assistance-helper does MORE THAN HALF the effort. [place] lifts or holds trunk or limbs and provides more than half the effort. 0-Ltllwkrvo-ssbuow does ALL the effort. Patient does none of the effort to complete the activity. Or, the assistance of 2 or more helpers is required for the patient to complete the activity. If activity was not attempted, code reason: 7-Patient Refused. 9-Not Applicable-not attempted and the patient did not perform the activity before the current illness, exacerbation or injury. 10-Not Attempted due to Environmental Limitations-(lack of equipment, weather restraints, etc.). 88-Not Attempted due to Medical Conditions or Safety Concerns. Sit to Stand (QC): 5 Weight Bearing Right Lower Extremity: Right Full Weight Bearing Left Lower Extremity: Left Weight Bearing/Tolerated Exercises Seated Therapy Exercises: Ankle pumps, Hip flexion Seated Reps: 15 NuStep Minutes: 20 NuStep Workload: 3 Treatments pt performed transfer training, functional LE strengthening/endurance training, and education this date. Assessment Current Status: Fair Progress Pt was able to perform LE exercises and Nustep with bearable increase in nausea. Pt was transported in to gym secondary to nausea this afternoon. PT Short Term Goals Short Term Goals Time Frame: Sep 22, 2019 Gait Distance Comment: 200' Gait Assistive Device: FWW (SBA) Wheelchair Distance: 130' PT Residential Goals Residential Goals PT Screw Down Goals Time Frame: Oct 06, 2019 Sit to Lying (QC): 6 Lying-Sitting on Side/Bed(QC): 6 Sit to Stand (QC): 6 Roll Left to Right (QC): 6 Chair/Mhe-dx-Lgvzd Xfer(QC): 6 Car Transfer (QC): 4 (SBA) Does the Patient Walk: Yes Distance: 400' Walk 10 feet (QC): 6 Walk 10ft-Uneven Surface(QC): 6 Walk 50ft with 2 Turns (QC): 6 Walk 150 ft (QC): 6 Gait Assistive Device: FWW Does the Pt use WC or Scooter?: No # of Steps: 4 1 Step (curb) (QC): 6 4 Steps (QC): 4 (SBA) PT Plan Problem List Problem List: Activity Tolerance, Functional Strength, Safety, Balance, Gait, Transfer, Bed Mobility, ROM Treatment/Plan Treatment Plan: Continue Plan of Care Treatment Plan: Bed Mobility, Education, Functional Activity Lux, Functional Strength, Group Therapy, Gait, Safety, Therapeutic Exercise, Transfers Treatment Duration: Oct 06, 2019 Frequency: At least 5 of 7 days/Wk (IRF) Estimated Hrs Per Day: 1.5 hours per day Patient and/or Family Agrees t: Yes Safety Risks/Education Patient Education: Transfer Techniques, Correct Positioning, Safety Issues Teaching Recipient: Patient Teaching Methods: Demonstration, Discussion Response to Teaching: Return Demonstration, Reinforcement Needed Time/GCodes Time In: 1300 Time Out: 1330 Total Billed Treatment Time: 30 Total Billed Treatment 1 visit FA 30' FRANCK PASTRANA PT Sep 16, 2019 13:20 POS
--- NOTE | 2019-09-16 14:22 | NUR ---
Notified Dr. Lovelace's office of PVR Bladder Scan results of 0cc.
[2019-09-16 17:38] VITALS: BP 129/74
[2019-09-16] MEDS: ENOXAPARIN 40 MG/0.4 ML (LOVENOX) SYR SC SCH (17:51)
[2019-09-16] MEDS: SIMvastatin 10 MG (ZOCOR) TAB PO SCH (19:37)
[2019-09-16] MEDS: LOSARTAN 50 MG (COZAAR) TAB PO SCH (21:03)
[2019-09-16] MEDS: CYANOCOBALAMIN 5000 MCG SL SCH (21:03)
[2019-09-17] MEDS: CALCIUM CARBONATE 500 MG (TUMS) TAB.CHEW PO PRN (04:33)
[2019-09-17 05:02] VITALS: BP 126/51
[2019-09-17] MEDS: metFORMIN 500 MG (GLUCOPHAGE) TAB PO SCH (06:12)
[2019-09-17] MEDS: MAGNESIUM OXIDE (MAG-OX)400 MG TAB PO SCH ×2 (06:13→17:31)
[2019-09-17] MEDS: OMEGA 3 (FISH OIL) 1000 MG CAP PO SCH ×2 (06:13→17:31)
[2019-09-17] MEDS: glipiZIDE 5 MG (GLUCOTROL) TAB PO SCH ×2 (06:13→17:31)
[2019-09-17] MEDS: PANTOPRAZOLE 40 MG (PROTONIX) TAB PO SCH ×2 (06:13→17:31)
[2019-09-17] MEDS: RT-ALBUTEROL/IPRATROPIUM 3 ML (DUONEB) VIAL INH SCH ×4 (06:56→20:33)
--- NOTE | 2019-09-17 07:57 | Pulmonary Progress Note ---
Standard Progress Note Progress Notes Time Seen by Provider: 07:56 Pt complains of persistent nausea. No vomiting. Denies abdominal pain. Assessment & Plan S/p Left hip fracture with debility -PT/OT -Rehab therapy Chronic pulmonary fibrosis -Monitor close for decompensation - IS and SVNS Nausea -Check labs -Zofran Constipation with abdominal distention Hx of colon cancer Anemia -Monitor Atelectasis -IS -Activity SOTERO RIGGS DO Sep 17, 2019 07:57 POS
[2019-09-17] MEDS: ONDANSETRON 4 MG (ZOFRAN) ORAL DISSOLVE TAB PO PRN ×2 (08:13→13:39)
[2019-09-17 08:48] LABS: BASOPHILS # (AUTO) 0.1 10^3/uL (0.0-0.1); BASOPHILS % (AUTO) 1 % (0-10); EOSINOPHILS # (AUTO) 0.6 10^3/uL (0.0-0.3); EOSINOPHILS % (AUTO) 5 % (0-10); HEMATOCRIT 27 % (35-52); HEMOGLOBIN 8.7 G/DL (11.5-16.0); LYMPHOCYTES # (AUTO) 1.4 X 10^3 (1.0-4.0); LYMPHOCYTES % (AUTO) 13 % (12-44); MEAN CORPUSCULAR HEMOGLOBIN 29 PG (25-34); MEAN CORPUSCULAR HGB CONC 32 G/DL (32-36); MEAN CORPUSCULAR VOLUME 91 FL (80-99); MEAN PLATELET VOLUME 8.6 FL (7.4-10.4); MONOCYTES % (AUTO) 9 % (0-12); NEUTROPHILS # (AUTO) 7.9 X 10^3 (1.8-7.8); NEUTROPHILS % (AUTO) 72 % (42-75); PLATELET COUNT 601 10^3/uL (130-400); RED CELL DISTRIBUTION WIDTH 14.2 % (10.0-14.5)
[2019-09-17 08:51] LABS: SMEAR SCAN COMMENT YES
[2019-09-17 09:13] VITALS: BP 115/69
[2019-09-17] MEDS: IRON SUCROSE 200 MG/10 ML (VENOFER) VIAL IV SCH (09:18)
--- NOTE | 2019-09-17 09:19 | PM&R Progress Note ---
Subjective HPI/CC On Admission Date Seen by Provider: Sep 17, 2019 Time Seen by Provider: 08:30 Subjective/Events-last exam Having a lot of nausea today CT of the chest will be obtained, starting IV fluids and checking labs Updated pt on this plan Zofran every 4hrs will be initiated Nausea limited therapy a bit yesterday also No urinary retention appreciated urology consultation Crackles at the bases at both of her lungs Checked meds and labs Conferred with RN Reviewed therapy notes Review of Systems General: Fatigue Gastrointestinal: Nausea, Vomiting, Constipation Musculoskeletal: leg pain Objective Exam Vital Signs Vital Signs Date Time Temp Pulse Resp B/P (MAP) Pulse Ox O2 Delivery O2 Flow Rate FiO2 09/17/19 15:30 86 Room Air 09/17/19 09:13 36.8 98 20 115/69 (84) 09/15/19 11:20 21 Capillary Refill : General Appearance: No Apparent Distress, WD/WN, Chronically ill HEENT: PERRL/EOMI, Normal ENT Inspection, Pharynx Normal, Other ([place]) Neck: Full Range of Motion, Normal Inspection, Non Tender, Supple, Carotid Bruit Respiratory: Chest Non Tender, No Accessory Muscle Use, No Respiratory Distress, Crackles (right lower lobe), Decreased Breath Sounds Cardiovascular: Regular Rate, Rhythm, No Edema, No Gallop, No JVD, No Murmur, Normal Peripheral Pulses Gastrointestinal: Normal Bowel Sounds, No Organomegaly, No Pulsatile Mass, Non Tender, Soft Back: Normal Inspection, No CVA Tenderness, No Vertebral Tenderness Extremity: Normal Capillary Refill, Normal Inspection, Normal Range of Motion (except left leg due to pain from femur fracture repair), Non Tender, No Calf Tenderness, No Pedal Edema Neurologic/Psychiatric: Alert, Oriented x3, No Motor/Sensory Deficits, Normal Mood/Affect, Disoriented (subtle finding) Skin: Normal Color, Warm/Dry Lymphatic: No Adenopathy Results/Procedures Lab Laboratory Tests 09/17/19 08:41 Patient resulted labs reviewed. FIM Transfers Therapy Code Descriptions/Definitions Functional [place] Measure: 0=Not Assessed/NA 4=Minimal Assistance 1=Total Assistance 5=Supervision or Setup 2=Maximal Assistance 6=Modified [place] 3=Moderate Assistance 7=Complete IndependenceSCALE: Activities may be completed with or without assistive devices. 0-Mdzxwdhohd-qzttgff completes the activity by him/herself with no assistance from a helper. 5-Set-up or Clean-up Assistance-helper sets up or cleans up; patient completes activity. [place] assists only prior to or following the activity. 4-Supervision or Touching Assistance-helper provides verbal cues and/or touching/steadying and/or contact guard assistance as patient completes activity. Assistance may be provided throughout the activity or intermittently. 3-Partial/Moderate Assistance-helper does LESS THAN HALF the effort. [place] lifts, holds or supports trunk or limbs, but provides less than half the effort. 2-Substantial/Maximal Assistance-helper does MORE THAN HALF the effort. [place] lifts or holds trunk or limbs and provides more than half the effort. 5-Viljrfctt-oenovq does ALL the effort. Patient does none of the effort to complete the activity. Or, the assistance of 2 or more helpers is required for the patient to complete the activity. If activity was not attempted, code reason: 7-Patient Refused. 9-Not Applicable-not attempted and the patient did not perform the activity before the current illness, exacerbation or injury. 10-Not Attempted due to Environmental Limitations-(lack of equipment, weather restraints, etc.). 88-Not Attempted due to Medical Conditions or Safety Concerns. Roll Left to Right (QC): 6 (pt can't roll to left secondary to vestibular dizziness) Sit to Lying (QC): 3 (Monique ) Sit to Stand (QC): 5 Chair/Ueh-to-Sctup Xfer(QC): 4 (SBA) Car Transfer (QC): 3 (Monique) Gait Training Does the Patient Walk?: Yes Distance (FIM): 0=685-00 ft Distance: 130' Walk 10 feet (QC): 4 (SBA) Walk 50 ft with 2 Turns(QC): 4 (SBA) Walk 150 ft (QC): 88 Walking 10ft/uneven surface-QC: 4 (CGA) Gait Assistive Device: FWW Wheelchair Training Does the Pt Use a Wheelchair?: Yes Wheelchair Distance: 0=090-61 ft Distance: 130' Wheel 50 ft with 2 turns (QC): 6 Wheel 150 ft (QC): 88 Type of Wheelchair: Manual Stair Training #of Steps: 4 1 Step (curb) (QC): 3 (Monique) 4 Steps (QC): 3 (Monique) 12 Steps (QC): 88 Balance Picking up an Object (QC): 4 (CGA) ADL-Treatment Eating (QC): 6 (per pt report) Oral Hygiene (QC): 6 Bathing Location: L Arm Shower/Bathe Self (QC): 4 Upper Body Dressing (QC): 5 Lower Body Dressing (QC): 4 (Footwear (QC) 6) On/Off Footwear (QC): 4 Toileting Hygiene (QC): 4 Toilet Transfer (QC): 4 Assessment/Plan Assessment and Plan Assess & Plan/Chief Complaint Assessment: Left hip fracture Falls HTN Pulmonary fibrosis OP on Fosamax Nausea and vomiting likely related to pain medication Plan: Pain control BM regimen Pulmonary fibrosis management IRF Gentle IV fluids Reviewed labs that Dr. Christian ordered Check CT scan due to pulmonary fibrosis and colon cancer history (1) Hip fracture, left Status: Acute Qualifiers: Encounter type: subsequent encounter Fracture type: closed Fracture healing: with routine healing Qualified Codes: S72.002D - Fracture of unspecified part of neck of left femur, subsequent encounter for closed fracture with routine healing (2) [place] Status: Acute Assessment & Plan: Review chest x-ray and consulting Dr. Christian (3) Constipation Status: Acute Assessment & Plan: Initiate bowel regimen (4) Anemia Status: Acute Assessment & Plan: Initiate iron infusions check level of iron Qualifiers: Anemia type: iron deficiency Iron deficiency anemia type: unspecified iron deficiency Qualified Codes: D50.9 - Iron deficiency anemia, unspecified (5) Iron deficiency (6) GERD without esophagitis (7) Hypertension (8) Hyperlipidemia (9) DVT prophylaxis (10) History of colon cancer Status: Chronic (11) Falls Status: Chronic (12) Uncontrolled diabetes mellitus Status: Acute (13) Pulmonary fibrosis CAROLIN GÓMEZ DO Sep 17, 2019 09:19 POS
--- NOTE | 2019-09-17 09:25 | Progress Note - Urology ---
Progress Note-Urology Progress Notes/Assess & Plan Progress/Assessment & Plan PVR YESTERDAY 0. WE WILL SEE HER PRN Final Diagnosis RETENTION (RESOLVED) AND INCONTINENCE GABRIELA VIVAR MD Sep 17, 2019 09:25 POS
[2019-09-17 09:26] LABS: ALBUMIN 3.5 GM/DL (3.2-4.5); BILIRUBIN,TOTAL 0.5 MG/DL (0.1-1.0); CALCIUM 9.4 MG/DL (8.5-10.1); CREATININE SERUM 0.9 MG/DL (0.60-1.30); POTASSIUM 4.5 MMOL/L (3.6-5.0); TOTAL PROTEIN 6.4 GM/DL (6.4-8.2)
[2019-09-17] MEDS: ASPIRIN 81 MG CHEW (CHILDREN'S ASA) PO SCH ×2 (09:52→13:44)
[2019-09-17] MEDS: LORATADINE (CLARITIN) 10 MG TAB PO SCH ×2 (09:52→13:46)
[2019-09-17] MEDS: SENNA W/DOCUSATE (SENOKOT S) TABLET PO SCH ×3 (09:52→20:54)
[2019-09-17] MEDS: POLYETHYLENE GLYCOL 17 GM (MIRALAX) PACK PO SCH ×3 (09:53→20:56)
--- NOTE | 2019-09-17 10:00 | Progress Note ---
OSCAR BERRY MED STUDENT 09/17/19 1000: Progress Note CC: S/P L Periprosthetic hip fracture repair PO day 7 Barriers: Pt complaining of nausea onset yesterday, one episode of emesis last night Nausea limiting PT, OT Also endorses constipation, bloating and excessive flatulence beginning 1 day, despite Senna tx Dr. Christian following for pulmonary fibrosis found on CXR Dr. Lovelace dx pt with prolapsed bladder, after treatment no residual urine was found on USG PT visited by son yesterday MICHELLE GÓMEZ DO 09/17/19 1613: Supervisory-Addendum Brief Verification & Attestation Participated in pt care: history, MDM, physical Personally performed: exam, history, MDM, supervision of care Care discussed with: Medical Student Procedures: n/a Results interpretation: Verified all documentation Verification and Attestation of Medical Student E/M Service A medical student performed and documented this service in my presence. I reviewed and verified all information documented by the medical student and made modifications to such information, when appropriate. I personally performed the physical exam and medical decision making. Michelle Gómez, Sep 17, 2019,16:13 OSCAR BERRYMED STUDENT Sep 17, 2019 10:00 MICHELLE OSWALD DO Sep 17, 2019 16:13 POS
--- NOTE | 2019-09-17 10:43 | Physical Therapy Daily Note ---
PT Daily Note-Current Subjective pt in recliner pre-tx agrees to therapy but states she continues to have nausea and feels like she "has a ball of stuff rolling in my belly". pt denies any other pain. Appearance pt in recliner with feet elevated post-tx. pt with call light, room phone, tray table in reach with all needs met at this time. Mental Status Patient Orientation: Person, Place, Time, Situation Transfers SCALE: Activities may be completed with or without assistive devices. 1-Tvusbifjxu-qgnjkkx completes the activity by him/herself with no assistance from a helper. 5-Set-up or Clean-up Assistance-helper sets up or cleans up; patient completes activity. [place] assists only prior to or following the activity. 4-Supervision or Touching Assistance-helper provides verbal cues and/or touching/steadying and/or contact guard assistance as patient completes activity. Assistance may be provided throughout the activity or intermittently. 3-Partial/Moderate Assistance-helper does LESS THAN HALF the effort. [place] lifts, holds or supports trunk or limbs, but provides less than half the effort. 2-Substantial/Maximal Assistance-helper does MORE THAN HALF the effort. [place] lifts or holds trunk or limbs and provides more than half the effort. 2-Fpigjlttt-daltev does ALL the effort. Patient does none of the effort to complete the activity. Or, the assistance of 2 or more helpers is required for the patient to complete the activity. If activity was not attempted, code reason: 7-Patient Refused. 9-Not Applicable-not attempted and the patient did not perform the activity before the current illness, exacerbation or injury. 10-Not Attempted due to Environmental Limitations-(lack of equipment, weather restraints, etc.). 88-Not Attempted due to Medical Conditions or Safety Concerns. Sit to Stand (QC): 4 (SBA) Chair/Nbl-ea-Jnnwf Xfer(QC): 4 (SBA) Weight Bearing Right Lower Extremity: Right Full Weight Bearing Left Lower Extremity: Left Weight Bearing/Tolerated Wheelchair Training Does the Pt Use a Wheelchair?: Yes Wheelchair Distance: 4=974-63 ft Distance: 100' Wheel 50 ft with 2 turns (QC): 5 Type of Wheelchair: Manual pt drifts to the R during WC training but is able to self identify and correct. Exercises Seated Therapy Exercises: Ankle pumps, Long arc quads, Hip flexion, Hip abd/add Seated Reps: 30 (15 reps 2 sets) NuStep Minutes: 15 NuStep Workload: 3 Treatments pt performed transfer training, functional LE strengthening/endurance training, and education. Assessment Current Status: Fair Progress pt continues to be limited in activity freddy secondary to sev nausea. Pt requires 1-2 minute rest breaks in between exercises as nausea increases. However, pt is motivated and wants to keep trying to do what she can. PT Short Term Goals Short Term Goals Time Frame: Sep 22, 2019 Gait Distance Comment: 200' Gait Assistive Device: FWW (SBA) Wheelchair Distance: 130' PT Mash Tub Cooker Operator Goals Snf Goals PT Snf Goals Time Frame: Oct 06, 2019 Sit to Lying (QC): 6 Lying-Sitting on Side/Bed(QC): 6 Sit to Stand (QC): 6 Roll Left to Right (QC): 6 Chair/Plq-fq-Zogsr Xfer(QC): 6 Car Transfer (QC): 4 (SBA) Does the Patient Walk: Yes Distance: 400' Walk 10 feet (QC): 6 Walk 10ft-Uneven Surface(QC): 6 Walk 50ft with 2 Turns (QC): 6 Walk 150 ft (QC): 6 Gait Assistive Device: FWW Does the Pt use WC or Scooter?: No # of Steps: 4 1 Step (curb) (QC): 6 4 Steps (QC): 4 (SBA) PT Plan Problem List Problem List: Activity Tolerance, Functional Strength, Safety, Balance, Gait, Transfer, Bed Mobility, ROM Treatment/Plan Treatment Plan: Continue Plan of Care Treatment Plan: Bed Mobility, Education, Functional Activity Lux, Functional Strength, Group Therapy, Gait, Safety, Therapeutic Exercise, Transfers Treatment Duration: Oct 06, 2019 Frequency: At least 5 of 7 days/Wk (IRF) Estimated Hrs Per Day: 1.5 hours per day Patient and/or Family Agrees t: Yes Safety Risks/Education Patient Education: Transfer Techniques, Correct Positioning, W/C Management, Safety Issues Teaching Recipient: Patient Teaching Methods: Demonstration Response to Teaching: Return Demonstration, Reinforcement Needed Time/GCodes Time In: 1000 Time Out: 1100 Total Billed Treatment Time: 60 Total Billed Treatment 1 visit 20' FA 25' EX 15' THA FRANCK PASTRANA PT Sep 17, 2019 10:43 POS
[2019-09-17] MEDS: LACTATED RINGERS 1,000 ML IV SCH (11:16)
--- NOTE | 2019-09-17 11:22 | Occupational Ther Daily Note ---
OT Current Status-Daily Note Subjective Pt in bed, states she does not have any pain, but has nausea. Pt states she wants to participate, but not sure how much she can do. ADL-Treatment Pt washed face with set up while in bed. Requests to use restroom. Supine to sit with SBA. Sit to stand with SBA. Gait to restroom with FWW. Pt transferred to [facility] over toilet with supervision. Pt able to complete toileting hygiene and clothing management with SBA. Transfer to chair using FWW. Therapy Code Descriptions/Definitions Functional [place] Measure: 0=Not Assessed/NA 4=Minimal Assistance 1=Total Assistance 5=Supervision or Setup 2=Maximal Assistance 6=Modified [place] 3=Moderate Assistance 7=Complete IndependenceSCALE: Activities may be completed with or without assistive devices. 1-Adixpzrzki-vtfftgg completes the activity by him/herself with no assistance from a helper. 5-Set-up or Clean-up Assistance-helper sets up or cleans up; patient completes activity. [place] assists only prior to or following the activity. 4-Supervision or Touching Assistance-helper provides verbal cues and/or touching/steadying and/or contact guard assistance as patient completes activity. Assistance may be provided throughout the activity or intermittently. 3-Partial/Moderate Assistance-helper does LESS THAN HALF the effort. [place] lifts, holds or supports trunk or limbs, but provides less than half the effort. 2-Substantial/Maximal Assistance-helper does MORE THAN HALF the effort. [place] lifts or holds trunk or limbs and provides more than half the effort. 7-Jtvzwjcem-nntlvw does ALL the effort. Patient does none of the effort to complete the activity. Or, the assistance of 2 or more helpers is required for the patient to complete the activity. If activity was not attempted, code reason: 7-Patient Refused. 9-Not Applicable-not attempted and the patient did not perform the activity before the current illness, exacerbation or injury. 10-Not Attempted due to Environmental Limitations-(lack of equipment, weather restraints, etc.). 88-Not Attempted due to Medical Conditions or Safety Concerns. Other Treatment Pt completed bilateral UE exercises to promote increased strength and activity tolerance. Pt performed four exercises x15 reps using dowel lianna. Rest breaks taken between exercises. Pt completed fine motor task with nuts and bolts using bilateral UE to increase activity tolerance and coordination/manipulation skills. Pt requires one rest break and increased time during task. Bilateral hand head sugar reprocess operator exercises with resistance therapy foam to increase head sugar reprocess operator strength for functional tasks. Pt moves slowly during session and requires increased time, but is motivated to participate. Pt sitting in chair with needs met and RN present after session. OT Short Term Goals Short Term Goals 1=Demonstrate adherence to instructed precautions during ADL tasks. 2=Patient will verbalize/demonstrate understanding of assistive devices/modifications for ADL. 3=Patient will improve strength/tolerance for activity to enable patient to perform ADL's. OT Usp Goals Content Curator Goals Time Frame: Sep 29, 2019 Eating (QC): 6 Oral Hygiene (QC): 6 Shower/Bathe Self (QC): 6 Upper Body Dressing (QC): 6 Lower Body Dressing (QC): 6 On/Off Footwear (QC): 6 Toileting Hygiene (QC): 6 Toilet/Commode Transfer (QC): 6 Additional Goals: 1-Demonstrate ADL Tasks, 2-Verbalize Understanding, 3- ImproveStrength/Lux 1=Demonstrate adherence to instructed precautions during ADL tasks. 2=Patient will verbalize/demonstrate understanding of assistive devices/modifications for ADL. 3=Patient will improve strength/tolerance for activity to enable patient to perform ADL's. OT Education/Plan Discharge Recommendations Plan/Recommendations: Continue POC Treatment Plan/Plan of Care Patient would benefit from OT for education, treatment and training to promote independence in ADL's, mobility, safety and/or upper extremity function for ADL's. Plan of Care: ADL Retraining, Functional Mobility, Group Exercise/Act as Ind, UE Funct Exercise/Act Treatment Duration: Sep 29, 2019 Frequency: At least 5 of 7 days/Wk (IRF) Estimated Hrs Per Day: 1.5 hours per day Rehab Potential: Good Time/GCodes Start Time: 08:30 Stop Time: 09:30 Total Time Billed (hr/min): 60 Billed Treatment Time 1 visit, ADL(20minutes), EXx3(40minutes) SANDOR RUFFIN OT Sep 17, 2019 11:22 POS
--- NOTE | 2019-09-17 13:34 | Occupational Ther Daily Note ---
OT Current Status-Daily Note Subjective Pt sitting in chair, agrees to therapy. Pt states she wasn't able to eat lunch secondary to feeling nauseous. ADL-Treatment Pt requests to use restroom. Sit to stand with supervision. Gait to restroom with FWW, assist to manage IV pole. Pt transferred to toilet with supervision. Pt completed toileting hygiene and clothing management with supervision. Stood at sink to wash hands with supervision for balance. Pt transferred to chair with supervision. Pt requests to "wash up." Pt doffed/donned shirt without assist. Washed upper body with set up. Pt declined to wash lower body or change pants at this time. Therapy Code Descriptions/Definitions Functional [place] Measure: 0=Not Assessed/NA 4=Minimal Assistance 1=Total Assistance 5=Supervision or Setup 2=Maximal Assistance 6=Modified [place] 3=Moderate Assistance 7=Complete IndependenceSCALE: Activities may be completed with or without assistive devices. 9-Hqlcvrcinz-kgtiwye completes the activity by him/herself with no assistance from a helper. 5-Set-up or Clean-up Assistance-helper sets up or cleans up; patient completes activity. [place] assists only prior to or following the activity. 4-Supervision or Touching Assistance-helper provides verbal cues and/or touching/steadying and/or contact guard assistance as patient completes activity. Assistance may be provided throughout the activity or intermittently. 3-Partial/Moderate Assistance-helper does LESS THAN HALF the effort. [place] lifts, holds or supports trunk or limbs, but provides less than half the effort. 2-Substantial/Maximal Assistance-helper does MORE THAN HALF the effort. [place] lifts or holds trunk or limbs and provides more than half the effort. 1-Acdstrjfn-aiyaxv does ALL the effort. Patient does none of the effort to complete the activity. Or, the assistance of 2 or more helpers is required for the patient to complete the activity. If activity was not attempted, code reason: 7-Patient Refused. 9-Not Applicable-not attempted and the patient did not perform the activity before the current illness, exacerbation or injury. 10-Not Attempted due to Environmental Limitations-(lack of equipment, weather restraints, etc.). 88-Not Attempted due to Medical Conditions or Safety Concerns. Toileting Hygiene (QC): 4 Toilet Transfer (QC): 4 Other Treatment Pt completed bilateral UE exercises to promote increased strength and activity tolerance needed for functional task completion. Pt shoulder flexion, abduction, biceps curls, and triceps extension exercises x10 reps with mild resistance ( yellow) theraband. Rest breaks between exercises. Occasional cues for proper exercise technique. Pt sitting in chair with needs met after session. OT Short Term Goals Short Term Goals 1=Demonstrate adherence to instructed precautions during ADL tasks. 2=Patient will verbalize/demonstrate understanding of assistive devices/modifications for ADL. 3=Patient will improve strength/tolerance for activity to enable patient to perform ADL's. OT Manager Occupational Goals Correction Goals Time Frame: Sep 29, 2019 Eating (QC): 6 Oral Hygiene (QC): 6 Shower/Bathe Self (QC): 6 Upper Body Dressing (QC): 6 Lower Body Dressing (QC): 6 On/Off Footwear (QC): 6 Toileting Hygiene (QC): 6 Toilet/Commode Transfer (QC): 6 Additional Goals: 1-Demonstrate ADL Tasks, 2-Verbalize Understanding, 3- ImproveStrength/Lux 1=Demonstrate adherence to instructed precautions during ADL tasks. 2=Patient will verbalize/demonstrate understanding of assistive devices/modifications for ADL. 3=Patient will improve strength/tolerance for activity to enable patient to perform ADL's. OT Education/Plan Discharge Recommendations Plan/Recommendations: Continue POC Treatment Plan/Plan of Care Patient would benefit from OT for education, treatment and training to promote independence in ADL's, mobility, safety and/or upper extremity function for ADL's. Plan of Care: ADL Retraining, Functional Mobility, Group Exercise/Act as Ind, UE Funct Exercise/Act Treatment Duration: Sep 29, 2019 Frequency: At least 5 of 7 days/Wk (IRF) Estimated Hrs Per Day: 1.5 hours per day Rehab Potential: Good Time/GCodes Start Time: 12:55 Stop Time: 13:25 Total Time Billed (hr/min): 30 Billed Treatment Time 1 visit, ADL(15minutes), EX(15minutes) SANDOR RUFFIN OT Sep 17, 2019 13:34 POS
[2019-09-17] MEDS: BILBERRY FRUIT EXTRACT PO SCH ×2 (13:38→20:55)
[2019-09-17] MEDS: [UNRECOGNIZED DRUG - OTHER] PO SCH (13:39)
[2019-09-17] MEDS: DOCUSATE SODIUM 100 MG (COLACE) CAP PO SCH ×2 (13:39→20:54)
[2019-09-17] MEDS ORDERED: HOLD METFORMIN - RECEIVED CONTRAST 20 ML VIAL IV SCH ×2 (14:30→16:00)
[2019-09-17] MEDS ORDERED: NS 100 ML (IVPB) BAG IV ONE ×2 (14:30→16:00)
[2019-09-17] MEDS ORDERED: IOHEXOL 350 MG/ML 100 ML (OMNIPAQUE 350) VIAL IV ONE ×2 (14:30→16:00)
--- NOTE | 2019-09-17 14:38 | NUR ---
Pt states that she is very claustrophobic, & shakes uncontrollably if she doesn't have anything prior to the CT scan to help relax her.
[2019-09-17] MEDS ORDERED: LORazepam INJ 2 MG/ML (ATIVAN) VIAL IVP PRN (15:00)
[2019-09-17 15:10] VITALS: BP 112/68
--- NOTE | 2019-09-17 15:44 | Physical Therapy Daily Note ---
PT Daily Note-Current Subjective pt in recliner pre-tx. pt agrees to therapy but reports increased nausea at this time. pt denies pain Appearance pt in recliner post-tx. pt with call light, room phone, tray table in reach with all needs met at this time. Mental Status Patient Orientation: Person, Place, Time, Situation Attachments: IV Transfers SCALE: Activities may be completed with or without assistive devices. 4-Jvpgfudbaf-hqgijdd completes the activity by him/herself with no assistance from a helper. 5-Set-up or Clean-up Assistance-helper sets up or cleans up; patient completes activity. [place] assists only prior to or following the activity. 4-Supervision or Touching Assistance-helper provides verbal cues and/or touching/steadying and/or contact guard assistance as patient completes activity. Assistance may be provided throughout the activity or intermittently. 3-Partial/Moderate Assistance-helper does LESS THAN HALF the effort. [place] lifts, holds or supports trunk or limbs, but provides less than half the effort. 2-Substantial/Maximal Assistance-helper does MORE THAN HALF the effort. [place] lifts or holds trunk or limbs and provides more than half the effort. 9-Jmvwfnzgb-gqamye does ALL the effort. Patient does none of the effort to complete the activity. Or, the assistance of 2 or more helpers is required for the patient to complete the activity. If activity was not attempted, code reason: 7-Patient Refused. 9-Not Applicable-not attempted and the patient did not perform the activity before the current illness, exacerbation or injury. 10-Not Attempted due to Environmental Limitations-(lack of equipment, weather restraints, etc.). 88-Not Attempted due to Medical Conditions or Safety Concerns. Sit to Stand (QC): 4 (SBA) Weight Bearing Right Lower Extremity: Right Full Weight Bearing Left Lower Extremity: Left Weight Bearing/Tolerated Exercises Supine Ex: Ankle pumps, Quad Set, Glut sets, Short Arc Quads, Straight leg raise, Hip abd/add Supine Reps: 30 (15reps 2 sets) Standing: Sit to Stand Standing Reps: 5 Treatments pt performed transfer training, functional LE strengthening, and education this date. Assessment Current Status: Fair Progress Pt able to freddy exercises in chair and sit<-> stands without increase in nausea. PT Short Term Goals Short Term Goals Time Frame: Sep 22, 2019 Gait Distance Comment: 200' Gait Assistive Device: FWW (SBA) Wheelchair Distance: 100' PT Report Developer Goals Longterm Goals PT Report Developer Goals Time Frame: Oct 06, 2019 Sit to Lying (QC): 6 Lying-Sitting on Side/Bed(QC): 6 Sit to Stand (QC): 6 Roll Left to Right (QC): 6 Chair/Ypr-pd-Btxon Xfer(QC): 6 Car Transfer (QC): 4 (SBA) Does the Patient Walk: Yes Distance: 400' Walk 10 feet (QC): 6 Walk 10ft-Uneven Surface(QC): 6 Walk 50ft with 2 Turns (QC): 6 Walk 150 ft (QC): 6 Gait Assistive Device: FWW Does the Pt use WC or Scooter?: No # of Steps: 4 1 Step (curb) (QC): 6 4 Steps (QC): 4 (SBA) PT Plan Problem List Problem List: Activity Tolerance, Functional Strength, Safety, Balance, Gait, Transfer, Bed Mobility, ROM Treatment/Plan Treatment Plan: Continue Plan of Care Treatment Plan: Bed Mobility, Education, Functional Activity Lux, Functional Strength, Group Therapy, Gait, Safety, Therapeutic Exercise, Transfers Treatment Duration: Oct 06, 2019 Frequency: At least 5 of 7 days/Wk (IRF) Estimated Hrs Per Day: 1.5 hours per day Patient and/or Family Agrees t: Yes Safety Risks/Education Patient Education: Transfer Techniques, Correct Positioning, Safety Issues Teaching Recipient: Patient Teaching Methods: Demonstration, Discussion Response to Teaching: Return Demonstration, Reinforcement Needed Time/GCodes Time In: 1330 Time Out: 1400 Total Billed Treatment Time: 30 Total Billed Treatment 1 visit EX 30' FRANCK PASTRANA PT Sep 17, 2019 15:44 POS
[2019-09-17] MEDS ORDERED: CATHETER FLUSH 10 ML SYR IV PRN (16:00)
[2019-09-17 16:25] VITALS: BP 126/72
--- NOTE | 2019-09-17 16:27 | NUR ---
Assisted pt to B/R w gait belt, FWW. Pt had 02 on 2 L n/c. 02 sat checked after returned to bed from using toilet, on R/A, & after placing 02 back on.
[2019-09-17 16:46] LABS: BILIRUBIN,URINE NEGATIVE (NEGATIVE); CLARITY,URINE CLEAR; COLOR,URINE YELLOW; GLUCOSE, URINE (UA) NEGATIVE (NEGATIVE); KETONES,URINE NEGATIVE (NEGATIVE); LEUKOCYTE ESTERASE ,URINE 1+ (NEGATIVE); NITRITE,URINE POSITIVE (NEGATIVE); PH,URINE 6.5 (5-9); PROTEIN,URINE NEGATIVE (NEGATIVE)
--- NOTE | 2019-09-17 16:49 | NUR ---
Call placed to [place] in Pharmacy, re: IV contrast, & Metformin. States that the Glucotrol is ok to give, & she will put the hold on the Metformin as soon as she verifies the IV contrast.
--- NOTE | 2019-09-17 16:55 | Diagnostic Imaging Report ---
EXAMINATION: CT Chest, Abdomen and Pelvis with intravenous contrast. TECHNIQUE: Multiple contiguous axial images were obtained through the chest, abdomen and pelvis after the uneventful administration of intravenous contrast. All CT scans use one or more of the following dose optimizing techniques: automated exposure control, MA and/or KvP adjustment based on a patient size and exam type, or iterative reconstruction. HISTORY: Shortness of breath. COMPARISON: 12/13/2016. FINDINGS: There is upper lobe predominant traction bronchiectasis and reticulation with architectural distortion. Findings have progressed from prior exam and are in keeping with a fibrotic interstitial lung disease, though CT pattern would be indeterminate for usual interstitial pneumonia. There are extensive calcified mediastinal lymph nodes. No edema or pneumonia. No pleural effusion or pneumothorax. Heart size is normal. No pericardial effusion. Aorta is normal in caliber. There is no axillary or supraclavicular lymphadenopathy. There is no mediastinal lymphadenopathy. The liver is normal without focal lesion. There is no biliary ductal dilation. Gallbladder is absent. Few cystic pancreatic lesions measuring approximately 1 cm are unchanged likely represent sidebranch intraductal papillary mucinous neoplasms. Spleen contains calcified granulomas. Adrenal glands are normal. The kidneys are normal. There is no hydronephrosis. Urinary bladder is normal. There are no dilated loops of large or small bowel. No obstruction or inflammation. There has been a prior colonic resection. No free fluid or air. No abdominal or pelvic lymphadenopathy. Aorta is normal in caliber without aneurysm. There are no suspicious osseus lesions. IMPRESSION: 1. Iecqpwav-rc-foiwhd fibrotic interstitial lung disease with a CT pattern that is indeterminate for usual interstitial pneumonia. 2. No acute abnormality in the abdomen or pelvis. 3. Stable cystic lesions in the pancreas, likely representing sidebranch intraductal papillary mucinous neoplasms. Dictated by: Dictated on workstation # [id number]
[2019-09-17 16:59] LABS: BACTERIA,URINE LARGE /HPF; SQUAMOUS EPITHELIAL CELL,UR RARE /HPF; WBC,URINE 25-50 /HPF
[2019-09-17] MEDS: ENOXAPARIN 40 MG/0.4 ML (LOVENOX) SYR SC SCH (17:32)
--- NOTE | 2019-09-17 19:32 | NUR ---
Pt had stated that, while she was eating ice cream from supper tray, that she, "burped real big & loud", & immediately felt better."
[2019-09-17] MEDS: LOSARTAN 50 MG (COZAAR) TAB PO SCH (20:54)
[2019-09-17] MEDS: SIMvastatin 10 MG (ZOCOR) TAB PO SCH (20:54)
[2019-09-17] MEDS: CYANOCOBALAMIN 5000 MCG SL SCH (20:55)
[2019-09-18] MEDS: LACTATED RINGERS 1,000 ML IV SCH (02:20)
[2019-09-18 05:38] VITALS: BP 113/64
[2019-09-18] MEDS: MAGNESIUM OXIDE (MAG-OX)400 MG TAB PO SCH ×2 (06:18→16:59)
[2019-09-18] MEDS: glipiZIDE 5 MG (GLUCOTROL) TAB PO SCH ×2 (06:18→17:00)
[2019-09-18] MEDS: PANTOPRAZOLE 40 MG (PROTONIX) TAB PO SCH ×2 (06:18→17:04)
[2019-09-18] MEDS: OMEGA 3 (FISH OIL) 1000 MG CAP PO SCH ×2 (06:19→16:59)
[2019-09-18] MEDS: CALCIUM CARB + VIT D 600 MG (CALCARB + D) TAB PO SCH (06:19)
[2019-09-18] MEDS: SENNA W/DOCUSATE (SENOKOT S) TABLET PO SCH ×2 (08:53→20:59)
[2019-09-18] MEDS: ASPIRIN 81 MG CHEW (CHILDREN'S ASA) PO SCH (08:54)
[2019-09-18] MEDS: LORATADINE (CLARITIN) 10 MG TAB PO SCH (08:54)
[2019-09-18] MEDS: DOCUSATE SODIUM 100 MG (COLACE) CAP PO SCH ×2 (08:54→20:58)
[2019-09-18] MEDS: [UNRECOGNIZED DRUG - OTHER] PO SCH (08:55)
[2019-09-18] MEDS: BILBERRY FRUIT EXTRACT PO SCH ×2 (09:13→17:43)
[2019-09-18] MEDS: POLYETHYLENE GLYCOL 17 GM (MIRALAX) PACK PO SCH ×2 (09:14→21:03)
--- NOTE | 2019-09-18 09:59 | Occupational Ther Daily Note ---
OT Current Status-Daily Note Subjective Pt seen in bed asleep, easily woken with verbals. Pt states tightness in L hip during mobilization, but no pain. Pt agreeable to OT tx session. Mental Status/Objective Patient Orientation: Normal For Age Attachments: IV, Oxygen (.5 L) ADL-Treatment Therapy Code Descriptions/Definitions Functional [place] Measure: 0=Not Assessed/NA 4=Minimal Assistance 1=Total Assistance 5=Supervision or Setup 2=Maximal Assistance 6=Modified [place] 3=Moderate Assistance 7=Complete IndependenceSCALE: Activities may be completed with or without assistive devices. 0-Jwwdcziiny-pwruari completes the activity by him/herself with no assistance from a helper. 5-Set-up or Clean-up Assistance-helper sets up or cleans up; patient completes activity. [place] assists only prior to or following the activity. 4-Supervision or Touching Assistance-helper provides verbal cues and/or touching/steadying and/or contact guard assistance as patient completes activity. Assistance may be provided throughout the activity or intermittently. 3-Partial/Moderate Assistance-helper does LESS THAN HALF the effort. [place] lifts, holds or supports trunk or limbs, but provides less than half the effort. 2-Substantial/Maximal Assistance-helper does MORE THAN HALF the effort. [place] lifts or holds trunk or limbs and provides more than half the effort. 7-Bxubvzxpv-ajxvtj does ALL the effort. Patient does none of the effort to complete the activity. Or, the assistance of 2 or more helpers is required for the patient to complete the activity. If activity was not attempted, code reason: 7-Patient Refused. 9-Not Applicable-not attempted and the patient did not perform the activity before the current illness, exacerbation or injury. 10-Not Attempted due to Environmental Limitations-(lack of equipment, weather restraints, etc.). 88-Not Attempted due to Medical Conditions or Safety Concerns. Eating (QC): 6 Oral Hygiene (QC): 4 (SBA at sink.) Shower/Bathe Self (QC): 4 (SBA for sponge bath in chair, completes all areas. Pt utilizes LHS for back.) Upper Body Dressing (QC): 5 (s/u) Lower Body Dressing (QC): 4 (SBA in stance for pull-up) Toileting Hygiene (QC): 4 (SBA in stance for bottom hygiene) Toilet Transfer (QC): 4 (SBA) Other Treatment Pt completes ADLs in room. Pt's family visits for ~10 minutes as pt completes standing tolerance activity. Pt's son gives OT medication from home- nursing notified and given box of medication. Pt states she does not require 02 during stance; 02 assessed at 2 min (93%) and 5 min (95%). Pt requires rest break at 5:45 minutes. While sitting, pt completes 2 sets of 2 theraband exercises with no SOB noted. Pt completes laundry tasks with s/u due to pt's eye sight poor/ not able to manipulate knobs. Pt states all settings and completes placing clothing items in top load washer with good dynamic standing balance and good safety. Pt states at home she completes laundry at 6am and pulls a rolling laundry basket across the street from apartment. Pt educated on energy conservation techniques, nods in understanding. Pt's 02 assessed after ~5 minutes of activity at washer and walking back to room (83%), pt educated on 02 sats. Pt's 02 placed back on pt to rest. Pt left in recliner chair with all needs met and call light in reach. Education OT Patient Education: Correct positioning, Energy conservation, Exercise program, Home exercise program, Modified ADL techniques, Purpose of tx/functional activities, Safety issues Teaching Recipient: Patient Teaching Methods: Demonstration, Discussion Response to Teaching: Verbalize Understanding, Return Demonstration OT Short Term Goals Short Term Goals 1=Demonstrate adherence to instructed precautions during ADL tasks. 2=Patient will verbalize/demonstrate understanding of assistive devices/modifications for ADL. 3=Patient will improve strength/tolerance for activity to enable patient to perform ADL's. OT Long-Term Goals Long-Term Goals Time Frame: Sep 29, 2019 Eating (QC): 6 (met) Oral Hygiene (QC): 6 Shower/Bathe Self (QC): 6 Upper Body Dressing (QC): 6 Lower Body Dressing (QC): 6 On/Off Footwear (QC): 6 Toileting Hygiene (QC): 6 Toilet/Commode Transfer (QC): 6 Additional Goals: 1-Demonstrate ADL Tasks, 2-Verbalize Understanding, 3- ImproveStrength/Lux 1=Demonstrate adherence to instructed precautions during ADL tasks. 2=Patient will verbalize/demonstrate understanding of assistive devices/modifications for ADL. 3=Patient will improve strength/tolerance for activity to enable patient to perform ADL's. OT Education/Plan Problem List/Assessment Assessment: Decreased Activ Tolerance, Decreased UE Strength, Impaired I ADL's, Impaired Self-Care Skills Discharge Recommendations Plan/Recommendations: Continue POC Treatment Plan/Plan of Care Treatment,Training & Education: Yes Patient would benefit from OT for education, treatment and training to promote independence in ADL's, mobility, safety and/or upper extremity function for ADL's. Plan of Care: ADL Retraining, Functional Mobility, Group Exercise/Act as Ind, UE Funct Exercise/Act Treatment Duration: Sep 29, 2019 Frequency: At least 5 of 7 days/Wk (IRF) Estimated Hrs Per Day: 1.5 hours per day Rehab Potential: Good Time/GCodes Start Time: 07:00 Stop Time: 08:30 Total Time Billed (hr/min): 90 Billed Treatment Time 1, ADL 4(60), FA (10), EX (20)= 90 CB KIRKLAND OTR Sep 18, 2019 09:59 POS
[2019-09-18] MEDS: RT-ALBUTEROL/IPRATROPIUM 3 ML (DUONEB) VIAL INH SCH ×3 (10:10→19:40)
--- NOTE | 2019-09-18 11:44 | Physical Therapy Daily Note ---
PT Daily Note-Current Subjective Patient is very agreeable to participate with PT. Currently on O2. Pain Numeric Pain Scale: 3 Location: Left Location Body Site: Hip Pain Description: Acute Mental Status Patient Orientation: Normal For Age Attachments: Oxygen Transfers SCALE: Activities may be completed with or without assistive devices. 6-Hsdxsteqev-enjanhl completes the activity by him/herself with no assistance from a helper. 5-Set-up or Clean-up Assistance-helper sets up or cleans up; patient completes activity. [place] assists only prior to or following the activity. 4-Supervision or Touching Assistance-helper provides verbal cues and/or touching/steadying and/or contact guard assistance as patient completes activity. Assistance may be provided throughout the activity or intermittently. 3-Partial/Moderate Assistance-helper does LESS THAN HALF the effort. [place] lifts, holds or supports trunk or limbs, but provides less than half the effort. 2-Substantial/Maximal Assistance-helper does MORE THAN HALF the effort. [place] lifts or holds trunk or limbs and provides more than half the effort. 4-Dvskggoph-kdhssb does ALL the effort. Patient does none of the effort to complete the activity. Or, the assistance of 2 or more helpers is required for the patient to complete the activity. If activity was not attempted, code reason: 7-Patient Refused. 9-Not Applicable-not attempted and the patient did not perform the activity before the current illness, exacerbation or injury. 10-Not Attempted due to Environmental Limitations-(lack of equipment, weather restraints, etc.). 88-Not Attempted due to Medical Conditions or Safety Concerns. Roll Left to Right (QC): 5 Sit to Lying (QC): 5 Sit to Stand (QC): 5 Chair/Avl-ay-Dujet Xfer(QC): 5 Bed to/from Chair: 5 Weight Bearing Right Lower Extremity: Right Full Weight Bearing Left Lower Extremity: Left Weight Bearing/Tolerated Gait Training Does the Patient Walk?: Yes Distance: 175' x 6 Walk 10 feet (QC): 5 Walk 50 ft with 2 Turns(QC): 5 Walk 150 ft (QC): 5 Gait Assistive Device: FWW steady, antalgic, functional gait sequence Exercises Supine Ex: Ankle pumps, Quad Set, Heel Slides, Straight leg raise, Hip abd/add (right LE only) Supine Reps: 15 (3 sets with a recovery period due to fatigue) Seated Therapy Exercises: Ankle pumps, Long arc quads, Hip flexion Seated Reps: 15 (3 sets with recovery periods due to fatigue) NuStep Minutes: 15 NuStep Workload: 4 (to increase strength and mobility) Assessment Patient did desat to 88% on RA at the beginning of PT session. O2 1L place and SAO2 increase to 98%. O2 remained in place during treatment session. RN made aware. Patient improving with treatment plan and voiced desire to return to home at the beginning of the week. Physician notified. PT will continue to increase activity as tolerated by patient. PT Short Term Goals Short Term Goals Time Frame: Sep 22, 2019 Gait Distance Comment: 200' Gait Assistive Device: FWW (SBA) Wheelchair Distance: 100' PT Data Communications Technician Goals Data Communications Technician Goals PT Data Communications Technician Goals Time Frame: Oct 06, 2019 Sit to Lying (QC): 6 Lying-Sitting on Side/Bed(QC): 6 Sit to Stand (QC): 6 Roll Left to Right (QC): 6 Chair/Cgl-kt-Xtfjd Xfer(QC): 6 Car Transfer (QC): 4 (SBA) Does the Patient Walk: Yes Distance: 400' Walk 10 feet (QC): 6 Walk 10ft-Uneven Surface(QC): 6 Walk 50ft with 2 Turns (QC): 6 Walk 150 ft (QC): 6 Gait Assistive Device: FWW Does the Pt use WC or Scooter?: No # of Steps: 4 1 Step (curb) (QC): 6 4 Steps (QC): 4 (SBA) PT Plan Treatment/Plan Treatment Plan: Continue Plan of Care Treatment Plan: Bed Mobility, Education, Functional Activity Lux, Functional Strength, Group Therapy, Gait, Safety, Therapeutic Exercise, Transfers Treatment Duration: Oct 06, 2019 Frequency: At least 5 of 7 days/Wk (IRF) Estimated Hrs Per Day: 1.5 hours per day Patient and/or Family Agrees t: Yes Time/GCodes Time In: 1013 Time Out: 1143 Total Billed Treatment Time: 90 Total Billed Treatment 1 visit EX x 4 65 min GT x 2 25 min CATHY CALERO PT Sep 18, 2019 11:44 POS
--- NOTE | 2019-09-18 12:00 | PM&R Progress Note ---
Subjective HPI/CC On Admission Date Seen by Provider: Sep 18, 2019 Time Seen by Provider: 10:45 Subjective/Events-last exam CT chest reviewed and updated patient on the results and reassured her UCx ordered by Dr Christian so will await that result but no fever and wbc is normal Fosamax ordered of her home supply Holding Metformin until tomorrow due to CT contrast Checked meds and labs Conferred with RN Reviewed therapy notes Review of Systems General: Fatigue Pulmonary: Dyspnea Objective Exam Vital Signs Vital Signs Date Time Temp Pulse Resp B/P (MAP) Pulse Ox O2 Delivery O2 Flow Rate FiO2 09/19/19 15:05 91 Nasal Cannula 1.00 09/19/19 06:15 37.0 92 20 131/65 (87) 09/15/19 11:20 21 Capillary Refill : General Appearance: No Apparent Distress, WD/WN, Chronically ill HEENT: PERRL/EOMI, Normal ENT Inspection, Pharynx Normal, Other ([place]) Neck: Full Range of Motion, Normal Inspection, Non Tender, Supple, Carotid Bruit Respiratory: Chest Non Tender, No Accessory Muscle Use, No Respiratory Distress, Crackles (right lower lobe), Decreased Breath Sounds Cardiovascular: Regular Rate, Rhythm, No Edema, No Gallop, No JVD, No Murmur, Normal Peripheral Pulses Gastrointestinal: Normal Bowel Sounds, No Organomegaly, No Pulsatile Mass, Non Tender, Soft Back: Normal Inspection, No CVA Tenderness, No Vertebral Tenderness Extremity: Normal Capillary Refill, Normal Inspection, Normal Range of Motion (except left leg due to pain from femur fracture repair), Non Tender, No Calf Tenderness, No Pedal Edema Neurologic/Psychiatric: Alert, Oriented x3, No Motor/Sensory Deficits, Normal Mood/Affect, Disoriented (subtle finding) Skin: Normal Color, Warm/Dry Lymphatic: No Adenopathy Results/Procedures Lab Patient resulted labs reviewed. FIM Transfers Therapy Code Descriptions/Definitions Functional [place] Measure: 0=Not Assessed/NA 4=Minimal Assistance 1=Total Assistance 5=Supervision or Setup 2=Maximal Assistance 6=Modified [place] 3=Moderate Assistance 7=Complete IndependenceSCALE: Activities may be completed with or without assistive devices. 3-Bvhtpmgymp-poxijxg completes the activity by him/herself with no assistance from a helper. 5-Set-up or Clean-up Assistance-helper sets up or cleans up; patient completes activity. [place] assists only prior to or following the activity. 4-Supervision or Touching Assistance-helper provides verbal cues and/or touching/steadying and/or contact guard assistance as patient completes activity. Assistance may be provided throughout the activity or intermittently. 3-Partial/Moderate Assistance-helper does LESS THAN HALF the effort. [place] lifts, holds or supports trunk or limbs, but provides less than half the effort. 2-Substantial/Maximal Assistance-helper does MORE THAN HALF the effort. [place] lifts or holds trunk or limbs and provides more than half the effort. 4-Ddmlcuwbj-sdqwqw does ALL the effort. Patient does none of the effort to complete the activity. Or, the assistance of 2 or more helpers is required for the patient to complete the activity. If activity was not attempted, code reason: 7-Patient Refused. 9-Not Applicable-not attempted and the patient did not perform the activity before the current illness, exacerbation or injury. 10-Not Attempted due to Environmental Limitations-(lack of equipment, weather restraints, etc.). 88-Not Attempted due to Medical Conditions or Safety Concerns. Roll Left to Right (QC): 5 Sit to Lying (QC): 5 Sit to Stand (QC): 5 Chair/Xln-ed-Pvtbz Xfer(QC): 5 Bed to/from Chair: 5 Car Transfer (QC): 3 (Monique) Gait Training Does the Patient Walk?: Yes Distance (FIM): [phone] ft Distance: 175' x 6 Walk 10 feet (QC): 5 Walk 50 ft with 2 Turns(QC): 5 Walk 150 ft (QC): 5 Walking 10ft/uneven surface-QC: 4 (CGA) Gait Assistive Device: FWW Wheelchair Training Does the Pt Use a Wheelchair?: Yes Wheelchair Distance: [phone] ft Distance: 100' Wheel 50 ft with 2 turns (QC): 5 Wheel 150 ft (QC): 88 Type of Wheelchair: Manual Stair Training #of Steps: 4 1 Step (curb) (QC): 3 (Monique) 4 Steps (QC): 3 (Monique) 12 Steps (QC): 88 Balance Picking up an Object (QC): 4 (CGA) ADL-Treatment Eating (QC): 6 Oral Hygiene (QC): 4 (SBA at sink.) Bathing Location: L Arm Shower/Bathe Self (QC): 4 (SBA for sponge bath in chair, completes all areas. Pt utilizes LHS for back.) Upper Body Dressing (QC): 5 (s/u) Lower Body Dressing (QC): 4 (SBA in stance for pull-up) On/Off Footwear (QC): 4 Toileting Hygiene (QC): 4 (SBA in stance for bottom hygiene) Toilet Transfer (QC): 4 (SBA) Assessment/Plan Assessment and Plan Assess & Plan/Chief Complaint Assessment: Left hip fracture Falls HTN Pulmonary fibrosis CT confirmed OP on Fosamax Nausea and vomiting likely related to pain medication now resolved Plan: Pain control BM regimen Pulmonary fibrosis management IRF Checked CT scan due to pulmonary fibrosis and colon cancer history (1) Hip fracture, left Status: Acute Qualifiers: Encounter type: subsequent encounter Fracture type: closed Fracture healing: with routine healing Qualified Codes: S72.002D - Fracture of unspecified part of neck of left femur, subsequent encounter for closed fracture with routine healing (2) [place] Status: Acute Assessment & Plan: Review chest x-ray and consulting Dr. Christian (3) Constipation Status: Acute Assessment & Plan: Initiate bowel regimen (4) Anemia Status: Acute Assessment & Plan: Initiate iron infusions check level of iron Qualifiers: Anemia type: iron deficiency Iron deficiency anemia type: unspecified iron deficiency Qualified Codes: D50.9 - Iron deficiency anemia, unspecified (5) Iron deficiency (6) GERD without esophagitis (7) Hypertension (8) Hyperlipidemia (9) DVT prophylaxis (10) History of colon cancer Status: Chronic (11) Falls Status: Chronic (12) Uncontrolled diabetes mellitus Status: Acute (13) Pulmonary fibrosis CAROLIN GÓMEZ DO Sep 18, 2019 12:00 POS
--- NOTE | 2019-09-18 12:00 | NUR ---
Dr. Leon to floor. Reviewed chest XRAY and CT abdomen/pelvis (done on 09/17/19). Adenike ACEVEDO'Jason D/T Codeine allergy. Informed of large amount of bacteria and positive Nitrates in urine with culture pending. No new orders rec'd... states, "will wait for culture results". Ok to resume weekly Fosamax... starting tomorrow AM. Addendum: 09/18/19 at 1328 by CHRISTI QIU RN Nitrites*
--- NOTE | 2019-09-18 13:28 | NUR ---
Silver dressing to left hip D/I. No drainage noted.
--- NOTE | 2019-09-18 16:45 | NUR ---
Omnipaque and NS taken off EMAR because it was used by pt on an off floor procedure.
[2019-09-18 17:03] VITALS: BP 108/63
[2019-09-18] MEDS: CYANOCOBALAMIN 5000 MCG SL SCH (17:43)
[2019-09-18] MEDS: ENOXAPARIN 40 MG/0.4 ML (LOVENOX) SYR SC SCH (18:19)
[2019-09-18] MEDS: SIMvastatin 10 MG (ZOCOR) TAB PO SCH (20:59)
[2019-09-18] MEDS: LOSARTAN 50 MG (COZAAR) TAB PO SCH (20:59)
[2019-09-19] MEDS: MAGNESIUM OXIDE (MAG-OX)400 MG TAB PO SCH ×2 (05:54→17:23)
[2019-09-19] MEDS: PANTOPRAZOLE 40 MG (PROTONIX) TAB PO SCH ×2 (05:54→17:24)
[2019-09-19] MEDS: OMEGA 3 (FISH OIL) 1000 MG CAP PO SCH ×2 (05:54→17:23)
[2019-09-19] MEDS: glipiZIDE 5 MG (GLUCOTROL) TAB PO SCH ×2 (05:54→16:04)
[2019-09-19] MEDS ORDERED: PATIENT MAY USE OWN MED,SINGLE MED PO SCH (06:00)
[2019-09-19] MEDS ORDERED: ALENDRONATE SODIUM PO SCH (06:00)
[2019-09-19] MEDS ORDERED: ALENDRONATE SODIUM 70 MG PO SCH (06:00)
[2019-09-19 06:15] VITALS: BP 131/65
[2019-09-19] MEDS: RT-ALBUTEROL/IPRATROPIUM 3 ML (DUONEB) VIAL INH SCH ×4 (07:34→20:02)
--- NOTE | 2019-09-19 09:00 | NUR ---
pt up to br to void/urine is dark radha/strong odor. pt tolerated ambulation well. Lungs are clear but does not breath deeply. bs x 4/ no edema noted in any areas/skin intact/patient resting quietly.
[2019-09-19] MEDS: SENNA W/DOCUSATE (SENOKOT S) TABLET PO SCH ×2 (09:08→20:15)
[2019-09-19] MEDS: LORATADINE (CLARITIN) 10 MG TAB PO SCH (09:08)
[2019-09-19] MEDS: DOCUSATE SODIUM 100 MG (COLACE) CAP PO SCH ×2 (09:08→20:15)
[2019-09-19] MEDS: ASPIRIN 81 MG CHEW (CHILDREN'S ASA) PO SCH (09:08)
[2019-09-19] MEDS: [UNRECOGNIZED DRUG - OTHER] PO SCH (09:09)
[2019-09-19] MEDS: BILBERRY FRUIT EXTRACT PO SCH ×2 (09:10→17:24)
[2019-09-19] MEDS: POLYETHYLENE GLYCOL 17 GM (MIRALAX) PACK PO SCH ×2 (09:12→20:15)
[2019-09-19] MEDS: IRON SUCROSE 200 MG/10 ML (VENOFER) VIAL IV SCH (09:13)
[2019-09-19 13:38] LABS: BILIRUBIN,URINE NEGATIVE (NEGATIVE); CLARITY,URINE CLEAR; COLOR,URINE YELLOW; GLUCOSE, URINE (UA) NEGATIVE (NEGATIVE); KETONES,URINE NEGATIVE (NEGATIVE); LEUKOCYTE ESTERASE ,URINE TRACE (NEGATIVE); NITRITE,URINE NEGATIVE (NEGATIVE); PROTEIN,URINE NEGATIVE (NEGATIVE)
[2019-09-19 13:52] LABS: BACTERIA,URINE TRACE /HPF
--- NOTE | 2019-09-19 15:41 | PM&R Progress Note ---
Subjective HPI/CC On Admission Date Seen by Provider: Sep 19, 2019 Time Seen by Provider: 11:30 Subjective/Events-last exam Staph epi on UCx so will repeat in/out cath since she is having symptoms now at night to evaluate whether this is a real infection or contaminant Suppository will be given this afternoon if she does not have a BM Patient overall doing well May need O2 at home Fibrosis noted on crackles on exam Checked meds and labs Conferred with RN Reviewed therapy notes Review of Systems General: Fatigue Pulmonary: Dyspnea Genitourinary: Frequency Objective Exam Vital Signs Vital Signs Date Time Temp Pulse Resp B/P (MAP) Pulse Ox O2 Delivery O2 Flow Rate FiO2 09/19/19 15:05 91 Nasal Cannula 1.00 09/19/19 06:15 37.0 92 20 131/65 (87) 09/15/19 11:20 21 Capillary Refill : General Appearance: No Apparent Distress, WD/WN, Chronically ill HEENT: PERRL/EOMI, Normal ENT Inspection, Pharynx Normal, Other ([place]) Neck: Full Range of Motion, Normal Inspection, Non Tender, Supple, Carotid Bruit Respiratory: Chest Non Tender, No Accessory Muscle Use, No Respiratory Distress, Crackles (right lower lobe), Decreased Breath Sounds Cardiovascular: Regular Rate, Rhythm, No Edema, No Gallop, No JVD, No Murmur, Normal Peripheral Pulses Gastrointestinal: Normal Bowel Sounds, No Organomegaly, No Pulsatile Mass, Non Tender, Soft Back: Normal Inspection, No CVA Tenderness, No Vertebral Tenderness Extremity: Normal Capillary Refill, Normal Inspection, Normal Range of Motion (except left leg due to pain from femur fracture repair), Non Tender, No Calf Tenderness, No Pedal Edema Neurologic/Psychiatric: Alert, Oriented x3, No Motor/Sensory Deficits, Normal Mood/Affect, Disoriented (subtle finding) Skin: Normal Color, Warm/Dry Lymphatic: No Adenopathy Results/Procedures Lab Patient resulted labs reviewed. FIM Transfers Therapy Code Descriptions/Definitions Functional [place] Measure: 0=Not Assessed/NA 4=Minimal Assistance 1=Total Assistance 5=Supervision or Setup 2=Maximal Assistance 6=Modified [place] 3=Moderate Assistance 7=Complete IndependenceSCALE: Activities may be completed with or without assistive devices. 2-Qfivtiteeq-thyweux completes the activity by him/herself with no assistance from a helper. 5-Set-up or Clean-up Assistance-helper sets up or cleans up; patient completes activity. [place] assists only prior to or following the activity. 4-Supervision or Touching Assistance-helper provides verbal cues and/or touching/steadying and/or contact guard assistance as patient completes activity. Assistance may be provided throughout the activity or intermittently. 3-Partial/Moderate Assistance-helper does LESS THAN HALF the effort. [place] lifts, holds or supports trunk or limbs, but provides less than half the effort. 2-Substantial/Maximal Assistance-helper does MORE THAN HALF the effort. [place] lifts or holds trunk or limbs and provides more than half the effort. 3-Qsapjaddg-droeqf does ALL the effort. Patient does none of the effort to complete the activity. Or, the assistance of 2 or more helpers is required for the patient to complete the activity. If activity was not attempted, code reason: 7-Patient Refused. 9-Not Applicable-not attempted and the patient did not perform the activity before the current illness, exacerbation or injury. 10-Not Attempted due to Environmental Limitations-(lack of equipment, weather restraints, etc.). 88-Not Attempted due to Medical Conditions or Safety Concerns. Roll Left to Right (QC): 5 Sit to Lying (QC): 5 Sit to Stand (QC): 5 Chair/Ckv-uo-Auxgc Xfer(QC): 5 Bed to/from Chair: 5 Car Transfer (QC): 3 (Monique) Gait Training Does the Patient Walk?: Yes Distance (FIM): 2=103-26 ft Distance: 175' x 6 Walk 10 feet (QC): 5 Walk 50 ft with 2 Turns(QC): 5 Walk 150 ft (QC): 5 Walking 10ft/uneven surface-QC: 4 (CGA) Gait Assistive Device: FWW Wheelchair Training Does the Pt Use a Wheelchair?: Yes Wheelchair Distance: 2=762-13 ft Distance: 100' Wheel 50 ft with 2 turns (QC): 5 Wheel 150 ft (QC): 88 Type of Wheelchair: Manual Stair Training #of Steps: 4 1 Step (curb) (QC): 3 (Monique) 4 Steps (QC): 3 (Monique) 12 Steps (QC): 88 Balance Picking up an Object (QC): 4 (CGA) ADL-Treatment Eating (QC): 6 Oral Hygiene (QC): 4 (SBA at sink.) Bathing Location: L Arm Shower/Bathe Self (QC): 4 (SBA for sponge bath in chair, completes all areas. Pt utilizes LHS for back.) Upper Body Dressing (QC): 5 (s/u) Lower Body Dressing (QC): 4 (SBA in stance for pull-up) On/Off Footwear (QC): 4 Toileting Hygiene (QC): 4 (SBA in stance for bottom hygiene) Toilet Transfer (QC): 4 (SBA) Assessment/Plan Assessment and Plan Assess & Plan/Chief Complaint Assessment: Left hip fracture Falls HTN Pulmonary fibrosis CT confirmed OP on Fosamax Nausea and vomiting likely related to pain medication now resolved Urinary frequency Constipation Plan: Pain control BM regimen Pulmonary fibrosis management IRF In-out cath Supp (1) Hip fracture, left Status: Acute Qualifiers: Encounter type: subsequent encounter Fracture type: closed Fracture healing: with routine healing Qualified Codes: S72.002D - Fracture of unspecified part of neck of left femur, subsequent encounter for closed fracture with routine healing (2) Rales Status: Acute Assessment & Plan: Review chest x-ray and consulting Dr. Christian (3) Constipation Status: Acute Assessment & Plan: Initiate bowel regimen (4) Anemia Status: Acute Assessment & Plan: Initiate iron infusions check level of iron Qualifiers: Anemia type: iron deficiency Iron deficiency anemia type: unspecified iron deficiency Qualified Codes: D50.9 - Iron deficiency anemia, unspecified (5) Iron deficiency (6) GERD without esophagitis (7) Hypertension (8) Hyperlipidemia (9) DVT prophylaxis (10) History of colon cancer Status: Chronic (11) Falls Status: Chronic (12) Uncontrolled diabetes mellitus Status: Acute (13) Pulmonary fibrosis CAROLIN GÓMEZ DO Sep 19, 2019 15:41 POS
--- NOTE | 2019-09-19 16:06 | NUR ---
Patient states that she "can't hold suppositories in". States that they "come out almost as fast as you put them in". Lactulose given instead per Patient's request.
[2019-09-19] MEDS: metFORMIN 500 MG (GLUCOPHAGE) TAB PO SCH (17:23)
[2019-09-19] MEDS: CYANOCOBALAMIN 5000 MCG SL SCH (17:24)
[2019-09-19 18:19] VITALS: BP 119/67
--- NOTE | 2019-09-19 18:23 | NUR ---
Up to the BR. Patient reports no BM but "lots of gas". Silver dressing starting to peel off and patient requesting dressing change. Incision line cleansed with alcohol pads and AllKare applied to surrounding tissue. Incision is well approximated. No drainage noted. Addendum: 09/19/19 at 1850 by CHRISTI QIU RN Incision was covered with an [place] dressing.
[2019-09-19] MEDS: ENOXAPARIN 40 MG/0.4 ML (LOVENOX) SYR SC SCH (18:28)
[2019-09-19] MEDS: LOSARTAN 50 MG (COZAAR) TAB PO SCH (20:15)
[2019-09-19] MEDS: SIMvastatin 10 MG (ZOCOR) TAB PO SCH (20:16)
[2019-09-20] MEDS: glipiZIDE 5 MG (GLUCOTROL) TAB PO SCH ×2 (06:03→16:45)
[2019-09-20] MEDS: OMEGA 3 (FISH OIL) 1000 MG CAP PO SCH ×2 (06:03→16:44)
[2019-09-20] MEDS: CALCIUM CARB + VIT D 600 MG (CALCARB + D) TAB PO SCH (06:03)
[2019-09-20] MEDS: MAGNESIUM OXIDE (MAG-OX)400 MG TAB PO SCH ×2 (06:03→16:44)
[2019-09-20] MEDS: PANTOPRAZOLE 40 MG (PROTONIX) TAB PO SCH ×2 (06:03→17:37)
[2019-09-20] MEDS: metFORMIN 500 MG (GLUCOPHAGE) TAB PO SCH ×2 (06:03→16:45)
[2019-09-20 06:04] VITALS: BP 147/78
[2019-09-20] MEDS: RT-ALBUTEROL/IPRATROPIUM 3 ML (DUONEB) VIAL INH SCH ×4 (07:10→19:02)
--- NOTE | 2019-09-20 07:40 | Occupational Ther Daily Note ---
OT Current Status-Daily Note Subjective Pt alert, lying in bed. Pt agrees to therapy. Pt c/o slight nausea and requests to go slow this morning. Mental Status/Objective Patient Orientation: Person, Place, Time, Situation ADL-Treatment Pt agrees to shower. Supine to EOB by self. Ambulated to bathroom using FWW. Transferred to toilet with mod I and completed toileting mod I. Transferred into shower using shower bench, FWW and grabbar. Pt completed own shower using grabbars, hand held shower and shower bench, supervision. After set up, pt completed own dressing. Supervision for pt to gather dirty clothes, place in bag and take to closet. Pt required multiple rest breaks due to nausea. Discussed home environment safety, energy conservation strategies. Pt stated that son wanted to take out her tub/shower and put in a walk-in shower, reported this to SW. After therapy, pt sitting in recliner with call light/phone in reach. All needs met in room. Therapy Code Descriptions/Definitions Functional [place] Measure: 0=Not Assessed/NA 4=Minimal Assistance 1=Total Assistance 5=Supervision or Setup 2=Maximal Assistance 6=Modified [place] 3=Moderate Assistance 7=Complete IndependenceSCALE: Activities may be completed with or without assistive devices. 3-Phrvdnfdkd-xxybikd completes the activity by him/herself with no assistance from a helper. 5-Set-up or Clean-up Assistance-helper sets up or cleans up; patient completes activity. [place] assists only prior to or following the activity. 4-Supervision or Touching Assistance-helper provides verbal cues and/or touchi ng/steadying and/or contact guard assistance as patient completes activity. Assistance may be provided throughout the activity or intermittently. 3-Partial/Moderate Assistance-helper does LESS THAN HALF the effort. [place] lifts, holds or supports trunk or limbs, but provides less than half the effort. 2-Substantial/Maximal Assistance-helper does MORE THAN HALF the effort. [place] lifts or holds trunk or limbs and provides more than half the effort. 5-Qjogmqrxi-xeizzm does ALL the effort. Patient does none of the effort to complete the activity. Or, the assistance of 2 or more helpers is required for the patient to complete the activity. If activity was not attempted, code reason: 7-Patient Refused. 9-Not Applicable-not attempted and the patient did not perform the activity before the current illness, exacerbation or injury. 10-Not Attempted due to Environmental Limitations-(lack of equipment, weather restraints, etc.). 88-Not Attempted due to Medical Conditions or Safety Concerns. Oral Hygiene (QC): 6 Bathing Location: L Arm, R Arm, L Upper Leg, R Upper Leg, L Lower Leg (includin g foot), R Lower Leg (including foot), Chest, Abdomen, Buttocks, Perineal Area Shower/Bathe Self (QC): 4 Upper Body Dressing (QC): 5 Lower Body Dressing (QC): 5 (Footwear (QC) 5) Toileting Hygiene (QC): 6 Toilet Transfer (QC): 6 OT Short Term Goals Short Term Goals 1=Demonstrate adherence to instructed precautions during ADL tasks. 2=Patient will verbalize/demonstrate understanding of assistive devices/modifications for ADL. 3=Patient will improve strength/tolerance for activity to enable patient to perform ADL's. OT Skilled Nursing Goals Seismograph Recorder Goals Time Frame: Sep 29, 2019 Eating (QC): 6 (met) Oral Hygiene (QC): 6 Shower/Bathe Self (QC): 6 Upper Body Dressing (QC): 6 Lower Body Dressing (QC): 6 On/Off Footwear (QC): 6 Toileting Hygiene (QC): 6 Toilet/Commode Transfer (QC): 6 Additional Goals: 1-Demonstrate ADL Tasks, 2-Verbalize Understanding, 3- ImproveStrength/Lux 1=Demonstrate adherence to instructed precautions during ADL tasks. 2=Patient will verbalize/demonstrate understanding of assistive devices/ modifications for ADL. 3=Patient will improve strength/tolerance for activity to enable patient to perform ADL's. OT Education/Plan Problem List/Assessment Assessment: Decreased Activ Tolerance, Impaired Self-Care Skills, Restricted Funct UE ROM Discharge Recommendations Plan/Recommendations: Continue POC Treatment Plan/Plan of Care Patient would benefit from OT for education, treatment and training to promote independence in ADL's, mobility, safety and/or upper extremity function for ADL's. Plan of Care: ADL Retraining, Functional Mobility, Group Exercise/Act as Ind, UE Funct Exercise/Act Treatment Duration: Sep 29, 2019 Frequency: At least 5 of 7 days/Wk (IRF) Estimated Hrs Per Day: 1.5 hours per day Rehab Potential: Good Time/GCodes Start Time: 07:30 Stop Time: 09:00 Total Time Billed (hr/min): 90 Billed Treatment Time 1 visit-ADL 5 (75 min) FA 1 (15 min) BRI KAPOOR Sep 20, 2019 07:40 POS
[2019-09-20 08:00] LABS: BASOPHILS # (AUTO) 0.1 10^3/uL (0.0-0.1); BASOPHILS % (AUTO) 1 % (0-10); EOSINOPHILS # (AUTO) 0.7 10^3/uL (0.0-0.3); EOSINOPHILS % (AUTO) 6 % (0-10); HEMATOCRIT 29 % (35-52); HEMOGLOBIN 9.4 G/DL (11.5-16.0); LYMPHOCYTES # (AUTO) 2.1 X 10^3 (1.0-4.0); LYMPHOCYTES % (AUTO) 17 % (12-44); MEAN CORPUSCULAR HEMOGLOBIN 30 PG (25-34); MEAN CORPUSCULAR HGB CONC 32 G/DL (32-36); MEAN CORPUSCULAR VOLUME 93 FL (80-99); MEAN PLATELET VOLUME 8.8 FL (7.4-10.4); MONOCYTES # (AUTO) 1.2 X 10^3 (0.0-1.0); MONOCYTES % (AUTO) 10 % (0-12); NEUTROPHILS # (AUTO) 8.3 X 10^3 (1.8-7.8); NEUTROPHILS % (AUTO) 67 % (42-75); PLATELET COUNT 845 10^3/uL (130-400); RED CELL DISTRIBUTION WIDTH 15.3 % (10.0-14.5); WHITE BLOOD COUNT 12.4 10^3/uL (4.3-11.0)
--- NOTE | 2019-09-20 08:04 | PM&R Progress Note ---
Subjective HPI/CC On Admission Date Seen by Provider: Sep 20, 2019 Time Seen by Provider: 08:15 Subjective/Events-last exam Bowels are moving today Refusedsuppository Repeat UA was normal but UCx Staph epi again so will reach out to Dr Lovelace Pain is well controlled May need home O2 and I did talk to her about that again today Checked meds and labs Conferred with RN Reviewed therapy notes Review of Systems General: Fatigue Pulmonary: Dyspnea Objective Exam Vital Signs Vital Signs Date Time Temp Pulse Resp B/P (MAP) Pulse Ox O2 Delivery O2 Flow Rate FiO2 09/20/19 18:00 37.2 90 20 108/63 (78) 97 Nasal Cannula 1.00 09/15/19 11:20 21 Capillary Refill : General Appearance: No Apparent Distress, WD/WN, Chronically ill HEENT: PERRL/EOMI, Normal ENT Inspection, Pharynx Normal, Other ([place]) Neck: Full Range of Motion, Normal Inspection, Non Tender, Supple, Carotid Bruit Respiratory: Chest Non Tender, No Accessory Muscle Use, No Respiratory Distress, Crackles (right lower lobe), Decreased Breath Sounds Cardiovascular: Regular Rate, Rhythm, No Edema, No Gallop, No JVD, No Murmur, Normal Peripheral Pulses Gastrointestinal: Normal Bowel Sounds, No Organomegaly, No Pulsatile Mass, Non Tender, Soft Back: Normal Inspection, No CVA Tenderness, No Vertebral Tenderness Extremity: Normal Capillary Refill, Normal Inspection, Normal Range of Motion (except left leg due to pain from femur fracture repair), Non Tender, No Calf Tenderness, No Pedal Edema Neurologic/Psychiatric: Alert, Oriented x3, No Motor/Sensory Deficits, Normal Mood/Affect, Disoriented (subtle finding) Skin: Normal Color, Warm/Dry Lymphatic: No Adenopathy Results/Procedures Lab Laboratory Tests 09/20/19 07:50 Patient resulted labs reviewed. FIM Transfers Therapy Code Descriptions/Definitions Functional [place] Measure: 0=Not Assessed/NA 4=Minimal Assistance 1=Total Assistance 5=Supervision or Setup 2=Maximal Assistance 6=Modified [place] 3=Moderate Assistance 7=Complete IndependenceSCALE: Activities may be completed with or without assistive devices. 4-Yjtxdbvzma-hzqgjqv completes the activity by him/herself with no assistance from a helper. 5-Set-up or Clean-up Assistance-helper sets up or cleans up; patient completes activity. [place] assists only prior to or following the activity. 4-Supervision or Touching Assistance-helper provides verbal cues and/or touching/steadying and/or contact guard assistance as patient completes activity. Assistance may be provided throughout the activity or intermittently. 3-Partial/Moderate Assistance-helper does LESS THAN HALF the effort. [place] lifts, holds or supports trunk or limbs, but provides less than half the effort. 2-Substantial/Maximal Assistance-helper does MORE THAN HALF the effort. [place] lifts or holds trunk or limbs and provides more than half the effort. 5-Cdyjbslel-nhhtyi does ALL the effort. Patient does none of the effort to complete the activity. Or, the assistance of 2 or more helpers is required for the patient to complete the activity. If activity was not attempted, code reason: 7-Patient Refused. 9-Not Applicable-not attempted and the patient did not perform the activity before the current illness, exacerbation or injury. 10-Not Attempted due to Environmental Limitations-(lack of equipment, weather restraints, etc.). 88-Not Attempted due to Medical Conditions or Safety Concerns. Roll Left to Right (QC): 5 Sit to Lying (QC): 5 Sit to Stand (QC): 5 Chair/San-ve-Iqqms Xfer(QC): 5 Bed to/from Chair: 5 Car Transfer (QC): 3 (Monique) Gait Training Does the Patient Walk?: Yes Distance (FIM): 8=392-41 ft Distance: 175' x 6 Walk 10 feet (QC): 5 Walk 50 ft with 2 Turns(QC): 5 Walk 150 ft (QC): 5 Walking 10ft/uneven surface-QC: 4 (CGA) Gait Assistive Device: FWW Wheelchair Training Does the Pt Use a Wheelchair?: Yes Wheelchair Distance: 7=986-90 ft Distance: 100' Wheel 50 ft with 2 turns (QC): 5 Wheel 150 ft (QC): 88 Type of Wheelchair: Manual Stair Training #of Steps: 4 1 Step (curb) (QC): 3 (Monique) 4 Steps (QC): 3 (Monique) 12 Steps (QC): 88 Balance Picking up an Object (QC): 4 (CGA) ADL-Treatment Eating (QC): 6 Oral Hygiene (QC): 4 (SBA at sink.) Bathing Location: L Arm Shower/Bathe Self (QC): 4 (SBA for sponge bath in chair, completes all areas. Pt utilizes LHS for back.) Upper Body Dressing (QC): 5 (s/u) Lower Body Dressing (QC): 4 (SBA in stance for pull-up) On/Off Footwear (QC): 4 Toileting Hygiene (QC): 4 (SBA in stance for bottom hygiene) Toilet Transfer (QC): 4 (SBA) Assessment/Plan Assessment and Plan Assess & Plan/Chief Complaint Assessment: Left hip fracture Falls HTN Pulmonary fibrosis CT confirmed OP on Fosamax Nausea and vomiting likely related to pain medication now resolved Urinary frequency Constipation Plan: Pain control BM regimen Pulmonary fibrosis management IRF In-out cath Supp (1) Hip fracture, left Status: Acute Qualifiers: Encounter type: subsequent encounter Fracture type: closed Fracture he aling: with routine healing Qualified Codes: S72.002D - Fracture of unspecified part of neck of left femur, subsequent encounter for closed fracture with routine healing (2) [place]ales Status: Acute Assessment & Plan: Review chest x-ray and consulting Dr. Christian (3) Constipation Status: Acute Assessment & Plan: Initiate bowel regimen (4) Anemia Status: Acute Assessment & Plan: Initiate iron infusions check level of iron Qualifiers: Anemia type: iron deficiency Iron deficiency anemia type: unspecified iron deficiency Qualified Codes: D50.9 - Iron deficiency anemia, unspecified (5) Iron deficiency (6) GERD without esophagitis (7) Hypertension (8) Hyperlipidemia (9) DVT prophylaxis (10) History of colon cancer Status: Chronic (11) Falls Status: Chronic (12) Uncontrolled diabetes mellitus Status: Acute (13) Pulmonary fibrosis CAROLIN GÓMEZ DO Sep 20, 2019 08:03 POS
[2019-09-20 08:24] LABS: ALANINE AMINOTRANSFERASE 12 U/L (0-55); ALBUMIN 3.9 GM/DL (3.2-4.5); ALKALINE PHOSPHATASE 125 U/L (40-136); BILIRUBIN,TOTAL 0.5 MG/DL (0.1-1.0); BUN/CREATININE RATIO 12; CALCIUM 9.5 MG/DL (8.5-10.1); CARBON DIOXIDE 23 MMOL/L (21-32); CHLORIDE 98 MMOL/L (98-107); CREATININE SERUM 0.82 MG/DL (0.60-1.30); GFR ESTIMATED > 60; GLUCOSE 192 MG/DL (70-105); POTASSIUM 4.4 MMOL/L (3.6-5.0); SODIUM 133 MMOL/L (135-145); TOTAL PROTEIN 7.1 GM/DL (6.4-8.2)
[2019-09-20] MEDS: LORATADINE (CLARITIN) 10 MG TAB PO SCH (09:30)
[2019-09-20] MEDS: ASPIRIN 81 MG CHEW (CHILDREN'S ASA) PO SCH (09:30)
[2019-09-20] MEDS: POLYETHYLENE GLYCOL 17 GM (MIRALAX) PACK PO SCH ×2 (09:31→20:44)
[2019-09-20] MEDS: BILBERRY FRUIT EXTRACT PO SCH ×2 (09:31→16:47)
[2019-09-20] MEDS: SENNA W/DOCUSATE (SENOKOT S) TABLET PO SCH ×2 (09:31→20:43)
[2019-09-20] MEDS: DOCUSATE SODIUM 100 MG (COLACE) CAP PO SCH ×2 (09:31→20:44)
[2019-09-20] MEDS: [UNRECOGNIZED DRUG - OTHER] PO SCH (09:31)
--- NOTE | 2019-09-20 09:56 | Physical Therapy Daily Note ---
PT Daily Note-Current Subjective Pt. agrees to Rx. States she feels she is better and has made progress. Needs to go back to room in mid Rx for bthrm Pain Location: No Pain Reported Mental Status Patient Orientation: Normal For Age Transfers SCALE: Activities may be completed with or without assistive devices. 4-Izhckmrqfc-ulijsbu completes the activity by him/herself with no assistance from a helper. 5-Set-up or Clean-up Assistance-helper sets up or cleans up; patient completes activity. [place] assists only prior to or following the activity. 4-Supervision or Touching Assistance-helper provides verbal cues and/or touching/steadying and/or contact guard assistance as patient completes activity. Assistance may be provided throughout the activity or intermittently. 3-Partial/Moderate Assistance-helper does LESS THAN HALF the effort. [place] lifts, holds or supports trunk or limbs, but provides less than half the effort. 2-Substantial/Maximal Assistance-helper does MORE THAN HALF the effort. [place] lifts or holds trunk or limbs and provides more than half the effort. 6-Jstxjqyvu-yyoljn does ALL the effort. Patient does none of the effort to complete the activity. Or, the assistance of 2 or more helpers is required for the patient to complete the activity. If activity was not attempted, code reason: 7-Patient Refused. 9-Not Applicable-not attempted and the patient did not perform the activity before the current illness, exacerbation or injury. 10-Not Attempted due to Environmental Limitations-(lack of equipment, weather restraints, etc.). 88-Not Attempted due to Medical Conditions or Safety Concerns. Transfers (B, C, W/C): 6 Roll Left to Right (QC): 6 Sit to Lying (QC): 6 Sit to Stand (QC): 6 Chair/Fiq-hl-Iipxa Xfer(QC): 6 Bed to/from Chair: 6 Car Transfer (QC): 6 Weight Bearing Right Lower Extremity: Right Full Weight Bearing Left Lower Extremity: Left Weight Bearing/Tolerated Gait Training Does the Patient Walk?: Yes Gait: 6 Walk 10 feet (QC): 6 Walk 50 ft with 2 Turns(QC): 6 Walk 150 ft (QC): 6 Gait Persons Needed: 0 Gait Assistive Device: FWW Exercises Supine Ex: Ankle pumps, Quad Set, Rolling, Glut sets, Heel Slides, Short Arc Quads, Scooting, Hip abd/add Supine Reps: 10 Treatments toileted indep Assessment Current Status: Good Progress PT Short Term Goals Short Term Goals Time Frame: Sep 22, 2019 Gait Distance Comment: 200' Gait Assistive Device: FWW (SBA) Wheelchair Distance: 100' PT Welder Oxyhydrogen Goals Welder Oxyhydrogen Goals PT Welder Oxyhydrogen Goals Time Frame: Oct 06, 2019 Sit to Lying (QC): 6 Lying-Sitting on Side/Bed(QC): 6 Sit to Stand (QC): 6 Roll Left to Right (QC): 6 Chair/Fxg-wq-Xwoyv Xfer(QC): 6 Car Transfer (QC): 4 (SBA) Does the Patient Walk: Yes Distance: 400' Walk 10 feet (QC): 6 Walk 10ft-Uneven Surface(QC): 6 Walk 50ft with 2 Turns (QC): 6 Walk 150 ft (QC): 6 Gait Assistive Device: FWW Does the Pt use WC or Scooter?: No # of Steps: 4 1 Step (curb) (QC): 6 4 Steps (QC): 4 (SBA) PT Plan Treatment/Plan Treatment Plan: Continue Plan of Care Treatment Plan: Bed Mobility, Education, Functional Activity Lux, Functional Strength, Group Therapy, Gait, Safety, Therapeutic Exercise, Transfers Treatment Duration: Oct 06, 2019 Frequency: At least 5 of 7 days/Wk (IRF) Estimated Hrs Per Day: 1.5 hours per day Patient and/or Family Agrees t: Yes Safety Risks/Education Patient Education: Gait Training, Transfer Techniques, Correct Positioning, Disease Process, Safety Issues Teaching Recipient: Patient Teaching Methods: Demonstration, Discussion Response to Teaching: Verbalize Understanding, Return Demonstration, Reinforcement Needed Time/GCodes Time In: 900 Time Out: 1000 Total Billed Treatment Time: 60 Total Billed Treatment 1,GT25m,FA20m,EX15m ISHAN DEXTER [employer] MANAGER Sep 20, 2019 09:56 POS
--- NOTE | 2019-09-20 13:35 | Physical Therapy Daily Note ---
PT Daily Note-Current Subjective Pt. agrees to Rx. Pain Location: No Pain Reported Mental Status Patient Orientation: Normal For Age Transfers SCALE: Activities may be completed with or without assistive devices. 5-Jbzsxxukzh-gnhqwyk completes the activity by him/herself with no assistance from a helper. 5-Set-up or Clean-up Assistance-helper sets up or cleans up; patient completes activity. [place] assists only prior to or following the activity. 4-Supervision or Touching Assistance-helper provides verbal cues and/or touching/steadying and/or contact guard assistance as patient completes activity. Assistance may be provided throughout the activity or intermittently. 3-Partial/Moderate Assistance-helper does LESS THAN HALF the effort. [place] lifts, holds or supports trunk or limbs, but provides less than half the effort. 2-Substantial/Maximal Assistance-helper does MORE THAN HALF the effort. [place] lifts or holds trunk or limbs and provides more than half the effort. 0-Kukvqwmng-hedxaw does ALL the effort. Patient does none of the effort to complete the activity. Or, the assistance of 2 or more helpers is required for the patient to complete the activity. If activity was not attempted, code reason: 7-Patient Refused. 9-Not Applicable-not attempted and the patient did not perform the activity before the current illness, exacerbation or injury. 10-Not Attempted due to Environmental Limitations-(lack of equipment, weather restraints, etc.). 88-Not Attempted due to Medical Conditions or Safety Concerns. all TRFs Mod I Weight Bearing Right Lower Extremity: Right Full Weight Bearing Left Lower Extremity: Left Weight Bearing/Tolerated Gait Training Does the Patient Walk?: Yes Gait: 6 Walk 10 feet (QC): 6 Walk 50 ft with 2 Turns(QC): 6 Walk 150 ft (QC): 6 Walking 10ft/uneven surface-QC: 6 Gait Persons Needed: 0 Gait Assistive Device: FWW Stair Training Stair Training: Handrails/: 2 handrails #of Steps: 4 1 Step (curb) (QC): 5 4 Steps (QC): 5 12 Steps (QC): 88 Stairs: Pattern: Step to Level of Assist: 5 Balance Picking up an Object (QC): 88 Exercises Supine Ex: Ankle pumps, Quad Set, Glut sets, Heel Slides, Hip abd/add Supine Reps: 12 Assessment Current Status: Good Progress PT Short Term Goals Short Term Goals Time Frame: Sep 22, 2019 Gait Distance Comment: 200' Gait Assistive Device: FWW (SBA) Wheelchair Distance: 100' PT Manager Shop Goals Manager Shop Goals PT Mcc Goals Time Frame: Oct 06, 2019 Sit to Lying (QC): 6 Lying-Sitting on Side/Bed(QC): 6 Sit to Stand (QC): 6 Roll Left to Right (QC): 6 Chair/Pwa-ye-Zgzaz Xfer(QC): 6 Car Transfer (QC): 4 (SBA) Does the Patient Walk: Yes Distance: 400' Walk 10 feet (QC): 6 Walk 10ft-Uneven Surface(QC): 6 Walk 50ft with 2 Turns (QC): 6 Walk 150 ft (QC): 6 Gait Assistive Device: FWW Does the Pt use WC or Scooter?: No # of Steps: 4 1 Step (curb) (QC): 6 4 Steps (QC): 4 (SBA) PT Plan Treatment/Plan Treatment Plan: Continue Plan of Care Treatment Plan: Bed Mobility, Education, Functional Activity Lux, Functional Strength, Group Therapy, Gait, Safety, Therapeutic Exercise, Transfers Treatment Duration: Oct 06, 2019 Frequency: At least 5 of 7 days/Wk (IRF) Estimated Hrs Per Day: 1.5 hours per day Patient and/or Family Agrees t: Yes Safety Risks/Education Patient Education: Gait Training, Transfer Techniques, Steps, Correct Positioning, Disease Process, Safety Issues Teaching Recipient: Patient Teaching Methods: Demonstration, Discussion Response to Teaching: Verbalize Understanding, Return Demonstration Time/GCodes Time In: 1300 Time Out: 1330 Total Billed Treatment Time: 30 Total Billed Treatment 1,GT20m,FA10m ISHAN DEXTER CLOTH FOLDER MACHINE Sep 20, 2019 13:34 POS
--- NOTE | 2019-09-20 15:13 | Pulmonary Progress Note ---
Standard Progress Note Progress Notes Date Seen by Provider: Sep 20, 2019 Time Seen by Provider: 14:50 Pt is in bed and states she is freezing; she has covers on and is in bed resting. 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 Christian spoke with Dr. [place], as well as communicated with Dr. Leon, Dr. [place] wants f/u in office after discharge- spoke with RN for f/u appt before discharge Anemia -Monitor Atelectasis -IS -Activity REGINE GARCIA APRN Sep 20, 2019 15:13 POS
[2019-09-20 16:00] VITALS: BP 126/88
[2019-09-20 18:00] VITALS: BP 108/63
[2019-09-20] MEDS: ENOXAPARIN 40 MG/0.4 ML (LOVENOX) SYR SC SCH (18:52)
[2019-09-20] MEDS: SIMvastatin 10 MG (ZOCOR) TAB PO SCH (20:43)
[2019-09-20] MEDS: LOSARTAN 50 MG (COZAAR) TAB PO SCH (20:43)
[2019-09-20] MEDS: CYANOCOBALAMIN 5000 MCG SL SCH (20:45)
--- NOTE | 2019-09-21 04:45 | NUR ---
NEW DRESSING TO LT HIP INCISION APPLIED. OLD DRESSING WAS REMOVED ON ACCIDENT WHEN PT WENT TO BATHROOM.
[2019-09-21 05:25] VITALS: BP 123/72
[2019-09-21] MEDS: MAGNESIUM OXIDE (MAG-OX)400 MG TAB PO SCH ×2 (06:08→17:15)
[2019-09-21] MEDS: PANTOPRAZOLE 40 MG (PROTONIX) TAB PO SCH ×2 (06:08→17:15)
[2019-09-21] MEDS: metFORMIN 500 MG (GLUCOPHAGE) TAB PO SCH ×2 (06:08→17:15)
[2019-09-21] MEDS: glipiZIDE 5 MG (GLUCOTROL) TAB PO SCH ×2 (06:08→17:15)
[2019-09-21] MEDS: OMEGA 3 (FISH OIL) 1000 MG CAP PO SCH ×2 (06:08→17:15)
[2019-09-21] MEDS: [UNRECOGNIZED DRUG - OTHER] PO SCH (06:09)
[2019-09-21] MEDS: RT-ALBUTEROL/IPRATROPIUM 3 ML (DUONEB) VIAL INH SCH (06:24)
--- NOTE | 2019-09-21 08:34 | PM&R Progress Note ---
Subjective HPI/CC On Admission Date Seen by Provider: Sep 21, 2019 Time Seen by Provider: 08:15 Subjective/Events-last exam Pancreas abnormality on CT scan was updated with Pt. Dr. [place] will see her as an outpatient. Was on room air last night. White count of 12.4 with elevated platelet count that appears to be without source. Abnormal UA with staph epi will not be treated per Dr. Lovelace. Having bowel movements. Overall doing much better. Checked meds and labs Conferred with RN Reviewed therapy notes Review of Systems Pulmonary: Dyspnea Musculoskeletal: leg pain Objective Exam Vital Signs Vital Signs Date Time Temp Pulse Resp B/P (MAP) Pulse Ox O2 Delivery O2 Flow Rate FiO2 09/21/19 17:28 36.8 88 20 122/73 (89) 95 Room Air 09/21/19 09:38 21 09/21/19 06:24 0.00 Capillary Refill : General Appearance: No Apparent Distress, WD/WN, Chronically ill HEENT: PERRL/EOMI, Normal ENT Inspection, Pharynx Normal, Other (IQUGMIUT) Neck: Full Range of Motion, Normal Inspection, Non Tender, Supple, Carotid Bruit Respiratory: Chest Non Tender, No Accessory Muscle Use, No Respiratory Distress, Crackles (right lower lobe), Decreased Breath Sounds Cardiovascular: Regular Rate, Rhythm, No Edema, No Gallop, No JVD, No Murmur, Normal Peripheral Pulses Gastrointestinal: Normal Bowel Sounds, No Organomegaly, No Pulsatile Mass, Non Tender, Soft Back: Normal Inspection, No CVA Tenderness, No Vertebral Tenderness Extremity: Normal Capillary Refill, Normal Inspection, Normal Range of Motion (except left leg due to pain from femur fracture repair), Non Tender, No Calf Tenderness, No Pedal Edema Neurologic/Psychiatric: Alert, Oriented x3, No Motor/Sensory Deficits, Normal Mood/Affect, Disoriented (subtle finding) Skin: Normal Color, Warm/Dry Lymphatic: No Adenopathy Results/Procedures Lab Patient resulted labs reviewed. FIM Transfers Therapy Code Descriptions/Definitions Functional [place] Measure: 0=Not Assessed/NA 4=Minimal Assistance 1=Total Assistance 5=Supervision or Setup 2=Maximal Assistance 6=Modified [place] 3=Moderate Assistance 7=Complete IndependenceSCALE: Activities may be completed with or without assistive devices. 9-Pwqohupppo-heikdqp completes the activity by him/herself with no assistance from a helper. 5-Set-up or Clean-up Assistance-helper sets up or cleans up; patient completes activity. [place] assists only prior to or following the activity. 4-Supervision or Touching Assistance-helper provides verbal cues and/or touching/steadying and/or contact guard assistance as patient completes activity. Assistance may be provided throughout the activity or intermittently. 3-Partial/Moderate Assistance-helper does LESS THAN HALF the effort. [place] lif ts, holds or supports trunk or limbs, but provides less than half the effort. 2-Substantial/Maximal Assistance-helper does MORE THAN HALF the effort. [place] lifts or holds trunk or limbs and provides more than half the effort. 0-Fcjbpxhyh-lahmco does ALL the effort. Patient does none of the effort to complete the activity. Or, the assistance of 2 or more helpers is required for the patient to complete the activity. If activity was not attempted, code reason: 7-Patient Refused. 9-Not Applicable-not attempted and the patient did not perform the activity before the current illness, exacerbation or injury. 10-Not Attempted due to Environmental Limitations-(lack of equipment, weather restraints, etc.). 88-Not Attempted due to Medical Conditions or Safety Concerns. Transfers (B, C, W/C) (FIM): 6 Roll Left to Right (QC): 6 Sit to Lying (QC): 6 Sit to Stand (QC): 6 Chair/Dee-mg-Ckaou Xfer(QC): 6 Bed to/from Chair: 6 Car Transfer (QC): 6 Gait Training Does the Patient Walk?: Yes Gait (FIM): 6 Distance (FIM): 3=955-93 ft Distance: 175' x 6 Walk 10 feet (QC): 6 Walk 50 ft with 2 Turns(QC): 6 Walk 150 ft (QC): 6 Walking 10ft/uneven surface-QC: 6 Gait Persons Needed: 0 Gait Assistive Device: FWW Wheelchair Training Does the Pt Use a Wheelchair?: Yes Wheelchair Distance: 4=623-64 ft Distance: 100' Wheel 50 ft with 2 turns (QC): 5 Wheel 150 ft (QC): 88 Type of Wheelchair: Manual Stair Training Stair Training: Handrails/: 2 handrails #of Steps: 4 1 Step (curb) (QC): 5 4 Steps (QC): 5 12 Steps (QC): 88 Stairs: Pattern: Step to Level of Assist: 5 Balance Picking up an Object (QC): 88 ADL-Treatment Eating (QC): 6 Oral Hygiene (QC): 6 Bathing Location: L Arm, R Arm, L Upper Leg, R Upper Leg, L Lower Leg (including foot), R Lower Leg (including foot), Chest, Abdomen, Buttocks, Perineal Area Shower/Bathe Self (QC): 4 Upper Body Dressing (QC): 5 Lower Body Dressing (QC): 5 (Footwear (QC) 5) On/Off Footwear (QC): 4 Toileting Hygiene (QC): 6 Toilet Transfer (QC): 6 Assessment/Plan Assessment and Plan Assess & Plan/Chief Complaint Assessment: Left hip fracture Falls HTN Pulmonary fibrosis CT confirmed OP on Fosamax Nausea and vomiting likely related to pain medication now resolved Urinary frequency Constipation Pancreatic nodules Plan: Pain control BM regimen Pulmonary fibrosis management IRF DC planning Dr [place] for pancreatic nodules (1) Hip fracture, left Status: Acute Qualifiers: Encounter type: subsequent encounter Fracture type: closed Fracture healing: with routine healing Qualified Codes: S72.002D - Fracture of unspecified part of neck of left femur, subsequent encounter for closed fracture with routine healing (2) [place] Status: Acute Assessment & Plan: Review chest x-ray and consulting Dr. Christian (3) Constipation Status: Acute Assessment & Plan: Initiate bowel regimen (4) Anemia Status: Acute Assessment & Plan: Initiate iron infusions check level of iron Qualifiers: Anemia type: iron deficiency Iron deficiency anemia type: unspecified iron deficiency Qualified Codes: D50.9 - Iron deficiency anemia, unspecified (5) Iron deficiency (6) GERD without esophagitis (7) Hypertension (8) Hyperlipidemia (9) DVT prophylaxis (10) History of colon cancer Status: Chronic (11) Falls Status: Chronic (12) Uncontrolled diabetes mellitus Status: Acute (13) Pulmonary fibrosis CAROLIN GÓMEZ DO Sep 21, 2019 08:34 POS
[2019-09-21] MEDS: LORATADINE (CLARITIN) 10 MG TAB PO SCH (08:40)
[2019-09-21] MEDS: ASPIRIN 81 MG CHEW (CHILDREN'S ASA) PO SCH (08:40)
[2019-09-21] MEDS: SENNA W/DOCUSATE (SENOKOT S) TABLET PO SCH ×2 (08:40→21:14)
[2019-09-21] MEDS: DOCUSATE SODIUM 100 MG (COLACE) CAP PO SCH ×2 (08:40→21:14)
[2019-09-21] MEDS: IRON SUCROSE 200 MG/10 ML (VENOFER) VIAL IV SCH (08:40)
[2019-09-21 09:38] VITALS: BP 123/72
--- NOTE | 2019-09-21 10:13 | Physical Therapy Daily Note ---
PT Daily Note-Current Subjective Pt agreeable to PT session. States her son has her whole house set up how it needs to be for her to maneuver around safely, states she has all the assistive devices she would ever need. States she feels she could be ready to go home tomorrow. States she is pretty tired and fatigued since she just got finished with a whole session with OT Pain Numeric Pain Scale: 2 Location: Left Location Body Site: Hip Comment: increase to 8/10 with activity, 4/10 at end of PT, denies need for pain med Appearance Pt sitting up in recliner awake and alert upon arrival. At end of session, pt sitting up in recliner with call light, phone and bedside table within reach Mental Status Patient Orientation: Person, Place, Time, Eyes Open, Situation, Normal For Age Attachments: [place] Transfers SCALE: Activities may be completed with or without assistive devices. 6-Nqtiaczmtl-jjzcnlc completes the activity by him/herself with no assistance from a helper. 5-Set-up or Clean-up Assistance-helper sets up or cleans up; patient completes activity. [place] assists only prior to or following the activity. 4-Supervision or Touching Assistance-helper provides verbal cues and/or touching/steadying and/or contact guard assistance as patient completes activity. Assistance may be provided throughout the activity or intermittently. 3-Partial/Moderate Assistance-helper does LESS THAN HALF the effort. [place] lifts, holds or supports trunk or limbs, but provides less than half the effort. 2-Substantial/Maximal Assistance-helper does MORE THAN HALF the effort. [place] lifts or holds trunk or limbs and provides more than half the effort. 1-Akyznxpgu-eithqi does ALL the effort. Patient does none of the effort to complete the activity. Or, the assistance of 2 or more helpers is required for the patient to complete the activity. If activity was not attempted, code reason: 7-Patient Refused. 9-Not Applicable-not attempted and the patient did not perform the activity before the current illness, exacerbation or injury. 10-Not Attempted due to Environmental Limitations-(lack of equipment, weather restraints, etc.). 88-Not Attempted due to Medical Conditions or Safety Concerns. Roll Left & Right (QC): 6 Sit to Lying (QC): 6 Lying to Sitting/Side of Bed(Q: 6 Sit to Stand (QC): 6 Chair/Meg-xd-Tbehm Xfer(QC): 6 Car Transfer (QC): 6 Pt demonstrating good and safe techniques with all transitions. Able to rise from various surface upon 1st attempt although with c/o increased L hip pain, steady upon standing Weight Bearing Right Lower Extremity: Right Full Weight Bearing Left Lower Extremity: Left Weight Bearing/Tolerated Gait Training Does the Patient Walk?: Yes Distance: 150, 300 Walk 10 feet (QC): 6 Walk 50 ft with 2 Turns(QC): 6 Walk 150 ft (QC): 6 Walking 10ft/uneven surface-QC: 6 Gait Persons Needed: 1 Gait Assistive Device: FWW Pt beginning with step to gait pattern, able to correct with skilled instruction for step through, pt did not require re instruction with this technique, slow pace, slight antalgic with slight decreased stance time LLE, no LOB or unsteadiness. Pt with fatigue by end of gait distance Wheelchair Training Does the Pt Use a Wheelchair?: No Stair Training Stair Training: Handrails/: 2 handrails #of Steps: 4 1 Step (curb) (QC): 4 (skilled inst for technique and sequencing) 4 Steps (QC): 4 (skilled inst for technique and sequencing) 12 Steps (QC): 9 Stairs: Pattern: Step to ascending leading with RLE, descending leading with LLE, slow pace, no LOB Balance Picking up an Object (QC): 6 (with pbx inspector) Exercises Seated Therapy Exercises: Ankle pumps, Sit to stand, Long arc quads, Hip flexion, Hip abd/add Seated Reps: 10 (x2) Treatments education, safety, bed mobility, activity tolerance, functional mobility, transfers, gait even and uneven surfaces, balance, stairs, curb, standing in walker picking objects up off floor in standing with pbx inspector, strength Assessment Current Status: Good Progress PT Short Term Goals Short Term Goals Time Frame: Sep 22, 2019 PT [place] Hand Goals [place] Hand Goals PT Custodial Goals Time Frame: Oct 06, 2019 Roll Left & Right (QC): 6 Sit to Lying (QC): 6 Lying-Sitting on Side/Bed(QC): 6 Sit to Stand (QC): 6 Chair/Dvn-fx-Nrysp Xfer(QC): 6 Toilet Transfer (QC): 6 Car Transfer (QC): 4 (SBA) Does the Patient Walk: Yes Walk 10 feet (QC): 6 Walk 50ft with 2 Turns (QC): 6 Walk 150 ft (QC): 6 Walking 10ft on Uneven Surface: 6 1 Step (curb) (QC): 6 4 Steps (QC): 4 (SBA) 12 Steps (QC): 10 Picking up an Object (QC): 10 Does the Pt use WC or Scooter?: No Type: N/A Type: N/A PT Plan Treatment/Plan Treatment Plan: Continue Plan of Care Treatment Plan: Bed Mobility, Education, Functional Activity Lux, Functional Strength, Group Therapy, Gait, Safety, Therapeutic Exercise, Transfers Treatment Duration: Oct 06, 2019 Frequency: At least 5 of 7 days/Wk (IRF) Estimated Hrs Per Day: 1.5 hours per day Patient and/or Family Agrees t: Yes Safety Risks/Education Patient Education: Gait Training, Transfer Techniques, Steps, Safety Issues Teaching Recipient: Patient Teaching Methods: Demonstration, Discussion Time/GCodes Time In: 930 Time Out: 1030 Total Billed Treatment Time: 60 Total Billed Treatment 1 visit, FA x30 min, EX x15 min, GT x15 min DILIP ESTEVEZ PUBLIC HEALTH WORKER Sep 21, 2019 10:13 POS
--- NOTE | 2019-09-21 11:24 | Occupational Ther Daily Note ---
OT Current Status-Daily Note Subjective Pt sitting in chair, agrees to therapy. Pt has no reports of pain. ADL-Treatment Pt requested to clean up and change shirt. Pt washed upper body and doffed/donne d clean shirt with set up. Declined to bathe lower body or change pants, states she just put clean pants on last night. Pt washed hair with shampoo cap with set up. Sit to stand without assist. Gait to restroom with FWW. Stood at sink to complete grooming with modified independence. Discussed shower set up. Pt states son will be getting her a shower bench. Gait to shower room. Instructed patient in transfer technique using tub transfer bench. Pt able to transfer in/out of tub with supervision using grab bars. Therapy Code Descriptions/Definitions Functional [place] Measure: 0=Not Assessed/NA 4=Minimal Assistance 1=Total Assistance 5=Supervision or Setup 2=Maximal Assistance 6=Modified [place] 3=Moderate Assistance 7=Complete IndependenceSCALE: Activities may be completed with or without assistive devices. 2-Xgndaprtxt-optqcau completes the activity by him/herself with no assistance from a helper. 5-Set-up or Clean-up Assistance-helper sets up or cleans up; patient completes activity. [place] assists only prior to or following the activity. 4-Supervision or Touching Assistance-helper provides verbal cues and/or touching/steadying and/or contact guard assistance as patient completes activity. Assistance may be provided throughout the activity or intermittently. 3-Partial/Moderate Assistance-helper does LESS THAN HALF the effort. [place] lifts, holds or supports trunk or limbs, but provides less than half the effort. 2-Substantial/Maximal Assistance-helper does MORE THAN HALF the effort. [place] lifts or holds trunk or limbs and provides more than half the effort. 5-Hwluhazzm-xnoybd does ALL the effort. Patient does none of the effort to complete the activity. Or, the assistance of 2 or more helpers is required for the patient to complete the activity. If activity was not attempted, code reason: 7-Patient Refused. 9-Not Applicable-not attempted and the patient did not perform the activity be fore the current illness, exacerbation or injury. 10-Not Attempted due to Environmental Limitations-(lack of equipment, weather restraints, etc.). 88-Not Attempted due to Medical Conditions or Safety Concerns. Oral Hygiene (QC): 6 Upper Body Dressing (QC): 5 Other Treatment Gait to therapy gym with FWW, slow pace. Pt performed bilateral UE to increase overall strength needed for ADLs and transfer. Pt completed four exercises x10 reps, 2 sets with moderate resistance (red) theraband. Rest breaks between exercises. Arm bike x12 minutes to increase overall strength and activity tolerance needed for functional task completion. Pt performed activity with minimal resistance and slow pace. No rest breaks needed. Putty activity with bilateral hands to increase manager lpn strength and coordination/manipulation skills. Pt able to remove small beads from putty with increased time. Pt returned to room, transferred to chair with modified independence. Pt sitting in chair with needs met after session. OT Longterm Goals Rn Maternal Child Goals Time Frame: Sep 29, 2019 Eating (QC): 6 (met) Oral Hygiene (QC): 6 Toileting Hygiene (QC): 6 Shower/Bathe Self (QC): 6 Upper Body Dressing (QC): 6 Lower Body Dressing (QC): 6 On/Off Footwear (QC): 6 Additional Goals: 1-Demonstrate ADL Tasks, 2-Verbalize Understanding, 3- ImproveStrength/Lux 1=Demonstrate adherence to instructed precautions during ADL tasks. 2=Patient will verbalize/demonstrate understanding of assistive devices/modifications for ADL. 3=Patient will improve strength/tolerance for activity to enable patient to perform ADL's. OT Education/Plan Discharge Recommendations Plan/Recommendations: Continue POC Treatment Plan/Plan of Care Patient would benefit from OT for education, treatment and training to promote independence in ADL's, mobility, safety and/or upper extremity function for ADL's. Plan of Care: ADL Retraining, Functional Mobility, Group Exercise/Act as Ind, UE Funct Exercise/Act Treatment Duration: Sep 29, 2019 Frequency: At least 5 of 7 days/Wk (IRF) Estimated Hrs Per Day: 1.5 hours per day Rehab Potential: Good Time/GCodes Start Time: 08:00 Stop Time: 09:30 Total Time Billed (hr/min): 90 Billed Treatment Time 1 visit, ADLx3(40minutes), EXx3(50minutes) SANDOR RUFFIN OT Sep 21, 2019 11:24 POS
[2019-09-21] MEDS: POLYETHYLENE GLYCOL 17 GM (MIRALAX) PACK PO SCH ×2 (11:33→21:14)
[2019-09-21] MEDS: BILBERRY FRUIT EXTRACT PO SCH ×2 (11:34→17:36)
--- NOTE | 2019-09-21 14:31 | NUR ---
Patient discharge is planned for tomorrow, met with her this a.m. to finalize. IMM2 presented, patient is ready to discharge and indicates no intention to appeal. Signed, charted. [facility]: Patient has history with [facility] and stated she would prefer that agency for her post acute services. Referral to be completed when final orders are received, alerted agency regarding scheduling. RN and PT. DME: It was determined that patient has all recommended DME except a tub transfer bench. Patient and son reminded this will be needed prior to patient returning home, that it is not a covered item under Medicare, that [facility] does have them in stock, and cost is $80. Patient/son understand they can purchase this item at any place of their choice, including [employer] or non-medical supply stores. Son to pick and shovel man for patient. Visited with haleigh Mahoney and NOEMI Carpenter by phone. There was some discussion about him having patient's bathroom remodeled but this has not been planned or any progress made. Patient states she resides in the senior housing in [place], request for bathroom remodel would be a process. Patient states she feels comfortable with her current arrangement with the new bath bench. Denzel plans to pick patient up tomorrow around 1500.
--- NOTE | 2019-09-21 14:51 | Physical Therapy Daily Note ---
PT Daily Note-Current Subjective Pt agreeable to PT session Pain Numeric Pain Scale: 0-No Pain Appearance Pt sitting in chair upon arrival, awake and alert. At end of session, pt sitting up in recliner with call light, phone and bedside table within reach Mental Status Patient Orientation: Person, Place, Time, Eyes Open, Situation Attachments: [place] Transfers SCALE: Activities may be completed with or without assistive devices. 1-Laagvclmbv-ixpljwi completes the activity by him/herself with no assistance from a helper. 5-Set-up or Clean-up Assistance-helper sets up or cleans up; patient completes activity. [place] assists only prior to or following the activity. 4-Supervision or Touching Assistance-helper provides verbal cues and/or touching/steadying and/or contact guard assistance as patient completes activ ity. Assistance may be provided throughout the activity or intermittently. 3-Partial/Moderate Assistance-helper does LESS THAN HALF the effort. [place] lifts, holds or supports trunk or limbs, but provides less than half the effort. 2-Substantial/Maximal Assistance-helper does MORE THAN HALF the effort. [place] lifts or holds trunk or limbs and provides more than half the effort. 2-Ceohevdrl-bpykmt does ALL the effort. Patient does none of the effort to complete the activity. Or, the assistance of 2 or more helpers is required for the patient to complete the activity. If activity was not attempted, code reason: 7-Patient Refused. 9-Not Applicable-not attempted and the patient did not perform the activity before the current illness, exacerbation or injury. 10-Not Attempted due to Environmental Limitations-(lack of equipment, weather restraints, etc.). 88-Not Attempted due to Medical Conditions or Safety Concerns. Sit to Stand (QC): 6 Weight Bearing Right Lower Extremity: Right Full Weight Bearing Left Lower Extremity: Left Weight Bearing/Tolerated Gait Training Does the Patient Walk?: Yes Distance: 150 x2 Walk 10 feet (QC): 6 Walk 50 ft with 2 Turns(QC): 6 Walk 150 ft (QC): 6 Gait Assistive Device: FWW instruction provided to increase step height Wheelchair Training Does the Pt Use a Wheelchair?: No Exercises NuStep Minutes: 20 NuStep Workload: 5 Treatments education, safety, transfers, gait, activity tolerance, functional mobility, strength, balance Assessment Current Status: Good Progress PT Short Term Goals Short Term Goals Time Frame: Sep 22, 2019 PT [place] Coiling Machine Setter Goals Nursing Home Goals PT Nursing Home Goals Time Frame: Oct 06, 2019 Roll Left & Right (QC): 6 Sit to Lying (QC): 6 Lying-Sitting on Side/Bed(QC): 6 Sit to Stand (QC): 6 Chair/Zho-fa-Xxozo Xfer(QC): 6 Toilet Transfer (QC): 6 Car Transfer (QC): 4 (SBA) Does the Patient Walk: Yes Walk 10 feet (QC): 6 Walk 50ft with 2 Turns (QC): 6 Walk 150 ft (QC): 6 Walking 10ft on Uneven Surface: 6 1 Step (curb) (QC): 6 4 Steps (QC): 4 (SBA) 12 Steps (QC): 10 Picking up an Object (QC): 10 Does the Pt use WC or Scooter?: No Type: N/A Type: N/A PT Plan Treatment/Plan Treatment Plan: Continue Plan of Care Treatment Plan: Bed Mobility, Education, Functional Activity Lux, Functional Strength, Group Therapy, Gait, Safety, Therapeutic Exercise, Transfers Treatment Duration: Oct 06, 2019 Frequency: At least 5 of 7 days/Wk (IRF) Estimated Hrs Per Day: 1.5 hours per day Patient and/or Family Agrees t: Yes Safety Risks/Education Patient Education: Gait Training, Transfer Techniques, Safety Issues Teaching Recipient: Patient Teaching Methods: Discussion Response to Teaching: Verbalize Understanding Time/GCodes Time In: 1300 Time Out: 1330 Total Billed Treatment Time: 30 Total Billed Treatment 1 visit, GT x10 min, EX x20 min DILIP ESTEVEZ CURRICULUM SPECIALIST Sep 21, 2019 14:51 POS
[2019-09-21 17:28] VITALS: BP 122/73
[2019-09-21] MEDS: CYANOCOBALAMIN 5000 MCG SL SCH (17:37)
--- NOTE | 2019-09-21 17:38 | NUR ---
PT WANTED TO GO AHEAD & TAKE HER BILBERRY & B12 TABLETS, SHE WAS EATING SUPPER
[2019-09-21] MEDS: ENOXAPARIN 40 MG/0.4 ML (LOVENOX) SYR SC SCH (17:48)
--- NOTE | 2019-09-21 19:20 | NUR ---
bedside report received from GIANNI HOUSTON, assume care of pt
[2019-09-21] MEDS ORDERED: RT-ALBUTEROL/IPRATROPIUM 3 ML (DUONEB) VIAL INH SCH (21:00)
[2019-09-21] MEDS: LOSARTAN 50 MG (COZAAR) TAB PO SCH (21:12)
--- NOTE | 2019-09-21 21:12 | NUR ---
refused i[facility] morales & Dax, fsbs 168
[2019-09-21] MEDS: SIMvastatin 10 MG (ZOCOR) TAB PO SCH (21:13)
[2019-09-22 05:38] VITALS: BP 108/68
[2019-09-22] MEDS: metFORMIN 500 MG (GLUCOPHAGE) TAB PO SCH (06:00)
[2019-09-22] MEDS: CALCIUM CARB + VIT D 600 MG (CALCARB + D) TAB PO SCH (06:00)
[2019-09-22] MEDS: glipiZIDE 5 MG (GLUCOTROL) TAB PO SCH (06:00)
[2019-09-22] MEDS: MAGNESIUM OXIDE (MAG-OX)400 MG TAB PO SCH (06:00)
[2019-09-22] MEDS: OMEGA 3 (FISH OIL) 1000 MG CAP PO SCH (06:00)
[2019-09-22] MEDS: PANTOPRAZOLE 40 MG (PROTONIX) TAB PO SCH (06:00)
[2019-09-22] MEDS: [UNRECOGNIZED DRUG - OTHER] PO SCH (06:01)
--- NOTE | 2019-09-22 06:48 | NUR ---
PATIENT WAS WALKED FOR 6 MIN. AT 2 MIN. PATIENTS SAT DOPED TO 86% SO PLACED ON OXYGEN AT 2 L/M AT THIS TIME SAT RETURNED TO 91% CONTINUED TO WALK SAT WAS 94% AT 6 MIN. RECOMMEND 2 L/M OXYGEN WHEN PATIENT IS ACTIVE. Addendum: 09/22/19 at 0649 by GARO CYR RT Amended: Links added.
--- NOTE | 2019-09-22 07:14 | NUR ---
bedside report given to GIANNI HOUSTON
--- NOTE | 2019-09-22 07:44 | PM&R Progress Note ---
Subjective HPI/CC On Admission Date Seen by Provider: Sep 22, 2019 Time Seen by Provider: 08:15 Subjective/Events-last exam Pancreas abnormality on CT scan was updated with Pt. Dr. Walker will see her as an outpatient. Was on room air last night. White count of 12.4 with elevated platelet count that appears to be without source. Abnormal UA with staph epi will not be treated per Dr. Lovelace. Having bowel movements. Overall doing much better. Checked meds and labs Conferred with RN Reviewed therapy notes Objective Exam Vital Signs Vital Signs Date Time Temp Pulse Resp B/P (MAP) Pulse Ox O2 Delivery O2 Flow Rate FiO2 09/22/19 06:42 94 Room Air 0.00 09/22/19 05:38 36.8 93 18 108/68 (81) 09/21/19 09:38 21 Capillary Refill : General Appearance: No Apparent Distress, WD/WN, Chronically ill HEENT: PERRL/EOMI, Normal ENT Inspection, Pharynx Normal, Other (EGEGIK) Neck: Full Range of Motion, Normal Inspection, Non Tender, Supple, Carotid Bruit Respiratory: Chest Non Tender, No Accessory Muscle Use, No Respiratory Di stress, Crackles (right lower lobe), Decreased Breath Sounds Cardiovascular: Regular Rate, Rhythm, No Edema, No Gallop, No JVD, No Murmur, Normal Peripheral Pulses Gastrointestinal: Normal Bowel Sounds, No Organomegaly, No Pulsatile Mass, Non Tender, Soft Back: Normal Inspection, No CVA Tenderness, No Vertebral Tenderness Extremity: Normal Capillary Refill, Normal Inspection, Normal Range of Motion (except left leg due to pain from femur fracture repair), Non Tender, No Calf Tenderness, No Pedal Edema Neurologic/Psychiatric: Alert, Oriented x3, No Motor/Sensory Deficits, Normal Mood/Affect, Disoriented (subtle finding) Skin: Normal Color, Warm/Dry Lymphatic: No Adenopathy Results/Procedures Lab Patient resulted labs reviewed. FIM Transfers Therapy Code Descriptions/Definitions Functional [place] Measure: 0=Not Assessed/NA 4=Minimal Assistance 1=Total Assistance 5=Supervision or Setup 2=Maximal Assistance 6=Modified [place] 3=Moderate Assistance 7=Complete IndependenceSCALE: Activities may be completed with or without assistive devices. 6-Lpofszlrgp-xmbpozk completes the activity by him/herself with no assistance from a helper. 5-Set-up or Clean-up Assistance-helper sets up or cleans up; patient completes activity. [place] assists only prior to or following the activity. 4-Supervision or Touching Assistance-helper provides verbal cues and/or touching/steadying and/or contact guard assistance as patient completes activity. Assistance may be provided throughout the activity or intermittently. 3-Partial/Moderate Assistance-helper does LESS THAN HALF the effort. [place] lifts, holds or supports trunk or limbs, but provides less than half the effort. 2-Substantial/Maximal Assistance-helper does MORE THAN HALF the effort. [place] lifts or holds trunk or limbs and provides more than half the effort. 5-Xddivqxjs-rqxpiv does ALL the effort. Patient does none of the effort to complete the activity. Or, the assistance of 2 or more helpers is required for the patient to complete the activity. If activity was not attempted, code reason: 7-Patient Refused. 9-Not Applicable-not attempted and the patient did not perform the activity before the current illness, exacerbation or injury. 10-Not Attempted due to Environmental Limitations-(lack of equipment, weather restraints, etc.). 88-Not Attempted due to Medical Conditions or Safety Concerns. Transfers (B, C, W/C) (FIM): 6 Roll Left to Right (QC): 6 Sit to Lying (QC): 6 Sit to Stand (QC): 6 Chair/Olr-mf-Tkusb Xfer(QC): 6 Bed to/from Chair: 6 Car Transfer (QC): 6 Gait Training Does the Patient Walk?: Yes Gait (FIM): 6 Distance (FIM): 5=978-43 ft Distance: 150 x2 Walk 10 feet (QC): 6 Walk 50 ft with 2 Turns(QC): 6 Walk 150 ft (QC): 6 Walking 10ft/uneven surface-QC: 6 Gait Persons Needed: 1 Gait Assistive Device: FWW Wheelchair Training Does the Pt Use a Wheelchair?: No Wheelchair Distance: 7=009-06 ft Distance: 100' Wheel 50 ft with 2 turns (QC): 5 Wheel 150 ft (QC): 88 Type of Wheelchair: Manual Stair Training Stair Training: Handrails/: 2 handrails #of Steps: 4 1 Step (curb) (QC): 4 (skilled inst for technique and sequencing) 4 Steps (QC): 4 (skilled inst for technique and sequencing) 12 Steps (QC): 9 Stairs: Pattern: Step to Level of Assist: 5 Balance Picking up an Object (QC): 6 (with applications scientist) ADL-Treatment Eating (QC): 6 Oral Hygiene (QC): 6 Bathing Location: L Arm, R Arm, L Upper Leg, R Upper Leg, L Lower Leg (including foot), R Lower Leg (including foot), Chest, Abdomen, Buttocks, Perineal Area Shower/Bathe Self (QC): 4 Upper Body Dressing (QC): 5 Lower Body Dressing (QC): 5 (Footwear (QC) 5) On/Off Footwear (QC): 4 Toileting Hygiene (QC): 6 Toilet Transfer (QC): 6 Assessment/Plan Assessment and Plan Assess & Plan/Chief Complaint Assessment: Left hip fracture Falls HTN Pulmonary fibrosis CT confirmed OP on Fosamax Nausea and vomiting likely related to pain medication now resolved Urinary frequency Constipation Pancreatic nodules Plan: Pain control BM regimen Pulmonary fibrosis management IRF DC planning Dr Walker for pancreatic nodules (1) Hip fracture, left Status: Acute Qualifiers: Encounter type: subsequent encounter Fracture type: closed Fracture healing: with routine healing Qualified Codes: S72.002D - Fracture of unspecified part of neck of left femur, subsequent encounter for closed fracture with routine healing (2) [place] Status: Acute Assessment & Plan: Review chest x-ray and consulting Dr. Christian (3) Constipation Status: Acute Assessment & Plan: Initiate bowel regimen (4) Anemia Status: Acute Assessment & Plan: Initiate iron infusions check level of iron Qualifiers: Anemia type: iron deficiency Iron deficiency anemia type: unspecified iron deficiency Qualified Codes: D50.9 - Iron deficiency anemia, unspecified (5) Iron deficiency (6) GERD without esophagitis (7) Hypertension (8) Hyperlipidemia (9) DVT prophylaxis (10) History of colon cancer Status: Chronic (11) Falls Status: Chronic (12) Uncontrolled diabetes mellitus Status: Acute (13) Pulmonary fibrosis CAROLIN GÓMEZ DO Sep 22, 2019 07:43 POS
[2019-09-22] MEDS: ASPIRIN 81 MG CHEW (CHILDREN'S ASA) PO SCH (08:22)
[2019-09-22] MEDS: DOCUSATE SODIUM 100 MG (COLACE) CAP PO SCH (08:22)
[2019-09-22] MEDS: SENNA W/DOCUSATE (SENOKOT S) TABLET PO SCH (08:22)
[2019-09-22] MEDS: LORATADINE (CLARITIN) 10 MG TAB PO SCH (08:22)
[2019-09-22] MEDS: POLYETHYLENE GLYCOL 17 GM (MIRALAX) PACK PO SCH (08:23)
[2019-09-22] MEDS: BILBERRY FRUIT EXTRACT PO SCH (08:26)
[2019-09-22] MEDS ORDERED: TRAM50TA2 PO (08:39)
[2019-09-22] MEDS ORDERED: IPRA3AMP31 INH (08:39)
--- NOTE | 2019-09-22 08:41 | D/C HH Face to Face Order ---
D/C Face to Face Orders Reconcile Patient Problems Problems Reviewed?: Yes Instructions for Patient [facility] [employer], Patient Instructions/FollowUp: Dr. Cruz in [address] Christian in [address] Walker in 2 weeks Physician to follow Patient: Dr. Cruz Discharge Diet for Home: ADA Diet Patient Problems: Left hip fracture Pulmonary fibrosis New oxygen dependency during exertion Diabetes mellitus Goals for Patient: Return to independent living Patient Data-Allergies,Ht & Wt Patient Allergies: Coded Allergies: codeine (Verified Allergy, Severe, Pt has received Lortab in the past, 09/15/19) PATIENT STATES THAT THE DENTIST GAVE HER CODEINE IN THE PAST AND SHE WAS UNRESPONSIVE FOR THREE DAYS AND "NEARLY ". Penicillins (Unverified Allergy, Unknown, N/V, RASH, 06/17/14) Uncoded Allergies: SILK TAPE (Allergy, Mild, 05/07/09) Height (Feet): 5 Height (Inches): 6.00 Weight (Pounds): 144 Weight (Ounces): 14.4 Home Health Need/Face to Face Date of Face to Face: Sep 22, 2019 Clinical Findings: Generalized weakness and fatigue, Immune-compromised, Instability, Muscle weakness, Pain with ambulation, Shortness of breath, Unsteady gait I have seen Pt chfo-gs-unup: Yes Discharged To: Home Diagnosis/Conditions: Left hip fracture Pulmonary fibrosis New oxygen dependency during exertion Diabetes mellitus Patient is Homebound due to: Chip fall risk due to instabilty, Muscle weakness, Pain w/ambulation, Shortness of breath/distress Homebound Status Due to the above stated illness, injury or surgical procedure (medical condition or diagnosis) and associated clinical findings, the patient is homebound because of his/her inability to leave home except with aid of a supportive device and/or person AND leaving the home requires a considerable and taxing effort or is medically contraindicated. Pt req the following assistanc: Walker Home Health Nursing Orders Home Health Services Order: Nursing Services (new oxygen home), Account Administrator-Evaluate & Treat, Physical Therapy-Evaluate & Treat Home Health Infusion Therapy Line Start Date: Sep 19, 2019 Certify Stmt I certify that this patient is under my care and that I, a nurse practitioner or a physician; a phys assistant working with me, had a face to face encounter that - meets the physician face to face encounter requirements with this patient as dated. CAROLIN GÓMEZ DO Sep 22, 2019 08:41 POS
--- NOTE | 2019-09-22 08:43 | Discharge Summary ---
Diagnosis/Chief Complaint Date of Admission Sep 14, 2019 at 15:45 Date of Discharge Discharge Date: Sep 22, 2019 Discharge Diagnosis Assessment: Left hip fracture Falls HTN Pulmonary fibrosis CT confirmed OP on Fosamax Nausea and vomiting likely related to pain medication now resolved Urinary frequency Constipation Pancreatic nodules Plan: Pain control BM regimen Pulmonary fibrosis management IRF DC planning Dr Walker for pancreatic nodules (1) Hip fracture, left Status: Acute Qualifiers: Encounter type: subsequent encounter Fracture type: closed Fracture heali ng: with routine healing Qualified Codes: S72.002D - Fracture of unspecified part of neck of left femur, subsequent encounter for closed fracture with routine healing (2) Rales Status: Acute Assessment & Plan: Review chest x-ray and consulting Dr. Christian (3) Constipation Status: Acute Assessment & Plan: Initiate bowel regimen (4) Anemia Status: Acute Assessment & Plan: Initiate iron infusions check level of iron Qualifiers: Anemia type: iron deficiency Iron deficiency anemia type: unspecified iron deficiency Qualified Codes: D50.9 - Iron deficiency anemia, unspecified (5) Iron deficiency (6) GERD without esophagitis (7) Hypertension (8) Hyperlipidemia (9) DVT prophylaxis (10) History of colon cancer Status: Chronic (11) Falls Status: Chronic (12) Uncontrolled diabetes mellitus Status: Acute (13) Pulmonary fibrosis Discharge Summary Discharge Physical Examination Allergies: Coded Allergies: codeine (Verified Allergy, Severe, Pt has received Lortab in the past, 09/15/19) PATIENT STATES THAT THE DENTIST GAVE HER CODEINE IN THE PAST AND SHE WAS UNRESPONSIVE FOR THREE DAYS AND "NEARLY ". Penicillins (Unverified Allergy, Unknown, N/V, RASH, 06/17/14) Uncoded Allergies: SILK TAPE (Allergy, Mild, 05/07/09) Vitals & I&Os Vital Signs Date Time Temp Pulse Resp B/P (MAP) Pulse Ox O2 Delivery O2 Flow Rate FiO2 09/22/19 15:00 36.7 82 20 108/68 97 Room Air 09/22/19 06:42 0.00 09/21/19 09:38 21 General Appearance: Alert, Oriented X3, Cooperative Respiratory: Other (crackles) Cardiovascular: Regular Rate Abdominal: Normal Bowel Sounds Neuro: Normal Gait, Normal Speech, Strength at 5/5 X4 Ext Psych/Mental Status: Mental Status NL, Mood NL Hospital Course Was the Problem List Reviewed?: Yes Hospital Course: Pt had an uneventful hospital course for 9 days. after she was admitted after left femur fracture repair and overall did extremely well during her stay while participating in therapy she was diagnosed formerly with Pulmonary Fibrosis. Dr. Christian was consulted. Pt required home O2 on exertion at [place] and Dr. Walker will follow up with the pancreatic nodules noted on CT scan in [facility]. She does have a hx of colon cancer. Ultram was given for pain at her requests and she already has bowel regimen at home to help prevent constipation. She was able to return back to near prior level of functioning with use of a walker. Labs (last 24 hrs) Laboratory Tests 09/14/19 15:45: Lab Scanned Report Referred Lab Report 09/14/19 16:08: Glucometer 123H 09/14/19 20:12: Glucometer 147H 09/15/19 04:25: White Blood Count 8.9, Red Blood Count 3.01L, Hemoglobin 9.0L, Hematocrit 27L, Mean Corpuscular Volume 91, Mean Corpuscular Hemoglobin 30, Mean Corpuscular Hemoglobin Concent 33, Red Cell Distribution Width 13.8, Platelet Count 531H, Mean Platelet Volume 9.4, Neutrophils (%) (Auto) 58, Lymphocytes (%) (Auto) 22, Monocytes (%) (Auto) 10, Eosinophils (%) (Auto) 9, Basophils (%) (Auto) 1, Neutrophils # (Auto) 5.2, Lymphocytes # (Auto) 2.0, Monocytes # (Auto) 0.9, Eos inophils # (Auto) 0.8H, Basophils # (Auto) 0.1, Sodium Level 137, Potassium Level 4.5, Chloride Level 102, Carbon Dioxide Level 25, Anion Gap 10, Blood Urea Nitrogen 15, Creatinine 0.85, Estimat Glomerular Filtration Rate > 60, BUN/Creatinine Ratio 18, Glucose Level 125H, Calcium Level 9.3, Corrected Calcium 9.9, Iron Level 16L, Total Bilirubin 0.4, Aspartate Amino Transf (AST/SGOT) 16, Alanine Aminotransferase (ALT/SGPT) < 6, Alkaline Phosphatase 94, Total Protein 6.1L, Albumin 3.2 09/15/19 05:37: Glucometer 148H 09/15/19 15:51: Glucometer 200H 09/15/19 20:27: Glucometer 259H 09/15/19 21:00: Glucometer 224H 09/16/19 05:54: Glucometer 145H 09/16/19 17:14: Glucometer 164H 09/16/19 22:13: Glucometer 221H 09/17/19 06:14: Glucometer 166H 09/17/19 08:41: White Blood Count 11.0, Red Blood Count 2.96L, Hemoglobin 8.7L, Hematocrit 27L, Mean Corpuscular Volume 91, Mean Corpuscular Hemoglobin 29, Mean Corpuscular Hemoglobin Concent 32, Red Cell Distribution Width 14.2, Platelet Count 601H, Mean Platelet Volume 8.6, Neutrophils (%) (Auto) 72, Lymphocytes (%) (Auto) 13, Monocytes (%) (Auto) 9, Eosinophils (%) (Auto) 5, Basophils (%) (Auto) 1, Neutrophils # (Auto) 7.9H, Lymphocytes # (Auto) 1.4, Monocytes # (Auto) 1.0, Eosinophils # (Auto) 0.6H, Basophils # (Auto) 0.1, Sodium Level 135, Potassium Level 4.5, Chloride Level 99, Carbon Dioxide Level 24, Anion Gap 12, Blood Urea Nitrogen 13, Creatinine 0.90, Estimat Glomerular Filtration Rate 60, BUN/Creatinine Ratio 14, Glucose Level 172H, Calcium Level 9.4, Corrected Calcium 9.8, Total Bilirubin 0.5, Aspartate Amino Transf (AST/SGOT) 20, Alanine Aminotransferase (ALT/SGPT) 8, Alkaline Phosphatase 95, Total Protein 6.4, Albumin 3.5, Smear Scan YES 09/17/19 10:56: Glucometer 164H 09/17/19 15:23: Glucometer 126H 09/17/19 16:38: Urine Color YELLOW, Urine Clarity CLEAR, Urine pH 6.5, Urine Specific [place] 1.010L, Urine Protein NEGATIVE, Urine Glucose (UA) NEGATIVE, Urine Ketones NEGATIVE, Urine Nitrite POSITIVE, Urine Bilirubin NEGATIVE, Urine Urobilinogen 0.2, Urine Leukocyte Esterase 1+H, Urine RBC (Auto) 2+H, Urine RBC 5-10H, Urine WBC 25-50H, Urine Squamous Epithelial Cells RARE, Urine Crystals NONE, Urine Bacteria LARGEH, Urine Casts NONE, Urine Mucus NEGATIVE, Urine Culture Indicated YES 09/17/19 20:23: Glucometer 184H 09/18/19 05:02: Glucometer 130H 09/18/19 11:30: Glucometer 136H 09/18/19 15:30: Glucometer 210H 09/18/19 21:06: Glucometer 213H 09/19/19 05:44: Glucometer 165H 09/19/19 10:59: Glucometer 196H 09/19/19 13:31: Urine Color YELLOW, Urine Clarity CLEAR, Urine pH 8.0, Urine Specific [place] 1.010L, Urine Protein NEGATIVE, Urine Glucose (UA) NEGATIVE, Urine Ketones NEGATIVE, Urine Nitrite NEGATIVE, Urine Bilirubin NEGATIVE, Urine Urobilinogen 0.2, Urine Leukocyte Esterase TRACE, Urine RBC (Auto) NEGATIVE, Urine RBC NONE, Urine WBC NONE, Urine Crystals NONE, Urine Bacteria TRACE, Urine Casts NONE, U rine Mucus NEGATIVE, Urine Culture Indicated NO 09/19/19 15:31: Glucometer 194H 09/19/19 20:54: Glucometer 199H 09/20/19 05:58: Glucometer 173H 09/20/19 07:50: White Blood Count 12.4H, Red Blood Count 3.12L, Hemoglobin 9.4L, Hematocrit 29L, Mean Corpuscular Volume 93, Mean Corpuscular Hemoglobin 30, Mean Corpuscular Hemoglobin Concent 32, Red Cell Distribution Width 15.3H, Platelet Count 845H, Mean Platelet Volume 8.8, Neutrophils (%) (Auto) 67, Lymphocytes (%) (Auto) 17, Monocytes (%) (Auto) 10, Eosinophils (%) (Auto) 6, Basophils (%) (Auto) 1, Neutrophils # (Auto) 8.3H, Lymphocytes # (Auto) 2.1, Monocytes # (Auto) 1.2H, Eosinophils # (Auto) 0.7H, Basophils # (Auto) 0.1, Sodium Level 133L, Potassium Level 4.4, Chloride Level 98, Carbon Dioxide Level 23, Anion Gap 12, Blood Urea Nitrogen 10, Creatinine 0.82, Estimat Glomerular Filtration Rate > 60, BUN/Creatinine Ratio 12, Glucose Level 192H, Calcium Level 9.5, Corrected Calcium 9.6, Total Bilirubin 0.5, Aspartate Amino Transf (AST/SGOT) 18, Alanine Aminotransferase (ALT/SGPT) 12, Alkaline Phosphatase 125, Total Protein 7.1, Albumin 3.9 11/18/19 10:58: Glucometer 196H 09/20/19 16:00: Glucometer 189H 09/20/19 20:15: Glucometer 208H 09/21/19 05:29: Glucometer 175H 09/21/19 10:36: Glucometer 222H 09/21/19 15:46: Glucometer 132H 09/21/19 20:47: Glucometer 168H 09/22/19 05:56: Glucometer 165H 09/22/19 12:05: Glucometer 126H Microbiology 09/17/19 Urine Culture - Final, Complete Staphylococcus epidermidis Pending Labs Microbiology Date/Time Source Procedure Growth Status 09/17/19 16:38 Urine Clean Catch Urine Culture - Final Staphylococcus epidermidis Complete Laboratory Tests 09/14/19 15:45: Lab Scanned Report Referred Lab Report 09/14/19 16:08: Glucometer 123 09/14/19 20:12: Glucometer 147 09/15/19 04:25: White Blood Count 8.9, Red Blood Count 3.01, Hemoglobin 9.0, Hematocrit 27, Mean Corpuscular Volume 91, Mean Corpuscular Hemoglobin 30, Mean Corpuscular Hemoglobin Concent 33, Red Cell Distribution Width 13.8, Platelet Count 531, Mean Platelet Volume 9.4, Neutrophils (%) (Auto) 58, Lymphocytes (%) (Auto) 22, Monocytes (%) (Auto) 10, Eosinophils (%) (Auto) 9, Basophils (%) (Auto) 1, Neutrophils # (Auto) 5.2, Lymphocytes # (Auto) 2.0, Monocytes # (Auto) 0.9, Eosinophils # (Auto) 0.8, Basophils # (Auto) 0.1, Sodium Level 137, Potassium Level 4.5, Chloride Level 102, Carbon Dioxide Level 25, Anion Gap 10, Blood Urea Nitrogen 15, Creatinine 0.85, Estimat Glomerular Filtration Rate > 60, BUN/Creatinine Ratio 18, Glucose Level 125, Calcium Level 9.3, Corrected Calcium 9.9, Iron Level 16, Total Bilirubin 0.4, Aspartate Amino Transf (AST/SGOT) 16, Alanine Aminotransferase (ALT/SGPT) < 6, Alkaline Phosphatase 94, Total Protein 6.1, Albumin 3.2 09/15/19 05:37: Glucometer 148 09/15/19 15:51: Glucometer 200 09/15/19 20:27: Glucometer 259 09/15/19 21:00: Glucometer 224 09/16/19 05:54: Glucometer 145 09/16/19 17:14: Glucometer 164 09/16/19 22:13: Glucometer 221 09/17/19 06:14: Glucometer 166 09/17/19 08:41: White Blood Count 11.0, Red Blood Count 2.96, Hemoglobin 8.7, Hematocrit 27, Mean Corpuscular Volume 91, Mean Corpuscular Hemoglobin 29, Mean Corpuscular Hemoglobin Concent 32, Red Cell Distribution Width 14.2, Platelet Count 601, Roro n Platelet Volume 8.6, Neutrophils (%) (Auto) 72, Lymphocytes (%) (Auto) 13, Monocytes (%) (Auto) 9, Eosinophils (%) (Auto) 5, Basophils (%) (Auto) 1, Neutrophils # (Auto) 7.9, Lymphocytes # (Auto) 1.4, Monocytes # (Auto) 1.0, Eosinophils # (Auto) 0.6, Basophils # (Auto) 0.1, Sodium Level 135, Potassium Level 4.5, Chloride Level 99, Carbon Dioxide Level 24, Anion Gap 12, Blood Urea Nitrogen 13, Creatinine 0.90, Estimat Glomerular Filtration Rate 60, BUN/Creatinine Ratio 14, Glucose Level 172, Calcium Level 9.4, Corrected Calcium 9.8, Total Bilirubin 0.5, Aspartate Amino Transf (AST/SGOT) 20, Alanine Aminotransferase (ALT/SGPT) 8, Alkaline Phosphatase 95, Total Protein 6.4, Albumin 3.5, Smear Scan YES 09/17/19 10:56: Glucometer 164 09/17/19 15:23: Glucometer 126 09/17/19 16:38: Urine Color YELLOW, Urine Clarity CLEAR, Urine pH 6.5, Urine Specific [place] 1.010, Urine Protein NEGATIVE, Urine Glucose (UA) NEGATIVE, Urine Ketones NEGATIVE, Urine Nitrite POSITIVE, Urine Bilirubin NEGATIVE, Urine Urobilinogen 0.2, Urine Leukocyte Esterase 1+, Urine RBC (Auto) 2+, Urine RBC 5-10, Urine WBC 25-50, Urine Squamous Epithelial Cells RARE, Urine Crystals NONE, Urine Bacteria LARGE, Urine Casts NONE, Urine Mucus NEGATIVE, Urine Culture Indicated YES 09/17/19 20:23: Glucometer 184 11/16/19 05:02: Glucometer 130 09/18/19 11:30: Glucometer 136 09/18/19 15:30: Glucometer 210 09/18/19 21:06: Glucometer 213 09/19/19 05:44: Glucometer 165 09/19/19 10:59: Glucometer 196 09/19/19 13:31: Urine Color YELLOW, Urine Clarity CLEAR, Urine pH 8.0, Urine Specific [place] 1.010, Urine Protein NEGATIVE, Urine Glucose (UA) NEGATIVE, Urine Ketones NEGATIVE, Urine Nitrite NEGATIVE, Urine Bilirubin NEGATIVE, Urine Urobilinogen 0.2, Urine Leukocyte Esterase TRACE, Urine RBC (Auto) NEGATIVE, Urine RBC NONE, Urine WBC NONE, Urine Crystals NONE, Urine Bacteria TRACE, Urine Casts NONE, Urine Mucus NEGATIVE, Urine Culture Indicated NO 09/19/19 15:31: Glucometer 194 09/19/19 20:54: Glucometer 199 09/20/19 05:58: Glucometer 173 09/20/19 07:50: White Blood Count 12.4, Red Blood Count 3.12, Hemoglobin 9.4, Hematocrit 29, Me an Corpuscular Volume 93, Mean Corpuscular Hemoglobin 30, Mean Corpuscular Hemoglobin Concent 32, Red Cell Distribution Width 15.3, Platelet Count 845, Mean Platelet Volume 8.8, Neutrophils (%) (Auto) 67, Lymphocytes (%) (Auto) 17, Monocytes (%) (Auto) 10, Eosinophils (%) (Auto) 6, Basophils (%) (Auto) 1, Neutrophils # (Auto) 8.3, Lymphocytes # (Auto) 2.1, Monocytes # (Auto) 1.2, E osinophils # (Auto) 0.7, Basophils # (Auto) 0.1, Sodium Level 133, Potassium Level 4.4, Chloride Level 98, Carbon Dioxide Level 23, Anion Gap 12, Blood Urea Nitrogen 10, Creatinine 0.82, Estimat Glomerular Filtration Rate > 60, BUN/Creatinine Ratio 12, Glucose Level 192, Calcium Level 9.5, Corrected Calcium 9.6, Total Bilirubin 0.5, Aspartate Amino Transf (AST/SGOT) 18, Alanine Ami notransferase (ALT/SGPT) 12, Alkaline Phosphatase 125, Total Protein 7.1, Albumin 3.9 09/20/19 10:58: Glucometer 196 09/20/19 16:00: Glucometer 189 09/20/19 20:15: Glucometer 208 09/21/19 05:29: Glucometer 175 09/21/19 10:36: Glucometer 222 09/21/19 15:46: Glucometer 132 09/21/19 20:47: Glucometer 168 09/22/19 05:56: Glucometer 165 09/22/19 12:05: Glucometer 126 Discharge Home Medications: Active Scripts Active Tramadol HCl 50 Mg Tablet 50 Mg PO TID PRN Iprat-Albut 0.5-3(2.5) mg/3 ml (Ipratropium/Albuterol Sulfate) 3 Ml Ampul.neb 3 Ml INH RTBID Reported Alendronate Sodium 70 Mg Tablet 70 Mg PO WE Glipizide 5 Mg Tablet 5 Mg PO BID Xyzal (Levocetirizine Dihydrochloride) 5 Mg Tablet 5 Mg PO DAILY Tums Ultra Strength (Calcium Carbonate) 1,177 Mg Tab.chew 1 Tab.chew PO Q4H PRN Vitamin B-12 (Cyanocobalamin (Vitamin B-12)) 2,500 Mcg Tab.subl 2,500 Mcg SL HS Magnesium (Magnesium Oxide) 400 Mg Tablet 400 Mg PO BID Metformin HCl 500 Mg Tablet 500 Mg PO BID Calcium 600 + Vit D 400 Tablet (Calcium Carbonate/Vitamin D3) 1 Each Tablet 1 Tab PO Q48H Fish Oil 1,000 mg Capsule ([place] 3 Polyunsat Fatty Acids) 1,000 Mg Cap 1,000 Mg PO BID Aspirin 81 Mg Tab.chew 81 Mg PO DAILY Eye Health Adult 50+ Softgel (Antiox #11/Om3/Dha/Epa/Lut/Julianna) 1 Each Capsule 1 Cap PO DAILY Bilberry Extract (Bilberry Fruit Extract) 30 Mg Capsule 30 Mg PO BID Daily Value (Multivitamin) 1 Each Tablet 1 Tab PO DAILY Lovastatin 20 Mg Tablet 20 Mg PO HS Pantoprazole Sodium 40 Mg Tablet.dr 40 Mg PO 0600,1800 Losartan Potassium 50 Mg Tablet 50 Mg PO HS Instructions to patient/family Please see electronic discharge instructions given to patient. Diagnosis/Problems Diagnosis/Problems (1) Hip fracture, left Status: Acute Qualifiers: Qualified Codes: S72.002D - Fracture of unspecified part of neck of left femur, subsequent encounter for closed fracture with routine healing (2) Rales Status: Acute Assessment & Plan: Review chest x-ray and consulting Dr. Christian (3) Constipation Status: Acute Assessment & Plan: Initiate bowel regimen (4) Anemia Status: Acute Assessment & Plan: Initiate iron infusions check level of iron Qualifiers: Qualified Codes: D50.9 - Iron deficiency anemia, unspecified (5) Iron deficiency (6) GERD without esophagitis (7) Hypertension (8) Hyperlipidemia (9) DVT prophylaxis (10) History of colon cancer Status: Chronic (11) Falls Status: Chronic (12) Uncontrolled diabetes mellitus Status: Acute (13) Pulmonary fibrosis Clinical Quality Measures DVT/VTE Risk/Contraindication: Risk Factor Score Per Nursin RFS Level Per Nursing on Admit: 4+=Very High CAROLIN GÓMEZ DO Sep 22, 2019 08:43 POS
--- NOTE | 2019-09-22 09:58 | NUR ---
Visited with patient this a.m. to finalize discharge. She is dressed and in chair at bedside. HHC: Referral completed with [facility] for RN, PT, OT. Alerted agency that patient keeps her son's dachshund day hours that is not kennel trained, not room seclusion trained, and unsure of behavior around strangers. After brainstorming, patient's grandson will be with her, advised he keep the dog on a leash during [facility] visits to assess/control dog during visits. Highly recommended kennel overall. DME: Patient qualified for new home O2 with exercise. Discussed agencies in her service area, patient indicated her preference to be [facility]. Referral completed, POC will be delivered to hospital room this a.m., agency will partner with patient/family about home delivery and set up. Confirmed with HME that family picked up patient's tub transfer bench yesterday. Family pickup is planned today after they leave work, likely late afternoon. Unit RN aware.
[2019-09-22 11:59] VITALS: BP 121/71
--- NOTE | 2019-09-22 14:54 | Therapy Group Daily Note ---
Therapy Daily Group Note Patient Education Topic Home Safety Exercises LE Seated Exercise, UE Exercise Session Ratio (pt:therapist): 6:2 Goal of Session: Home Safety Strategies, UE/LE Strengthing Goal Met for this Session: Yes Pt Benefit of Group: Contributions to Others, F/U Use of Strategies @Home, Increased Functional Safety, Increased Functional Strength, Improved Cognition, Recognition of Peers, Socialization Other/Notes Pt ambulated to [facility] for OT/PT group. Group consisted of introductions (name, place living, favorite restaurant), socialization, UE/LE seated exercises and home safety. Pt introduced self appropriately and actively listened to peers. Pt was able to remember an exercise and lead group then participated when peers lead an exercise. Pt acknowledged understanding of educational topics by verbalizing own personal story and strategies. After therapy, pt sitting in recliner with call light/phone in reach. All needs met. Start Time: 13:00 Stop Time: 14:10 Total Billed Treatment Time: 70 Total Billed Treatment 1-GRP BRI KAPOOR Sep 22, 2019 14:54 POS
[2019-09-22 15:00] VITALS: BP 108/68
--- NOTE | 2019-09-22 15:14 | Therapy Team Discharge Summary ---
Therapy Discharge Summary Discharge Recommendations Date of Discharge Occupational Therapy Pt admitted to ARU following left femur fracture, s/p surgical intervention. On admission pt required CGA for transfers and LE dressing, min assist with bathing, and set up for oral hygiene. Skilled OT intervention focused on ADL training, transfers, strengthening, and safety. Pt made good progress with therapy and by discharge is completing eating, oral hygiene, toileting and toilet transfer with modified independence, and set up for dressing. Pt did not meet goals for dressing or bathing, but met other LTG. Pt discharged home. D/C ARU OT. Decreased Activ Tolerance, Impaired Self-Care Skills, Restricted Funct UE ROM PT Pe Teacher Goals Pe Teacher Goals PT Pe Teacher Goals Time Frame: Oct 06, 2019 Roll Left to Right (QC): 6 Sit to Lying (QC): 6 Lying-Sitting on Side/Bed(QC): 6 Sit to Stand (QC): 6 Chair/Wva-ip-Xrkxh Xfer(QC): 6 Car Transfer (QC): 4 (SBA) Does the Patient Walk: Yes Distance: 400' Walk 10 feet (QC): 6 Walk 10ft-Uneven Surface(QC): 6 Walk 50ft with 2 Turns (QC): 6 Walk 150 ft (QC): 6 Gait Assistive Device: FWW Does the Pt use WC or Scooter?: No # of Steps: 4 1 Step (curb) (QC): 6 4 Steps (QC): 4 (SBA) 12 Steps (QC): 10 Picking up an Object (QC): 10 OT Longterm Goals Pe Teacher Goals Time Frame: Sep 29, 2019 Eating (QC): 6 (met) Oral Hygiene (QC): 6 Shower/Bathe Self (QC): 6 Upper Body Dressing (QC): 6 Lower Body Dressing (QC): 6 On/Off Footwear (QC): 6 Toileting Hygiene (QC): 6 Toilet/Commode Transfer (QC): 6 Additional Goals: 1-Demonstrate ADL Tasks, 2-Verbalize Understanding, 3- ImproveStrength/Lux 1=Demonstrate adherence to instructed precautions during ADL tasks. 2=Patient will verbalize/demonstrate understanding of assistive devices/modifications for ADL. 3=Patient will improve strength/tolerance for activity to enable patient to perform ADL's. SANDOR RUFFIN OT Sep 22, 2019 15:14 POS
[2019-09-22] MEDS ORDERED: ALENDRONATE SODIUM 70 MG (FOSAMAX) TAB PO SCH (15:37)
--- NOTE | 2019-09-23 10:30 | Therapy Team Discharge Summary ---
Therapy Discharge Summary Discharge Recommendations Date of Discharge Sep 22, 2019 at 15:00 Physical Therapy Patient came to rehab with a left femur fracture. Upon evaluation patient performed bed mobility with SBA, transfers with CGA, and car transfer with min assist, ambulated 120' with a rolling walker with CGA (including 50' with at least 2 turns of 90 degrees and 10' over an uneven surface), propelled a manual wheelchair 50' with independence, can go up and down 4 steps using 2 handrails with min assist, and can pharmacy picking technician an object from the floor with CGA. Patient has been performing bed mobility and transfer training, balance and endurance training, functional strengthening, stair training, gait training, and education. Patient has made good progress and has met all of her intermediate goals. Now, patient performs bed mobility and transfers with independence, car transfer with independence, ambulates 300' with a rolling walker with indepen dence (including 50' with at least 2 turns of 90 degrees and 10' over an uneven surface), can pharmacy picking technician and object from the floor with independence (using a apartment leasing agent), and can go up and down 4 steps using 2 handrails with SBA. Patient has been discharged from this facility and will be discharged from PT at this time. Occupational Therapy Decreased Activ Tolerance, Impaired Self-Care Skills, Restricted Funct UE ROM PT Correction Goals Correction Goals PT Power Transformer Repairer Goals Time Frame: Oct 06, 2019 Roll Left to Right (QC): 6 Sit to Lying (QC): 6 Lying-Sitting on Side/Bed(QC): 6 Sit to Stand (QC): 6 Chair/Eyi-fs-Psfxr Xfer(QC): 6 Car Transfer (QC): 4 (SBA) Does the Patient Walk: Yes Distance: 400' Walk 10 feet (QC): 6 Walk 10ft-Uneven Surface(QC): 6 Walk 50ft with 2 Turns (QC): 6 Walk 150 ft (QC): 6 Gait Assistive Device: FWW Does the Pt use WC or Scooter?: No # of Steps: 4 1 Step (curb) (QC): 6 4 Steps (QC): 4 (SBA) 12 Steps (QC): 10 Picking up an Object (QC): 10 OT Correction Goals Power Transformer Repairer Goals Time Frame: Sep 29, 2019 Eating (QC): 6 (met) Oral Hygiene (QC): 6 Shower/Bathe Self (QC): 6 Upper Body Dressing (QC): 6 Lower Body Dressing (QC): 6 On/Off Footwear (QC): 6 Toileting Hygiene (QC): 6 Toilet/Commode Transfer (QC): 6 Additional Goals: 1-Demonstrate ADL Tasks, 2-Verbalize Understanding, 3-ImproveStrength/Lux 1=Demonstrate adherence to instructed precautions during ADL tasks. 2=Patient will verbalize/demonstrate understanding of assistive devices/modifications for ADL. 3=Patient will improve strength/tolerance for activity to enable patient to perform ADL's. FRANCK PASTRANA PT Sep 23, 2019 10:30 POS
== END 2019-09-22 15:00 | disposition home health service (06) | DRG 560 ==
PROVIDERS: ADMIT Internal Medicine; ATTEND Internal Medicine
DX: M97.02XD Periprosthetic fracture around internal prosthetic left hip joint, subsequent encounter (principal); J84.10 Pulmonary fibrosis, unspecified; E11.319 Type 2 diabetes mellitus with unspecified diabetic retinopathy without macular edema; E11.40 Type 2 diabetes mellitus with diabetic neuropathy, unspecified; E11.65 Type 2 diabetes mellitus with hyperglycemia; N81.10 Cystocele, unspecified; R32 Unspecified urinary incontinence; J98.11 Atelectasis; K86.2 Cyst of pancreas; K21.9 Gastro-esophageal reflux disease without esophagitis; K59.00 Constipation, unspecified; D50.9 Iron deficiency anemia, unspecified; M81.0 Age-related osteoporosis without current pathological fracture; E78.5 Hyperlipidemia, unspecified; R33.9 Retention of urine, unspecified; R09.89 Other specified symptoms and signs involving the circulatory and respiratory systems; Z87.891 Personal history of nicotine dependence; Z85.038 Personal history of other malignant neoplasm of large intestine; W19.XXXD Unspecified fall, subsequent encounter
CPT/HCPCS: 36415; 71046; 71260; 74177; 80053; 81000; 82962; 83540; 85025; 87077; 87088; 87186; 94640; 94760; 94761

== ENCOUNTER 2019-10-08 12:32 | Outpatient (RCR) | payer MEDICARE ==
[~2019-10-08 12:32] MED LIST changes: +ACET-2267 PO; -ACETAMINOPHEN 500 MG TAB (TYLENOL) PO PRN; +ALEN70TA5 PO; -ALPRAZolam 0.25 MG (XANAX) TAB PO PRN; +ASPI-999 PO; -BISACODYL 10 MG SUPP (DULCOLAX) PR PRN; +CALC117719 PO; +CALC1TAB94 PO; -CALCIUM CARBONATE 500 MG (TUMS) TAB.CHEW PO PRN; +CYAN25003 SL; -DOCUSATE SODIUM 100 MG (COLACE) CAP PO PRN; -FLEET ENEMA ADULT 1 EA BTL PR PRN; +GLIP5TAB13 PO; -HYDROcodone/APAP 5 MG/325 MG (LORTAB) TAB PO PRN; -LACTULOSE SYRUP 10GM/15ML (ENULOSE) 30ML UDC PO PRN; +LEVO5TAB28 PO; -LOPERAMIDE 2 MG (IMODIUM) TABLET PO PRN; -MELATONIN 3 MG TABLET PO PRN; +OMG1KC PO; -ONDANSETRON 4 MG (ZOFRAN) ORAL DISSOLVE TAB PO PRN; -TRAM50TA2 PO; -diphenhydrAMINE 25 MG TAB (BENADRYL) PO PRN; -guaiFENesin/CODEINE (ROBITUSSIN AC) 10ML UDC PO PRN
== END 2020-01-06 | disposition home or self-care (01) ==
LOC: ONC 12:32
PROVIDERS: ATTEND Internal Medicine Hematology & Oncology
DX: C18.2 Malignant neoplasm of ascending colon (principal); D13.6 Benign neoplasm of pancreas; E11.9 Type 2 diabetes mellitus without complications; D50.9 Iron deficiency anemia, unspecified; K86.2 Cyst of pancreas; I10 Essential (primary) hypertension; E78.5 Hyperlipidemia, unspecified; M19.90 Unspecified osteoarthritis, unspecified site; K26.9 Duodenal ulcer, unspecified as acute or chronic, without hemorrhage or perforation; I47.1 Supraventricular tachycardia; J84.10 Pulmonary fibrosis, unspecified; Z90.49 Acquired absence of other specified parts of digestive tract; Z87.820 Personal history of traumatic brain injury
CPT/HCPCS: 99213

== ENCOUNTER → 2019-11-08 | Outpatient (CLI) | payer MEDICARE ==
[~2019-11-08] MED LIST changes: +RT-ALBUTEROL SULF 2.5 MG/3 ML PRE-MIX VIAL INH ONE
== END ==
LOC: RT 11:44
PROVIDERS: ATTEND Nurse Practitioner Family
DX: J84.10 Pulmonary fibrosis, unspecified (principal); J98.4 Other disorders of lung
CPT/HCPCS: 94060; 94726; 94729

== ENCOUNTER → 2019-11-15 | Outpatient (CLI) | payer MEDICARE ==
[~2019-11-15] MED LIST changes: -RT-ALBUTEROL SULF 2.5 MG/3 ML PRE-MIX VIAL INH ONE
--- NOTE | 2019-11-15 09:51 | Diagnostic Imaging Report ---
INDICATION: Routine screening. Comparison is made prior mammogram from 09/07/2018 and 09/03/2017. 2-D and 3-D bilateral screening mammography was performed with a Computer Aided Detection (CAD) system. 3-D tomosynthesis was also performed and reviewed. FINDINGS: Both breasts remain heterogeneously dense, limiting the sensitivity of mammography. There are benign calcifications. The parenchymal pattern is stable. No dominant mass or malignant appearing microcalcifications are seen. The axillae are unremarkable. IMPRESSION: No mammographic features suspicious for malignancy are identified. ACR BI-RADS Category 2: Benign findings. Result letter will be mailed to the patient. Note: At least 10% of breast cancer is not imaged by mammography. Dictated by: Dictated on workstation # [id number]
== END ==
LOC: RAD 09:03
PROVIDERS: ATTEND Internal Medicine Hematology & Oncology
DX: Z12.31 Encounter for screening mammogram for malignant neoplasm of breast (principal)
CPT/HCPCS: 77067

== ENCOUNTER → 2021-01-23 | Outpatient (CLI) | payer MEDICARE ==
[~2021-01-23] MED LIST changes: -ALEN70TA5 PO; +ALEN70TA80 PO; +ASPI-1238 PO; -ASPI-983 PO; +CALC-1026 PO; -CALC-6 PO; +CALC1TAB84 PO; -CALC1TAB94 PO; +GLBR5T PO; -GLYB5TAB6 PO; -PANT40TA3 PO; +PANT40TA52 PO; -WARF1TAB PO; +WRF1T PO
--- NOTE | 2021-01-23 11:26 | Diagnostic Imaging Report ---
INDICATION: Routine screening. Comparison is made with prior mammogram 11/15/2019 and 09/07/2018. 2-D and 3-D bilateral screening mammography was performed with CAD. Both breasts are heterogeneously dense, limiting the sensitivity of mammography. There is a density in the outer aspect of the left breast posterior depth best seen on the CC view. Additional views are recommended. A definite correlate on the MLO view is not seen. There are benign calcifications bilaterally. No malignant appearing microcalcifications are seen. Axillae are unremarkable. IMPRESSION: BI-RADS Category 0 Left breast density. Additional views are recommended for further evaluation. ACR BI-RADS Category 0: Incomplete. (Needs additional imaging evaluation). Result letter will be mailed to the patient. Note: At least 10% of breast cancer is not imaged by mammography. Dictated by: Dictated on workstation # [id number]
== END ==
LOC: RAD 10:23
PROVIDERS: ATTEND Internal Medicine
DX: Z12.31 Encounter for screening mammogram for malignant neoplasm of breast (principal)
CPT/HCPCS: 77063; 77067

== ENCOUNTER → 2021-01-23 | Outpatient (CLI) | payer MEDICARE ==
--- NOTE | 2021-01-23 11:01 | Diagnostic Imaging Report ---
INDICATION: Pneumonia. Follow-up. COMPARISON: 09/15/2019. FINDINGS: Frontal and lateral radiographic views of the chest were obtained and continued to show diffuse coarse interstitial opacities bilaterally, right greater than left. Overall, aeration is improved when compared to prior remote exam dated 09/15/2019. There is no large effusion or pneumothorax. Cardiac silhouette and pulmonary vasculature are within normal limits. Osseous structures show no gross acute abnormalities. IMPRESSION: 1. Probable background chronic interstitial lung disease. Definite acute cardiopulmonary process is not identified Dictated by: Dictated on workstation # [id number]
== END ==
LOC: RAD 10:30
PROVIDERS: ATTEND Nurse Practitioner Family
DX: J18.9 Pneumonia, unspecified organism (principal)
CPT/HCPCS: 71046; 77063; 77067

== ENCOUNTER → 2021-02-01 | Outpatient (CLI) | payer MEDICARE ==
--- NOTE | 2021-02-01 14:39 | Diagnostic Imaging Report ---
INDICATION: Left breast density. Patient presents for additional views. COMPARISON: Correlation is made with the prior mammogram from 01/23/2021. TECHNIQUE: Unilateral left 2D and 3D diagnostic mammography was performed. This included exaggerated CC, spot compression CC, rolled CC, and conventional 90 degree lateral views. The current study was evaluated with a Computer Aided Detection (CAD) system. FINDINGS: The additional views fail to demonstrate a discrete mass. The area of density in the lateral posterior left breast shows normal dispersion, consistent with fibroglandular elements. No mass or malignant appearing microcalcifications are seen. IMPRESSION: The additional views fail to demonstrate a discrete mass. The patient may return to routine annual screening mammography. ACR BI-RADS Category 1: Negative. Result letter will be mailed to the patient. Note: At least 10% of breast cancer is not imaged by mammography. Dictated by: Dictated on workstation # [id number]
== END ==
LOC: RAD 12:45
PROVIDERS: ATTEND Internal Medicine
DX: R92.2 Inconclusive mammogram (principal)
CPT/HCPCS: 77065; G0279

== ENCOUNTER → 2021-02-13 | Outpatient (CLI) | payer MEDICARE ==
[~2021-02-13] MED LIST changes: +CATHETER FLUSH 10 ML SYR IV PRN; +HOLD METFORMIN - RECEIVED CONTRAST 20 ML VIAL IV SCH; +IOHEXOL 350 MG/ML 100 ML (OMNIPAQUE 350) VIAL IV ONE; +NS 100 ML (IVPB) BAG IV ONE
[2021-02-13 09:21] LABS: CREATININE SERUM 0.96 MG/DL (0.60-1.30)
--- NOTE | 2021-02-13 12:19 | Diagnostic Imaging Report ---
PROCEDURE: CT chest with contrast only. TECHNIQUE: Multiple contiguous axial images were obtained through the chest after administration of intravenous contrast. Auto Exposure Controls were utilized during the CT exam to meet ALARA standards for radiation dose reduction. DATE: February 13, 2021. COMPARISON: Chest radiographs January 23, 2021. INDICATION: 80-year-old female, pneumonia, shortness of breath. History of colon cancer. FINDINGS: There is a calcified right lower lobe pulmonary nodule on axial image 95 measuring 11 mm in size. There are calcified subcarinal and right hilar lymph nodes. There is no identified noncalcified pulmonary nodule. There is no lung mass. There is right upper lobe, right middle lobe, and right lower lobe bronchiectasis. There is mild left upper lobe bronchiectasis. There are bilateral predominantly linear opacities in the lungs. There is traction bronchiectasis. There is no characteristic peripheral honeycombing. There is no groundglass lung attenuation. There is no additional focal airspace consolidation. There is no pneumothorax. There is no pleural effusion. The trachea is normal in caliber. There is no identified pulmonary embolus. There are coronary artery calcifications. There are additional areas of atherosclerotic disease. There is no pericardial effusion. There is no identified abnormally enlarged noncalcified mediastinal, hilar, or axillary lymph node meeting CT size criteria for adenopathy. There is wall thickening of the proximal stomach. There are splenic calcifications most consistent with the sequela of prior granulomatous disease. The spleen is not enlarged. There are cystic pancreatic lesions with one example level of the body of the pancreas on axial image 119 measuring 1.2 cm in size and on the same image more medially located measuring 1.3 cm in size which is potentially contiguous the main pancreatic duct. There are additional cystic pancreatic lesions at the level of the body of the pancreas on axial image 123 measuring each up to approximately 9 mm in size. There is no acute bony abnormality. IMPRESSION: CT CHEST. 1. Findings consistent with history of pulmonary fibrosis not meeting strict diagnostic criteria for definite diagnosis of UIP. Both UIP and fibrotic NSOP are in the differential diagnosis. Overall appearance is essentially unchanged since September 17, 2019. 2. Sequela of prior granulomatous disease. 3. No identified acute cardiopulmonary abnormality. 4. 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 Dictated by: Dictated on workstation # [id number]
== END ==
LOC: RAD 08:53
PROVIDERS: ATTEND Nurse Practitioner Family
DX: J18.9 Pneumonia, unspecified organism (principal); Z85.038 Personal history of other malignant neoplasm of large intestine
CPT/HCPCS: 36415; 71260; 82565; 84520

== ENCOUNTER 2021-04-03 05:28 | Outpatient (RCR) | payer MEDICARE ==
[~2021-04-03 05:28] MED LIST changes: -CATHETER FLUSH 10 ML SYR IV PRN; -HOLD METFORMIN - RECEIVED CONTRAST 20 ML VIAL IV SCH; -IOHEXOL 350 MG/ML 100 ML (OMNIPAQUE 350) VIAL IV ONE; -NS 100 ML (IVPB) BAG IV ONE
[2021-04-03 10:27] LABS: BASOPHILS # (AUTO) 0.1 10^3/uL (0.0-0.1); BASOPHILS % (AUTO) 1 % (0-10); EOSINOPHILS # (AUTO) 0.6 10^3/uL (0.0-0.3); EOSINOPHILS % (AUTO) 7 % (0-10); HEMATOCRIT 37 % (35-52); HEMOGLOBIN 12.3 g/dL (11.5-16.0); LYMPHOCYTES # (AUTO) 2.5 10^3/uL (1.0-4.0); LYMPHOCYTES % (AUTO) 28 % (12-44); MEAN CORPUSCULAR HEMOGLOBIN 32 pg (25-34); MEAN CORPUSCULAR HGB CONC 33 g/dL (32-36); MEAN CORPUSCULAR VOLUME 96 fL (80-99); MEAN PLATELET VOLUME 9.6 fL (9.0-12.2); MONOCYTES # (AUTO) 0.8 10^3/uL (0.0-1.0); MONOCYTES % (AUTO) 10 % (0-12); NEUTROPHILS # (AUTO) 4.7 10^3/uL (1.8-7.8); NEUTROPHILS % (AUTO) 54 % (42-75); PLATELET COUNT 332 10^3/uL (130-400); WHITE BLOOD COUNT 8.7 10^3/uL (4.3-11.0)
[2021-04-03 10:40] LABS: ALBUMIN 4.3 GM/DL (3.2-4.5); BILIRUBIN,TOTAL 0.5 MG/DL (0.1-1.0); CALCIUM 10.6 MG/DL (8.5-10.1); CREATININE SERUM 0.99 MG/DL (0.60-1.30); POTASSIUM 4.5 MMOL/L (3.6-5.0); TOTAL PROTEIN 7.7 GM/DL (6.4-8.2)
== END 2021-05-18 11:18 | disposition home or self-care (01) ==
LOC: ONC 05:28
PROVIDERS: ATTEND Internal Medicine Hematology & Oncology
DX: C18.9 Malignant neoplasm of colon, unspecified (principal); D01.7 Carcinoma in situ of other specified digestive organs; D50.9 Iron deficiency anemia, unspecified; I27.0 Primary pulmonary hypertension; E78.5 Hyperlipidemia, unspecified; E11.9 Type 2 diabetes mellitus without complications; I25.10 Atherosclerotic heart disease of native coronary artery without angina pectoris; I65.23 Occlusion and stenosis of bilateral carotid arteries
CPT/HCPCS: 80053; 82378; 82728; 85025; G0463; 99213

== ENCOUNTER → 2021-05-15 | Outpatient (CLI) | payer MEDICARE ==
--- NOTE | 2021-05-15 08:57 | Diagnostic Imaging Report ---
INDICATION: Postmenopausal state. COMPARISON: 01/05/2019 FINDINGS: AP Spine L1-L4: [BMD (g/cm2): 0.868] [T-Score: -2.8] [Z-Score: -0.5] [BMD Previous: 0.898] [BMD % Change: -3.3] LT Hip Neck: [BMD (g/cm2): na] [T-Score: na] [Z-Score: na] LT Hip Total: [BMD (g/cm2):na] [T-Score:na] [Z-Score: na] [BMD Previous: na] [BMD % Change: na] RT Hip Neck: [BMD (g/cm2):0.653] [T-Score:-2.8] [Z-Score:-0.2] RT Hip Total: [BMD (g/cm2):0.644] [T-score:-2.9] [Z-Score:-0.4] [BMD Previous:0.667] [BMD % Change:-3.4] *Indicates significant change from prior examination based on 95% confidence level. World Health Organization criteria for BMD interpretation classify patients as Normal (T-score at or above -1.0), Osteopenic (T-score between -1.0 and -2.5) or Osteoporotic (T-score at or below -2.5). LIMITATIONS AND MODIFICATION: None. FRACTURE RISK (FRAX SCORE): The ten year probability of (%): Major Osteoporotic Fracture: [24.8] Hip Fracture: [9.7] IMPRESSION: 1. Osteoporosis. 2. No significant change in bone mineral density since prior examination. 3. See below National Osteoporosis Foundation guidelines on when to potentially initiate pharmacologic therapy. Based on the National Osteoporosis Foundation Guidelines, pharmacologic treatment should be initiated in any of the following, unless clinical conditions suggest otherwise: * Any patient with prior fragility fracture of the hip or vertebrae. A spine fracture indicates 5X risk for subsequent spine fracture and 2X risk for subsequent hip fracture. * Osteoporosis (T-score <-2.5). * Postmenopausal women and men age 50 and older with low bone mass/osteopenia (T-score between -1.0 and -2.5) by DXA and 10-year major osteoporotic fracture greater than 20% or a 10-year probability of hip fracture greater than 3%. These fracture risks are supplied above in the FRAX score, if applicable. * Clinician judgement and/or patient preferences may indicate treatment for people with 10-year fracture probabilities above or below these levels. Dictated by: Dictated on workstation # [id number]
== END ==
LOC: RAD 08:30
PROVIDERS: ATTEND Internal Medicine
DX: M81.0 Age-related osteoporosis without current pathological fracture (principal); Z78.0 Asymptomatic menopausal state
CPT/HCPCS: 77080

== ENCOUNTER 2021-08-25 14:42 | Emergency (ER) | payer MEDICARE ==
[~2021-08-25] VITALS: Ht 167 cm; Wt 52.0 kg
[2021-08-25] MEDS ORDERED: ASPIRIN 81 MG CHEW (CHILDREN'S ASA) PO ONE (15:00)
[2021-08-25 15:01] LABS: BASOPHILS # (AUTO) 0.1 10^3/uL (0.0-0.1); BASOPHILS % (AUTO) 1 % (0-10); EOSINOPHILS # (AUTO) 0.2 10^3/uL (0.0-0.3); EOSINOPHILS % (AUTO) 2 % (0-10); HEMATOCRIT 36 % (35-52); HEMOGLOBIN 12.1 g/dL (11.5-16.0); LYMPHOCYTES # (AUTO) 2.3 10^3/uL (1.0-4.0); LYMPHOCYTES % (AUTO) 21 % (12-44); MEAN CORPUSCULAR HEMOGLOBIN 31 pg (25-34); MEAN CORPUSCULAR HGB CONC 33 g/dL (32-36); MEAN CORPUSCULAR VOLUME 93 fL (80-99); MEAN PLATELET VOLUME 9.4 fL (9.0-12.2); MONOCYTES # (AUTO) 1.1 10^3/uL (0.0-1.0); MONOCYTES % (AUTO) 9 % (0-12); NEUTROPHILS # (AUTO) 7.4 10^3/uL (1.8-7.8); NEUTROPHILS % (AUTO) 66 % (42-75); PLATELET COUNT 317 10^3/uL (130-400); WHITE BLOOD COUNT 11.1 10^3/uL (4.3-11.0)
[2021-08-25 15:06] LABS: ALBUMIN 4.5 GM/DL (3.2-4.5); POTASSIUM 3.9 MMOL/L (3.6-5.0)
[2021-08-25 15:07] LABS: CALCIUM 11.2 MG/DL (8.5-10.1)
[2021-08-25 15:09] LABS: TOTAL PROTEIN 7.9 GM/DL (6.4-8.2)
[2021-08-25 15:10] LABS: BILIRUBIN,TOTAL 0.6 MG/DL (0.1-1.0)
[2021-08-25 15:12] LABS: CREATININE SERUM 0.94 MG/DL (0.60-1.30)
--- NOTE | 2021-08-25 15:14 | ED Respiratory ---
General Chief Complaint: Respiratory Problems Stated Complaint: SOA Nursing Triage Note: PT CO OF SOA INTERMITTENTLY SINCE FRIDAY, PT STATES OXYGEN DECREASED TO 89% UPON AMBULATING TO BR. PT WEARS O2@3L PER N/C. Source: patient, family Exam Limitations: no limitations (CHIP BILLS APRN) History of Present Illness Date Seen by Provider: Aug 25, 2021 Time Seen by Provider: 15:12 Initial Comments To ER with a 2 to 3-day history of worsening dyspnea. She is unable to complete her activities of daily living as usual secondary to the exertional dyspnea. She has a chronic cough. She is oxygen dependent at 3 L per nasal cannula secondary to pulmonary fibrosis. No fevers or chills. She has had her influenza vaccine as well as her to Covid vaccinations and her third Pfizer Covid booster. She denies any nausea diarrhea or other symptoms. She has had some trouble getting to sleep at night but once asleep she does sleep fine. No swelling in either of her legs. Timing/Duration: constant Severity: moderate Associated Symptoms: shortness of breath (CHIP BILLS APRN) Allergies and Home Medications Allergies Coded Allergies: codeine (Verified Allergy, Severe, Pt has received Lortab in the past, 09/15/19) PATIENT STATES THAT THE DENTIST GAVE HER CODEINE IN THE PAST AND SHE WAS UNRESPONSIVE FOR THREE DAYS AND "NEARLY ". Penicillins (Unverified Allergy, Unknown, N/V, RASH, 06/17/14) Uncoded Allergies: SILK TAPE (Allergy, Mild, 05/07/09) ASPRIN (Allergy, Unknown, 08/25/21) Patient Home Medication List Home Medication List Reviewed: Yes (CHIP BILLS APRN) Alendronate Sodium (Alendronate Sodium) 70 Mg Tablet, 70 MG PO We, (Reported) Entered as Reported by: CHERYL GEORGE on 09/14/19 1419 Antiox #11/Om3/Dha/Epa/Lut/Julianna (Eye Health Adult 50+ Softgel) 1 Each Capsule, 1 CAP PO DAILY, (Reported) Entered as Reported by: CHERYL GEORGE on 08/19/18 0957 Aspirin (Aspirin) 81 Mg Tab.chew, 81 MG PO DAILY, (Reported) Entered as Reported by: CHERYL GEORGE on 09/14/19 1419 Bilberry Fruit Extract (Bilberry Extract) 30 Mg Capsule, 30 MG PO BID, (Reported) Entered as Reported by: CHERYL GEORGE on 08/19/18 0957 Calcium Carbonate (Tums Ultra Strength) 1,177 Mg Tab.chew, 1 TAB.CHEW PO Q4H PRN for INDIGESTION, (Reported) Entered as Reported by: CHERYL GEORGE on 09/14/19 141 Calcium Carbonate/Vitamin D3 (Calcium 600 + Vit D 400 Tablet) 1 Each Tablet, 1 TAB PO Q48H, (Reported) Entered as Reported by: CHERYL GEORGE on 09/14/19 141 Cyanocobalamin (Vitamin B-12) (Vitamin B-12) 2,500 Mcg Tab.subl, 2,500 MCG SL HS, (Reported) Entered as Reported by: CHERYL GEORGE on 09/14/19 141 Glipizide (Glipizide) 5 Mg Tablet, 5 MG PO BID, (Reported) Entered as Reported by: CHERYL GEORGE on 09/14/19 141 Ipratropium/Albuterol Sulfate (Iprat-Albut 0.5-3(2.5) mg/3 ml) 3 Ml Ampul.neb, 3 ML INH RTBID Prescribed by: CAROLIN GÓMEZ on 09/22/19 0839 Levocetirizine Dihydrochloride (Xyzal) 5 Mg Tablet, 5 MG PO DAILY, (Reported) Entered as Reported by: CHERYL GEORGE on 09/14/19 141 Losartan Potassium (Losartan Potassium) 50 Mg Tablet, 50 MG PO HS, (Reported) Entered as Reported by: JOSE MIGUEL HUERTA on 07/15/16 1156 Lovastatin (Lovastatin) 20 Mg Tablet, 20 MG PO HS, (Reported) Entered as Reported by: CHERYL GEORGE on 08/19/18 0955 Magnesium Oxide (Magnesium) 400 Mg Tablet, 400 MG PO BID, (Reported) Entered as Reported by: CHERYL GEORGE on 09/14/19 141 Metformin HCl (Metformin HCl) 500 Mg Tablet, 500 MG PO BID, (Reported) Entered as Reported by: CHERYL GEORGE on 09/14/19 1419 Multivitamin (Daily Value) 1 Each Tablet, 1 TAB PO DAILY, (Reported) Entered as Reported by: CHERYL GEORGE on 08/19/18 0956 Buckley 3 Polyunsat Fatty Acids (Fish Oil 1,000 mg Capsule) 1,000 Mg Cap, 1,000 MG PO BID, (Reported) Entered as Reported by: CHERYL GEORGE on 09/14/19 1419 Pantoprazole Sodium (Pantoprazole Sodium) 40 Mg Tablet.dr, 40 MG PO 0600,1800, (Reported) Entered as Reported by: CHERYL GEORGE on 08/19/18 0947 Prednisone (Prednisone) 20 Mg Tab, 40 MG PO DAILY Prescribed by: CHIP BILLS on 08/25/21 1704 Tramadol HCl (Tramadol HCl) 50 Mg Tablet, 50 MG PO TID PRN for PAIN-MODERATE (5- 7) Prescribed by: CAROLIN GÓMEZ on 09/22/19 0839 Review of Systems Review of Systems Constitutional: see HPI EENTM: see HPI Respiratory: see HPI, dyspnea on exertion, short of breath Cardiovascular: no symptoms reported Genitourinary: no symptoms reported Musculoskeletal: no symptoms reported Skin: no symptoms reported Psychiatric/Neurological: No Symptoms Reported Hematologic/Lymphatic: No Symptoms Reported Immunological/Allergic: no symptoms reported (CHIP BILLS APRN) Past Kkwckte-Bpsjxt-Klfbcl Hx Patient Social History Tobacco Use?: No Substance use?: No Alcohol Use?: No Pt feels they are or have been: No (CHIP BILLS APRN) Immunizations Up To Date Tetanus Booster (TDap): Unknown Third COVID19 Vaccination Date: PT HAS HAD BOOSTER COVID19 Vaccine Chief Dietitian: IVON (CHIP BILLS APRN) Seasonal Allergies Seasonal Allergies: No (CHIP BILLS APRN) Past Medical History Surgeries: Yes Abdominal, Bowel Surgery, Gallbladder, Orthopedic Respiratory: Yes (PULMONARY FIBROSIS AND COPD NOTED ON CT SCAN OF CHEST. ) COPD, Pulmonary Fibrosis Cardiac: Yes High Cholesterol, Hypertension, Irregular Heartbeat Neurological: Yes Neuropathy Reproductive Disorders: No Female Reproductive Disorders: Denies [employer]PARATION [employer]ER History: Menopausal Sexually Transmitted Disease: No Genitourinary: Yes (recent retension issues post op ) Gastrointestinal: Yes (COLON CANCER 2009--S/P RESECTION) Gastroesophageal Reflux Musculoskeletal: Yes (RIGHT KNEE SURGERY; LEFT HIP FX/ REPLACEMENT) Arthritis, Chronic Back Pain, Fractures Endocrine: Yes Diabetes, Non-Insulin dep HEENT: Yes (DIABETIC RETINOPATHY; LOSS OF HEARING LEFT EAR) Cataract Loss of Vision: Bilateral Hearing Impairment: Hard of Hearing Cancer: Yes (COLON CANCER 2009--S/P SURGERY, NO CHEMO OR RADIATION) Colon Did You Recieve Any Treatments: Yes What Type of Treatment Did You: Surgical Intervention Psychosocial: No Integumentary: No Blood Disorders: Yes (ANEMIA) Adverse Reaction/Blood Tranf: No (CHIP BILLS APRN) Family Medical History Colon cancer G8 SISTER FH: breast cancer G8 SISTER G8 SISTER Myocardial infarction 19 FATHER (father had x3 MT's and from the final one) Physical Exam Vital Signs - First Documented 08/25/21 14:53 Temp 36.8 Pulse 133 Resp 30 B/P (MAP) 160/96 (117) Pulse Ox 100 O2 Delivery Nasal Cannula O2 Flow Rate 3.00 (ERROL HAQ MD) Capillary Refill : Less Than 3 Seconds (CHIP BILLS APRN) Height: 5'6.00" Weight: 144lbs. 14.4oz. 65.219082ut; 18.00 BMI Method:Stated General Appearance: WD/WN, no apparent distress Eyes: Bilateral Eye Normal Inspection, Bilateral Eye PERRL, Bilateral Eye EOMI HEENT: PERRL/EOMI, normal ENT inspection Neck: non-tender, full range of motion Respiratory: normal breath sounds, no respiratory distress, no accessory muscle use Cardiovascular: no murmur, tachycardia (Is tach at 116 blood pressure 168/90.) Gastrointestinal: normal bowel sounds, non tender, soft Extremities: normal range of motion, non-tender Neurologic/Psychiatric: alert, normal mood/affect, oriented x 3 Skin: normal color, warm/dry (CHIP BILLS APRN) Progress/Results/Core Measures Suspected Sepsis SIRS Temperature: Pulse: 133 Respiratory Rate: 30 Laboratory Tests 08/25/21 14:49: White Blood Count 11.1H Blood Pressure 160 /96 Mean: 117 Laboratory Tests 08/25/21 14:49: Creatinine 0.94, INR Comment 1.0, Platelet Count 317, Total Bilirubin 0.6 (CHIP BILLS APRN) Results/Orders Lab Results Laboratory Tests Test 08/25/21 14:49 Range/Units White Blood Count 11.1 H 4.3-11.0 10^3/uL Red Blood Count 3.89 3.80-5.11 10^6/uL Hemoglobin 12.1 11.5-16.0 g/dL Hematocrit 36 35-52 % Mean Corpuscular Volume 93 80-99 fL Mean Corpuscular Hemoglobin 31 25-34 pg Mean Corpuscular Hemoglobin Concent 33 32-36 g/dL Red Cell Distribution Width 11.9 10.0-14.5 % Platelet Count 317 130-400 10^3/uL Mean Platelet Volume 9.4 9.0-12.2 fL Immature Granulocyte % (Auto) 0 % Neutrophils (%) (Auto) 66 42-75 % Lymphocytes (%) (Auto) 21 12-44 % Monocytes (%) (Auto) 9 0-12 % Eosinophils (%) (Auto) 2 0-10 % Basophils (%) (Auto) 1 0-10 % Neutrophils # (Auto) 7.4 1.8-7.8 10^3/uL Lymphocytes # (Auto) 2.3 1.0-4.0 10^3/uL Monocytes # (Auto) 1.1 H 0.0-1.0 10^3/uL Eosinophils # (Auto) 0.2 0.0-0.3 10^3/uL Basophils # (Auto) 0.1 0.0-0.1 10^3/uL Immature Granulocyte # (Auto) 0.0 0.0-0.1 10^3/uL Prothrombin Time 13.3 12.2-14.7 SEC INR Comment 1.0 0.8-1.4 Activated Partial Thromboplast Time 34 24-35 SEC D-Dimer 2.37 H 0.00-0.49 UG/ML Sodium Level 132 L 135-145 MMOL/L Potassium Level 3.9 3.6-5.0 MMOL/L Chloride Level 90 L 98-107 MMOL/L Carbon Dioxide Level 26 21-32 MMOL/L Anion Gap 16 H 5-14 MMOL/L Blood Urea Nitrogen 11 7-18 MG/DL Creatinine 0.94 0.60-1.30 MG/DL Estimat Glomerular Filtration Rate 57 BUN/Creatinine Ratio 12 Glucose Level 197 H 70-105 MG/DL Calcium Level 11.2 H 8.5-10.1 MG/DL Corrected Calcium 10.8 H 8.5-10.1 MG/DL Magnesium Level 1.9 1.6-2.4 MG/DL Total Bilirubin 0.6 0.1-1.0 MG/DL Aspartate Amino Transf (AST/SGOT) 15 5-34 U/L Alanine Aminotransferase (ALT/SGPT) 13 0-55 U/L Alkaline Phosphatase 54 40-136 U/L Myoglobin 48.8 10.0-92.0 NG/ML Troponin I < 0.028 <0.028 NG/ML B-Type Natriuretic Peptide 58.4 <100.0 PG/ML Total Protein 7.9 6.4-8.2 GM/DL Albumin 4.5 3.2-4.5 GM/DL Procalcitonin 0.05 <0.10 NG/ML (ERROL HAQ MD) Vital Signs/I&O 08/25/21 08/25/21 08/25/21 08/25/21 14:53 14:53 14:53 17:43 Temp 36.8 Pulse 133 106 Resp 30 20 B/P (MAP) 160/96 (117) 140/88 Pulse Ox 100 100 100 O2 Delivery Nasal Cannula Nasal Cannula Nasal Cannula Nasal Cannula O2 Flow Rate 3.00 3.00 3.00 3.00 3.00 (ERROL HAQ MD) Vital Signs/I&O Capillary Refill : Less Than 3 Seconds (CHIP BILLS APRN) Blood Pressure Mean: 117 Diagnostic Imaging Diagonstic Imaging: Xray, CT Plain Films/CT/US/NM/MRI: chest Comments NAME: SIN GUEVARA I [facility] REC#: [id number] PT STATUS: REG ER : 1940 PHYSICIAN: CHIP BILLS APRN ADMIT DATE: 08/25/21/ER Draft Date of Exam:08/25/21 CHEST 1 VIEW, AP/PA ONLY CHEST 1 VIEW, AP/PA ONLY Indication: Chest pain. Comparison: 01/23/2021. Findings: Stable volume loss within the right lung with rightward mediastinal shift. Heterogeneous reticular opacities in both lungs are unchanged, greater on the right. No pneumothorax or pleural effusion. Calcified hilar lymph nodes are unchanged. Stable cardiac silhouette. Impression: 1. Chronic pulmonary changes are stable. No features of acute abnormality by radiography. Dictated on workstation # [id number] Dict: 08/25/21 1526 Trans: 10/23/21 1529 PJE [id number] Interpreted by: INGA NOVA MD Electronically signed by: (CHIP BILLS APRN) Departure Communication (Admissions) NAME: SIN GUEVARA I [facility] REC#: [id number] PT STATUS: REG ER : 1940 PHYSICIAN: CHIP BILLS APRN ADMIT DATE: 08/25/21/ER Signed Date of Exam:08/25/21 CT ANGIO CHEST W EXAMINATION: CT angiography of the chest. TECHNIQUE: Contrast enhanced thin section helical images were obtained through the chest with intravenous contrast timed for the optimal opacification of the arterial structures per CTA protocol. Post-processing, reconstructions and interpretation of angiographic images of the vessels was performed. 3D MIP reconstructions were performed and reviewed. All CT scans use one or more of the following dose optimizing techniques: automated exposure control, MA and/or KvP adjustment based on patient size and exam type or iterative reconstruction. HISTORY: SOA, tachycardia, elevated d-dimer. COMPARISON: 02/13/2021. FINDINGS: Vascular: No filling defects within the pulmonary arteries. Thoracic aorta is normal in caliber. Calcification of the aorta and coronary vessels. Thyroid: The thyroid is normal. Mediastinum: Heart size is normal without significant pericardial effusion. There are multiple prominent mediastinal lymph nodes. There are multiple calcified mediastinal and perihilar lymph nodes as well. Lungs and airways: Background fibrosis and bronchiectasis predominantly within the periphery. Peripheral reticulation and cystic change suggestive of honeycombing. Findings can be seen with interstitial lung disease. No pleural effusion or pneumothorax. There are scattered calcified granulomas. Upper abdomen: The gallbladder is surgically absent. There are calcified granulomas within the spleen. Musculoskeletal: Degenerative changes of the spine without suspicious osseous lesion or compression fracture. There are chronic rib fractures. IMPRESSION: 1. No findings of pulmonary embolus. 2. Findings suggestive of background interstitial lung disease. Other acute abnormality in the chest. 3. Prominent lymph nodes which may be reactive. 4. Calcified granulomatous disease. Dictated by: Dictated on workstation # [id number] Dict: 08/25/21 1609 Trans: 08/25/21 1627 PJE [id number] Interpreted by: ISMAEL CARL DO Electronically signed by: ISMAEL CARL DO 08/25/21 1627 (CHIP BILLS APRN) Impression Primary Impression: Acute exacerbation of idiopathic pulmonary fibrosis Disposition: 01 HOME, SELF-CARE Condition: Stable Departure-Patient Inst. Decision time for Depature: 16:51 (CHIP BILLS APRN) Referrals: PAULO CARDOZA MD (PCP/Family) Primary Care Physician Patient Instructions: Interstitial Lung Disease Add. Discharge Instructions: All discharge instructions reviewed with patient and/or family. Voiced understanding. Scripts Prednisone (Prednisone) 20 Mg Tab 40 MG PO DAILY, #6 TAB 0 Refills Prov: CHIP BILLS APRN 08/25/21 ATTENDING PHYSICIAN NOTE: I was physically present as attending physician in the emergency department during the care of this patient, but I was not directly involved in the decision making or delivery of care for this patient. (ERROL HAQ MD) CHIP BILLS APRN Aug 25, 2021 15:14 ERROL HAQ MD Aug 30, 2021 12:17
[2021-08-25 15:15] LABS: FIBRIN DEGRADATION PRODUCTS 2.37 UG/ML (0.00-0.49); MAGNESIUM 1.9 MG/DL (1.6-2.4); PROTHROMBIN TIME PATIENT 13.3 SEC (12.2-14.7)
[2021-08-25] MEDS ORDERED: meTOprolol 5 MG/5 ML (LOPRESSOR) VIAL IV ONE (15:15)
--- NOTE | 2021-08-25 15:29 | Diagnostic Imaging Report ---
CHEST 1 VIEW, AP/PA ONLY Indication: Chest pain. Comparison: 01/23/2021. Findings: Stable volume loss within the right lung with rightward mediastinal shift. Heterogeneous reticular opacities in both lungs are unchanged, greater on the right. No pneumothorax or pleural effusion. Calcified hilar lymph nodes are unchanged. Stable cardiac silhouette. Impression: 1. Chronic pulmonary changes are stable. No features of acute abnormality by radiography. Dictated by: Dictated on workstation # [id number]
[2021-08-25] MEDS ORDERED: NS 100 ML (IVPB) BAG IV ONE (15:30)
[2021-08-25] MEDS ORDERED: HOLD METFORMIN - RECEIVED CONTRAST 20 ML VIAL IV SCH (15:30)
[2021-08-25] MEDS ORDERED: IOHEXOL 350 MG/ML 100 ML (OMNIPAQUE 350) VIAL IV ONE (15:30)
[2021-08-25] MEDS ORDERED: ONDANSETRON 4 MG/2 ML (SDV) Z0FRAN IVP ONE (16:00)
--- NOTE | 2021-08-25 16:23 | Diagnostic Imaging Report ---
EXAMINATION: CT angiography of the chest. TECHNIQUE: Contrast enhanced thin section helical images were obtained through the chest with intravenous contrast timed for the optimal opacification of the arterial structures per CTA protocol. Post-processing, reconstructions and interpretation of angiographic images of the vessels was performed. 3D MIP reconstructions were performed and reviewed. All CT scans use one or more of the following dose optimizing techniques: automated exposure control, MA and/or KvP adjustment based on patient size and exam type or iterative reconstruction. HISTORY: SOA, tachycardia, elevated d-dimer. COMPARISON: 02/13/2021. FINDINGS: Vascular: No filling defects within the pulmonary arteries. Thoracic aorta is normal in caliber. Calcification of the aorta and coronary vessels. Thyroid: The thyroid is normal. Mediastinum: Heart size is normal without significant pericardial effusion. There are multiple prominent mediastinal lymph nodes. There are multiple calcified mediastinal and perihilar lymph nodes as well. Lungs and airways: Background fibrosis and bronchiectasis predominantly within the periphery. Peripheral reticulation and cystic change suggestive of honeycombing. Findings can be seen with interstitial lung disease. No pleural effusion or pneumothorax. There are scattered calcified granulomas. Upper abdomen: The gallbladder is surgically absent. There are calcified granulomas within the spleen. Musculoskeletal: Degenerative changes of the spine without suspicious osseous lesion or compression fracture. There are chronic rib fractures. IMPRESSION: 1. No findings of pulmonary embolus. 2. Findings suggestive of background interstitial lung disease. Other acute abnormality in the chest. 3. Prominent lymph nodes which may be reactive. 4. Calcified granulomatous disease. Dictated by: Dictated on workstation # [id number]
[2021-08-25] MEDS ORDERED: predniSONE 20 MG TAB PO ONE (17:00)
[2021-08-25] MEDS ORDERED: PRD20T PO (17:04)
[2021-08-25] MEDS ORDERED: NS IV 500 ML 500 ML IV SCH (17:15)
[2021-08-25 17:43] VITALS: BP 140/88
[2021-09-21] MEDS ORDERED: PRED10TA22 PO (08:22)
== END 2021-08-25 17:47 | disposition home or self-care (01) ==
LOC: EDUNIT# 14:42 → ER 14:44
DX: J84.112 Idiopathic pulmonary fibrosis (principal); I10 Essential (primary) hypertension; E11.40 Type 2 diabetes mellitus with diabetic neuropathy, unspecified; E11.319 Type 2 diabetes mellitus with unspecified diabetic retinopathy without macular edema; J44.9 Chronic obstructive pulmonary disease, unspecified; E78.00 Pure hypercholesterolemia, unspecified; K21.9 Gastro-esophageal reflux disease without esophagitis; G89.29 Other chronic pain; M54.9 Dorsalgia, unspecified; H26.9 Unspecified cataract; Z79.84 Long term (current) use of oral hypoglycemic drugs; Z79.891 Long term (current) use of opiate analgesic; Z79.82 Long term (current) use of aspirin; Z79.899 Other long term (current) drug therapy
CPT/HCPCS: 36415; 71045; 71275; 80053; 83735; 83874; 83880; 84145; 84484; 85025; 85379; 85610; 85730; 93005; 93041; 96374

== ENCOUNTER 2021-09-18 11:52 | Inpatient (IN) | payer MEDICARE ==
[~2021-09-18] VITALS: Ht 165 cm; Wt 52.0 kg
[~2021-09-18 11:52] MED LIST changes: +PRD20T PO
[2021-09-18] MEDS ORDERED: NS IV 1000 ML 1,000 ML IV SCH (12:15)
[2021-09-18 12:19] LABS: BASOPHILS # (AUTO) 0.1 10^3/uL (0.0-0.1); BASOPHILS % (AUTO) 1 % (0-10); EOSINOPHILS # (AUTO) 0.1 10^3/uL (0.0-0.3); EOSINOPHILS % (AUTO) 1 % (0-10); HEMATOCRIT 35 % (35-52); HEMOGLOBIN 11.5 g/dL (11.5-16.0); LYMPHOCYTES # (AUTO) 1.5 10^3/uL (1.0-4.0); LYMPHOCYTES % (AUTO) 14 % (12-44); MEAN CORPUSCULAR HEMOGLOBIN 32 pg (25-34); MEAN CORPUSCULAR HGB CONC 33 g/dL (32-36); MEAN CORPUSCULAR VOLUME 97 fL (80-99); MEAN PLATELET VOLUME 11.1 fL (9.0-12.2); MONOCYTES # (AUTO) 0.6 10^3/uL (0.0-1.0); MONOCYTES % (AUTO) 6 % (0-12); NEUTROPHILS # (AUTO) 8.4 10^3/uL (1.8-7.8); NEUTROPHILS % (AUTO) 78 % (42-75); PLATELET COUNT 358 10^3/uL (130-400); WHITE BLOOD COUNT 10.7 10^3/uL (4.3-11.0)
[2021-09-18 12:27] LABS: ALBUMIN 4.1 GM/DL (3.2-4.5); POTASSIUM 4.4 MMOL/L (3.6-5.0)
[2021-09-18 12:28] LABS: CALCIUM 10.3 MG/DL (8.5-10.1); PROTHROMBIN TIME PATIENT 13.9 SEC (12.2-14.7)
[2021-09-18 12:29] LABS: TOTAL PROTEIN 7.4 GM/DL (6.4-8.2)
[2021-09-18 12:31] LABS: BILIRUBIN,TOTAL 0.5 MG/DL (0.1-1.0)
[2021-09-18 12:33] LABS: CREATININE SERUM 1.05 MG/DL (0.60-1.30)
[2021-09-18 12:35] LABS: MAGNESIUM 2.2 MG/DL (1.6-2.4)
[2021-09-18 12:48] LABS: CLARITY,URINE CLEAR; COLOR,URINE YELLOW; GLUCOSE, URINE (UA) 2+ (NEGATIVE); KETONES,URINE 2+ (NEGATIVE); LEUKOCYTE ESTERASE ,URINE NEGATIVE (NEGATIVE); NITRITE,URINE NEGATIVE (NEGATIVE); PROTEIN,URINE 1+ (NEGATIVE)
[2021-09-18 13:28] LABS: AMORPHOUS SEDIMENT,UR FEW AMOR URATES /LPF; BACTERIA,URINE NEGATIVE /HPF; BILIRUBIN,URINE NEGATIVE (NEGATIVE); HYALINE CASTS, URINE RARE /LPF; RBC,URINE 0-2 /HPF; SQUAMOUS EPITHELIAL CELL,UR 0-2 /HPF; WBC,URINE RARE /HPF
--- NOTE | 2021-09-18 13:46 | Diagnostic Imaging Report ---
INDICATION: Shortness of air. TIME OF EXAM: 01:10 p.m. COMPARISON: Correlation is made with prior chest of 08/25/2021. FINDINGS: Heart is enlarged. Volume loss in right hemithorax with shift of the mediastinum to the right is similar to prior exam. Chronic-appearing reticular opacities bilaterally, greatest throughout the right lung persist. There is no effusion. There is no pneumothorax. IMPRESSION: Stable chronic changes when compared to the examination from 08/25/2021. Dictated by: Dictated on workstation # [id number]
--- NOTE | 2021-09-18 13:52 | ED General ---
General Chief Complaint: Respiratory Problems Stated Complaint: SOB Nursing Triage Note: pt presents to ed via ems from home with complaints of soa and nausea starting friday. Source of Information: Patient Exam Limitations: No Limitations History of Present Illness Date Seen by Provider: Sep 18, 2021 Time Seen by Provider: 11:53 Initial Comments This 80-year-old woman with known history of pulmonary fibrosis presents to the emergency room with complaints of nausea with poor oral intake, increased shortness of breath, lightheadedness, and increased oxygen requirements over the past 3 weeks. She normally uses oxygen at 4 L/min but has increased to 8 L/min. On arrival she has an oxygen saturation of 100%. She denies any cough or fever. She has had 3 vaccinations for COVID-19 and a recent influenza vaccine. She initially denied any chest pain. However, she later disclosed to her son that she has been experiencing sensation of "an elephant on my chest" and has had "racing heart" during those episodes in recent days. She has a history of brief ventricular tachycardia around the time of a hip surgery and a noted history of paroxysmal atrial tachycardia. She denies any coronary artery dis ease. There is a noted history of carotid stenosis but no imaging of the carotid arteries is noted in her chart. She also has a noted history of pulmonary hypertension. She reports a little bit of difficulty swallowing recently. Her relay man was previously Dr. Christian but she does not currently have a relay man. Her primary care provider is Dr. Cardoza. Allergies and Home Medications Allergies Coded Allergies: codeine (Verified Allergy, Severe, Pt has received Lortab in the past, 09/15/19) PATIENT STATES THAT THE DENTIST GAVE HER CODEINE IN THE PAST AND SHE WAS UNRESPONSIVE FOR THREE DAYS AND "NEARLY ". Penicillins (Unverified Allergy, Unknown, N/V, RASH, 06/17/14) Uncoded Allergies: SILK TAPE (Allergy, Mild, 05/07/09) ASPRIN (Allergy, Unknown, 08/25/21) Patient Home Medication List Home Medication List Reviewed: Yes Alendronate Sodium (Alendronate Sodium) 70 Mg Tablet, 70 MG PO We, (Reported) Entered as Reported by: CHERYL GEORGE on 09/14/19 8909 Antiox #11/Om3/Dha/Epa/Lut/Julianna (Eye Health Adult 50+ Softgel) 1 Each Capsule, 1 CAP PO DAILY, (Reported) Entered as Reported by: CHERYL GEORGE on 08/19/18 0957 Aspirin (Aspirin) 81 Mg Tab.chew, 81 MG PO DAILY, (Reported) Entered as Reported by: CHERYL GEORGE on 09/14/19 141 Bilberry Fruit Extract (Bilberry Extract) 30 Mg Capsule, 30 MG PO BID, (Reported) Entered as Reported by: CHERYL GEORGE on 08/19/18 09 Calcium Carbonate (Tums Ultra Strength) 1,177 Mg Tab.chew, 1 TAB.CHEW PO Q4H PRN for INDIGESTION, (Reported) Entered as Reported by: CHERYL GEORGE on 09/14/19 141 Calcium Carbonate/Vitamin D3 (Calcium 600 + Vit D 400 Tablet) 1 Each Tablet, 1 TAB PO Q48H, (Reported) Entered as Reported by: CHERYL GEORGE on 09/14/19 141 Cyanocobalamin (Vitamin B-12) (Vitamin B-12) 2,500 Mcg Tab.subl, 2,500 MCG SL HS, (Reported) Entered as Reported by: CHERYL GEORGE on 09/14/19 141 Glipizide (Glipizide) 5 Mg Tablet, 5 MG PO BID, (Reported) Entered as Reported by: CHERYL GEORGE on 09/14/19 141 Ipratropium/Albuterol Sulfate (Iprat-Albut 0.5-3(2.5) mg/3 ml) 3 Ml Ampul.neb, 3 ML INH RTBID Prescribed by: CAROLIN GÓMEZ on 09/22/19 0839 Levocetirizine Dihydrochloride (Xyzal) 5 Mg Tablet, 5 MG PO DAILY, (Reported) Entered as Reported by: CHERYL GEORGE on 09/14/19 141 Losartan Potassium (Losartan Potassium) 50 Mg Tablet, 50 MG PO HS, (Reported) Entered as Reported by: JOSE MIGUEL HUERTA on 07/15/16 1156 Lovastatin (Lovastatin) 20 Mg Tablet, 20 MG PO HS, (Reported) Entered as Reported by: CHERYL GEORGE on 08/19/18 0955 Magnesium Oxide (Magnesium) 400 Mg Tablet, 400 MG PO BID, (Reported) Entered as Reported by: CHERYL GEORGE on 09/14/19 1419 Metformin HCl (Metformin HCl) 500 Mg Tablet, 500 MG PO BID, (Reported) Entered as Reported by: CHERYL GEORGE on 09/14/19 1419 Multivitamin (Daily Value) 1 Each Tablet, 1 TAB PO DAILY, (Reported) Entered as Reported by: CHERYL GEORGE on 08/19/18 0956 [place] 3 Polyunsat Fatty Acids (Fish Oil 1,000 mg Capsule) 1,000 Mg Cap, 1,000 MG PO BID, (Reported) Entered as Reported by: CHERYL GEORGE on 09/14/19 1419 Pantoprazole Sodium (Pantoprazole Sodium) 40 Mg Tablet.dr, 40 MG PO 0600,1800, (Reported) Entered as Reported by: CHERYL GEORGE on 08/19/18 0947 Prednisone (Prednisone) 20 Mg Tab, 40 MG PO DAILY Prescribed by: CHIP BILLS on 08/25/21 1704 Tramadol HCl (Tramadol HCl) 50 Mg Tablet, 50 MG PO TID PRN for PAIN-MODERATE (5- 7) Prescribed by: CAROLIN GÓMEZ on 09/22/19 0839 Review of Systems Review of Systems Constitutional: no symptoms reported EENTM: no symptoms reported Respiratory: see HPI Cardiovascular: see HPI Gastrointestinal: see HPI Genitourinary: no symptoms reported Musculoskeletal: no symptoms reported Skin: no symptoms reported Psychiatric/Neurological: No Symptoms Reported Hematologic/Lymphatic: No Symptoms Reported Immunological/Allergic: no symptoms reported Past Hkmabog-Vbpnhk-Ilcyxx Hx Patient Social History Tobacco Use?: No Substance use?: No Alcohol Use?: No Pt feels they are or have been: No Immunizations Up To Date Tetanus Booster (TDap): Unknown First/Initial COVID19 Vaccinat: PT HAS HAD BOOSTER Second COVID19 Vaccination Dillon: PT HAS HAD BOOSTER Third COVID19 Vaccination Date: PT HAS HAD BOOSTER Seasonal Allergies Seasonal Allergies: No Past Medical History Surgery/Hospitalization HX: pmh: pulmonary fibrosis, dm, tachycardia Surgeries: Yes Abdominal, Bowel Surgery, Gallbladder, Orthopedic Respiratory: Yes (PULMONARY FIBROSIS AND COPD NOTED ON CT SCAN OF CHEST. ) COPD, Pulmonary Fibrosis Cardiac: Yes (Pulmonary hypertension, history of nonsustained VT and PAT) High Cholesterol, Hypertension, Irregular Heartbeat Neurological: Yes Neuropathy Reproductive Disorders: No Female Reproductive Disorders: Denies CHANGE MANAGEMENT History: Menopausal Sexually Transmitted Disease: No Genitourinary: Yes (recent retension issues post op ) Gastrointestinal: Yes (COLON CANCER 2009--S/P RESECTION) Gastroesophageal Reflux Musculoskeletal: Yes (RIGHT KNEE SURGERY; LEFT HIP FX/ REPLACEMENT) Arthritis, Chronic Back Pain, Fractures Endocrine: Yes Diabetes, Non-Insulin dep HEENT: Yes (DIABETIC RETINOPATHY; LOSS OF HEARING LEFT EAR) Cataract Loss of Vision: Bilateral Hearing Impairment: Hard of Hearing Cancer: Yes (COLON CANCER 2009--S/P SURGERY, NO CHEMO OR RADIATION) Colon Did You Recieve Any Treatments: Yes What Type of Treatment Did You: Surgical Intervention Psychosocial: No Integumentary: No Blood Disorders: Yes (ANEMIA) Adverse Reaction/Blood Tranf: No Family Medical History Colon cancer G8 SISTER FH: breast cancer G8 SISTER G8 SISTER Myocardial infarction 19 FATHER (father had x3 TX's and from the final one) Physical Exam Vital Signs Vital Signs - First Documented 09/18/21 12:02 Temp 35.9 Pulse 124 Resp 24 B/P (MAP) 125/74 (91) Pulse Ox 100 O2 Delivery Nasal Cannula O2 Flow Rate 8.00 Capillary Refill : Less Than 3 Seconds Height, Weight, BMI Height: 5'6.00" Weight: 144lbs. 14.4oz. 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 Norm as Tested (Hard of hearing) Skin: Normal Color, Warm/Dry Progress/Results/Core Measures Suspected Sepsis SIRS Temperature: Pulse: 124 Respiratory Rate: 24 Laboratory Tests 09/18/21 11:59: White Blood Count 10.7 Blood Pressure 125 /74 Mean: 91 Laboratory Tests 09/18/21 11:59: Creatinine 1.05, INR Comment 1.0, Platelet Count 358, Total Bilirubin 0.5 Results/Orders Lab Results Laboratory Tests Test 09/18/21 11:59 11/16/21 12:35 Range/Units White Blood Count 10.7 4.3-11.0 10^3/uL Red Blood Count 3.59 L 3.80-5.11 10^6/uL Hemoglobin 11.5 11.5-16.0 g/dL Hematocrit 35 35-52 % Mean Corpuscular Volume 97 80-99 fL Mean Corpuscular Hemoglobin 32 25-34 pg Mean Corpuscular Hemoglobin Concent 33 32-36 g/dL Red Cell Distribution Width 12.2 10.0-14.5 % Platelet Count 358 130-400 10^3/uL Mean Platelet Volume 11.1 9.0-12.2 fL Immature Granulocyte % (Auto) 0 % Neutrophils (%) (Auto) 78 H 42-75 % Lymphocytes (%) (Auto) 14 12-44 % Monocytes (%) (Auto) 6 0-12 % Eosinophils (%) (Auto) 1 0-10 % Basophils (%) (Auto) 1 0-10 % Neutrophils # (Auto) 8.4 H 1.8-7.8 10^3/uL Lymphocytes # (Auto) 1.5 1.0-4.0 10^3/uL Monocytes # (Auto) 0.6 0.0-1.0 10^3/uL Eosinophils # (Auto) 0.1 0.0-0.3 10^3/uL Basophils # (Auto) 0.1 0.0-0.1 10^3/uL Immature Granulocyte # (Auto) 0.0 0.0-0.1 10^3/uL Prothrombin Time 13.9 12.2-14.7 SEC INR Comment 1.0 0.8-1.4 Activated Partial Thromboplast Time 34 24-35 SEC Sodium Level 136 135-145 MMOL/L Potassium Level 4.4 3.6-5.0 MMOL/L Chloride Level 93 L 98-107 MMOL/L Carbon Dioxide Level 29 21-32 MMOL/L Anion Gap 14 5-14 MMOL/L Blood Urea Nitrogen 21 H 7-18 MG/DL Creatinine 1.05 0.60-1.30 MG/DL Estimat Glomerular Filtration Rate 50 BUN/Creatinine Ratio 20 Glucose Level 343 H 70-105 MG/DL Calcium Level 10.3 H 8.5-10.1 MG/DL Corrected Calcium 10.2 H 8.5-10.1 MG/DL Magnesium Level 2.2 1.6-2.4 MG/DL Total Bilirubin 0.5 0.1-1.0 MG/DL Aspartate Amino Transf (AST/SGOT) 15 5-34 U/L Alanine Aminotransferase (ALT/SGPT) 8 0-55 U/L Alkaline Phosphatase 49 40-136 U/L Myoglobin 60.0 10.0-92.0 NG/ML Troponin I 0.150 H <0.028 NG/ML C-Reactive Protein High Sensitivity 1.90 H 0.00-0.50 MG/DL B-Type Natriuretic Peptide 694.6 H <100.0 PG/ML Total Protein 7.4 6.4-8.2 GM/DL Albumin 4.1 3.2-4.5 GM/DL Influenza Type A (RT-PCR) Not Detected Not Detecte Influenza Type B (RT-PCR) Not Detected Not Detecte SARS-CoV-2 RNA (RT-PCR) Not Detected Not Detecte Urine Color YELLOW Urine Clarity CLEAR Urine pH 6.0 5-9 Urine Specific [place] >=1.030 1.016-1.022 Urine Protein 1+ H NEGATIVE Urine Glucose (UA) 2+ H NEGATIVE Urine Ketones 2+ H NEGATIVE Urine Nitrite NEGATIVE NEGATIVE Urine Bilirubin NEGATIVE NEGATIVE Urine Urobilinogen 0.2 < = 1.0 MG/DL Urine Leukocyte Esterase NEGATIVE NEGATIVE Urine RBC (Auto) TRACE-I H NEGATIVE Urine RBC 0-2 /HPF Urine WBC RARE /HPF Urine Squamous Epithelial Cells 0-2 /HPF Urine Crystals PRESENT H /LPF Urine Amorphous Sediment FEW ARELI URATES H /LPF Urine Bacteria NEGATIVE /HPF Urine Casts PRESENT /LPF Urine Hyaline Casts RARE /LPF Urine Mucus NEGATIVE /LPF Urine Culture Indicated NO My Orders Orders - ERROL HAQ MD Ed Iv/Invasive Line Start (09/18/21 12:08) Ns Iv 1000 Ml (Sodium Chloride 0.9%) (09/18/21 12:15) Cbc With Automated Diff (09/18/21 12:09) Magnesium (09/18/21 12:09) Chest 1 View, Ap/Pa Only (09/18/21 12:09) Ekg Tracing (09/18/21 12:09) Comprehensive Metabolic Panel (09/18/21 12:09) Myoglobin Serum (09/18/21 12:09) Protime With Inr (09/18/21 12:09) Partial Thromboplastin Time (09/18/21 12:09) O2 (09/18/21 12:09) Monitor-Rhythm Ecg Trace Only (09/18/21 12:09) Lipid Panel (09/19/21 06:00) Troponin I (09/18/21 12:09) BNP (09/18/21 12:09) Hs C Reactive Protein (09/18/21 12:09) Ua Culture If Indicated (09/18/21 12:09) Influenza A And B By Pcr (09/18/21 12:09) Covid 19 Inhouse Test (09/18/21 12:09) Aspirin Chewable Tablet (Baby Aspirin Ch (09/18/21 14:45) Enoxaparin Injection (Lovenox Injection) (09/18/21 14:45) Vital Signs/I&O 09/18/21 09/18/21 09/18/21 12:02 12:02 12:10 Temp 35.9 Pulse 124 Resp 24 B/P (MAP) 125/74 (91) Pulse Ox 100 100 O2 Delivery Nasal Cannula Nasal Cannula Nasal Cannula O2 Flow Rate 8.00 8.00 6.00 Capillary Refill : Less Than 3 Seconds Blood Pressure Mean: 91 Progress Note : Progress Note Patient received a liter of IV normal saline which did improve her heart rate. Elevated troponin and BNP were noted. This was discussed with Dr. Sullivan. These lab findings in the context of history of tacky arrhythmias and her admission to [facility] are concerning and warrant admission. Dr. Sullivan requested she be treated with Lovenox and aspirin which were ordered for the ER. Case was reviewed with Dr. Simmons as well. I discussed CODE STATUS with the patient and her son. Patient would like to retain a full CODE STATUS at this time. She remained stable throughout her ER stay. ECG Initial ECG Impression Date: Sep 18, 2021 Initial ECG Impression Time: 12:15 Initial ECG Rate: 125 Initial ECG Rhythm: S.Tach Comment Sinus tachycardia with no ST elevation or depression. LVH. No abnormal intervals. Similar to prior. Diagnostic Imaging Diagonstic Imaging: Xray Plain Films/CT/US/NM/MRI: chest Comments Chest x-ray viewed by me and report reviewed. See report below: NAME: SIN GUEVARA I [facility] REC#: [id number] PT STATUS: REG ER : 1940 PHYSICIAN: ERROL HAQ MD ADMIT DATE: 09/18/21/ER Draft Date of Exam:09/18/21 CHEST 1 VIEW, AP/PA ONLY INDICATION: Shortness of air. TIME OF EXAM: 01:10 p.m. COMPARISON: Correlation is made with prior chest of 08/25/2021. FINDINGS: Heart is enlarged. Volume loss in right hemithorax with shift of the mediastinum to the right is similar to prior exam. Chronic-appearing reticular opacities bilaterally, greatest throughout the right lung persist. There is no effusion. There is no pneumothorax. IMPRESSION: Stable chronic changes when compared to the examination from 08/25/2021. Dictated on workstation # [id number] Dict: 09/18/21 1339 Trans: 09/18/21 1346 [id number] Interpreted by: SHERLYN JOSEPH MD Electronically signed by: Departure Communication (Admissions) Time/Spoke to Admitting Phy: 14:10 Dr. Simmons Time/Spoke to Consulting Phy: 13:00 Dr. Sullivan Impression Primary Impression: Elevated troponin Additional Impressions: Chest pressure Lightheadedness Hyperglycemia Sinus tachycardia Acute exacerbation of idiopathic pulmonary fibrosis Disposition: ADMITTED INPATIENT Condition: Improved Admissions Decision to Admit Reason: Admit from ER (General) Decision to Admit/Date: Sep 18, 2021 Time/Decision to Admit Time: 13:00 Departure-Patient Inst. Referrals: PAULO CARDOZA MD (PCP/Family) Primary Care Physician ERROL HAQ MD Sep 18, 2021 13:52
[2021-09-18] MEDS ORDERED: ENOXAPARIN 60 MG/0.6 ML (LOVENOX) SYR SC ONE (14:45)
[2021-09-18] MEDS ORDERED: ASPIRIN 81 MG CHEW (CHILDREN'S ASA) PO ONE (14:45)
[2021-09-18] MEDS: NS IV 1000 ML 1,000 ML IV SCH (16:49)
[2021-09-18 16:58] VITALS: BP 112/67
[2021-09-18 17:10] LABS: ABG BASE EXCESS 6.9 MMOL/L (-2.5-2.5); ABG OXYGEN SATURATION 98 % (94-100); ABG PCO2 46 MMHG (35-45); ABG PH 7.44 (7.37-7.43); ABG PO2 90 MMHG (79-93); ABG TCO2 32.6 MMOL/L (21.0-31.0)
[2021-09-18 17:25] LABS: ALLENS TEST POS; INSPIRED O2 5L; PATIENT TEMP 36.5; VENTILATOR NO
[2021-09-18 19:30] VITALS: BP 110/71
[2021-09-18] MEDS: inSUlin ASPART (NovoLOG) 1 UNIT/0.01 ML (CHARGE PER UNIT) SC SCH (19:51)
[2021-09-19] VITALS (7 sets, daily range): BP systolic 112–138; BP diastolic 67–77
[2021-09-19] MEDS: NS IV 1000 ML 1,000 ML IV SCH ×3 (03:00→20:46)
[2021-09-19] MEDS: ENOXAPARIN 60 MG/0.6 ML (LOVENOX) SYR SC SCH ×2 (03:00→15:36)
[2021-09-19] MEDS: inSUlin ASPART (NovoLOG) 1 UNIT/0.01 ML (CHARGE PER UNIT) SC SCH ×4 (05:22→20:50)
[2021-09-19 06:51] LABS: BASOPHILS # (AUTO) 0.1 10^3/uL (0.0-0.1); BASOPHILS % (AUTO) 1 % (0-10); EOSINOPHILS # (AUTO) 0.2 10^3/uL (0.0-0.3); EOSINOPHILS % (AUTO) 2 % (0-10); HEMATOCRIT 33 % (35-52); HEMOGLOBIN 10.6 g/dL (11.5-16.0); LYMPHOCYTES # (AUTO) 1.1 10^3/uL (1.0-4.0); LYMPHOCYTES % (AUTO) 12 % (12-44); MEAN CORPUSCULAR HEMOGLOBIN 31 pg (25-34); MEAN CORPUSCULAR HGB CONC 32 g/dL (32-36); MEAN CORPUSCULAR VOLUME 97 fL (80-99); MONOCYTES # (AUTO) 0.6 10^3/uL (0.0-1.0); MONOCYTES % (AUTO) 7 % (0-12); NEUTROPHILS # (AUTO) 6.7 10^3/uL (1.8-7.8); NEUTROPHILS % (AUTO) 77 % (42-75); PLATELET COUNT 298 10^3/uL (130-400); WHITE BLOOD COUNT 8.7 10^3/uL (4.3-11.0)
[2021-09-19 07:02] LABS: POTASSIUM 4.2 MMOL/L (3.6-5.0)
[2021-09-19 07:03] LABS: CALCIUM 9.1 MG/DL (8.5-10.1); TRIGLYCERIDES 90 MG/DL (<150); VLDL CHOLESTEROL 18 MG/DL (5-40)
[2021-09-19 07:07] LABS: CREATININE SERUM 0.84 MG/DL (0.60-1.30)
[2021-09-19 07:08] LABS: CHOLESTEROL 115 MG/DL (< 200)
[2021-09-19 07:09] LABS: HDL CHOLESTEROL 48 MG/DL (40-60)
--- NOTE | 2021-09-19 08:22 | Diagnostic Imaging Report ---
PROCEDURE: US carotid duplex, bilateral. TECHNIQUE: Multiple real-time grayscale images were obtained over the carotid arteries in various projections, bilaterally. Additional spectral analysis and color Doppler duplex images were also obtained. INDICATION: Lightheadedness, pulmonary fibrosis COMPARISON: None available. FINDINGS: Mild scattered plaque is identified bilaterally, particularly within the carotid bulbs. Peak systolic velocities throughout the bilateral carotid arterial systems are within normal limits. Additionally, the bilateral internal carotid artery to common carotid artery ratios are within normal limits. Antegrade flow within bilateral vertebral arteries. IMPRESSION: No evidence of hemodynamically significant stenosis within the bilateral carotid arterial systems. Antegrade flow within bilateral vertebral arteries. Parameters based on the consensus panel Maldonado-Scale and Doppler ultrasound criteria published September 2003, Radiology, Volume 229. DOPPLER (peak systolic velocity M/S Right Left CCA .45 .54 ICA Proximal .41 .48 ICA Mid .58 .60 ICA Distal .55 .43 RATIO 1.30 1.11 ECA .56 .56 VERT .37 .50 Dictated by: Dictated on workstation # [id number]
--- NOTE | 2021-09-19 09:08 | Pulmonary Consultation ---
History of Present Illness History of Present Illness Date Seen by Provider: Sep 19, 2021 Time Seen by Provider: 08:00 Date of Admission This virtual visit was conducted using real time audio/video. Thank you for asking us to see this patient for respiratory insufficiency due to an exacerbation of IPF Recent events: No better overnight per pt. SOB w minimal exertion per RN PMH: HTN HL COPD on home O2 2 LPM, IPF Pulm Htn DM PAT SH: smoking history Y FH: Non-contributory ROS: as in HPI PE: VSS. Resting Comfortably. O2 sat 90-92% on 4 LPM. HEENT: No obvious masses, adenopathy or JVD. Chest: clear to auscultation. CV: RRR S1 S2 No murmur or added sounds. Abd: Non-tender. Bowel sounds Y. : Unremarkable. 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 No obvious focal findings. Extremities: No edema. Capillary refill < 3 seconds. Skin: unremarkable. Results: Elevated BG 189, Trop 0.107, BNP 695. Decreased Hb 10.6. B.44/46/90. CXR: Unchanged B opacities. Available chart/ vitals / labs / images reviewed. Video assessment done using teleICU camera, rest of exam as per RN. A/P: Respiratory insufficiency: Continue present management with O2. Add Duonebs and Medrol Monitor for increasing oxygenation needs and/or need forICU transfer. Critical Care: critically ill patient. Cont. James ASA SSI. Discussed with ROSEMARIE Rader. Asked RN to reach out to eICU if any questions or concerns later. Time spent with patient/coordination of care with other health professionals (mins): 35 Allergies and Home Medications Allergies Coded Allergies: codeine (Verified Allergy, Severe, Pt has received Lortab in the past, 09/15/19) PATIENT STATES THAT THE DENTIST GAVE HER CODEINE IN THE PAST AND SHE WAS UNRESPONSIVE FOR THREE DAYS AND "NEARLY ". Penicillins (Unverified Allergy, Unknown, N/V, RASH, 06/17/14) Uncoded Allergies: SILK TAPE (Allergy, Mild, 05/07/09) ASPRIN (Allergy, Unknown, 08/25/21) Home Medications Alendronate Sodium 70 Mg Tablet, 70 MG PO We, (Reported) Antiox #11/Om3/Dha/Epa/Lut/Jul[place] 1 Each Capsule, 1 CAP PO DAILY, (Reported) Aspirin 81 Mg Tab.chew, 81 MG PO DAILY, (Reported) Bilberry Fruit Extract 30 Mg Capsule, 30 MG PO BID, (Reported) Calcium Carbonate 1,177 Mg Tab.chew, 1 TAB.CHEW PO Q4H PRN for INDIGESTION, (Reported) Calcium Carbonate/Vitamin D3 1 Each Tablet, 1 TAB PO Q48H, (Reported) Cyanocobalamin (Vitamin B-12) 2,500 Mcg Tab.subl, 2,500 MCG SL HS, (Reported) Glipizide 5 Mg Tablet, 5 MG PO BID, (Reported) Ipratropium/Albuterol Sulfate 3 Ml Ampul.neb, 3 ML INH RTBID Prescribed by: CAROLIN GÓMEZ on 09/22/19 0839 Levocetirizine Dihydrochloride 5 Mg Tablet, 5 MG PO DAILY, (Reported) Losartan Potassium 50 Mg Tablet, 50 MG PO HS, (Reported) Lovastatin 20 Mg Tablet, 20 MG PO HS, (Reported) Magnesium Oxide 400 Mg Tablet, 400 MG PO BID, (Reported) Metformin HCl 500 Mg Tablet, 500 MG PO BID, (Reported) Multivitamin 1 Each Tablet, 1 TAB PO DAILY, (Reported) [place] 3 Polyunsat Fatty Acids 1,000 Mg Cap, 1,000 MG PO BID, (Reported) Pantoprazole Sodium 40 Mg Tablet.dr, 40 MG PO 0600,1800, (Reported) Prednisone 20 Mg Tab, 40 MG PO DAILY Prescribed by: CHIP BILLS on 08/25/21 1704 Tramadol HCl 50 Mg Tablet, 50 MG PO TID PRN for PAIN-MODERATE (5-7) Prescribed by: CAROLIN GÓMEZ on 09/22/19 0839 Past Medical/Social/Family Hx Patient Social History Tobacco Use?: Yes Tobacco type used: Cigarettes Smoking Status: Former Smoker Substance use?: No Alcohol Use?: No Pt stated abuse/neglect: No Immunizations Up To Date Influenza Vaccine Up-to-Date: Yes; Up-to-Date First/Initial COVID19 Vaccinat: PT HAS HAD BOOSTER Second COVID19 Vaccination Dillon: PT HAS HAD BOOSTER Tetanus Booster (TDap): Unknown Date of Pneumonia Vaccine: March 18, 2017 Current Status status: No status: No Advance Directives: Yes Advance Directive Location: Home Primary Language: Lithuanian Preferred Spoken Language: Lithuanian Is interpretation needed?: Yes Sensory deficits: Vision impairment, Hearing impairment Review of Systems Constitutional: see HPI EENTM: see HPI Respiratory: see HPI Cardiovascular: see HPI Gastrointestinal: see HPI Genitourinary: see HPI Musculoskeletal: see HPI Skin: see HPI Psychiatric/Neurological: Anxiety All Other Systems Reviewed Negative Unless Noted: Yes Sepsis Event Evaluation Height, Weight, BMI Height: 5'6.00" Weight: 144lbs. 14.4oz. 65.929937cj; 19.10 BMI Method:Stated Exam Exam Patient acknowledged, consented, and participated in this virtual visit which was conducted using real time audio/video Vital Signs Date Time Temp Pulse Resp B/P (MAP) Pulse Ox O2 Delivery O2 Flow Rate FiO2 09/19/21 07:23 95 Nasal Cannula 6.00 09/19/21 07:00 100 09/19/21 04:20 36.2 92 18 117/72 (87) 97 Nasal Cannula 5.00 09/19/21 03:05 93 Nasal Cannula 5.00 09/19/21 01:00 94 09/19/21 00:29 35.0 95 18 112/69 (83) 95 Nasal Cannula 5.00 09/18/21 22:47 96 Nasal Cannula 5.00 09/18/21 20:00 Nasal Cannula 5.00 09/18/21 19:30 37.4 108 18 110/71 (84) 95 Nasal Cannula 5.00 09/18/21 19:25 94 Nasal Cannula 5.00 09/18/21 19:00 108 09/18/21 17:00 114 09/18/21 16:58 36.5 108 18 112/67 (82) 98 Nasal Cannula 5.00 09/18/21 16:37 99 Nasal Cannula 6.00 09/18/21 16:28 Nasal Cannula 6.00 09/18/21 16:13 111 30 109/66 100 09/18/21 12:10 100 Nasal Cannula 6.00 09/18/21 12:02 35.9 124 24 125/74 (91) 100 Nasal Cannula 8.00 09/18/21 12:02 Nasal Cannula 8.00 I & O 09/19/21 07:00 Intake Total 1500 ml Output Total 200 ml Balance 1300 ml Height & Weight Height: 5'6.00" Weight: 144lbs. 14.4oz. 65.941148yy; 19.10 BMI Method:Stated General Appearance: No Apparent Distress, WD/WN, Anxious, Cachetic, Thin HEENT: PERRL/EOMI, Normal ENT Inspection, Other (Oropharynx somewhat dry) Neck: Normal Inspection Respiratory: Lungs Clear, Normal Breath Sounds, No Accessory Muscle Use, No Respiratory Distress Cardiovascular: Regular Rate, Rhythm, No Edema, No Murmur Capillary Refill: Less Than 3 Seconds Peripheral Pulses: 1+ Dorsalis Pedis (R), 1+ Left Dors-Pedis (L) Extremity: Normal Inspection, Non Tender, No Calf Tenderness, No Pedal Edema Neurologic/Psychiatric: Alert, Oriented x3, No Motor/Sensory Deficits, Normal 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 Critical Care: Critically Ill Patient RUSSELL CALDERON MD Sep 19, 2021 09:08
[2021-09-19] MEDS ORDERED: methylPREDNISolone 125 MG (Solu-MEDROL) VIAL IVP ONE (09:15)
[2021-09-19] MEDS: ASPIRIN E.C. 81 MG (ECOTRIN) TAB PO SCH (09:38)
--- NOTE | 2021-09-19 10:24 | Consultation-Cardiology ---
HPI-Cardiology Cardiology Consultation Date of Consultation 09/19/21 Date of Admission Time Seen by Provider: 08:00 Indication: Chest pain, dyspnea HPI Patient is an 80 y/o male female with history of pulmonary fibrosis, maintained on continuous O2 at home, HTN, HLP, questionable DM, maintained on Metformin. Presented to the ER with complaints of increased dyspnea over the past 1-2 weeks. Reports associated chest tightness and pressure with activity for the past several days. Denies any dizziness, lightheadedness or syncope. Workup done in the ER showing mildly elevated troponin. Denies any hx of CAD, CHF, denies any cardiac workup in the past. 2D Echo done yesterday evening showing diffuse hypokinesia with EF 30-35%. Denies any active chest pain at this time, but continues to have increased dyspnea. Home Medications & Allergies Allergies: Coded Allergies: codeine (Verified Allergy, Severe, Pt has received Lortab in the past, 09/15/19) PATIENT STATES THAT THE DENTIST GAVE HER CODEINE IN THE PAST AND SHE WAS UNRESPONSIVE FOR THREE DAYS AND "NEARLY ". Penicillins (Unverified Allergy, Unknown, N/V, RASH, 06/17/14) Uncoded Allergies: SILK TAPE (Allergy, Mild, 05/07/09) ASPRIN (Allergy, Unknown, 08/25/21) Home Medication List Reviewed: Yes PKJ-[id number]-Sbnwep Hx Patient Social History Employed/Student: retired Smoking Status: Former Smoker 2nd Hand Smoke Exposure: No Recent Hopitalizations: No Have you traveled recently?: No Alcohol Use?: No Immunizations Up To Date Tetanus Booster (TDap): Unknown Date of Pneumonia Vaccine: March 18, 2017 Date of Influenza Vaccine: Aug 30, 2019 Past Medical History Pulmonary fibrosis HTN HLP Family Medical History Significant Family History: CAD Over 55 Years Old Family History: Colon cancer G8 SISTER FH: breast cancer G8 SISTER G8 SISTER Myocardial infarction 19 FATHER (father had x3 OH's and from the final one) Review of Systems-General Review of Systems Constitutional: see HPI; No dizziness, No fever; malaise, weakness EENTM: see HPI; No blurred vision, No double vision Respiratory: see HPI, dyspnea on exertion, orthopnea, short of breath, wheezing Cardiovascular: see HPI, chest pain; No edema, No Hx of Intervention, No palpitations, No syncope, No vascular heart diseas Gastrointestinal: see HPI; No abdominal pain Genitourinary: see HPI Musculoskeletal: see HPI Skin: see HPI Psychiatric/Neurological: Anxiety All Other Systems Reviewed Negative Unless Noted: Yes Reviewed Test Results Reviewed Test Results Lab Laboratory Tests 09/18/21 11:59: White Blood Count 10.7, Red Blood Count 3.59L, Hemoglobin 11.5, Hematocrit 35, Mean Corpuscular Volume 97, Mean Corpuscular Hemoglobin 32, Mean Corpuscular Hemoglobin Concent 33, Red Cell Distribution Width 12.2, Platelet Count 358, Mean Platelet Volume 11.1, Immature Granulocyte % (Auto) 0, Neutrophils (%) (Auto) 78H, Lymphocytes (%) (Auto) 14, Monocytes (%) (Auto) 6, Eosinophils (%) (Auto) 1, Basophils (%) (Auto) 1, Neutrophils # (Auto) 8.4H, Lymphocytes # (Auto) 1.5, Monocytes # (Auto) 0.6, Eosinophils # (Auto) 0.1, Basophils # (Auto) 0.1, Immature Granulocyte # (Auto) 0.0, Prothrombin Time 13.9, INR Comment 1.0, Activated Partial Thromboplast Time 34, Sodium Level 136, Potassium Level 4.4, Chloride Level 93L, Carbon Dioxide Level 29, Anion Gap 14, Blood Urea Nitrogen 21H, Creatinine 1.05, Estimat Glomerular Filtration Rate 50, BUN/Creatinine Ratio 20, Glucose Level 343H, Calcium Level 10.3H, Corrected Calcium 10.2H, Magnesium Level 2.2, Total Bilirubin 0.5, Aspartate Amino Transf (AST/SGOT) 15, Alanine Aminotransferase (ALT/SGPT) 8, Alkaline Phosphatase 49, Myoglobin 60.0, Troponin I 0.150H, C-Reactive Protein High Sensitivity 1.90H, B-Type Natriuretic Peptide 694.6H, Total Protein 7.4, Albumin 4.1, Influenza Type A (RT-PCR) Not Detected, Influenza Type B (RT-PCR) Not Detected, SARS-CoV-2 RNA (RT-PCR) Not Detected 09/18/21 12:35: Urine Color YELLOW, Urine Clarity CLEAR, Urine pH 6.0, Urine Specific [place] >=1.030, Urine Protein 1+H, Urine Glucose (UA) 2+H, Urine Ketones 2+H, Urine Nitrite NEGATIVE, Urine Bilirubin NEGATIVE, Urine Urobilinogen 0.2, Urine Leukocyte Esterase NEGATIVE, Urine RBC (Auto) TRACE-IH, Urine RBC 0-2, Urine WBC RARE, Urine Squamous Epithelial Cells 0-2, Urine Crystals PRESENTH, Urine Amorphous Sediment FEW ARELI URATESH, Urine Bacteria NEGATIVE, Urine Casts PRESENT, Urine Hyaline Casts RARE, Urine Mucus NEGATIVE, Urine Culture Indicated NO 09/18/21 17:03: Blood Gas Puncture Site LFT RAD, Blood Gas Patient Temperature 36.5, Arterial Blood pH 7.44H, Arterial Blood Partial Pressure CO2 46H, Arterial Blood Partial Pressure O2 90, Arterial Blood HCO3 31H, Arterial Blood Total CO2 32.6H, Arterial Blood Oxygen Saturation 98, Arterial Blood Base Excess 6.9H, Daniel Test POS, Blood Gas Ventilator Setting NO, Blood Gas Inspired Oxygen 5L 09/18/21 19:47: Glucometer 135H 09/19/21 05:02: Glucometer 167H 09/19/21 06:45: White Blood Count 8.7, Red Blood Count 3.39L, Hemoglobin 10.6L, Hematocrit 33L, Mean Corpuscular Volume 97, Mean Corpuscular Hemoglobin 31, Mean Corpuscular Hemoglobin Concent 32, Red Cell Distribution Width 12.3, Platelet Count 298, Mean Platelet Volume 10.0, Immature Granulocyte % (Auto) 1, Neutrophils (%) (Auto) 77H, Lymphocytes (%) (Auto) 12, Monocytes (%) (Auto) 7, Eosinophils (%) (Auto) 2, Basophils (%) (Auto) 1, Neutrophils # (Auto) 6.7, Lymphocytes # (Auto) 1.1, Monocytes # (Auto) 0.6, Eosinophils # (Auto) 0.2, Basophils # (Auto) 0.1, Immature Granulocyte # (Auto) 0.0, Sodium Level 137, Potassium Level 4.2, Chloride Level 99, Carbon Dioxide Level 25, Anion Gap 13, Blood Urea Nitrogen 16, Creatinine 0.84, Estimat Glomerular Filtration Rate 65, BUN/Creatinine Ratio 19, Glucose Level 189H, Calcium Level 9.1, Troponin I 0.107H, Triglycerides Level 90, Cholesterol Level 115, LDL Cholesterol Direct 47, VLDL Cholesterol 18, HDL Cholesterol 48 ECG Impression ECG Initial ECG Rhythm: S.Tach Physical Exam Physical Exam Vital Signs Vital Signs - First Documented 09/18/21 12:02 Temp 35.9 Pulse 124 Resp 24 B/P (MAP) 125/74 (91) Pulse Ox 100 O2 Delivery Nasal Cannula O2 Flow Rate 8.00 Capillary Refill : Less Than 3 Seconds Height, Weight, BMI Height: 5'6.00" Weight: 144lbs. 14.4oz. 65.447713yr; 19.10 BMI Method:Stated General Appearance: WD/WN, Anxious, Cachetic, Mild Distress, Thin HEENT: PERRL/EOMI, Normal ENT Inspection, Other (Oropharynx somewhat dry) Neck: Normal Inspection Respiratory: Lungs Clear, Normal Breath Sounds, No Accessory Muscle Use, No Respiratory Distress Cardiovascular: Regular Rate, Rhythm, No Edema, No Murmur Gastrointestinal: Normal Bowel Sounds, Non Tender, Soft Extremity: Normal Inspection, Non Tender, No Calf Tenderness, No Pedal Edema Neurologic/Psychiatric: Alert, Oriented x3, No Motor/Sensory Deficits, Normal Mood/Affect, mud temperer II-XII Norm as Tested (Hard of hearing) Skin: Normal Color, Warm/Dry A/P-Cardiology Admission Diagnosis Chest pain CHF Pulmonary fibrosis HTN Assessment/Plan Chest pain, nonspecific etiology, mildly elevated troponin, EKG showing sinus tachycardia, no acute ST changes, possible type 2 OH secondary to hypoxemia, although CAD cannot be ruled out. Discussed the possibility of cardiac catheterization for further evaluation, patient is refusing requesting medical management. CHF, acute LV systolic dysfunction, 2D Echo showing diffuse hypokinesia with EF 30-35%, unknown etiology, possibly ischemic in nature. Will continue with medical management Pulmonary fibrosis, maintained on continuous oxygen at home. Previously followed with Dr. Christian. Has been having worsening dyspnea, started on steroid, management per critical care/medical services. I highly recommend pulmonary evaluation as soon as possible HTN, restart home medications and continue to monitor. HLP, maintained on statin as outpatient DM, management per medical services. Family hx CAD Thank you for allowing us to participate in the management of Ms. Barrios. This is Bryanna Resendez PA-C, as a scribe for Dr. Sullivan. Patient was seen and evaluated with Bryanna, is laying down in bed, still having significant dyspnea Has extensive pulmonary fibrosis and severe dyspnea. Discussed with her the management plan, recommended pulmonary evaluation We discussed the possibility of cardiac catheterization, patient is hesitant to have any cardiac procedure, considering comfort care at this point due to her advanced lung disease Continue to monitor blood pressure and lipids BRYANNA CAMARGO Sep 19, 2021 10:24 NEY SULLIVAN MD Sep 19, 2021 14:48
[2021-09-19] MEDS ORDERED: CYAN-23 PO (10:39)
[2021-09-19] MEDS: RT-ALBUTEROL/IPRATROPIUM 3 ML (DUONEB) VIAL INH SCH ×4 (11:01→22:23)
--- NOTE | 2021-09-19 12:28 | History & Physical-Hospitalist ---
History of Present Illness HPI/Chief Complaint Bee Barrios is an 80 year old female with pulmonary fibrosis and chronic hypoxic respiratory failure who presented with shortness of breath. She has been requiring more oxygen over the recent weeks. She reports chest discomfort and heaviness. She denies radiation of the pain. She reports associated nausea and diaphoresis. She denies fevers and chills. She denies abdominal pain. She denies diarrhea. She has not noticed any leg swelling. We discussed her pulmonary fibrosis and her poor prognosis. She would like more information about palliative care and hospice. She is a DNR. Source: patient Exam Limitations: no limitations Date Seen 09/19/21 Time Seen by a Provider: 10:15 Attending Physician Bam Patino MD PCP Afshin Cruz MD Referring Physician Date of Admission Sep 18, 2021 at 14:41 Home Medications & Allergies Home Medications Reviewed patient Home Medication Reconciliation performed by pharmacy medication reconciliations lead manufacturing technician and/or nursing. Patients Allergies have been reviewed. Allergies Allergies Coded Allergies codeine (Verified Allergy, Severe, Pt has received Lortab in the past, 09/15/19) PATIENT STATES THAT THE DENTIST GAVE HER CODEINE IN THE PAST AND SHE WAS UNRESPONSIVE FOR THREE DAYS AND "NEARLY ". Penicillins (Unverified Allergy, Unknown, N/V, RASH, 06/17/14) Uncoded Allergies SILK TAPE ( Allergy, Mild, 05/07/09) ASPRIN ( Allergy, Unknown, 08/25/21) Past Inopczz-Nmdvyy-Jvrjus Hx Patient Social History Employed/Student: retired Tobacco Use?: Yes Tobacco type used: Cigarettes Smoking Status: Former Smoker Substance use?: No Alcohol Use?: No Pt feels they are or have been: No Immunizations Up To Date Date of Influenza Vaccine: Aug 30, 2019 First/Initial COVID19 Vaccinat: PT HAS HAD BOOSTER Second COVID19 Vaccination Dillon: PT HAS HAD BOOSTER Tetanus Booster (TDap): Unknown Date of Pneumonia Vaccine: March 18, 2017 Seasonal Allergies Seasonal Allergies: No Current Status status: No status: No Advance Directives: Yes Advance Directive Location: Home Primary Language: Lao Preferred Spoken Language: Lao Is interpretation needed?: Yes Sensory deficits: Vision impairment, Hearing impairment Past Medical History Surgeries: Abdominal, Bowel Surgery, Gallbladder, Orthopedic COPD, Pulmonary Fibrosis High Cholesterol, Hypertension, Irregular Heartbeat Neuropathy 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 Sexually Transmitted Disease: No Gastroesophageal Reflux Arthritis, Chronic Back Pain, Fractures Diabetes, Non-Insulin dep Cataract Loss of Vision: Bilateral Hearing Impairment: Hard of Hearing Colon Did You Recieve Any Treatments: Yes What Type of Treatment Did You: Surgical Intervention Blood Disorders: Yes (ANEMIA) Adverse Reaction/Blood Tranf: No Family Medical History Colon cancer G8 SISTER FH: breast cancer G8 SISTER G8 SISTER Myocardial infarction 19 FATHER (father had x3 MD's and from the final one) CAD Over 55 Years Old Review of Systems Constitutional: weakness EENTM: no symptoms reported Respiratory: dyspnea on exertion, short of breath Cardiovascular: no symptoms reported Gastrointestinal: no symptoms reported Genitourinary: no symptoms reported Musculoskeletal: no symptoms reported Skin: no symptoms reported Psychiatric/Neurological: No Symptoms Reported Physical Exam Physical Exam Vital Signs Vital Signs - First Documented 09/18/21 12:02 Temp 35.9 Pulse 124 Resp 24 B/P (MAP) 125/74 (91) Pulse Ox 100 O2 Delivery Nasal Cannula O2 Flow Rate 8.00 Capillary Refill : Less Than 3 Seconds Height, Weight, BMI Height: 5'6.00" Weight: 144lbs. 14.4oz. 65.826550ic; 19.10 BMI Method:Stated General Appearance: Anxious, Chronically ill, Mild Distress (tachypnea) HEENT: PERRL/EOMI, Pharynx Normal Neck: Normal Inspection, Supple Respiratory: No Respiratory Distress, Crackles, Decreased Breath Sounds Cardiovascular: Regular Rate, Rhythm, No Edema, No Murmur Gastrointestinal: Normal Bowel Sounds, Non Tender, Soft Extremity: Normal Inspection, Non Tender, No Pedal Edema Neurologic/Psychiatric: Alert, Oriented x3, Depressed Affect Skin: Normal Color, Warm/Dry Results Results/Procedures Labs Laboratory Tests 09/18/21 11:59 09/19/21 06:45 Patient resulted labs reviewed. Imaging: Reviewed Imaging Report Assessment/Plan Admission Diagnosis NSTEMI Admission Status: Inpatient Order (span 2 midnights) Reason for Inpatient Admission: Possible cardiology intervention Assessment and Plan NSTEMI Heart failure with reduced ejection fraction Pulmonary fibrosis Chronic respiratory failure with hypoxia Poor prognosis Cardiology consulted Troponin mildly elevated Echo with EF 30-35%, severe diffuse hypokinesis Pulmonology consulted Started on steroids Discussed options with patient and family, would like to pursue hospice DNR present on admission Palliative care consulted Planninig for discharge home on [facility] later this week Diagnosis/Problems Diagnosis/Problems (1) NSTEMI (non-ST elevation myocardial infarction) Status: Acute (2) HFrEF (heart failure with reduced ejection fraction) Status: Acute (3) Chronic respiratory failure with hypoxia Status: Chronic (4) Pulmonary fibrosis Status: Chronic (5) COPD (chronic obstructive pulmonary disease) Status: Chronic (6) Poor prognosis Status: Acute BAM PATINO MD Sep 19, 2021 12:28
[2021-09-19] MEDS: SIMvastatin 10 MG (ZOCOR) TAB PO SCH (20:45)
[2021-09-19] MEDS: LOSARTAN 50 MG (COZAAR) TAB PO SCH (20:45)
[2021-09-19] MEDS: PANTOPRAZOLE 40 MG (PROTONIX) TAB PO SCH (20:45)
[2021-09-20] MEDS: RT-ALBUTEROL/IPRATROPIUM 3 ML (DUONEB) VIAL INH SCH ×6 (02:30→22:48)
[2021-09-20] MEDS: ENOXAPARIN 60 MG/0.6 ML (LOVENOX) SYR SC SCH (03:49)
[2021-09-20 04:00] VITALS: BP 127/77
[2021-09-20] MEDS: inSUlin ASPART (NovoLOG) 1 UNIT/0.01 ML (CHARGE PER UNIT) SC SCH ×4 (05:49→21:15)
[2021-09-20 08:00] VITALS: BP 125/64
--- NOTE | 2021-09-20 08:45 | Pulmonary Progress Note ---
Standard Progress Note Progress Notes Date Seen by Provider: Sep 20, 2021 Time Seen by Provider: 08:38 Pt with no major events overnight.Continues to have sob however feels oxygen helps the most with the breathing. Exam per nurse (Emelia) noted coarse breath sounds and bibasilar crackles. Currently being evaluated by palliative and is to be transferred to home hospice. Would consider Gina espinoza as patient with minimal reserve. Assessment & Plan Acute hypoxia in setting of ILD. See free text. Focused Exam Sepsis Stage: Ruled Out Respiratory: Decreased Breath Sounds, Inspiration Cardiovascular: No Regular Rate, Rhythm, No No Edema, No No Gallop, No No JVD, No No Murmur, No Normal Peripheral Pulses, No Bradycardia, No Diastolic Murmur, No Systolic Murmur, No Extra Beats, No Friction Rub, No Gallop/S3, No Gallop/S4, No Irregularly Irregular, No JVD, No Tachycardia, No Other Skin: No normal color, No warm/dry, No cyanosis, No cool, No diaphoresis, No damp, No ecchymosis, No jaundice, No mottled, No pallor, No rash, No tattoos/piercings, No ulcerations, No rash on exposed areas, No ulcerations on exposed areas, No other Physical Exam General Appearance: WD/WN, no apparent distress; No mild distress, No moderate distress, No severe distress, No cachetic, No obese, No thin, No other HEENT: PERRL/EOMI, normal ENT inspection, TMs normal, pharynx normal; No scleral icterus (R), No scleral icterus (L), No pale conjunctivae (R), No pale conjunctivae (L), No photophobia, No TM abnormal (R), No TM abnormal (L), No pharyngeal erythema, No tonsillar exudate, No other Respiratory: No chest non-tender, No lungs clear, No normal breath sounds, No no respiratory distress, No no accessory muscle use; respiratory distress, decreased breath sounds; No accessory muscle use, No crackles, No rales, No rhonchi, No stridor, No wheezing, No expiration, No inspiration, No plerual rub, No other Peripheral Pulses: 2+ Carotid (R), 2+ Carotid (L), 2+ Femoral (R), 2+ Femoral (L), 2+ Dorsalis Pedis (R), 2+ Left Dors-Pedis (L), 2+ Radial Pulses (R), 2+ Radial Pulses (L) Rectal: normal exam; No normal rectal tone, No heme negative stool, No deferred, No black stool, No blood streaked stool, No decreased tone, No heme positive stool, No hemorrhoids, No mass, No tenderness, No other Genital/Rectal: normal genital exam Extremities: no pedal edema Back: No normal inspection, No no CVA tenderness, No no vertebral tenderness, No CVA tenderness (R), No CVA tenderness (L), No decreased range of motion, No muscle spasm, No vertebral tenderness, No other Pelvic: normal external exam, normal adnexa, no cerv. motion tender, no masses, discharge Neurologic/Psychiatric: advertising layout worker II-XII nml as tested, no motor/sensory deficits, alert, normal mood/affect, oriented x 3 Skin: normal color, warm/dry Lymphatic: no adenopathy Physical Exam General Appearance: No Apparent Distress, WD/WN HEENT: PERRL/EOMI, TMs Normal, Normal ENT Inspection, Pharynx Normal Neck: Full Range of Motion, Normal Inspection, Non Tender SVETA MADISON MD Sep 20, 2021 08:45
--- NOTE | 2021-09-20 09:34 | Cardiology Progress Note ---
Subjective Date Seen by Provider: Sep 20, 2021 Time Seen by Provider: 09:33 Subjective/Events-last exam Patient is laying down in bed, still having significant dyspnea. No chest pain Review of Systems General: No Chills, No Night Sweats; Fatigue, Malaise; No Appetite, No Other HEENT: No Head Aches, No Visual Changes, No Eye Pain, No Ear Pain, No Dysphasia, No Sinus Congestion, No Post Nasal Drip, No Sore Throat, No Other Pulmonary: Dyspnea; No Cough, No Pleuritic Chest Pain, No Other Cardiovascular: No: Chest Pain, Palpitations, Orthopnea, Paroxysmal Noc. Dyspnea, Edema, Lt Headedness, Other Objective-Cardiology Exam Last Set of Vital Signs Vital Signs 09/20/21 08:00 Temp 36.1 Pulse 98 Resp 24 B/P (MAP) 125/64 (84) Pulse Ox 97 O2 Delivery Nasal Cannula O2 Flow Rate 6.00 I&O Intake and Output 09/20/21 00:00 Intake Total 700 ml Output Total 375 ml Balance 325 ml Intake Oral 700 ml Output Urine Total 375 ml # Voids 3 # Bowel Movements 1 General: Alert, Oriented X3, Cooperative HEENT: Atraumatic, PERRLA Neck: Supple, No JVD, No Thyromegaly Lungs: Normal Air Movement, Other (hawa rhonchi) Heart: Regular Rate, Normal S1, Normal S2, No Murmurs Abdomen: Normal Bowel Sounds, Soft, No Tenderness, No Hepatosplenomegaly, No Masses Extremities: No Clubbing, No Cyanosis, No Edema, Normal Pulses, No Tenderness/Swelling Skin: No Rashes, No Breakdown, No Significant Lesion Neuro: Normal Gait, Normal Speech, Strength at 5/5 X4 Ext, Normal Tone, Sensation Intact Psych/Mental Status: Mental Status NL, Mood NL A/P-Cardiology Admission Diagnosis Chest pain CHF Pulmonary fibrosis HTN Assessment/Plan Chest pain, nonspecific etiology, mildly elevated troponin, EKG showing sinus tachycardia, no acute ST changes, possible type 2 [place] secondary to hypoxemia, although CAD cannot be ruled out. Discussed the possibility of cardiac catheterization for further evaluation, patient is refusing requesting medical management. CHF, acute LV systolic dysfunction, 2D Echo showing diffuse hypokinesia with EF 30-35%, unknown etiology, possibly ischemic in nature. Will continue with medical management Pulmonary fibrosis, maintained on continuous oxygen at home. Previously followed with Dr. Christian. Has been having worsening dyspnea, started on steroid, management per critical care/medical services. I highly recommend pulmonary evaluation as soon as possible HTN, restart home medications and continue to monitor. HLP, maintained on statin as outpatient DM, management per medical services. Family hx CAD ENY ESCUDERO MD Sep 20, 2021 09:34
[2021-09-20] MEDS: NS IV 1000 ML 1,000 ML IV SCH (10:49)
[2021-09-20] MEDS: ASPIRIN E.C. 81 MG (ECOTRIN) TAB PO SCH (10:49)
[2021-09-20] MEDS: ASPIRIN 81 MG CHEW (CHILDREN'S ASA) PO SCH (10:49)
[2021-09-20] MEDS: PANTOPRAZOLE 40 MG (PROTONIX) TAB PO SCH ×2 (10:49→21:15)
[2021-09-20] MEDS ORDERED: predniSONE 20 MG TAB PO ONE (11:00)
[2021-09-20] MEDS ORDERED: CHLORASEPTIC SPRAY 177 ML LIQUID MC PRN (11:00)
[2021-09-20 12:00] VITALS: BP 129/67
[2021-09-20 15:30] VITALS: BP 138/82
--- NOTE | 2021-09-20 19:17 | Progress Note - Hospitalist ---
Subjective HPI/CC On Admission Date Seen by Provider: Sep 20, 2021 Time Seen by Provider: 09:50 Bee Barrios is an 80 year old female with pulmonary fibrosis and chronic hypoxic respiratory failure who presented with shortness of breath. She has been requiring more oxygen over the recent weeks. She reports chest discomfort and heaviness. She denies radiation of the pain. She reports associated nausea and diaphoresis. She denies fevers and chills. She denies abdominal pain. She denies diarrhea. She has not noticed any leg swelling. We discussed her pulmonary fibrosis and her poor prognosis. She would like more information about palliative care and hospice. She is a DNR. Subjective/Events-last exam She feels about the same. She has a sore throat. She has family at the bedside. Objective Exam Vital Signs Vital Signs Date Time Temp Pulse Resp B/P (MAP) Pulse Ox O2 Delivery O2 Flow Rate FiO2 09/20/21 18:50 98 Nasal Cannula 10.00 09/20/21 15:30 37.0 126 20 138/82 (100) Capillary Refill : Less Than 3 Seconds General Appearance: No Apparent Distress, Chronically ill, Thin Respiratory: No Respiratory Distress, Crackles Cardiovascular: Regular Rate, Rhythm, No Edema, No Murmur Gastrointestinal: Normal Bowel Sounds, Non Tender, Soft Extremity: Normal Inspection, Non Tender, No Pedal Edema Neurologic/Psychiatric: Alert, Oriented x3, Normal Mood/Affect Skin: Normal Color, Warm/Dry Results/Procedures Lab Patient resulted labs reviewed. Imaging: Reviewed Imaging Report Assessment/Plan Assessment and Plan Assess & Plan/Chief Complaint NSTEMI Heart failure with reduced ejection fraction Pulmonary fibrosis Chronic respiratory failure with hypoxia Poor prognosis Continue steroids Add phenol throat spray Palliative care consulted Planninig for discharge home on [facility] tomorrow Diagnosis/Problems Diagnosis/Problems (1) NSTEMI (non-ST elevation myocardial infarction) Status: Acute (2) HFrEF (heart failure with reduced ejection fraction) Status: Acute (3) Chronic respiratory failure with hypoxia Status: Chronic (4) Pulmonary fibrosis Status: Chronic (5) COPD (chronic obstructive pulmonary disease) Status: Chronic (6) Poor prognosis Status: Acute BAM PATINO MD Sep 20, 2021 19:17
[2021-09-20 20:56] VITALS: BP 125/74
[2021-09-20] MEDS: LOSARTAN 50 MG (COZAAR) TAB PO SCH (21:15)
[2021-09-20] MEDS: SIMvastatin 10 MG (ZOCOR) TAB PO SCH (21:15)
[2021-09-20] MEDS ORDERED: MELATONIN 3 MG TABLET PO PRN (22:45)
[2021-09-20] MEDS ORDERED: MELATONIN 3 MG TABLET ONE (23:05)
[2021-09-20 23:54] VITALS: BP 135/71
[2021-09-21] MEDS: RT-ALBUTEROL/IPRATROPIUM 3 ML (DUONEB) VIAL INH SCH ×4 (03:04→16:13)
[2021-09-21 05:00] VITALS: BP 128/68
[2021-09-21] MEDS: inSUlin ASPART (NovoLOG) 1 UNIT/0.01 ML (CHARGE PER UNIT) SC SCH (05:20)
[2021-09-21] MEDS ORDERED: predniSONE 20 MG TAB PO SCH (07:00)
[2021-09-21 07:39] VITALS: BP 150/72
[2021-09-21] MEDS ORDERED: PRED10TA22 PO (08:22)
[2021-09-21] MEDS: ASPIRIN 81 MG CHEW (CHILDREN'S ASA) PO SCH (08:23)
[2021-09-21] MEDS: PANTOPRAZOLE 40 MG (PROTONIX) TAB PO SCH (08:23)
[2021-09-21] MEDS: ASPIRIN E.C. 81 MG (ECOTRIN) TAB PO SCH (08:23)
--- NOTE | 2021-09-21 10:30 | Cardiology Progress Note ---
Subjective Date Seen by Provider: Sep 21, 2021 Time Seen by Provider: 10:29 Subjective/Events-last exam Patient is laying down in bed, still having shortness of breath. Requesting comfort care Review of Systems General: No Chills, No Night Sweats, No Fatigue, No Malaise, No Appetite, No Other HEENT: No Head Aches, No Visual Changes, No Eye Pain, No Ear Pain, No Dysphasia, No Sinus Congestion, No Post Nasal Drip, No Sore Throat, No Other Pulmonary: Dyspnea; No Cough, No Pleuritic Chest Pain, No Other Cardiovascular: No: Chest Pain, Palpitations, Orthopnea, Paroxysmal Noc. Dyspnea, Edema, Lt Headedness, Other Objective-Cardiology Exam Last Set of Vital Signs Vital Signs 09/21/21 09/21/21 07:39 10:20 Temp 36.6 Pulse 97 Resp 18 B/P (MAP) 150/72 (98) Pulse Ox 94 O2 Delivery Nasal Cannula O2 Flow Rate 6.00 I&O Intake and Output 09/21/21 00:00 Intake Total 2190 ml Output Total 250 ml Balance 1940 ml Intake Oral 1190 ml IV Total 1000 ml Output Urine Total 250 ml # Voids 1 # Bowel Movements 1 General: Alert, Oriented X3, Cooperative HEENT: Atraumatic, PERRLA Neck: Supple, No JVD, No Thyromegaly Lungs: Normal Air Movement, Other (hawa rhonchi) Heart: Regular Rate, Normal S1, Normal S2, No Murmurs Abdomen: Normal Bowel Sounds, Soft, No Tenderness, No Hepatosplenomegaly, No Masses Extremities: No Clubbing, No Cyanosis, No Edema, Normal Pulses, No Tenderness/Swelling Skin: No Rashes, No Breakdown, No Significant Lesion Neuro: Normal Gait, Normal Speech, Strength at 5/5 X4 Ext, Normal Tone, S ensation Intact Psych/Mental Status: Mental Status NL, Mood NL A/P-Cardiology Admission Diagnosis Chest pain CHF Pulmonary fibrosis HTN Assessment/Plan Chest pain, nonspecific etiology, mildly elevated troponin, EKG showing sinus tachycardia, no acute ST changes, possible type 2 MA secondary to hypoxemia, although CAD cannot be ruled out. Discussed the possibility of cardiac catheterization for further evaluation, patient is refusing requesting medical management. CHF, acute LV systolic dysfunction, 2D Echo showing diffuse hypokinesia with EF 30-35%, unknown etiology, possibly ischemic in nature. Will continue with medical management Pulmonary fibrosis, maintained on continuous oxygen at home. Previously followed with Dr. Christian. Has been having worsening dyspnea, HTN, restart home medications and continue to monitor. HLP, maintained on statin as outpatient DM, management per medical services. Family hx CAD I visited with the patient and family member regarding her management plan, they are requesting comfort care and she will be going home today on hospice. NEY ESCUDERO MD Sep 21, 2021 10:30
[2021-09-21 11:10] VITALS: BP 146/81
[2021-09-21] MEDS ORDERED: RELABEL FOR HOME USE MC SCH (11:45)
[2021-09-21] MEDS ORDERED: CHLORASEPTIC SPRAY 177 ML LIQUID MC SCH (12:00)
[2021-09-21] MEDS ORDERED: LORazepam INJ 2 MG/ML (ATIVAN) VIAL ONE (12:35)
--- NOTE | 2021-09-21 12:52 | Discharge Summary ---
Discharge Summary Hospital Course Was the Problem List Reviewed?: Yes Problems/Dx: (1) NSTEMI (non-ST elevation myocardial infarction) Status: Acute (2) HFrEF (heart failure with reduced ejection fraction) Status: Acute (3) Chronic respiratory failure with hypoxia Status: Chronic (4) Pulmonary fibrosis Status: Chronic (5) COPD (chronic obstructive pulmonary disease) Status: Chronic (6) Poor prognosis Status: Acute Hospital Course Date of Admission: Sep 18, 2021 at 14:41 Admission Diagnosis: NSTEMI Family Physician/Provider: Paulo Cardoza MD Date of Discharge: 09/21/21 Discharge Diagnosis: NSTEMI, HFrEF, pulmonary fibrosis, chronic respiratory failure with hypoxia Hospital Course: Bee Barrios is an 80 year old female with end stage pulmonary fibrosis on chronic oxygen who was admitted with NSTEMI. She was also found to have newly diagnosed heart failure with reduced ejection fraction. She elected for conservative treatment and chose to pursue hospice care. She was set up with [facility]. She was discharged home in fair condition. She was given a steroid taper to complete as an outpatient. Labs and Pending Lab Test: Laboratory Tests 09/20/21 16:05: Glucometer 226H 09/20/21 20:40: Glucometer 213H 09/21/21 05:09: Glucometer 170H 09/21/21 11:14: Glucometer 206H Home Meds Active Prednisone 10 Mg Tab.ds.pk 10 Mg PO DAILY Take 6 tabs(60mg)daily,decrease by 1 tab(10mg)every other day. Reported Vitamin B-12 (Cyanocobalamin (Vitamin B-12)) 1,000 Mcg Capsule 1,000 Mcg PO HS Alendronate Sodium 70 Mg Tablet 70 Mg PO SUN Glipizide 5 Mg Tablet 5 Mg PO BID WITH MEALS LAST FILLED 01-06-2021 #180/90 DAY SUPPLY Magnesium (Magnesium Oxide) 400 Mg Tablet 400 Mg PO BID Metformin HCl 500 Mg Tablet 500 Mg PO BID WITH MEALS Calcium 600 + Vit D 400 Tablet (Calcium Carbonate/Vitamin D3) 1 Each Tablet 1 Tab PO DAILY Fish Oil 1,000 mg Capsule ([place] 3 Polyunsat Fatty Acids) 1,000 Mg Cap 1,000 Mg PO BID Aspirin 81 Mg Tab.chew 81 Mg PO DAILY Eye Health Adult 50+ Softgel (Antiox #11/Om3/Dha/Epa/Lut/Julianna) 1 Each Capsule 1 Cap PO DAILY Bilberry Extract (Bilberry Fruit Extract) 30 Mg Capsule 30 Mg PO HS Daily Value (Multivitamin) 1 Each Tablet 1 Tab PO DAILY Lovastatin 20 Mg Tablet 20 Mg PO HS Pantoprazole Sodium 40 Mg Tablet.dr 40 Mg PO BID LAST FILLED 12-06-2020 #180/90 DAY SUPPLY Losartan Potassium 50 Mg Tablet 50 Mg PO HS Assessment/Pt Instructions You are being set up with [facility]. Please contact them with any questions or concerns after discharge. Discharge Planning: >30 minutes discharge planning Discharge Instructions Discharge Diet: No Restrictions Activity as Tolerated: Yes Discharge Physical Examination Vital Signs Vital Signs Date Time Temp Pulse Resp B/P (MAP) Pulse Ox O2 Delivery O2 Flow Rate FiO2 09/21/21 11:10 37.2 103 20 146/81 (102) 96 Nasal Cannula 8.00 General Appearance: No Apparent Distress, Anxious, Chronically ill, Thin Respiratory: Crackles, Respiratory Distress (tachypnea) Cardiovascular: Regular Rate, Rhythm, No Edema, No Murmur Gastrointestinal: Normal Bowel Sounds, Non Tender, Soft Extremity: Normal Inspection, Non Tender, No Pedal Edema Skin: Normal Color, Warm/Dry Neurologic/Psychiatric: Alert, Oriented x3 Allergies: Coded Allergies: codeine (Verified Allergy, Severe, Pt has received Lortab in the past, 09/15/19) PATIENT STATES THAT THE DENTIST GAVE HER CODEINE IN THE PAST AND SHE WAS UNRESPONSIVE FOR THREE DAYS AND "NEARLY ". Penicillins (Unverified Allergy, Unknown, N/V, RASH, 06/17/14) Uncoded Allergies: SILK TAPE (Allergy, Mild, 05/07/09) ASPRIN (Allergy, Unknown, 08/25/21) Copy Copies To 1: PAULO CARDOZA MD Discharge Summary Date of Admission Sep 18, 2021 at 14:41 Date of Discharge Discharge Date: Sep 21, 2021 Discharge Time: 12:52 Admission Diagnosis NSTEMI Discharge Diagnosis NSTEMI Heart failure with reduced ejection fraction Pulmonary fibrosis Chronic respiratory failure with hypoxia (1) NSTEMI (non-ST elevation myocardial infarction) Status: Acute (2) HFrEF (heart failure with reduced ejection fraction) Status: Acute (3) Chronic respiratory failure with hypoxia Status: Chronic (4) Pulmonary fibrosis Status: Chronic (5) COPD (chronic obstructive pulmonary disease) Status: Chronic (6) Poor prognosis Status: Acute BAM PATINO MD Sep 21, 2021 12:49
[2021-09-21] MEDS ORDERED: LORazepam INJ 2 MG/ML (ATIVAN) VIAL IVP ONE (14:00)
[2021-09-21 16:00] VITALS: BP 146/81
--- NOTE | 2021-09-28 18:01 | Physician Query Clarification ---
PQ-Further Specificity Admission/Discharge Admission Date: Sep 18, 2021 at 14:41 Discharge Date: Sep 21, 2021 at 16:13 Dr. Sullivan, The medical record reflects the following clinical scenario: History/Risk Factors: SOB, AE idiopathic pulmonary fibrosis, HTN w/ acute systolic heart failure, NSTEMI Clinical Findings: mildly elevated troponin, EKG showing sinus tachycardia, no acute ST changes, possible type 2 SC secondary to hypoxemia, Troponin 0.150 Treatment: ASA, medical management pt refused heart cath Question: Can you further specify the type of SC per the clinical indicators above? Please document a response in the Progress Notes or Discharge Summary. 1. SC type 2 2. NSTEMI 3. Other, with explanation of the clinical findings. 4. Clinically undetermined, no explanation for the clinical findings. PHYSICIAN RESPONSE Can you specify per above: 1 Please remember a lack of response to the above will prompt a phone page by [facility]/Coding staff. In responding to this query, please exercise your independent professional judgment. The purpose of this communication is to more accurately reflect the complexity of your patients condition. The fact that a question is asked does not imply that any particular answer is desired or expected. Thank you for your timely response to this clarification. Requestors name: Ziyad THIS PHYSICIAN QUERY FORM IS A PERMANENT PART OF THE MEDICAL RECORD ZIYAD SAVAGE Sep 28, 2021 18:01 NEY SULLIVAN MD Sep 28, 2021 19:23
== END 2021-09-21 16:13 | disposition hospice, home (50) | DRG 196 ==
LOC: EDUNIT# 11:52 → ER 11:53 → 4TH 14:41
PROVIDERS: ADMIT Internal Medicine; ATTEND Internal Medicine
DX: J84.112 Idiopathic pulmonary fibrosis (principal); I21.A1 Myocardial infarction type 2; I50.21 Acute systolic (congestive) heart failure; J96.11 Chronic respiratory failure with hypoxia; I11.0 Hypertensive heart disease with heart failure; I27.20 Pulmonary hypertension, unspecified; E11.40 Type 2 diabetes mellitus with diabetic neuropathy, unspecified; Z66 Do not resuscitate; Z20.822 Contact with and (suspected) exposure to COVID-19; E11.65 Type 2 diabetes mellitus with hyperglycemia; E11.319 Type 2 diabetes mellitus with unspecified diabetic retinopathy without macular edema; Z79.84 Long term (current) use of oral hypoglycemic drugs; J44.9 Chronic obstructive pulmonary disease, unspecified; E78.00 Pure hypercholesterolemia, unspecified; R00.0 Tachycardia, unspecified; K21.9 Gastro-esophageal reflux disease without esophagitis; M19.91 Primary osteoarthritis, unspecified site; H54.7 Unspecified visual loss; H91.90 Unspecified hearing loss, unspecified ear; Z85.038 Personal history of other malignant neoplasm of large intestine; Z79.82 Long term (current) use of aspirin; Z79.52 Long term (current) use of systemic steroids; Z88.5 Allergy status to narcotic agent; Z88.0 Allergy status to penicillin; Z80.0 Family history of malignant neoplasm of digestive organs; Z82.49 Family history of ischemic heart disease and other diseases of the circulatory system
CPT/HCPCS: 36415; 36600; 71045; 80048; 80053; 80061; 81000; 82805; 82947; 83735; 83874; 83880; 84484; 85025; 85610; 85730; 86141; 87636; 93005; 93041; 93306; 93880; 94640; 94760; 96360; 96372